=== PATIENT | female | born 1940 | race Caucasian/White ===

== ENCOUNTER 2017-11-27 11:23 | Inpatient (IN) ==
[2017-11-27] MEDS ORDERED: Naloxone 0.4 MG/ML INJ IVP PRN (14:44)
[2017-11-27] MEDS ORDERED: Acetaminophen 325 MG TABLET PO PRN (14:44)
[2017-11-27] MEDS ORDERED: Ampicillin/Sulbactam 3,000 MG in 0.9 % Sodium Chloride Mini Bag 100 ML IVPB SCH (14:49)
--- NOTE | 2017-11-27 15:50 | Internal Med History&Physical ---
Date of Encounter: 11/27/17 Time of Encounter: 15:30 Internal Medicine - H&P: HPI Chief complaint: Chills, bacteremia Admitted From: Emergency Dept Plans for Post Hospital Care: Transfer [facility] History of present illness: Ms. Taylor is a 77 year old female patient with history of diabetes, hypertension, hyperlipidemia who was hospitalized at [facility] for altered mental status and fever. Her blood cultures were positive for gram-positive cocci and so she was sent over. Patient describes chills and fever. Denies any chest pain or palpitations. Feels much better today. She has a long-standing skin wound in her upper back with no pain or discharge. Other than that she does not have any other ulcers. She denies any dysuria or hematuria. No chest pain or palpitations. She does have a bioprosthetic aortic valve. She is not on anticoagulation. She feels much better today compared to yesterday. She did receive vancomycin and Rocephin at the hospital. Past Med Surg Social Fam HX - Past Medical History Attestation: Yes The following information was validated with the patient. Source: patient Medical history: arthritis, cancer, cirrhosis, CHF, diabetes, hyperlipidemia, hypertension, liver disease Additional medical history: valvular heart disease Psychiatric history: no psych history - Past Surgical History Surgical History: appendectomy, cataract, heart valve replacement, hysterectomy , [place]/BS[place] Additional surgical history: HAMMER TOES. ACHILLES HEEL REPAIR. LEFT TKR. BLADDER REPAIR. AVR 08/2014. A&P. BREAST BIOPSY - Social History Smoking Status: Former smoker Smokeless Tobacco Status: No Alcohol use: none Drug use: none - Family History Mother Living Status: Age at : 65 Cause of : CVA Hx Family Cardiac Disorders: No Hx Family Respiratory Disorders: No Hx Family Endocrine Disorder: Yes Hx Family Neurologic Disorders: Yes Hx Family Medical Disorders: Yes Internal Medicine - H&P: Meds Albuterol Sulfate [Proair Respiclick] 180 mcg IH Q4H PRN 05/11/15 [History] Aspirin [Adult Low Dose Aspirin EC] 81 mg PO DAILY 05/11/15 [History] Ferrous Sulfate 325 mg PO DAILY 05/11/15 [History] Furosemide [Lasix] 40 mg PO BID 05/11/15 [History] Insulin Glargine [Lantus] 40 unit SQ BID 05/11/15 [History] Metoprolol [Lopressor] 25 mg PO DAILY 05/11/15 [History] Allopurinol [Zyloprim 100 MG] 100 mg PO DAILY 04/07/17 [History] Calcitriol [Rocaltrol] 0.25 mg PO DAILY 04/07/17 [History] Cholecalciferol (D-3) [Vitamin D] 5,000 unit PO DAILY 04/07/17 [History] Multivit-Min/FA/Lycopen/Lutein [Centrum Silver Tablet] 1 tab PO DAILY 04/07/17 [ History] Vitamin E Acetate [Vitamin E] 400 unit PO DAILY 04/07/17 [History] Oxycodone HCl [Oxaydo] 5 mg PO Q4H PRN 06/15/17 [History] Lactobacillus [Culturelle] 1 each PO BID #10 cap.sprink 11/10/17 [Rx] 3 Allergy/AdvReac Type Severity Reaction Status Date / Time Gyhtdly-Sdn-Sui Reductase AdvReac Muscle Pain Verified 11/07/17 13:56 Inhibitor [Statins] All Systems PM: A 10-system review of systems was performed and is negative for pertinent findings except as documented above in the HPI. - Constitutional Constitutional: chills, fever(s), no night sweats - EENT Eyes: no change in vision, no discharge, no pain, no photophobia Ears: no ear discharge, no ear pain, no tinnitus Nose, mouth and throat: no dysphagia, no nasal discharge, no neck pain, no sore throat - Cardiovascular Cardiovascular ROS IM: no chest pain, no diaphoresis, no dyspnea, no lightheadedness, no palpitations, no syncope - Respiratory Respiratory: no cough, no dyspnea, no wheezing, no excessive phlegm production - Gastrointestinal Gastrointestinal: no abdominal pain, no diarrhea, no hematemesis, no hematochezia, no melena, no nausea, no vomiting - Genitourinary Genitourinary: no change in urinary stream, no dysuria, no flank pain, no hematuria - Musculoskeletal Musculoskeletal ROS IM: no numbness, no tingling - Integumentary Integumentary IM: no rash, no unusual bruising - Neurological Neurological ROS: no confusion, no convulsions, no focal weakness, no numbness, no tingling, no tremor(s) - Hematologic/Lymphatic Hematologic/Lymphatic: no easy bruising - Constitutional Vitals: Pulse Resp BP Pulse Ox 69 18 167/67 94 11/27/17 14:08 11/27/17 14:08 11/27/17 14:08 11/27/17 14:08 General appearance: Present: cooperative, A&O X 3, pleasant, answers questions appropriately - Eye Eye exam: Present: EOMI, PERRL, conjuntiva pink, sclera anicteric - Neck Neck exam general surgery: Present: supple, trachea midline. Absent: lymphadenopathy - Respiratory Respiratory exam: Present: CTAB. Absent: accessory muscle use, rales, rhonchi, wheezes - Cardiovascular Cardiovascular exam: Present: RRR, +S1, +S2. Absent: diastolic murmur, gallop, rubs, systolic murmur - GI/Abdominal GI/Abdominal exam: Present: normal bowel sounds, soft, no peritoneal signs. Absent: distended, tenderness - Extremities Exam Extremities exam: Present: warm, radial pulses palpable and symmetrical. Absent : calf tenderness, cyanotic, pedal edema - Neurological Exam Neurological exam: Present: CN II-XII intact, oriented X3, no focal deficits. Absent: facial droop, speech deficit - Skin Skin exam: Present: dry, intact Internal Med - H&P Results - Labs Labs: WBC 3.5, hemoglobin 9.4, platelets 63, BUN 24, creatinine 1.45 - Impressions Chest x-ray shows no acute infiltrate - Assessment and plan (1) Staphylococcus aureus bacteremia Current Visit: Yes Status: Acute Assessment and plan: Patient with recurrent staph aureus bacteremia. We will place her on Unasyn. Consult infectious disease. No clear source. We will get 2-D echocardiogram. If patient continues to have fevers and positive blood culture she will need a ELVER even if the transthoracic echocardiogram is negative. High risk for complications. (2) Anemia Current Visit: Yes Status: Acute Assessment and plan: Patient with chronic anemia. Hemoglobin 9.4. We will monitor blood counts. Qualifiers: Anemia type: due to chronic kidney disease Chronic kidney disease stage: stage 3 (moderate) Qualified Code(s): N18.3 - Chronic kidney disease, stage 3 (moderate); D63.1 - Anemia in chronic kidney disease (3) CKD (chronic kidney disease), stage III Current Visit: Yes Status: Chronic Assessment and plan: Renal function appears to be stable. Will follow renal function as patient receives IV antibiotics. (4) DM type 2 (diabetes mellitus, type 2) Current Visit: Yes Status: Chronic Assessment and plan: Sliding scale insulin. Diabetic diet. Monitor blood sugars closely. Qualifiers: Diabetes mellitus halfway insulin use: with halfway use Diabetes mellitus complication status: with kidney complications Diabetes mellitus complication detail: with chronic kidney disease Chronic kidney disease stage : stage 3 (moderate) Qualified Code(s): E11.22 - Type 2 diabetes mellitus with diabetic chronic kidney disease; N18.3 - Chronic kidney disease, stage 3 ( moderate); Z79.4 - oysterman (current) use of insulin (5) Hypertension Current Visit: Yes Status: Chronic Assessment and plan: Uncontrolled. Resume home medications. Monitor blood pressure. If persistently elevated, will increase Lopressor dosage. Qualifiers: Hypertension type: essential hypertension Qualified Code(s): I10 - Essential (primary) hypertension (6) Thrombocytopenia Current Visit: Yes Status: Chronic Assessment and plan: Due to cirrhosis. Will monitor platelet counts. Avoid medical anticoagulation for now - Time Spent With Patient Total time spent is greater than 50% in coordination of care (as documented) at patient's floor/unit and/or counseling patient:
[2017-11-27] MEDS ORDERED: *HR* Dextrose 50 % in Water (Syg) 50 ML SYRINGE IVP PRN (15:56)
[2017-11-27] MEDS ORDERED: Dextrose Gel 15 GM/37.5 ML TUBE PO PRN ×2 (15:56)
[2017-11-27] MEDS ORDERED: D5% in Water 1,000 ML IVC PRN (15:56)
[2017-11-27] MEDS: Ampicillin/Sulbactam 3,000 MG in 0.9 % Sodium Chloride Mini Bag 100 ML IVPB SCH ×2 (16:04→22:46)
[2017-11-27] MEDS: Insulin LISPRO 300 UNITS/3 ML VIAL SQ SCH ×2 (16:10→22:45)
[2017-11-27] MEDS ORDERED: *HR* Heparin 5,000 UNIT/ML VIAL SQ SCH (18:00)
[2017-11-28] MEDS: Ampicillin/Sulbactam 3,000 MG in 0.9 % Sodium Chloride Mini Bag 100 ML IVPB SCH ×2 (04:03→09:39)
[2017-11-28 04:16] LABS: Basophils % 0.2 %; Eosinophils # 0.2 K/mcL (0.0-0.6); Hematocrit 30.3 % (35.3-44.9); Immature Granulocytes % 0.6 % (0-4); Immature Platelets 3.8 % (1.1-6.1); Lymphocytes # 1.3 K/mcL (0.6-4.6); Mean Corpuscular Hemoglobin 29.4 pg (28.0-33.3); Mean Corpuscular Volume 89.1 fL (83.0-100.0); Mean Platelet Volume 10.8 fL (9.4-12.4); Monocytes # 0.9 K/mcL (0.0-1.3); Monocytes % 18.1 %; Neutrophils # 2.6 K/mcL (1.6-8.9); Red Cell Distribution Width 15.7 % (11.5-14.5); Segmented Neutrophils % 52.1 %
[2017-11-28 04:24] LABS: Platelet Count 67 K/mcL (140-400)
[2017-11-28 04:34] LABS: Calcium 8.7 mg/dL (8.6-10.3); Potassium 3.9 mEq/L (3.5-5.1)
[2017-11-28 05:07] LABS: Platelet Estimate Decreased (Normal)
[2017-11-28] MEDS: Insulin LISPRO 300 UNITS/3 ML VIAL SQ SCH ×4 (09:42→21:05)
--- NOTE | 2017-11-28 10:51 | Infectious Disease Consult ---
Date of Encounter: 11/28/17 Time of Encounter: 10:45 Assessment and Plan (1) Sepsis Status: Acute Assessment and plan: Patient did have 2/4 SIRS criteria with fever and leukopenia Suspected source is persistent MSSA bacteremia 2/2 blood cultures positive for GPC collected at [place] Qualifiers: Sepsis type: methicillin susceptible Staphylococcus aureus Qualified Code(s ): A41.01 - Sepsis due to Methicillin susceptible Staphylococcus aureus (2) Bacteremia due to methicillin susceptible Staphylococcus aureus (MSSA) Status: Acute Assessment and plan: Complicated MSSA bacteremia due to setting of hardware s/p TKR and bioprosthetic valve Patient was admitted at [facility] earlier this month and only received 3 days IV Ancef and 5 days oral Doxycycline 2/2 blood cultures at [facility] initially growing GPC Repeat blood cultures x 3 Will discontinue Unasyn Start Nafcillin 2 gram q4h TTE did not show any vegatations ELVER pending; if positive recommend adding Gentamicin According to Modified Hayden's, she has 1 major (MSSA bacteremia) and 2 minor ( heart disease, fever) criteria Duration depends on clinical picture but in setting of complicated bacteremia, may need 4-6 weeks IV from negative culture Creatinine clearance 37 (3) Productive cough Status: Acute Assessment and plan: Initial CXR did reveal pulmonary vascular congestion In setting of bacteremia, will rule out pneumonia/septic emboli with non contrast chest CT (4) History of aortic valve replacement with bioprosthetic valve Status: Acute Assessment and plan: 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 Taylor is a 77 year old female who was admitted from [facility] on November 27 for gram positive cocci bacteremia. We are being consulted today for recurrent MSSA bacteremia. Patient has a medical history of diabetes, hypertension, bioprosthetic aortic valve, left total knee replacement who initially presented to [facility] on November 26 for confusion that started abruptly at 4 AM. Initial vital signs were temperature of 98.1 with second reading 5 hours later of 102.8, heart rate of 89 , respiratory rate of 18, blood pressure 140/67. Her white count was 5.7 and lactic acid was 2.3. Chest x-ray showed pulmonary vascular congestion and head CT was negative but had motion artifact. She was started on Vancomycin and Rocephin and once blood cultures came back 2 out of 2 for gram-positive cocci, patient was transferred to [place] to help identify source of infection. Once she was transferred here, patient was started on Unasyn and echocardiogram was obtained. Due to the fact that she has MSSA that is recurrent in setting of by prosthetic aortic valve, she is planned to get a transesophageal echo cardiogram today. During today's examination, she has been afebrile and non-tachycardic since admission, and white count is stable at 4.9. Patient states she is feeling well and has no complaints of chest pain pain. She has no shortness of breath but states she has cough with sputum production. She denies any fevers, chills, nausea, vomiting, or diarrhea. She states she has mild back pain is located in the upper back states this is due to basal cell carcinoma. 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 She denies any sick contacts, recent travel, hiking, or camping. She lives with her at home. Of note, patient was also admitted at [facility] from November 07 to November 10 for similar issues with delirium and fever of 101.2. At that time, patient also had MSSA bacteremia to have 2 cultures positive. She was given Ancef while inpatient and discharged with 5 days of doxycycline, which patient states she finished. CC: Raffi Sexton MD Past Med Surg Social Fam HX - Past Medical History Medical history: arthritis, cancer, cirrhosis, CHF, diabetes, hyperlipidemia, hypertension, liver disease Additional medical history: valvular heart disease Psychiatric history: no psych history - Past Surgical History Surgical History: appendectomy, cataract, heart valve replacement, hysterectomy , [place]/BS[place] Additional surgical history: HAMMER TOES. ACHILLES HEEL REPAIR. LEFT TKR. BLADDER REPAIR. AVR 08/2014. A&P. BREAST BIOPSY - Social History Smoking Status: Former smoker Smokeless Tobacco Status: No Alcohol use: none Drug use: none - Family History Mother Living Status: Age at : 65 Cause of : CVA Hx Family Cardiac Disorders: No Hx Family Respiratory Disorders: No Hx Family Endocrine Disorder: Yes Hx Family Neurologic Disorders: Yes Hx Family Medical Disorders: Yes Infectious Disease-CN:Meds Albuterol Sulfate [Proair Respiclick] 180 mcg IH Q4H PRN 05/11/15 [History] Allopurinol [Zyloprim 100 MG] 100 mg PO DAILY 04/07/17 [History] Calcitriol [Rocaltrol] 0.25 mg PO DAILY 04/07/17 [History] Cholecalciferol (D-3) [Vitamin D] 5,000 unit PO DAILY 04/07/17 [History] Multivit-Min/FA/Lycopen/Lutein [Centrum Silver Tablet] 1 tab PO DAILY 04/07/17 [ History] Vitamin E Acetate [Vitamin E] 400 unit PO DAILY 04/07/17 [History] Acetaminophen [Non-Aspirin] 325 mg PO DAILY PRN 11/28/17 [History] Ferrous Sulfate [Iron] 325 mg PO DAILY 11/28/17 [History] Furosemide [Lasix] 40 mg PO BID 11/28/17 [History] Insulin Glargine,Hum.rec.anlog [Lantus Solostar] 40 units SQ BID 11/28/17 [ History] Insulin LISPRO [Humalog] 0 unit SQ TIDWM 11/28/17 [History] Metoprolol [Lopressor] 25 mg PO DAILY 11/28/17 [History] Terbinafine HCl [Terbinafine HCl] 250 mg PO DAILY 11/28/17 [History] 3 Allergy/AdvReac Type Severity Reaction Status Date / Time Xsffgyd-Qrt-Vks Reductase AdvReac Muscle Pain Verified 11/28/17 10:02 Inhibitor [Statins] Review of systems: 10 point review of systems done, negative other for what is mentioned in history of present illness - Constitutional Constitutional: Present: chills, headache(s). Absent: fever(s), night sweats - Cardiovascular Cardiovascular: Present: edema, pedal edema. Absent: chest pain, chest pain at rest, dyspnea, irregular heart rhythm, leg edema, leg ulcers, lightheadedness, syncope - Respiratory Respiratory: Present: cough, chest congestion, excessive phlegm production. Absent: dyspnea, hemoptysis, dyspnea on exertion, wheezing, pain with cough - Gastrointestinal Gastrointestinal: Absent: abdominal pain, diarrhea, melena, nausea, vomiting - Genitourinary Genitourinary: Absent: difficulty urinating, urinary frequency, urinary incontinence - Musculoskeletal Musculoskeletal: Absent: muscle weakness, myalgias, numbness, tingling - Integumentary Integumentary: Present: non-healing lesions (in back). Absent: change in nails , new lesions Exam - Constitutional Vitals: Temp Pulse Resp BP Pulse Ox 98.3 F 62 16 142/62 99 11/28/17 07:42 11/28/17 07:42 11/28/17 07:42 11/28/17 07:42 11/28/17 07:42 General appearance: cooperative, no acute distress, obese, no febrile - Head Head exam: Present: atraumatic, normocephalic - Eye Eye exam: Present: EOMI, PERRL, sclera anicteric. Absent: conjunctival injection - ENT ENT exam: Present: mucous membranes moist Additional comments: No oral lesions noted - Neck Neck exam: Present: full ROM. Absent: meningismus - Respiratory Respiratory exam: Present: CTAB. Absent: accessory muscle use, chest wall tenderness, decreased breath sounds, respiratory distress, wheezes - Cardiovascular Cardiovascular exam: Present: RRR, systolic murmur. Absent: bradycardia, irregular rhythm, tachycardia - GI/Abdominal GI/Abdominal exam: Present: normal bowel sounds, soft. Absent: tenderness - Extremities Exam Extremities exam: Present: pedal edema (trace). Absent: tenderness - Back Exam Back exam: Present: rash noted (small scabbed over rash in upper right back, patient states from basal cell). Absent: vertebral tenderness - Neurological Exam Neurological exam: Present: alert, oriented X3. Absent: motor sensory deficit, facial droop, speech deficit - Psychiatric Psychiatric exam: Present: normal affect, normal mood - Skin Skin exam: Present: normal color. Absent: rash (No endocarditis stigmata) Infectious Disease CN: Results - Labs CBC & Chem 7: 12/01/17 08:28 12/01/17 08:28 - VTE Documentation of Mechanical Device: Intermittent pneumatic compression device Consult Discharge Plan - Plan Referrals: Latoya Harkins, [employer] [Primary Care Provider] - - Attending Attestation I examined this patient and my medical decision-making was reviewed with the Resident Physician. I agree with the documented findings, disposition and treatment plan as described except to the extent set forth below. This is an addendum to original report dictated by resident physician. Please refer to residents note for full detail. Patient is a 77-year-old woman with past medical history mentioned below including history of left total knee arthroplasty and bioprosthetic aortic valve replacement a few years back was admitted to [facility] recently for MSSA bacteremia. At that time patient was treated with 3 days of IV antibiotics and discharged home on 5 more days of doxycycline. Patient started feeling weak confused with altered mental status at home and was brought into the emergency department for evaluation. Patient was started on broad-spectrum antibiotics including vancomycin and Rocephin and cultures were obtained and 2 out of 2 sets grew gram-positive cocci likely MSSA. We were asked to evaluate the patient and make further recommendations. Currently patient appears comfortable nontoxic. Physical exam does not reveal conjunctival hemorrhage. I did not appreciate any new murmur. Patient does not have any vertebral tenderness. Patient skin with no rash or signs of endocarditis stigmata. Assessment and plan: MSSA bacteremia that is complicated. Patient had by prostatic valve and total knee arthroplasty on the left. ELVER was done and came back negative for endocarditis. No obvious source for the endocarditis. Patient does not have any central lines. Patient does not have any skin wounds. At this point patient will need at least 4 weeks worth of IV antibiotics. We will start the patient on nafcillin. Dose adjust based on creatinine clearance. MARÍA Monroy. Monitor labs and for drug toxicity Repeat blood cultures 3 now Once bacteremia has resolved for at least 48 hours we will put her PICC line
--- NOTE | 2017-11-28 10:53 | Internal Med Progress Note ---
<Sandra Farrar - Last Filed: 11/28/17 10:59> Date of Encounter: 11/28/17 Time of Encounter: 10:51 - Assessment and plan (1) Staphylococcus aureus bacteremia Current Visit: Yes Status: Acute Assessment and plan: Patient with recurrent staph aureus bacteremia. Patient currently on unasyn. ID consulted. No obvious source at this time. Patient does have bioprosthetic aortic valve TTE completed but leaflets not well visualized therefore ELVER ordered and pending (2) Anemia Current Visit: Yes Status: Acute Assessment and plan: Patient with chronic anemia. Hemoglobin 10.0. We will monitor blood counts. Qualifiers: Anemia type: due to chronic kidney disease Chronic kidney disease stage: stage 3 (moderate) Qualified Code(s): N18.3 - Chronic kidney disease, stage 3 (moderate); D63.1 - Anemia in chronic kidney disease (3) CKD (chronic kidney disease), stage III Current Visit: Yes Status: Chronic Assessment and plan: renal function appears to be stable. Will follow renal function as patient receives IV antibiotics. (4) DM type 2 (diabetes mellitus, type 2) Current Visit: Yes Status: Chronic Assessment and plan: Sliding scale insulin. Monitor blood sugars closely. Patient NPO for possible ELVER Qualifiers: Diabetes mellitus half-way insulin use: with half-way use Diabetes mellitus complication status: with kidney complications Diabetes mellitus complication detail: with chronic kidney disease Chronic kidney disease stage : stage 3 (moderate) Qualified Code(s): E11.22 - Type 2 diabetes mellitus with diabetic chronic kidney disease; N18.3 - Chronic kidney disease, stage 3 ( moderate); Z79.4 - FPC (current) use of insulin (5) Hypertension Current Visit: Yes Status: Chronic Assessment and plan: Resume home medications. Monitor blood pressure. Qualifiers: Hypertension type: essential hypertension Qualified Code(s): I10 - Essential (primary) hypertension (6) Thrombocytopenia Current Visit: Yes Status: Chronic Assessment and plan: Due to cirrhosis. Will monitor platelet counts. Avoid medical anticoagulation for now - Time Spent With Patient Total time spent is greater than 50% in coordination of care (as documented) at patient's floor/unit and/or counseling patient: - Subjective Interval history: Patient states she is feeling well today. Denies any chest pain, shortness of breath or dizziness. Denies any urinary symptoms. Does state she has had 2-3 episodes of loose bowels this morning but denies any blood or melena. - Constitutional Vitals: Temp Pulse Resp BP Pulse Ox 98.3 F 62 16 142/62 99 11/28/17 07:42 11/28/17 07:42 11/28/17 07:42 11/28/17 07:42 11/28/17 07:42 General appearance: Present: cooperative, A&O X 3, pleasant, answers questions appropriately - Head Head exam: Present: atraumatic, normocephalic - Neck Neck exam general surgery: Present: supple, trachea midline. Absent: lymphadenopathy - Cardiovascular Cardiovascular exam: Present: RRR, +S1, +S2. Absent: diastolic murmur, gallop, rubs, systolic murmur - GI/Abdominal GI/Abdominal exam: Present: normal bowel sounds, soft, no peritoneal signs. Absent: distended, tenderness - Neurological Exam Neurological exam: Present: alert, oriented X3, no focal deficits Internal Medicine: Result - Labs CBC & Chem 7: 11/28/17 04:01 11/28/17 04:01 Labs: Short CBC 11/28/17 Range/Units 04:01 WBC 4.9 (4.3-11.1) K/mcL Hgb 10.0 L (11.5-15.4) g/dL Hct 30.3 L (35.3-44.9) % Plt Count 67 L (140-400) K/mcL Neutrophils # 2.6 (1.6-8.9) K/mcL BMP 11/28/17 04:01 Sodium 136 Potassium 3.9 Chloride 105 Carbon Dioxide 23 BUN 26 H Creatinine 1.38 H Glucose 75 Calcium 8.7 - Impressions Impressions Echocardiogram 11/27/17 14:46 Impressions: LVEF 60-65%. Normal LV chamber size and function. Mild concentric left ventricular hypertrophy. Atypical septal motion consistent with post-operative status. Moderate left ventricular diastolic dysfunction. Normal right ventricular structure and function. Bioprosthetic aortic valve appears well seated in the LVOT. Leaflets were not well visualized. Significant prosthetic aortic stenosis suggested by Doppler. Mean gradient 41 mmHg. Peak velocity 4.44 m/s. These values are similar to the prior report from 08/2016. No aortic regurgitation. Mild tricuspid regurgitation. Moderate pulmonary hypertension. Estimated RVSP is 53 mmHg. No vegetations visualized. Consider repeat study or ELVER as clinically indicated. Left Ventricular Wall Motion: Rest Echo Findings All wall segments showed normal motion. Findings: Study Quality * Technically adequate exam. ECG Findings * Normal sinus rhythm. Left Ventricle * LVEF 60-65%. * Normal LV chamber size and function. * Mild concentric left ventricular hypertrophy. * Atypical septal motion consistent with post-operative status. * Moderate left ventricular diastolic dysfunction. Right Ventricle * Normal right ventricular structure and function. Left Atrium * Moderately dilated left atrium. Right Atrium * Mildly dilated right atrium. Aortic Valve * Bioprosthetic aortic valve appears well seated in the LVOT. Leaflets were not well visualized. * Significant prosthetic aortic stenosis suggested by Doppler. Mean gradient 41 mmHg. Peak velocty 4.44 m/s. These values are similar to the prior report from 08/2016. * No aortic regurgitation. Mitral Valve * Mild mitral annular calcification * Trace mitral regurgitation. * No mitral stenosis. Tricuspid Valve * Normal tricuspid valve structure. * Mild tricuspid regurgitation. * Moderate pulmonary hypertension. * Estimated RVSP is 53 mmHg. * Estimated RA pressure is presumed to be at least 5 mmHg mmHg. Pulmonic Valve * Normal pulmonic valve structure and function. * No pulmonic regurgitation. Aorta * Normally sized aortic root. Pericardium * The pericardium appears normal. IVC * The IVC is not well evaluated. Pulmonary Artery * Normal visualized portions of the main pulmonary artery. - VTE Documentation of Mechanical Device: Intermittent pneumatic compression device Consult Discharge Plan - Plan Referrals: Latoya Harkins FLEET TECHNICIAN [Primary Care Provider] - <Андрей Tirado - Last Filed: 11/28/17 13:16> Date of Encounter: 11/28/17 - Assessment and plan (1) Thrombocytopenia Current Visit: Yes Status: Chronic (2) CKD (chronic kidney disease), stage III Current Visit: Yes Status: Chronic (3) Staphylococcus aureus bacteremia Current Visit: Yes Status: Acute (4) DM type 2 (diabetes mellitus, type 2) Current Visit: Yes Status: Chronic Qualifiers: Diabetes mellitus intermediate manager insulin use: with intermediate manager use Diabetes mellitus complication status: with kidney complications Diabetes mellitus complication detail: with chronic kidney disease Chronic kidney disease stage : stage 3 (moderate) Qualified Code(s): E11.22 - Type 2 diabetes mellitus with diabetic chronic kidney disease; N18.3 - Chronic kidney disease, stage 3 ( moderate); Z79.4 - intermediate manager (current) use of insulin (5) Hypertension Current Visit: Yes Status: Chronic Qualifiers: Hypertension type: essential hypertension Qualified Code(s): I10 - Essential (primary) hypertension (6) Anemia Current Visit: Yes Status: Acute Qualifiers: Anemia type: due to chronic kidney disease Chronic kidney disease stage: stage 3 (moderate) Qualified Code(s): N18.3 - Chronic kidney disease, stage 3 (moderate); D63.1 - Anemia in chronic kidney disease - Time Spent With Patient Total time spent is greater than 50% in coordination of care (as documented) at patient's floor/unit and/or counseling patient: - Constitutional Vitals: Temp Pulse Resp BP Pulse Ox 97.9 F 67 16 160/86 96 11/28/17 11:52 11/28/17 11:52 11/28/17 11:52 11/28/17 11:52 11/28/17 11:52 Internal Medicine: Result - Labs CBC & Chem 7: 11/28/17 04:01 11/28/17 04:01 Labs: Short CBC 11/28/17 Range/Units 04:01 WBC 4.9 (4.3-11.1) K/mcL Hgb 10.0 L (11.5-15.4) g/dL Hct 30.3 L (35.3-44.9) % Plt Count 67 L (140-400) K/mcL Neutrophils # 2.6 (1.6-8.9) K/mcL BMP 11/28/17 04:01 Sodium 136 Potassium 3.9 Chloride 105 Carbon Dioxide 23 BUN 26 H Creatinine 1.38 H Glucose 75 Calcium 8.7 - Impressions Impressions Echocardiogram 11/27/17 14:46 Impressions: LVEF 60-65%. Normal LV chamber size and function. Mild concentric left ventricular hypertrophy. Atypical septal motion consistent with post-operative status. Moderate left ventricular diastolic dysfunction. Normal right ventricular structure and function. Bioprosthetic aortic valve appears well seated in the LVOT. Leaflets were not well visualized. Significant prosthetic aortic stenosis suggested by Doppler. Mean gradient 41 mmHg. Peak velocity 4.44 m/s. These values are similar to the prior report from 08/2016. No aortic regurgitation. Mild tricuspid regurgitation. Moderate pulmonary hypertension. Estimated RVSP is 53 mmHg. No vegetations visualized. Consider repeat study or ELVER as clinically indicated. Left Ventricular Wall Motion: Rest Echo Findings All wall segments showed normal motion. Findings: Study Quality * Technically adequate exam. ECG Findings * Normal sinus rhythm. Left Ventricle * LVEF 60-65%. * Normal LV chamber size and function. * Mild concentric left ventricular hypertrophy. * Atypical septal motion consistent with post-operative status. * Moderate left ventricular diastolic dysfunction. Right Ventricle * Normal right ventricular structure and function. Left Atrium * Moderately dilated left atrium. Right Atrium * Mildly dilated right atrium. Aortic Valve * Bioprosthetic aortic valve appears well seated in the LVOT. Leaflets were not well visualized. * Significant prosthetic aortic stenosis suggested by Doppler. Mean gradient 41 mmHg. Peak velocty 4.44 m/s. These values are similar to the prior report from 08/2016. * No aortic regurgitation. Mitral Valve * Mild mitral annular calcification * Trace mitral regurgitation. * No mitral stenosis. Tricuspid Valve * Normal tricuspid valve structure. * Mild tricuspid regurgitation. * Moderate pulmonary hypertension. * Estimated RVSP is 53 mmHg. * Estimated RA pressure is presumed to be at least 5 mmHg mmHg. Pulmonic Valve * Normal pulmonic valve structure and function. * No pulmonic regurgitation. Aorta * Normally sized aortic root. Pericardium * The pericardium appears normal. IVC * The IVC is not well evaluated. Pulmonary Artery * Normal visualized portions of the main pulmonary artery. - Attending Attestation I performed an independent interview and examine of this patient. I agree with the findings, assessment, and plan of Dr. Farrar, internal medicine resident. I also discussed the case with infectious diseases. They will adjust her antibiotics accordingly. I did order a transesophageal echocardiogram to better visualize felt leaflets. She does have a history of bioprosthetic aortic valve. The etiology of her bacteremia is of yet unknown. She does remain hemodynamically stable. Ultimately will need a PICC line for prolonged antibiotics once repeat blood cultures are negative. All else as outlined above.
[2017-11-28] MEDS ORDERED: Lidocaine Viscous Oral Soln 15 ML SOLUTION MM PRN (13:14)
[2017-11-28] MEDS ORDERED: *HR* FentaNYL (PF) 100 MCG/2 ML VIAL IVP PRN (13:14)
[2017-11-28] MEDS ORDERED: Tetracaine/Benzocaine/Butamben 200MG/SPRAY (100SPY/BOT) MM ONE (13:15)
[2017-11-28] MEDS ORDERED: 0.9 % Sodium Chloride 500 ML IVC ONE (13:15)
[2017-11-28] MEDS ORDERED: *HR* Midazolam HCl 5 MG/5 ML VIAL IVP PRN (13:15)
[2017-11-28] MEDS ORDERED: Nafcillin 2,000 MG in D5% in Water 100 ML IVPB SCH (16:00)
[2017-11-28] MEDS: Furosemide 40 MG TABLET PO SCH (17:07)
[2017-11-28] MEDS: Nafcillin 2,000 MG in D5% in Water 100 ML IVPB SCH (21:57)
[2017-11-29] MEDS: Nafcillin 2,000 MG in D5% in Water 100 ML IVPB SCH ×6 (00:33→22:20)
[2017-11-29 06:27] LABS: Hemoglobin 9.3 g/dL (11.5-15.4); Mean Corpuscular Volume 90.8 fL (83.0-100.0)
[2017-11-29 06:29] LABS: Basophils % 0.4 %; Eosinophils # 0.1 K/mcL (0.0-0.6); Eosinophils % 2.5 %; Hematocrit 28.6 % (35.3-44.9); Immature Granulocytes % 0.4 % (0-4); Immature Platelets 4.1 % (1.1-6.1); Lymphocytes # 0.7 K/mcL (0.6-4.6); Lymphocytes % 26.2 %; Mean Corpuscular HGB Conc 32.5 g/dL (31.6-35.5); Mean Corpuscular Hemoglobin 29.5 pg (28.0-33.3); Mean Platelet Volume 10.7 fL (9.4-12.4); Monocytes # 0.4 K/mcL (0.0-1.3); Monocytes % 15.6 %; Red Blood Count 3.15 M/mcL (3.82-4.97); Red Cell Distribution Width 15.8 % (11.5-14.5); Segmented Neutrophils % 54.9 %
[2017-11-29 06:31] LABS: Neutrophils # 1.5 K/mcL (1.6-8.9); Platelet Count 63 K/mcL (140-400)
[2017-11-29 06:47] LABS: Calcium 8.4 mg/dL (8.6-10.3); Potassium 4.2 mEq/L (3.5-5.1)
[2017-11-29] MEDS: (Terbinafine Hcl [Terbinafine Hcl] 250 MG) PO SCH (09:59)
[2017-11-29] MEDS: Furosemide 40 MG TABLET PO SCH ×2 (09:59→16:21)
[2017-11-29] MEDS: Cholecalciferol (D-3) 1,000 UNIT TABLET PO SCH (09:59)
[2017-11-29] MEDS: Multivit/Ca/Min/Fe/FA 1 TAB TABLET PO SCH (09:59)
[2017-11-29] MEDS: Insulin LISPRO 300 UNITS/3 ML VIAL SQ SCH ×4 (10:03→22:21)
--- NOTE | 2017-11-29 11:17 | Infectious Disease Progress No ---
Date of Encounter: 11/29/17 Time of Encounter: 11:14 - Assessment and Plan (1) Sepsis Current Visit: Yes Status: Acute The patient had two SIRS criteria with AMS on admission. Likely secondary to bacteremia. Improved. The patient has been afebrile. Leukopenia appears chronic. Blood cultures drawn 11/26/17 were positive 2/2 for MSSA. Repeat blood cultures drawn 11/28/17 are pending x 2 sets. Qualifiers: Sepsis type: methicillin susceptible Staphylococcus aureus Qualified Code(s ): A41.01 - Sepsis due to Methicillin susceptible Staphylococcus aureus (2) Bacteremia due to methicillin susceptible Staphylococcus aureus (MSSA) Current Visit: Yes Status: Acute Causative organism: MSSA. Source unclear. The patient does have a scabbed lesion to the middle of her upper back for several months, but it clinically does not appear infected. Complicated due to bioprosthetic valve and left knee prosthetic joint. Blood cultures drawn 11/26/17 were positive 2/2 for MSSA. Repeat blood cultures drawn 11/28/17 are pending x 2 sets. The patient has one major and two minor Modified Hayden's Criteria. No endocarditis stigmata noted on exam. TTE and ELVER negative for valvular vegetations. Continue nafcillin 2 grams IV Q4H. Duration of treatment depends on the clinical picture, but likely a total of 4 weeks from the first set of negative blood cultures. Avoid insertion of central venous access until repeat blood cultures are negative x 2 sets for 48 hours. Monitor renal function and dose-adjust antibiotics. director emergency services to assist with discharge planning. Further recommendations for labs, antibiotics, and ID followup pending additional workup. (3) Productive cough Current Visit: Yes Status: Acute CXR negative for acute infection. CT chest showed RUL nodules, infectious vs. inflammatory. Consider pulmonology to evaluate. (4) Cirrhosis Current Visit: No Status: Chronic Etiology unclear. Qualifiers: Hepatic cirrhosis type: unspecified hepatic cirrhosis Ascites presence: without ascites Qualified Code(s): K74.60 - Unspecified cirrhosis of liver (5) Pancytopenia Current Visit: No Status: Chronic Likely secondary to cirrhosis. Continue to trend. (6) History of aortic valve replacement with bioprosthetic valve Current Visit: Yes Status: Acute TTE did show prosthetic valve stenosis. Patient did mention she is in process of getting valve replaced via TAVR. (7) Diabetes mellitus Current Visit: Yes Status: Acute Qualifiers: Qualified Code(s): E11.9 - Type 2 diabetes mellitus without complications - Subjective Interval history: Patient seen and examined. No acute events noted overnight. Patient sitting up in the bedside chair, states overall she feels well. Denies fevers, chills, or rigors. Denies chest pain, shortness of breath, or cough. Denies nausea, vomiting, or diarrhea. States her stools are soft due to stool softeners. Denies abdominal pain, urinary complaints, or appetite changes. Denies oral thrush or skin lesions. Infect Dis PN-Objective Data - Labs CBC & Chem 7: 11/29/17 05:35 11/29/17 05:35 Labs: Laboratory Results - last 24 hr 11/28/17 11/28/17 11/28/17 07:40 11:51 12:31 WBC RBC Hgb Hct MCV MCH MCHC RDW Plt Count MPV Immature Gran % Seg Neutrophils % Lymphocytes % Monocytes % Eosinophils % Basophils % Neutrophils # Lymphocytes # Monocytes # Eosinophils # Basophils # Immature Plt Fraction Sodium Potassium Chloride Carbon Dioxide BUN Creatinine Est GFR ( Amer) Est GFR (Non-Af Amer) BUN/Creatinine Ratio Glucose POC Glucose 76 72 100 H Calculated Osmolality Calcium 11/28/17 11/29/17 11/29/17 16:58 05:35 05:35 WBC 2.8 L RBC 3.15 L Hgb 9.3 L Hct 28.6 L MCV 90.8 MCH 29.5 MCHC 32.5 RDW 15.8 H Plt Count 63 L MPV 10.7 Immature Gran % 0.4 Seg Neutrophils % 54.9 Lymphocytes % 26.2 Monocytes % 15.6 Eosinophils % 2.5 Basophils % 0.4 Neutrophils # 1.5 L Lymphocytes # 0.7 Monocytes # 0.4 Eosinophils # 0.1 Basophils # 0.0 Immature Plt Fraction 4.1 Sodium 134 L Potassium 4.2 Chloride 102 Carbon Dioxide 23 BUN 28 H Creatinine 1.34 H Est GFR ( Amer) 46 L Est GFR (Non-Af Amer) 38 L BUN/Creatinine Ratio 21 Glucose 306 H POC Glucose 71 Calculated Osmolality 295 Calcium 8.4 L Cultures: Cultures 11/28/17 16:46 Blood Culture - Preliminary Peripheral Venipuncture Culture is incubating and being continuously monitored for growth. Final report to follow. 11/28/17 16:47 Blood Culture - Preliminary Peripheral Venipuncture Culture is incubating and being continuously monitored for growth. Final report to follow. - Impressions Impressions Chest CT 11/28/17 14:08 IMPRESSION: 1. Suggestion of minimal interstitial edema potentially congestive heart failure given mild cardiomegaly and trace bilateral pleural effusions. 2. Minimal bronchial wall thickening potentially due to bronchitis, reactive airways disease, or pulmonary vascular congestion. 3. A few new solid nodules in the right upper lobe measure up to 0.3 cm, and a new 0.7 cm x 0.5 cm groundglass nodule is also seen in the right upper lobe. Benign sequelae of an infectious or inflammatory process are considered most likely. Recommend follow-up chest CT in 6-12 months as below. 4. Cirrhotic liver. There is a least mild splenomegaly, potentially due to associated portal hypertension. RECOMMENDATIONS: Fleischner Society guidelines for follow-up and management of incidentally detected pulmonary nodules: Multiple Solid Nodules: Nodule size less than 6 mm In a high-risk patient, optional CT at 12 months. Radiology 2017 http://pubs.[facility]na.org/doi/full/10.1148/radiol.[email or web address] Fleischner Society guidelines for follow-up and management of incidentally detected subsolid pulmonary nodules: Solitary ground glass nodule > than or equal to 6 mm - CT at 6-12 months to confirm persistence, then CT every 2 years until 5 years. Radiology 2017 http://pubs.[facility]na.org/doi/full/10.1148/[email or web address] D/ / Davion Ku MD / Davion Ku MD Interpreting Provider: Davion Ku MD Exam - Constitutional Vitals: Temp Pulse Resp BP Pulse Ox 97.4 F L 87 17 136/79 98 11/29/17 07:02 11/29/17 07:02 11/29/17 07:02 11/29/17 07:02 11/29/17 07:02 General appearance: average body habitus, cooperative, no acute distress - Head Head exam: Present: atraumatic, normal inspection, normocephalic - Eye Eye exam: Present: EOMI, normal appearance, PERRL Pupils: Present: normal accommodation Additional comments: No subconjunctival hemorrhage noted. - ENT ENT exam: Present: mucous membranes moist - Neck Neck exam: Present: normal inspection - Respiratory Respiratory exam: Present: CTAB. Absent: rales, respiratory distress, rhonchi, wheezes - Cardiovascular Cardiovascular exam: Present: RRR, +S1, +S2 - GI/Abdominal GI/Abdominal exam: Present: normal bowel sounds, soft. Absent: distended, tenderness - Extremities Exam Extremities exam: Present: normal inspection. Absent: joint swelling, pedal edema, tenderness - Back Exam Back exam: Absent: vertebral tenderness Additional comments: Scabbed lesion noted to the upper back without redness, warmth, or erythema. - Neurological Exam Neurological exam: Present: alert, oriented X3, no focal deficits - Psychiatric Psychiatric exam: Present: normal affect, normal mood - Skin Skin exam: Present: dry, intact, normal color, warm Additional comments: No endocarditis stigmata noted. - VTE Documentation of Mechanical Device: Intermittent pneumatic compression device Consult Discharge Plan - Plan Referrals: Latoya Harkins, MEAT PUMPER [Primary Care Provider] -
--- NOTE | 2017-11-29 14:39 | Internal Med Progress Note ---
Date of Encounter: 11/29/17 Time of Encounter: 11:00 - Assessment and plan (1) Staphylococcus aureus bacteremia Current Visit: Yes Status: Acute Assessment and plan: Patient with recurrent staph aureus bacteremia. We will place her on Unasyn. Consult infectious disease. No clear source. We will get 2-D echocardiogram. If patient continues to have fevers and positive blood culture she will need a ELVER even if the transthoracic echocardiogram is negative. High risk for complications. 11/29: MSSA bacteremia. Patient does have a history of a bioprosthetic aortic valve, as well as a left prosthetic knee joint. Initial blood cultures on November 26 were positive for MSSA, 2 out of 2. Repeat blood cultures performed on November 28 have no growth to date. ELVER is negative for endocarditis findings. Patient is day #2 IV nafcillin as directed by infectious disease. I currently will need at least 4 weeks of therapy from first set of negative blood cultures. Future PICC line once blood cultres remained negative for 48 hours. Are being made for possibly home infusion of antibiotics. Thus far no obvious source for her bacteremia. (2) Thrombocytopenia Current Visit: Yes Status: Chronic Assessment and plan: Due to cirrhosis. Will monitor platelet counts. Avoid medical anticoagulation for now (3) CKD (chronic kidney disease), stage III Current Visit: Yes Status: Chronic Assessment and plan: Renal function appears to be stable. Will follow renal function as patient receives IV antibiotics. (4) DM type 2 (diabetes mellitus, type 2) Current Visit: Yes Status: Chronic Assessment and plan: Sliding scale insulin. Diabetic diet. Monitor blood sugars closely. Qualifiers: Diabetes mellitus shelter insulin use: with shelter use Diabetes mellitus complication status: with kidney complications Diabetes mellitus complication detail: with chronic kidney disease Chronic kidney disease stage : stage 3 (moderate) Qualified Code(s): E11.22 - Type 2 diabetes mellitus with diabetic chronic kidney disease; N18.3 - Chronic kidney disease, stage 3 ( moderate); Z79.4 - group home (current) use of insulin (5) Hypertension Current Visit: Yes Status: Chronic Qualifiers: Hypertension type: essential hypertension Qualified Code(s): I10 - Essential (primary) hypertension (6) Anemia Current Visit: Yes Status: Acute Qualifiers: Anemia type: due to chronic kidney disease Chronic kidney disease stage: stage 3 (moderate) Qualified Code(s): N18.3 - Chronic kidney disease, stage 3 (moderate); D63.1 - Anemia in chronic kidney disease - Time Spent With Patient Total time spent is greater than 50% in coordination of care (as documented) at patient's floor/unit and/or counseling patient: - Subjective Interval history: Ms. Taylor is a 77 year old female who was admitted from [place] on November 27 for gram positive cocci bacteremia. We are being consulted today for recurrent MSSA bacteremia. Patient has a medical history of diabetes, hypertension, bioprosthetic aortic valve, left total knee replacement who initially presented to [place] on November 26 for confusion that started abruptly at 4 AM. Initial vital signs were temperature of 98.1 with second reading 5 hours later of 102.8, heart rate of 89 , respiratory rate of 18, blood pressure 140/67. Her white count was 5.7 and lactic acid was 2.3. Chest x-ray showed pulmonary vascular congestion and head CT was negative but had motion artifact. She was started on Vancomycin and Rocephin and once blood cultures came back 2 out of 2 for gram-positive cocci, patient was transferred to [place] to help identify source of infection. Once she was transferred here, patient was started on Unasyn and echocardiogram was obtained. Due to the fact that she has MSSA that is recurrent in setting of by prosthetic aortic valve, she is planned to get a transesophageal echo cardiogram today. During today's examination, she has been afebrile and non-tachycardic since admission, and white count is stable at 4.9. Patient states she is feeling well and has no complaints of chest pain pain. She has no shortness of breath but states she has cough with sputum production. She denies any fevers, chills, nausea, vomiting, or diarrhea. She states she has mild back pain is located in the upper back states this is due to basal cell carcinoma. 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 She denies any sick contacts, recent travel, hiking, or camping. She lives with her at home. Of note, patient was also admitted at [facility] from November 07 to November 10 for similar issues with delirium and fever of 101.2. At that time, patient also had MSSA bacteremia to have 2 cultures positive. She was given Ancef while inpatient and discharged with 5 days of doxycycline, which patient states she finished. 11/29: Patient states she feels well. No complaints. No chest pain or shortness of breath. No fevers or chills. No nausea, vomiting, diarrhea. No pain. - Constitutional Vitals: Temp Pulse Resp BP Pulse Ox 97.9 F 65 18 137/63 99 11/29/17 11:17 11/29/17 11:17 11/29/17 11:17 11/29/17 11:17 11/29/17 11:17 General appearance: Present: cooperative, A&O X 3, pleasant, answers questions appropriately - Head Head exam: Present: atraumatic, normocephalic - Eye Eye exam: Present: PERRL, conjuntiva pink, sclera anicteric Pupils: Present: PERRL - Neck Neck exam general surgery: Present: supple, trachea midline. Absent: lymphadenopathy - Respiratory Respiratory exam: Present: CTAB. Absent: accessory muscle use, rales, rhonchi, wheezes - Cardiovascular Cardiovascular exam: Present: RRR, +S1, +S2. Absent: diastolic murmur, gallop, rubs, systolic murmur - GI/Abdominal GI/Abdominal exam: Present: normal bowel sounds, soft, no peritoneal signs. Absent: distended, tenderness - Extremities Exam Extremities exam: Present: warm, radial pulses palpable and symmetrical. Absent : calf tenderness, cyanotic, pedal edema - Neurological Exam Neurological exam: Present: CN II-XII intact, oriented X3, no focal deficits. Absent: pronater drift, facial droop, speech deficit - Skin Skin exam: Present: dry, intact Additional comments: 1/2 inch irregular margin lesion on her back with brownish discoloration. No obvious infection. Internal Medicine: Result - Labs CBC & Chem 7: 11/29/17 05:35 11/29/17 05:35 Labs: Short CBC 11/29/17 Range/Units 05:35 WBC 2.8 L (4.3-11.1) K/mcL Hgb 9.3 L (11.5-15.4) g/dL Hct 28.6 L (35.3-44.9) % Plt Count 63 L (140-400) K/mcL Neutrophils # 1.5 L (1.6-8.9) K/mcL BMP 11/29/17 05:35 Sodium 134 L Potassium 4.2 Chloride 102 Carbon Dioxide 23 BUN 28 H Creatinine 1.34 H Glucose 306 H Calcium 8.4 L - Impressions Impressions Chest CT 11/28/17 14:08 IMPRESSION: 1. Suggestion of minimal interstitial edema potentially congestive heart failure given mild cardiomegaly and trace bilateral pleural effusions. 2. Minimal bronchial wall thickening potentially due to bronchitis, reactive airways disease, or pulmonary vascular congestion. 3. A few new solid nodules in the right upper lobe measure up to 0.3 cm, and a new 0.7 cm x 0.5 cm groundglass nodule is also seen in the right upper lobe. Benign sequelae of an infectious or inflammatory process are considered most likely. Recommend follow-up chest CT in 6-12 months as below. 4. Cirrhotic liver. There is a least mild splenomegaly, potentially due to associated portal hypertension. RECOMMENDATIONS: Fleischner Society guidelines for follow-up and management of incidentally detected pulmonary nodules: Multiple Solid Nodules: Nodule size less than 6 mm In a high-risk patient, optional CT at 12 months. Radiology 2017 http://pubs.rsna.org/doi/full/10.1148/radiol.[email or web address] Fleischner Society guidelines for follow-up and management of incidentally detected subsolid pulmonary nodules: Solitary ground glass nodule > than or equal to 6 mm - CT at 6-12 months to confirm persistence, then CT every 2 years until 5 years. Radiology 2017 http://pubs.rsna.org/doi/full/[email or web address] D/ / Davion Ku MD / Davion Ku MD Interpreting Provider: Davion Ku MD - VTE Documentation of Mechanical Device: Intermittent pneumatic compression device Consult Discharge Plan - Plan Referrals: Latoya Harkins CNP [Primary Care Provider] -
[2017-11-30] MEDS: Nafcillin 2,000 MG in D5% in Water 100 ML IVPB SCH ×6 (00:48→21:48)
[2017-11-30] MEDS: Cholecalciferol (D-3) 1,000 UNIT TABLET PO SCH (10:00)
[2017-11-30] MEDS: Furosemide 40 MG TABLET PO SCH ×2 (10:00→17:35)
[2017-11-30] MEDS: Multivit/Ca/Min/Fe/FA 1 TAB TABLET PO SCH (10:00)
[2017-11-30] MEDS: Insulin LISPRO 300 UNITS/3 ML VIAL SQ SCH ×4 (10:04→21:47)
[2017-11-30] MEDS: (Terbinafine Hcl [Terbinafine Hcl] 250 MG) PO SCH (10:05)
--- NOTE | 2017-11-30 14:17 | Internal Med Progress Note ---
Date of Encounter: 11/30/17 Time of Encounter: 11:00 - Assessment and plan (1) Staphylococcus aureus bacteremia Current Visit: Yes Status: Acute Assessment and plan: Patient with recurrent staph aureus bacteremia. We will place her on Unasyn. Consult infectious disease. No clear source. We will get 2-D echocardiogram. If patient continues to have fevers and positive blood culture she will need a ELVER even if the transthoracic echocardiogram is negative. High risk for complications. 11/29: MSSA bacteremia. Patient does have a history of a bioprosthetic aortic valve, as well as a left prosthetic knee joint. Initial blood cultures on November 26 were positive for MSSA, 2 out of 2. Repeat blood cultures performed on November 28 have no growth to date. ELVER is negative for endocarditis findings. Patient is day #2 IV nafcillin as directed by infectious disease. I currently will need at least 4 weeks of therapy from first set of negative blood cultures. Future PICC line once blood cultures remained negative for 48 hours. Are being made for possibly home infusion of antibiotics. Thus far no obvious source for her bacteremia. 11/30: Day #3 IV Nafcillin Plan PICC line tomorrow and arrange for discharge with prolonged antibiotics as outlined above (2) Thrombocytopenia Current Visit: Yes Status: Chronic Assessment and plan: Due to cirrhosis. Will monitor platelet counts. Avoid medical anticoagulation for now (3) CKD (chronic kidney disease), stage III Current Visit: Yes Status: Chronic Assessment and plan: Renal function appears to be stable. Will follow renal function as patient receives IV antibiotics. (4) DM type 2 (diabetes mellitus, type 2) Current Visit: Yes Status: Chronic Assessment and plan: Sliding scale insulin. Diabetic diet. Monitor blood sugars closely. 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 Resume home medications. Monitor blood pressure. If persistently elevated, will increase Lopressor dosage. Qualifiers: Hypertension type: essential hypertension Qualified Code(s): I10 - Essential (primary) hypertension (6) Anemia Current Visit: Yes Status: Acute Qualifiers: Anemia type: due to chronic kidney disease Chronic kidney disease stage: stage 3 (moderate) Qualified Code(s): N18.3 - Chronic kidney disease, stage 3 (moderate); D63.1 - Anemia in chronic kidney disease (7) Pancytopenia Current Visit: Yes Status: Acute Assessment and plan: Chronic issue - Time Spent With Patient Total time spent is greater than 50% in coordination of care (as documented) at patient's floor/unit and/or counseling patient: 25 - 35 minutes - Subjective Interval history: Ms. Taylor is a 77 year old female who was admitted from [place] on November 27 for gram positive cocci bacteremia. We are being consulted today for recurrent MSSA bacteremia. Patient has a medical history of diabetes, hypertension, bioprosthetic aortic valve, left total knee replacement who initially presented to [place] on November 26 for confusion that started abruptly at 4 AM. Initial vital signs were temperature of 98.1 with second reading 5 hours later of 102.8, heart rate of 89 , respiratory rate of 18, blood pressure 140/67. Her white count was 5.7 and lactic acid was 2.3. Chest x-ray showed pulmonary vascular congestion and head CT was negative but had motion artifact. She was started on Vancomycin and Rocephin and once blood cultures came back 2 out of 2 for gram-positive cocci, patient was transferred to [place] to help identify source of infection. Once she was transferred here, patient was started on Unasyn and echocardiogram was obtained. Due to the fact that she has MSSA that is recurrent in setting of by prosthetic aortic valve, she is planned to get a transesophageal echo cardiogram today. During today's examination, she has been afebrile and non-tachycardic since admission, and white count is stable at 4.9. Patient states she is feeling well and has no complaints of chest pain pain. She has no shortness of breath but states she has cough with sputum production. She denies any fevers, chills, nausea, vomiting, or diarrhea. She states she has mild back pain is located in the upper back states this is due to basal cell carcinoma. 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 She denies any sick contacts, recent travel, hiking, or camping. She lives with her at home. Of note, patient was also admitted at [place] from November 07 to November 10 for similar issues with delirium and fever of 101.2. At that time, patient also had MSSA bacteremia to have 2 cultures positive. She was given Ancef while inpatient and discharged with 5 days of doxycycline, which patient states she finished. 11/30: Patient states she feels well. No complaints at all. No chest pain or shortness of breath. No fevers or chills. No nausea, vomiting, diarrhea. No pain. - Constitutional Vitals: Temp Pulse Resp BP Pulse Ox 98.1 F 54 16 127/60 99 11/30/17 11:19 11/30/17 11:19 11/30/17 11:19 11/30/17 11:19 11/30/17 11:19 General appearance: Present: cooperative, A&O X 3, pleasant, answers questions appropriately - Head Head exam: Present: atraumatic, normocephalic - Eye Eye exam: Present: PERRL, conjuntiva pink, sclera anicteric Pupils: Present: PERRL - Neck Neck exam general surgery: Present: supple, trachea midline. Absent: lymphadenopathy - Respiratory Respiratory exam: Present: CTAB. Absent: accessory muscle use, rales, rhonchi, wheezes - Cardiovascular Cardiovascular exam: Present: RRR, +S1, +S2. Absent: diastolic murmur, gallop, rubs, systolic murmur - GI/Abdominal GI/Abdominal exam: Present: normal bowel sounds, soft, no peritoneal signs. Absent: distended, tenderness - Extremities Exam Extremities exam: Present: warm, radial pulses palpable and symmetrical. Absent : calf tenderness, cyanotic, pedal edema - Neurological Exam Neurological exam: Present: CN II-XII intact, oriented X3, no focal deficits. Absent: pronater drift, facial droop, speech deficit - Skin Skin exam: Present: dry, intact Internal Medicine: Result - Labs CBC & Chem 7: 11/29/17 05:35 11/29/17 05:35 - VTE Documentation of Mechanical Device: Intermittent pneumatic compression device Consult Discharge Plan - Plan Referrals: Latoya Harkins, [employer] [Primary Care Provider] -
[2017-12-01] MEDS: Nafcillin 2,000 MG in D5% in Water 100 ML IVPB SCH ×4 (00:58→12:46)
[2017-12-01] MEDS: Furosemide 40 MG TABLET PO SCH (08:11)
[2017-12-01] MEDS: Multivit/Ca/Min/Fe/FA 1 TAB TABLET PO SCH (08:11)
[2017-12-01] MEDS: Cholecalciferol (D-3) 1,000 UNIT TABLET PO SCH (08:11)
[2017-12-01] MEDS: Insulin LISPRO 300 UNITS/3 ML VIAL SQ SCH ×4 (08:12→21:43)
[2017-12-01] MEDS: (Terbinafine Hcl [Terbinafine Hcl] 250 MG) PO SCH (08:12)
--- NOTE | 2017-12-01 08:15 | Internal Med Progress Note ---
Date of Encounter: 12/01/17 - Assessment and plan (1) Staphylococcus aureus bacteremia Current Visit: Yes Status: Acute Assessment and plan: Patient with recurrent staph aureus bacteremia. We will place her on Unasyn. Consult infectious disease. No clear source. We will get 2-D echocardiogram. If patient continues to have fevers and positive blood culture she will need a ELVER even if the transthoracic echocardiogram is negative. High risk for complications. 11/29: MSSA bacteremia. Patient does have a history of a bioprosthetic aortic valve, as well as a left prosthetic knee joint. Initial blood cultures on November 26 were positive for MSSA, 2 out of 2. Repeat blood cultures performed on November 28 have no growth to date. ELVER is negative for endocarditis findings. Patient is day #2 IV nafcillin as directed by infectious disease. I currently will need at least 4 weeks of therapy from first set of negative blood cultures. Future PICC line once blood cultures remained negative for 48 hours. Are being made for possibly home infusion of antibiotics. Thus far no obvious source for her bacteremia. 11/30: Day #3 IV Nafcillin Plan PICC line tomorrow and arrange for discharge with prolonged antibiotics as outlined above 12/01 Day #4 Nafcillin, PICC today and possible DC tomorrow (2) Thrombocytopenia Current Visit: Yes Status: Chronic Assessment and plan: Due to cirrhosis. Will monitor platelet counts. Avoid medical anticoagulation for now (3) CKD (chronic kidney disease), stage III Current Visit: Yes Status: Chronic Assessment and plan: Renal function appears to be stable. Will follow renal function as patient receives IV antibiotics. (4) DM type 2 (diabetes mellitus, type 2) Current Visit: Yes Status: Chronic Assessment and plan: Sliding scale insulin. Diabetic diet. Monitor blood sugars closely. 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 Resume home medications. Monitor blood pressure. Remains elevated, HR cannot tolerate increase of lopressor. Add amlodipine 5mg Qualifiers: Hypertension type: essential hypertension Qualified Code(s): I10 - Essential (primary) hypertension (6) Anemia Current Visit: Yes Status: Acute Assessment and plan: Patient with chronic anemia. Hemoglobin 9.4. We will monitor blood counts. Qualifiers: Anemia type: due to chronic kidney disease Chronic kidney disease stage: stage 3 (moderate) Qualified Code(s): N18.3 - Chronic kidney disease, stage 3 (moderate); D63.1 - Anemia in chronic kidney disease (7) Pancytopenia Current Visit: Yes Status: Acute Assessment and plan: Chronic issue - Time Spent With Patient Total time spent is greater than 50% in coordination of care (as documented) at patient's floor/unit and/or counseling patient: - Constitutional Vitals: Temp Pulse Resp BP Pulse Ox 97.7 F 62 16 143/60 95 12/01/17 07:47 12/01/17 07:47 12/01/17 07:47 12/01/17 07:47 12/01/17 07:47 General appearance: Present: cooperative, A&O X 3, pleasant, answers questions appropriately Internal Medicine: Result - Labs CBC & Chem 7: 11/29/17 05:35 11/29/17 05:35 - VTE Documentation of Mechanical Device: Intermittent pneumatic compression device Consult Discharge Plan - Plan Referrals: Latoya Harkins CNP [Primary Care Provider] -
[2017-12-01 08:43] LABS: Basophils % 0.6 %; Immature Granulocytes % 0.6 % (0-4); Mean Platelet Volume 9.8 fL (9.4-12.4)
[2017-12-01 08:44] LABS: Eosinophils # 0.1 K/mcL (0.0-0.6); Eosinophils % 2.5 %; Hematocrit 30.3 % (35.3-44.9); Hemoglobin 9.9 g/dL (11.5-15.4); Immature Platelets 2.8 % (1.1-6.1); Lymphocytes % 26.9 %; Mean Corpuscular HGB Conc 32.7 g/dL (31.6-35.5); Mean Corpuscular Hemoglobin 29.2 pg (28.0-33.3); Mean Corpuscular Volume 89.4 fL (83.0-100.0); Monocytes # 0.4 K/mcL (0.0-1.3); Monocytes % 10.8 %; Neutrophils # 2.1 K/mcL (1.6-8.9); Red Blood Count 3.39 M/mcL (3.82-4.97); Red Cell Distribution Width 15.5 % (11.5-14.5); Segmented Neutrophils % 58.6 %
[2017-12-01 08:49] LABS: Platelet Count 86 K/mcL (140-400)
[2017-12-01 09:02] LABS: Calcium 8.7 mg/dL (8.6-10.3); Potassium 3.8 mEq/L (3.5-5.1)
--- NOTE | 2017-12-01 11:33 | Discharge Summary ---
<Davion Starkey - Last Filed: 12/01/17 12:44> - NOTES TO OUTPATIENT PROVIDER Notes to Outpatient Provider: Patient was admitted with altered mental status and fever, was found to have MSSA bacteremia. She will require a total of 28 days of nafcillin, and she is being discharged to a [facility] facility for continued IV antibiotics. Additionally, she did have some hypertension with borderline bradycardia, added amlodipine 5 mg. Finally, she had incidental lung nodules found on chest CT which will require outpatient follow- up. Orders not resulted at time of discharge: Pending orders 11/28/17 16:46 Culture,Blood [BC] Routine Date of Encounter: 12/01/17 Time of Encounter: 09:40 - Discharge Diagnosis (1) Staphylococcus aureus bacteremia Priority: Primary Status: Acute Assessment and Plan: Patient with recurrent staph aureus bacteremia. We will place her on Unasyn. Consult infectious disease. No clear source. We will get 2-D echocardiogram. If patient continues to have fevers and positive blood culture she will need a ELVER even if the transthoracic echocardiogram is negative. High risk for complications. 11/29: MSSA bacteremia. Patient does have a history of a bioprosthetic aortic valve, as well as a left prosthetic knee joint. Initial blood cultures on November 26 were positive for MSSA, 2 out of 2. Repeat blood cultures performed on November 28 have no growth to date. ELVER is negative for endocarditis findings. Patient is day #2 IV nafcillin as directed by infectious disease. I currently will need at least 4 weeks of therapy from first set of negative blood cultures. Future PICC line once blood cultures remained negative for 48 hours. Are being made for possibly home infusion of antibiotics. Thus far no obvious source for her bacteremia. 11/30: Day #3 IV Nafcillin Plan PICC line tomorrow and arrange for discharge with prolonged antibiotics as outlined above 7 Day #4 Nafcillin, Midline/EPIV today. DC to SNF today pending placement (2) Thrombocytopenia Priority: Secondary Status: Chronic Assessment and Plan: Due to cirrhosis. Will monitor platelet counts. Avoid medical anticoagulation for now (3) CKD (chronic kidney disease), stage III Priority: Secondary Status: Chronic Assessment and Plan: Renal function appears to be stable. Will follow renal function as patient receives IV antibiotics. (4) DM type 2 (diabetes mellitus, type 2) Priority: Secondary Status: Chronic Assessment and Plan: Sliding scale insulin. Diabetic diet. Monitor blood sugars closely. Qualifiers: Diabetes mellitus detention insulin use: with long term care social worker use Diabetes mellitus complication status: with kidney complications Diabetes mellitus complication detail: with chronic kidney disease Chronic kidney disease stage : stage 3 (moderate) Qualified Code(s): E11.22 - Type 2 diabetes mellitus with diabetic chronic kidney disease; N18.3 - Chronic kidney disease, stage 3 ( moderate); Z79.4 - long term care social worker (current) use of insulin (5) Hypertension Priority: Secondary Status: Chronic Assessment and Plan: Uncontrolled. Resume home medications. Monitor blood pressure. Remains elevated, HR cannot tolerate increase of lopressor. Add amlodipine 5mg Qualifiers: Hypertension type: essential hypertension Qualified Code(s): I10 - Essential (primary) hypertension (6) Anemia Priority: Secondary Status: Acute Assessment and Plan: Patient with chronic anemia. Hemoglobin 9.4. We will monitor blood counts. Qualifiers: Anemia type: due to chronic kidney disease Chronic kidney disease stage: stage 3 (moderate) Qualified Code(s): N18.3 - Chronic kidney disease, stage 3 (moderate); D63.1 - Anemia in chronic kidney disease (7) Pancytopenia Priority: Secondary Status: Acute Assessment and Plan: Chronic issue Hospital course: Ms. Taylor is a 77 year old female with history of diabetes, hypertension, hyperlipidemia who was hospitalized for altered mental status and fever. She was found to have gram-positive cocci on blood culture which did grow MSSA. She underwent full cardiovascular workup for possible infective endocarditis which was negative. Patient will require 28 days total nafcillin, is in agreement to transfer to SNF for continued treatment. For more detailed hospital course information please see individual assessments and plans. Discharge discussed with: patient, nurse, case management, building performance consultant - Time Spent with Patient Total time spent providing and/or coordinating discharge services: Greater than 30 minutes - Discharge Medications Prescriptions: amLODIPine [Norvasc] 5 mg PO DAILY #30 tablet ceFAZolin [Ancef] 1,000 gm IVP Q12H 23 Days vial Home Medications: Albuterol Sulfate [Proair Respiclick] 180 mcg IH Q4H PRN 05/11/15 [History] Allopurinol [Zyloprim 100 MG] 100 mg PO DAILY 04/07/17 [History] Calcitriol [Rocaltrol] 0.25 mg PO DAILY 04/07/17 [History] Cholecalciferol (D-3) [Vitamin D] 5,000 unit PO DAILY 04/07/17 [History] Multivit-Min/FA/Lycopen/Lutein [Centrum Silver Tablet] 1 tab PO DAILY 04/07/17 [ History] Vitamin E Acetate [Vitamin E] 400 unit PO DAILY 04/07/17 [History] Acetaminophen [Non-Aspirin] 325 mg PO DAILY PRN 11/28/17 [History] Ferrous Sulfate [Iron] 325 mg PO DAILY 11/28/17 [History] Furosemide [Lasix] 40 mg PO BID 11/28/17 [History] Insulin Glargine,Hum.rec.anlog [Lantus Solostar] 40 units SQ BID 11/28/17 [ History] Insulin LISPRO [Humalog] 0 unit SQ TIDWM 11/28/17 [History] Metoprolol [Lopressor] 25 mg PO DAILY 11/28/17 [History] Terbinafine HCl 250 mg PO DAILY 11/28/17 [History] amLODIPine [Norvasc] 5 mg PO DAILY #30 tablet 12/01/17 [Rx] ceFAZolin [Ancef] 1,000 gm IVP Q12H 23 Days vial 12/01/17 [Rx] Allergies/Adverse Reactions: 3 Allergy/AdvReac Type Severity Reaction Status Date / Time Erdmwfa-Nrs-Nfd Reductase AdvReac Muscle Pain Verified 11/28/17 10:02 Inhibitor [Statins] Date of admission: 11/27/17 14:44 Primary care physician: Latoya Harkins CNP Consults: 11/27/17 14:20 Consult to Child Development Teacher [CONS] Routine Reason for SW Consult: D/C PLANNING 11/27/17 14:49 Consult to Infectious Diseases [CONS] Routine Consulting Provider: Infectious Disease Kenvir Reason for Consult: Recurrent MSSA bacteremia Time Notified: 14:49 Call Completed: Yes 12/01/17 08:10 Consult to PICC team [Consult to Invasive Line Access Team] [CONS] Routine Reason for Consult: PICC Placement for [facility] ABX Line Type: PICC 12/01/17 08:54 Consult to Invasive Line Access Team [CONS] Routine Reason for Consult: detention IV ATB Line Type: Midline Discharging clinician: Davion Starkey Anticipated date of discharge: 12/02/17 - Constitutional Vitals: Temp Pulse Resp BP Pulse Ox 97.7 F 62 16 143/60 95 12/01/17 07:47 12/01/17 07:47 12/01/17 07:47 12/01/17 07:47 12/01/17 07:47 General appearance: Present: cooperative, A&O X 3, pleasant, answers questions appropriately Exam: Gen: Vitals noted. No acute distress. HEENT: Normocephalic, atraumatic Neck: Supple. No adenopathy. Cardiac: RRR, Aortic stenosis murmur, +S1/S2 Pulmonary: CTA bilaterally, no wheezes, rales or rhonchi, equal chest expansion Abdomen: soft, nontender, no guarding Extremities: no BLE edema, nontender calf, no cyanosis or clubbing Neuro: moves all extremities, no focal deficits. A&Ox3 Psych: Appropriate mood and behavior - Patient Status Disposition: Transfer SNF Condition: Fair Functional capacity at discharge: uses cane/walker Overall status at discharge: patient is progressing back to baseline - Discharge Instructions Follow Up With: Latoya Harkins DRAWER MAKER [Primary Care Provider] - Additional Instructions: Continue IV antibiotics Continue Amlodipine 5mg - Diet and Activity Activity: increase activity as tolerated, wear oxygen at night Diet: advance to your usual diet - VTE Documentation of Mechanical Device: Intermittent pneumatic compression device <Андрей Tirado - Last Filed: 12/01/17 14:57> Orders not resulted at time of discharge: Pending orders 11/28/17 16:46 Culture,Blood [] Routine Date of Encounter: 12/01/17 - Discharge Diagnosis (1) Thrombocytopenia Status: Chronic (2) CKD (chronic kidney disease), stage III Status: Chronic (3) Staphylococcus aureus bacteremia Status: Acute (4) DM type 2 (diabetes mellitus, type 2) Status: Chronic Qualifiers: Diabetes mellitus detention insulin use: with long term care social worker use Diabetes mellitus complication status: with kidney complications Diabetes mellitus complication detail: with chronic kidney disease Chronic kidney disease stage : stage 3 (moderate) Qualified Code(s): E11.22 - Type 2 diabetes mellitus with diabetic chronic kidney disease; N18.3 - Chronic kidney disease, stage 3 ( moderate); Z79.4 - group home (current) use of insulin (5) Hypertension Status: Chronic Qualifiers: Hypertension type: essential hypertension Qualified Code(s): I10 - Essential (primary) hypertension (6) Anemia Status: Acute Qualifiers: Anemia type: due to chronic kidney disease Chronic kidney disease stage: stage 3 (moderate) Qualified Code(s): N18.3 - Chronic kidney disease, stage 3 (moderate); D63.1 - Anemia in chronic kidney disease (7) Pancytopenia Status: Acute Hospital course: Ms. Taylor is a 77 year old female - Time Spent with Patient Total time spent providing and/or coordinating discharge services: Date of admission: 11/27/17 14:44 Primary care physician: Latoya Harkins CNP Consults: 11/27/17 14:20 Consult to Child Development Teacher [CONS] Routine Reason for SW Consult: D/C PLANNING 11/27/17 14:49 Consult to Infectious Diseases [CONS] Routine Consulting Provider: Infectious Disease Kenvir Reason for Consult: Recurrent MSSA bacteremia Time Notified: 14:49 Call Completed: Yes 12/01/17 08:10 Consult to PICC team [Consult to Invasive Line Access Team] [CONS] Routine Reason for Consult: PICC Placement for [facility] ABX Line Type: PICC 12/01/17 08:54 Consult to Invasive Line Access Team [CONS] Routine Reason for Consult: long term care social worker IV ATB Line Type: Midline - Constitutional Vitals: Temp Pulse Resp BP Pulse Ox 97.9 F 54 16 155/67 98 12/01/17 11:42 12/01/17 11:42 12/01/17 11:42 12/01/17 11:42 12/01/17 11:42 - Attending Attestation I performed an independent interview and examine this patient. I agree with the findings, assessment, and plan of Dr. Piemntel, internal medicine resident. Patient is doing well. Unfortunately she did have an increased creatinine which may be due to nafcillin. Discussed with pharmacy and we did change the nafcillin to Ancef. She was also discussed with infectious diseases. She will receive IV fluids overnight and repeat creatinine in the morning. otherwise is doing well and deemed stable for discharge pending tomorrow's creatinine. 37 minutes spent on discharge and coordination of care. No definitive source for her bacteremia identified. Gen: NAD, aa0x3 Skin warm and dry Lung ctab ht rrr abd soft +bs, nt Ext no edema Addendum entered and electronically signed by Davion Starkey DO 12/01/17 13: 59: Per ID recommendation, we will give cefazolin rather than nafcillin due to DIDIER.
--- NOTE | 2017-12-01 11:41 | Physician Discharge Referral ---
ExtendedCare Referral Info Transfer To: SNF Provider in Charge: Celestino Provider in Charge after Transfer: PCP Institutional Level of Care: Skilled - Diagnosis (1) Staphylococcus aureus bacteremia Priority: Primary Status: Acute (2) Thrombocytopenia Priority: Secondary Status: Chronic (3) CKD (chronic kidney disease), stage III Priority: Secondary Status: Chronic (4) DM type 2 (diabetes mellitus, type 2) Priority: Secondary Status: Chronic (5) Hypertension Priority: Secondary Status: Chronic (6) Anemia Priority: Secondary Status: Acute (7) Pancytopenia Priority: Secondary Status: Acute Expected Duration of Placement: 24 days Prognosis: Good Aware of Diagnosis: Patient, Family Aware of Prognosis: Patient, Family - Transfer Medications Prescriptions: amLODIPine [Norvasc] 5 mg PO DAILY #30 tablet Nafcillin 2,000 mg IVPB Q4H 24 Days vial Home Medications: Albuterol Sulfate [Proair Respiclick] 180 mcg IH Q4H PRN 05/11/15 [History] Allopurinol [Zyloprim 100 MG] 100 mg PO DAILY 04/07/17 [History] Calcitriol [Rocaltrol] 0.25 mg PO DAILY 04/07/17 [History] Cholecalciferol (D-3) [Vitamin D] 5,000 unit PO DAILY 04/07/17 [History] Multivit-Min/FA/Lycopen/Lutein [Centrum Silver Tablet] 1 tab PO DAILY 04/07/17 [ History] Vitamin E Acetate [Vitamin E] 400 unit PO DAILY 04/07/17 [History] Acetaminophen [Non-Aspirin] 325 mg PO DAILY PRN 11/28/17 [History] Ferrous Sulfate [Iron] 325 mg PO DAILY 11/28/17 [History] Furosemide [Lasix] 40 mg PO BID 11/28/17 [History] Insulin Glargine,Hum.rec.anlog [Lantus Solostar] 40 units SQ BID 11/28/17 [ History] Insulin LISPRO [Humalog] 0 unit SQ TIDWM 11/28/17 [History] Metoprolol [Lopressor] 25 mg PO DAILY 11/28/17 [History] Terbinafine HCl 250 mg PO DAILY 11/28/17 [History] Nafcillin 2,000 mg IVPB Q4H 24 Days vial 12/01/17 [Rx] amLODIPine [Norvasc] 5 mg PO DAILY #30 tablet 12/01/17 [Rx] Allergies/Adverse Reactions: 3 Allergy/AdvReac Type Severity Reaction Status Date / Time Tpsoiyb-Kim-Lon Reductase AdvReac Muscle Pain Verified 11/28/17 10:02 Inhibitor [Statins] - Respiratory Orders Other (Titrate as needed to SPO2 > 88%) Smoking Cessation: Smoking cessation has been advised. For more information, call the [employer] Tobacco Quit Line at 1-989-GBRN-NOW. - Lab Orders Lab Orders: CBC - Ancillary Orders May use pressure relief devices daily prn - Advance Directives Living Will: Yes Power of Manager Strategic Development: Yes Code Status: Full Code - Mobility Orders Chair, Ambulate (with assistance as needed) - Rehabiliation Orders Rehab Potential: Good Rehab Orders: ROM Exercises, Evaluation for Physical Therapy - Diet Orders Regular CERTIFICATION: I certify that the transfer of the above named patient to an Extended Care Facility is necessary for the continuing treatment of the diagnosis listed. The above information is true and accurate reflection of patient's current condition. Confidential - Redisclosure prohibited without a patient's written consent.
--- NOTE | 2017-12-01 12:15 | Infectious Disease Progress No ---
Date of Encounter: 12/01/17 Time of Encounter: 11:04 - Assessment and Plan (1) Sepsis Current Visit: Yes Status: Acute The patient had 2 SIRS criteria w/ AMS on admission - Likely secondary to bacteremia - Improved. The patient has been afebrile - Blood CX drawn 11/26/17 were positive 2/2 for MSSA - Repeat blood CX drawn 11/28/17 are pending x 2 sets - White count of 3.6 this morning; leukopenia appears chronic Qualifiers: Sepsis type: methicillin susceptible Staphylococcus aureus Qualified Code(s ): A41.01 - Sepsis due to Methicillin susceptible Staphylococcus aureus (2) Bacteremia due to methicillin susceptible Staphylococcus aureus (MSSA) Current Visit: Yes Status: Acute Causative organism: MSSA. - Source unclear - Complicated due to bioprosthetic valve and L knee prosthetic joint. - Blood CX 11/26/17: + MSSA, 2/2 - Blood CX 11/28/17: pending x 2 sets - TTE and ELVER negative for valvular vegetations. - Has been treated with nafcillin 2 grams IV Q4H (day 4) - Midline/EPIV today - Will require a total of 28 days of abx; Due to patient's DIDIER, we recommend switching patient from nafcillin to cefazolin renally adjusted to Q12 (3) Productive cough Current Visit: Yes Status: Acute - CXR negative for acute infection - CT chest showed RUL nodules, infectious vs. 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 States that she is feeling well today. Reports having some loose stools, but that this is normal for her. Denies nausea, vomiting, fevers, chills, abdominal pain, urinary complaints. Reports that she was able to eat well this morning without difficulty. Infect Dis PN-Objective Data - Labs CBC & Chem 7: 12/01/17 08:28 12/01/17 08:28 Labs: Laboratory Results - last 24 hr 11/29/17 11/29/17 11/29/17 07:05 11:18 16:22 WBC RBC Hgb Hct MCV MCH MCHC RDW Plt Count MPV Immature Gran % Seg Neutrophils % Lymphocytes % Monocytes % Eosinophils % Basophils % Neutrophils # Lymphocytes # Monocytes # Eosinophils # Basophils # Immature Plt Fraction Sodium Potassium Chloride Carbon Dioxide BUN Creatinine Est GFR ( Amer) Est GFR (Non-Af Amer) BUN/Creatinine Ratio Glucose POC Glucose 283 H 287 H 167 H Calculated Osmolality Calcium 11/29/17 11/30/17 11/30/17 20:09 07:18 11:21 WBC RBC Hgb Hct MCV MCH MCHC RDW Plt Count MPV Immature Gran % Seg Neutrophils % Lymphocytes % Monocytes % Eosinophils % Basophils % Neutrophils # Lymphocytes # Monocytes # Eosinophils # Basophils # Immature Plt Fraction Sodium Potassium Chloride Carbon Dioxide BUN Creatinine Est GFR ( Amer) Est GFR (Non-Af Amer) BUN/Creatinine Ratio Glucose POC Glucose 185 H 201 H 340 H Calculated Osmolality Calcium 11/30/17 11/30/17 12/01/17 16:21 20:02 07:57 WBC RBC Hgb Hct MCV MCH MCHC RDW Plt Count MPV Immature Gran % Seg Neutrophils % Lymphocytes % Monocytes % Eosinophils % Basophils % Neutrophils # Lymphocytes # Monocytes # Eosinophils # Basophils # Immature Plt Fraction Sodium Potassium Chloride Carbon Dioxide BUN Creatinine Est GFR ( Amer) Est GFR (Non-Af Amer) BUN/Creatinine Ratio Glucose POC Glucose 300 H 225 H 199 H Calculated Osmolality Calcium 12/01/17 12/01/17 08:28 08:28 WBC 3.6 L RBC 3.39 L Hgb 9.9 L Hct 30.3 L MCV 89.4 MCH 29.2 MCHC 32.7 RDW 15.5 H Plt Count 86 L MPV 9.8 Immature Gran % 0.6 Seg Neutrophils % 58.6 Lymphocytes % 26.9 Monocytes % 10.8 Eosinophils % 2.5 Basophils % 0.6 Neutrophils # 2.1 Lymphocytes # 1.0 Monocytes # 0.4 Eosinophils # 0.1 Basophils # 0.0 Immature Plt Fraction 2.8 Sodium 135 L Potassium 3.8 Chloride 98 Carbon Dioxide 29 BUN 43 H Creatinine 2.17 H Est GFR ( Amer) 27 L Est GFR (Non-Af Amer) 22 L BUN/Creatinine Ratio 20 Glucose 202 H POC Glucose Calculated Osmolality 297 Calcium 8.7 Cultures: Cultures 11/28/17 16:46 Blood Culture - Preliminary Peripheral Venipuncture Culture is incubating and being continuously monitored for growth. Final report to follow. 11/28/17 16:47 Blood Culture - Preliminary Peripheral Venipuncture Culture is incubating and being continuously monitored for growth. Final report to follow. Exam - Constitutional Vitals: Temp Pulse Resp BP Pulse Ox 97.9 F 54 16 155/67 98 12/01/17 11:42 12/01/17 11:42 12/01/17 11:42 12/01/17 11:42 12/01/17 11:42 General appearance: cooperative, no acute distress, obese - Head Head exam: Present: atraumatic, normal inspection, normocephalic - Respiratory Respiratory exam: Present: CTAB. Absent: accessory muscle use, chest wall tenderness, prolonged expiratory phase, respiratory distress, rhonchi, wheezes, tachypnea - Cardiovascular Cardiovascular exam: Present: RRR, +S1, +S2. Absent: bradycardia, systolic murmur - Skin Skin exam: Present: dry, intact - VTE Documentation of Mechanical Device: Intermittent pneumatic compression device Consult Discharge Plan - Plan Additional Instructions: Continue IV antibiotics Continue Amlodipine 5mg Referrals: Latoya Harkins CNP [Primary Care Provider] - Prescriptions: amLODIPine [Norvasc] 5 mg PO DAILY #30 tablet ceFAZolin [Ancef] 1,000 gm IVP Q12H 23 Days vial - Attending Attestation I examined this patient and my medical decision-making was reviewed with the Resident Physician. I agree with the documented findings, disposition and treatment plan as described except to the extent set forth below.
[2017-12-01] MEDS: amLODIPine 5 MG TABLET PO SCH (12:46)
[2017-12-01] MEDS: 0.9 % Sodium Chloride 1,000 ML IVC SCH (16:25)
[2017-12-01] MEDS: ceFAZolin 1,000 MG in Water for inj. (sterile) 20 ML 10 ML IVP SCH (16:25)
[2017-12-01] MEDS: Insulin DETEMIR 100 UNIT/ML X5UNITS SQ SCH (21:40)
[2017-12-02] MEDS: ceFAZolin 1,000 MG in Water for inj. (sterile) 20 ML 10 ML IVP SCH ×2 (03:24→17:27)
[2017-12-02 05:23] LABS: Hemoglobin 9.2 g/dL (11.5-15.4)
[2017-12-02 05:25] LABS: Basophils % 0.5 %; Eosinophils # 0.1 K/mcL (0.0-0.6); Eosinophils % 2.5 %; Hematocrit 27.8 % (35.3-44.9); Immature Granulocytes % 0.8 % (0-4); Immature Platelets 2.5 % (1.1-6.1); Lymphocytes % 25.3 %; Mean Corpuscular HGB Conc 33.1 g/dL (31.6-35.5); Mean Corpuscular Hemoglobin 29.5 pg (28.0-33.3); Mean Corpuscular Volume 89.1 fL (83.0-100.0); Mean Platelet Volume 10.2 fL (9.4-12.4); Monocytes # 0.5 K/mcL (0.0-1.3); Monocytes % 12.9 %; Neutrophils # 2.3 K/mcL (1.6-8.9); Red Blood Count 3.12 M/mcL (3.82-4.97); Red Cell Distribution Width 15.6 % (11.5-14.5)
[2017-12-02 05:32] LABS: Platelet Count 92 K/mcL (140-400)
[2017-12-02 05:41] LABS: Calcium 8.5 mg/dL (8.6-10.3); Potassium 3.5 mEq/L (3.5-5.1)
[2017-12-02] MEDS: 0.9 % Sodium Chloride 1,000 ML IVC SCH (06:44)
--- NOTE | 2017-12-02 08:14 | Internal Med Progress Note ---
Date of Encounter: 12/02/17 Time of Encounter: 13:54 - Assessment and plan (1) Staphylococcus aureus bacteremia Current Visit: Yes Status: Acute Assessment and plan: Continue Ancef renal dose q12h. Currently on day 10/27 of abx therapy. (2) Acute kidney injury superimposed on CKD Current Visit: Yes Status: Acute Assessment and plan: Patient's creatinine bumped to 2.17 on 12/01. Was bolused IV fluids, and switched from nafcillin to Ancef. Following kidney functions. Received a bolus of 500 mL's NS on 12/02. Waiting for BMP results to show continued improvement of DIDIER prior to discharge. (3) DM type 2 (diabetes mellitus, type 2) Current Visit: Yes Status: Chronic Assessment and plan: Sliding scale insulin. 20 Levemir twice a day. Diabetic diet. Monitor blood sugars closely. Qualifiers: Diabetes mellitus penitentiary insulin use: with penitentiary use Diabetes mellitus complication status: with kidney complications Diabetes mellitus complication detail: with chronic kidney disease Chronic kidney disease stage : stage 3 (moderate) Qualified Code(s): E11.22 - Type 2 diabetes mellitus with diabetic chronic kidney disease; N18.3 - Chronic kidney disease, stage 3 ( moderate); Z79.4 - spin tank tender (current) use of insulin (4) CKD (chronic kidney disease), stage III Current Visit: Yes Status: Chronic Assessment and plan: Continue to follow renal functions patient receives IV antibiotics. (5) Hypertension Current Visit: Yes Status: Chronic Assessment and plan: BP has decreased to 120-110 systolic with addition of 5 mg amlodipine. Continue amlodipine along with home medications. Qualifiers: Hypertension type: essential hypertension Qualified Code(s): I10 - Essential (primary) hypertension (6) Anemia Current Visit: Yes Status: Acute Assessment and plan: Chronic anemia due to chronic kidney disease. We will continue to monitor blood counts. Qualifiers: Anemia type: due to chronic kidney disease Chronic kidney disease stage: stage 3 (moderate) Qualified Code(s): N18.3 - Chronic kidney disease, stage 3 (moderate); D63.1 - Anemia in chronic kidney disease (7) Pancytopenia Current Visit: Yes Status: Acute Assessment and plan: Likely secondary to chronic kidney disease. (8) Thrombocytopenia Current Visit: Yes Status: Chronic Assessment and plan: Secondary to chronic kidney disease. - Time Spent With Patient Total time spent is greater than 50% in coordination of care (as documented) at patient's floor/unit and/or counseling patient: - Subjective Interval history: Ms. Taylor is a 77-year-old female who is admitted from [facility] on November 27 for recurrent gram-positive cocci bacteremia. She was found to have MSSA bacteremia , initially treated with nafcillin. Yesterday labs revealed an elevated BUN and creatinine suggestive of DIDIER. 12/02: Patient seen and examined at bedside. She was alert and oriented 3, afebrile, with no acute complaints. Denies any chest pain or shortness of breath. Denies any difficulty or pain upon urination. Admits to "good" bowel movements, denies any blood or melena. - Constitutional Vitals: Temp Pulse Resp BP Pulse Ox 97.5 F L 56 16 109/45 98 12/02/17 07:17 12/02/17 07:17 12/02/17 07:17 12/02/17 07:17 12/02/17 07:17 General appearance: Present: cooperative, A&O X 3, pleasant, answers questions appropriately Exam: Head: Normocephalic, atraumatic. No lesions or contusions. Eyes: PERRL, EOMI. No scleral icterus. Respiratory: CTA bilaterally, diminished breath sounds overall. Heart: RRR. No murmurs, clicks, or rubs. Abdomen: soft, nontender, normoactive bowel sounds Extremities: warm, full ROM x4, pulses palpable and symmetrical Neurological: alert and oriented x3. No focal deficits. No slurred speech. Skin: warm, dry, and intact. Internal Medicine: Result - Labs CBC & Chem 7: 12/02/17 04:54 12/02/17 04:54 Labs: Short CBC 12/01/17 12/02/17 Range/Units 08:28 04:54 WBC 3.6 L 4.0 L (4.3-11.1) K/mcL Hgb 9.9 L 9.2 L (11.5-15.4) g/dL Hct 30.3 L 27.8 L (35.3-44.9) % Plt Count 86 L 92 L (140-400) K/mcL Neutrophils # 2.1 2.3 (1.6-8.9) K/mcL BMP 12/01/17 12/02/17 08:28 04:54 Sodium 135 L 138 Potassium 3.8 3.5 Chloride 98 103 Carbon Dioxide 29 27 BUN 43 H 45 H Creatinine 2.17 H 1.84 H Glucose 202 H 96 Calcium 8.7 8.5 L - VTE Documentation of Mechanical Device: Intermittent pneumatic compression device Consult Discharge Plan - Plan Instructions: Amlodipine (By mouth), Cefazolin (Injection), Heart Failure (DC) , Methicillin Resistant Staphylococcus Aureus (DC), Diabetes Mellitus Type 2 in Adults (DC), Sepsis (DC), Sepsis (GEN), Chronic Hypertension (DC), Anemia (GEN) Additional Instructions: Continue IV antibiotics Continue Amlodipine 5mg Referrals: Latoya Harkins CNP [Primary Care Provider] - Prescriptions: amLODIPine [Norvasc] 5 mg PO DAILY #30 tablet ceFAZolin [Ancef] 1,000 gm IVP Q12H 23 Days vial
[2017-12-02] MEDS: Cholecalciferol (D-3) 1,000 UNIT TABLET PO SCH (08:27)
[2017-12-02] MEDS: Multivit/Ca/Min/Fe/FA 1 TAB TABLET PO SCH (08:27)
[2017-12-02] MEDS: amLODIPine 5 MG TABLET PO SCH (08:27)
[2017-12-02] MEDS: Insulin DETEMIR 100 UNIT/ML X5UNITS SQ SCH (08:28)
[2017-12-02] MEDS: Insulin LISPRO 300 UNITS/3 ML VIAL SQ SCH ×3 (08:28→17:28)
--- NOTE | 2017-12-02 10:43 | Infectious Disease Progress No ---
Date of Encounter: 12/02/17 Time of Encounter: 10:41 - Assessment and Plan (1) Sepsis Current Visit: Yes Status: Acute The patient had 2 SIRS criteria w/ AMS on admission - Likely secondary to bacteremia - Improved. The patient has been afebrile - Blood CX drawn 11/26/17 were positive 2/2 for MSSA - Repeat blood CX drawn 11/28/17 are pending x 2 sets - White count of 4.0 this morning; up from 3.6. leukopenia appears chronic Qualifiers: Sepsis type: methicillin susceptible Staphylococcus aureus Qualified Code(s ): A41.01 - Sepsis due to Methicillin susceptible Staphylococcus aureus (2) Bacteremia due to methicillin susceptible Staphylococcus aureus (MSSA) Current Visit: Yes Status: Acute Causative organism: MSSA. - Source unclear - Complicated due to bioprosthetic valve and L knee prosthetic joint. - Blood CX 11/26/17: + MSSA, 2/2 - Blood CX 11/28/17: pending x 2 sets - TTE and ELVER negative for valvular vegetations. - Nafcillin was discontinued yesterday; cefazolin and has been started. Patient will require 28 days total of antibiotics. Patient's kidney function is improving; i spoke to pharmacy about patient's improving kidney function and the dosing of Cefazolin. Per pharmacy, patient's current creatinine clearance is 19.5; will need to improve to 35 before dose of cefazolin is switched from Q12 to Q8. (3) Productive cough Current Visit: Yes Status: Acute - CXR negative for acute infection - CT chest showed RUL nodules, infectious vs. 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 She reports that she feels well today; no changed from yesterday. She has been eating without difficulty. Denies having any fevers,' s chills, nausea, vomiting, urinary complaints, or abdominal pain. Plan is to discharge patient as soon as placement is approved. She has no complaints at this time. Infect Dis PN-Objective Data - Labs CBC & Chem 7: 12/02/17 04:54 12/02/17 04:54 Labs: Laboratory Results - last 24 hr 12/01/17 12/01/17 12/01/17 11:36 16:14 20:42 WBC RBC Hgb Hct MCV MCH MCHC RDW Plt Count MPV Immature Gran % Seg Neutrophils % Lymphocytes % Monocytes % Eosinophils % Basophils % Neutrophils # Lymphocytes # Monocytes # Eosinophils # Basophils # Immature Plt Fraction Sodium Potassium Chloride Carbon Dioxide BUN Creatinine Est GFR ( Amer) Est GFR (Non-Af Amer) BUN/Creatinine Ratio Glucose POC Glucose 311 H 309 H 297 H Calculated Osmolality Calcium 12/02/17 12/02/17 12/02/17 04:54 04:54 07:23 WBC 4.0 L RBC 3.12 L Hgb 9.2 L Hct 27.8 L MCV 89.1 MCH 29.5 MCHC 33.1 RDW 15.6 H Plt Count 92 L MPV 10.2 Immature Gran % 0.8 Seg Neutrophils % 58.0 Lymphocytes % 25.3 Monocytes % 12.9 Eosinophils % 2.5 Basophils % 0.5 Neutrophils # 2.3 Lymphocytes # 1.0 Monocytes # 0.5 Eosinophils # 0.1 Basophils # 0.0 Immature Plt Fraction 2.5 Sodium 138 Potassium 3.5 Chloride 103 Carbon Dioxide 27 BUN 45 H Creatinine 1.84 H Est GFR ( Amer) 32 L Est GFR (Non-Af Amer) 27 L BUN/Creatinine Ratio 24 Glucose 96 POC Glucose 76 Calculated Osmolality 297 Calcium 8.5 L Cultures: Cultures 11/28/17 16:46 Blood Culture - Preliminary Peripheral Venipuncture Culture is incubating and being continuously monitored for growth. Final report to follow. 11/28/17 16:47 Blood Culture - Preliminary Peripheral Venipuncture Culture is incubating and being continuously monitored for growth. Final report to follow. Exam - Constitutional Vitals: Temp Pulse Resp BP Pulse Ox 97.5 F L 56 16 109/45 98 12/02/17 07:17 12/02/17 07:17 12/02/17 07:17 12/02/17 07:17 12/02/17 07:17 General appearance: no acute distress - Head Head exam: Present: atraumatic, normal inspection, normocephalic - Respiratory Respiratory exam: Present: CTAB. Absent: decreased breath sounds, prolonged expiratory phase, rales, rhonchi, wheezes, tachypnea - Cardiovascular Cardiovascular exam: Present: RRR, +S1, +S2. Absent: bradycardia, irregular rhythm, systolic murmur, tachycardia - GI/Abdominal GI/Abdominal exam: Present: soft. Absent: tenderness - Psychiatric Psychiatric exam: Present: normal affect, normal mood. Absent: agitated, anxious - Skin Skin exam: Present: dry, intact - VTE Documentation of Mechanical Device: Intermittent pneumatic compression device Consult Discharge Plan - Plan Instructions: Amlodipine (By mouth), Cefazolin (Injection), Heart Failure (DC) , Methicillin Resistant Staphylococcus Aureus (DC), Diabetes Mellitus Type 2 in Adults (DC), Sepsis (DC), Sepsis (GEN), Chronic Hypertension (DC), Anemia (GEN) Additional Instructions: Continue IV antibiotics Continue Amlodipine 5mg Referrals: Latoya Harkins CNP [Primary Care Provider] - Prescriptions: amLODIPine [Norvasc] 5 mg PO DAILY #30 tablet ceFAZolin [Ancef] 1,000 gm IVP Q12H 23 Days vial - Attending Attestation I examined this patient and my medical decision-making was reviewed with the Resident Physician. I agree with the documented findings, disposition and treatment plan as described except to the extent set forth below.
[2017-12-02] MEDS ORDERED: 0.9 % Sodium Chloride 500 ML IVC ONE (11:15)
[2017-12-02 15:47] VITALS: BP 121/63
[2017-12-02 17:59] LABS: Calcium 8.7 mg/dL (8.6-10.3); Potassium 3.8 mEq/L (3.5-5.1)
--- NOTE | 2017-12-02 18:08 | Discharge Summary ---
<Brian Hurley - Last Filed: 12/02/17 18:05> - NOTES TO OUTPATIENT PROVIDER Notes to Outpatient Provider: Here for MSSA bacteremia. On 28 day course of Ancef started on 11/28. Orders not resulted at time of discharge: Pending orders 11/28/17 16:46 Culture,Blood [BC] Routine Date of Encounter: 12/02/17 Time of Encounter: 13:54 - Discharge Diagnosis (1) Staphylococcus aureus bacteremia Priority: Primary Status: Acute (2) DM type 2 (diabetes mellitus, type 2) Priority: Secondary Status: Chronic Qualifiers: Diabetes mellitus mcfp insulin use: with intermediate accountant use Diabetes mellitus complication status: with kidney complications Diabetes mellitus complication detail: with chronic kidney disease Chronic kidney disease stage : stage 3 (moderate) Qualified Code(s): E11.22 - Type 2 diabetes mellitus with diabetic chronic kidney disease; N18.3 - Chronic kidney disease, stage 3 ( moderate); Z79.4 - intermediate accountant (current) use of insulin (3) CKD (chronic kidney disease), stage III Priority: Secondary Status: Chronic (4) Hypertension Priority: Secondary Status: Chronic Qualifiers: Hypertension type: essential hypertension Qualified Code(s): I10 - Essential (primary) hypertension (5) Anemia Priority: Secondary Status: Acute Qualifiers: Anemia type: due to chronic kidney disease Chronic kidney disease stage: stage 3 (moderate) Qualified Code(s): N18.3 - Chronic kidney disease, stage 3 (moderate); D63.1 - Anemia in chronic kidney disease (6) Pancytopenia Priority: Secondary Status: Acute (7) Thrombocytopenia Priority: Secondary Status: Chronic (8) Acute kidney injury superimposed on CKD Priority: Primary Status: Acute Hospital course: Ms. Taylor is a 77 year old female who presented with MSSA bacteremia. Started on Nafcillin on 11/28, planned for 28 day course per ID. DIDIER noted on 12/01, switched to Ancef renal dosing, bolused NS. Renal functions improved overnight. Bolused 500ml NS on 12/02, noted continued improvement in Creatinine following bolus. - Time Spent with Patient Total time spent providing and/or coordinating discharge services: - Discharge Medications Prescriptions: amLODIPine [Norvasc] 5 mg PO DAILY #30 tablet ceFAZolin [Ancef] 1,000 gm IVP Q12H 23 Days vial Home Medications: Albuterol Sulfate [Proair Respiclick] 180 mcg IH Q4H PRN 05/11/15 [History] Allopurinol [Zyloprim 100 MG] 100 mg PO DAILY 04/07/17 [History] Calcitriol [Rocaltrol] 0.25 mg PO DAILY 04/07/17 [History] Cholecalciferol (D-3) [Vitamin D] 5,000 unit PO DAILY 04/07/17 [History] Multivit-Min/FA/Lycopen/Lutein [Centrum Silver Tablet] 1 tab PO DAILY 04/07/17 [ History] Vitamin E Acetate [Vitamin E] 400 unit PO DAILY 04/07/17 [History] Acetaminophen [Non-Aspirin] 325 mg PO DAILY PRN 11/28/17 [History] Ferrous Sulfate [Iron] 325 mg PO DAILY 11/28/17 [History] Furosemide [Lasix] 40 mg PO BID 11/28/17 [History] Insulin Glargine,Hum.rec.anlog [Lantus Solostar] 40 units SQ BID 11/28/17 [ History] Insulin LISPRO [Humalog] 0 unit SQ TIDWM 11/28/17 [History] Metoprolol [Lopressor] 25 mg PO DAILY 11/28/17 [History] Terbinafine HCl 250 mg PO DAILY 11/28/17 [History] amLODIPine [Norvasc] 5 mg PO DAILY #30 tablet 12/01/17 [Rx] ceFAZolin [Ancef] 1,000 gm IVP Q12H 23 Days vial 12/01/17 [Rx] Allergies/Adverse Reactions: 3 Allergy/AdvReac Type Severity Reaction Status Date / Time [id number] Reductase AdvReac Muscle Pain Verified 11/28/17 10:02 Inhibitor [Statins] Date of admission: 11/27/17 14:44 Primary care physician: Latoya Harkins CNP Consults: 11/27/17 14:20 Consult to Light Adjuster [CONS] Routine Reason for SW Consult: D/C PLANNING 11/27/17 14:49 Consult to Infectious Diseases [CONS] Routine Consulting Provider: [facility] [place] Reason for Consult: Recurrent MSSA bacteremia Time Notified: 14:49 Call Completed: Yes 12/01/17 08:10 Consult to PICC team [Consult to Invasive Line Access Team] [CONS] Routine Reason for Consult: PICC Placement for detention ABX Line Type: PICC 12/01/17 08:54 Consult to Invasive Line Access Team [CONS] Routine Reason for Consult: mcfp IV ATB Line Type: Midline Discharging clinician: Brian Hurley - Constitutional Vitals: Temp Pulse Resp BP Pulse Ox 98.1 F 56 16 121/63 98 12/02/17 15:44 12/02/17 15:44 12/02/17 15:44 12/02/17 15:44 12/02/17 15:44 General appearance: Present: cooperative, A&O X 3, pleasant, answers questions appropriately Exam: Head: Normocephalic, atraumatic. No lesions or contusions. Eyes: PERRL, EOMI. No scleral icterus. Respiratory: CTA bilaterally, diminished breath sounds overall. Heart: RRR. No murmurs, clicks, or rubs. Abdomen: soft, nontender, normoactive bowel sounds Extremities: warm, full ROM x4, pulses palpable and symmetrical Neurological: alert and oriented x3. No focal deficits. Skin: warm, dry, and intact. - Patient Status Disposition: Transfer SNF Condition: Fair Overall status at discharge: patient is back to baseline - Discharge Instructions Instructions: Amlodipine (By mouth), Cefazolin (Injection), Heart Failure (DC) , Methicillin Resistant Staphylococcus Aureus (DC), Diabetes Mellitus Type 2 in Adults (DC), Sepsis (DC), Sepsis (GEN), Chronic Hypertension (DC), Anemia (GEN) Follow Up With: Latoya Harkins FITTING ROOM INSPECTOR [Primary Care Provider] - Additional Instructions: Continue IV antibiotics Continue Amlodipine 5mg - Diet and Activity Activity: as per physical therapy, increase activity as tolerated Diet: diabetic diet - VTE Documentation of Mechanical Device: Intermittent pneumatic compression device <Avi Almodovar - Last Filed: 12/02/17 18:28> Orders not resulted at time of discharge: Pending orders 11/28/17 16:46 Culture,Blood [BC] Routine Date of Encounter: 12/02/17 - Discharge Diagnosis (1) MSSA (methicillin susceptible Staphylococcus aureus) Priority: Primary Status: Acute (2) Thrombocytopenia Status: Chronic (3) CKD (chronic kidney disease), stage III Status: Chronic (4) Staphylococcus aureus bacteremia Status: Acute (5) DM type 2 (diabetes mellitus, type 2) Status: Chronic Qualifiers: Diabetes mellitus mcfp insulin use: with intermediate accountant use Diabetes mellitus complication status: with kidney complications Diabetes mellitus complication detail: with chronic kidney disease Chronic kidney disease stage : stage 3 (moderate) Qualified Code(s): E11.22 - Type 2 diabetes mellitus with diabetic chronic kidney disease; N18.3 - Chronic kidney disease, stage 3 ( moderate); Z79.4 - correction (current) use of insulin (6) Hypertension Status: Chronic Qualifiers: Hypertension type: essential hypertension Qualified Code(s): I10 - Essential (primary) hypertension (7) Anemia Status: Chronic Qualifiers: Anemia type: due to chronic kidney disease Chronic kidney disease stage: stage 3 (moderate) Qualified Code(s): N18.3 - Chronic kidney disease, stage 3 (moderate); D63.1 - Anemia in chronic kidney disease (8) Pancytopenia Status: Acute (9) Acute kidney injury superimposed on CKD Status: Acute (10) Chronic diastolic heart failure Priority: Secondary Status: Chronic (11) Aortic stenosis Priority: Secondary Status: Chronic Qualifiers: Cardiac valve disease etiology: nonrheumatic Qualified Code(s): I35.0 - Nonrheumatic aortic (valve) stenosis (12) History of aortic valve replacement with bioprosthetic valve Priority: Secondary Status: Chronic Hospital course: Ms. Taylor is a 77 year old female - Time Spent with Patient Total time spent providing and/or coordinating discharge services: 37min Date of admission: 11/27/17 14:44 Primary care physician: Latoya Harkins CNP Consults: 11/27/17 14:20 Consult to Light Adjuster [CONS] Routine Reason for SW Consult: D/C PLANNING 11/27/17 14:49 Consult to Infectious Diseases [CONS] Routine Consulting Provider: [facility] [place] Reason for Consult: Recurrent MSSA bacteremia Time Notified: 14:49 Call Completed: Yes 12/01/17 08:10 Consult to PICC team [Consult to Invasive Line Access Team] [CONS] Routine Reason for Consult: PICC Placement for detention ABX Line Type: PICC 12/01/17 08:54 Consult to Invasive Line Access Team [CONS] Routine Reason for Consult: intermediate accountant IV ATB Line Type: Midline - Constitutional Vitals: Temp Pulse Resp BP Pulse Ox 98.1 F 56 16 121/63 98 12/02/17 15:44 12/02/17 15:44 12/02/17 15:44 12/02/17 15:44 12/02/17 15:44 - Attending Attestation I examined this patient and my medical decision-making was reviewed with the Resident Physician on 12/02/17. I agree with the documented findings, disposition and treatment plan as described except to the extent set forth below. Ms Taylor has been admitted for MSSA bacteremia. She has been on IV abx. She had an increase in her creatinine and meds changed. Today she feels OK. Creatinine is improving. She is ready for discharge to SNF. Exam alert Comfortable Mucus membranes dry Heart reg No wheeze Plan D/C to SNF today.
[2017-12-02] MEDS ORDERED: Insulin DETEMIR 100 UNIT/ML X5UNITS SQ SCH (21:00)
== END 2017-12-02 19:35 | DRG 872 ==
LOC: 2NENU → SUATTDRO 14:44
PROVIDERS: ADMIT Internal Medicine; ATTEND Internal Medicine

== ENCOUNTER 2018-02-28 08:49 | Inpatient (IN) ==
--- NOTE | 2018-02-28 18:01 | Internal Med History&Physical ---
<Emmanuel Baptiste - Last Filed: 02/28/18 18:45> Date of Encounter: 02/28/18 Time of Encounter: 18:00 Internal Medicine - H&P: HPI Chief complaint: acute renal failure History of present illness: Ms. Taylor is a 78-year-old female with a PMH of arthritis, cancer, cirrhosis, CHF, diabetes, hyperlipidemia, hypertension, liver disease, and renal disease who presented to as a transfer from [place] to [facility] [place] on 02/28/18 for acute renal failure. Information obtain per review of medical records from [facility]. Patient had initially presented with generalized weakness. She was found to have MSSA bacteremia, was transferred to [place] on 02/13 for further care. Her hospital course was complicated by CHF requiring Bumex drip, anemia requiring EGD and transfusions, and AK I requiring an HD catheter placement and initiation of dialysis. [place] requested that the patient be transferred here. Patients range feeder is Dr. Rosales. She was seen and examined at bedside; patient denies feeling any nausea, vomiting, fever, chills, swelling, erythema, or chest pain. She reports that this is the third time that she has been bacteremic. She notes that they have not been able to find the underlying cause, but has speculated that it is secondary to a right-sided knee replacement that she had placed approximately 15 years ago. She states that he has never been infected. She admits that over the last 3 days, her urine output has significantly decreased. We will obtain labs and consult nephrology. We will start the patient on gentle IV fluid hydration. Past Med Surg Social Fam HX - Past Medical History Medical history: arthritis, cancer, cirrhosis, CHF, diabetes, hyperlipidemia, hypertension, liver disease, renal disease Additional medical history: valvular heart disease Psychiatric history: no psych history - Past Surgical History Surgical History: appendectomy, cataract, heart valve replacement, hysterectomy , [place]/BS[place] Additional surgical history: HAMMER TOES. ACHILLES HEEL REPAIR. LEFT TKR. BLADDER REPAIR. AVR 08/2014. A&P. BREAST BIOPSY - Social History Smoking Status: Former smoker Smokeless Tobacco Status: No Alcohol use: none Drug use: none - Family History Mother Living Status: Hx Family Cardiac Disorders: No Hx Family Respiratory Disorders: No Hx Family Endocrine Disorder: Yes Hx Family Neurologic Disorders: Yes Internal Medicine - H&P: Meds Cholecalciferol (D-3) [Vitamin D] 5,000 unit PO DAILY 04/07/17 [History] Multivit-Min/FA/Lycopen/Lutein [Centrum Silver Tablet] 1 tab PO DAILY 04/07/17 [ History] Vitamin E Acetate [Vitamin E] 400 unit PO DAILY 04/07/17 [History] Ferrous Sulfate [Iron] 325 mg PO DAILY 11/28/17 [History] Insulin Glargine,Hum.rec.anlog [Lantus Solostar] 40 units SQ BID 11/28/17 [ History] Insulin LISPRO [Humalog] 0 unit SQ TIDWM 11/28/17 [History] Metoprolol [Lopressor] 25 mg PO DAILY 11/28/17 [History] Terbinafine HCl 250 mg PO DAILY 11/28/17 [History] Bumetanide [Bumex] 1 mg PO DAILY #30 tablet 12/26/17 [Rx] Isosorbide MONOnitrate (24 HR) [Imdur] 30 mg PO DAILY #30 tab.er.24h 12/26/17 [ Rx] cloNIDine HCl [CloNIDine HCl] 0.1 mg PO BID 02/11/18 [History] 3 Allergy/AdvReac Type Severity Reaction Status Date / Time [id number] Reductase AdvReac Muscle Pain Verified 11/28/17 10:02 Inhibitor [Statins] All Systems PM: A 10-system review of systems was performed and is negative for pertinent findings except as documented above in the HPI. - Constitutional Constitutional: as per HPI, no anorexia, no chills, no fatigue, no lethargy, no malaise, no weakness - EENT Eyes: as per HPI, no blurry vision, no decreased night vision Ears: as per HPI Nose, mouth and throat: as per HPI - Breasts Breasts: as per HPI - Cardiovascular Cardiovascular ROS IM: as per HPI, no chest pain, no claudication, no diaphoresis, no dyspnea, no edema - Respiratory Respiratory: as per HPI, no cough, no dyspnea - Gastrointestinal Gastrointestinal: as per HPI, no abdominal pain - Genitourinary Genitourinary: as per HPI, no dysuria - Musculoskeletal Musculoskeletal ROS IM: as per HPI, no arthralgias - Integumentary Integumentary IM: as per HPI, no erythema, no rash - Neurological Neurological ROS: as per HPI, no dizziness - Constitutional Exam: unremarkable - Head Head exam: Present: atraumatic, normocephalic - Eye Eye exam: Present: PERRL, conjuntiva pink, sclera anicteric Pupils: Present: PERRL - Respiratory Respiratory exam: Present: CTAB. Absent: accessory muscle use, rales, rhonchi, wheezes - Cardiovascular Cardiovascular exam: Present: RRR, +S1, +S2, systolic murmur. Absent: diastolic murmur, gallop, rubs Additional comments: Holosystolic murmur - GI/Abdominal GI/Abdominal exam: Present: normal bowel sounds, soft, no peritoneal signs. Absent: distended, tenderness - Extremities Exam Extremities exam: Present: warm, radial pulses palpable and symmetrical. Absent : calf tenderness, cyanotic, pedal edema - Assessment and plan (1) Acute renal failure Current Visit: Yes Status: Acute Assessment and plan: Information obtained from medical records from [facility] - Baseline creatinine is 2.1; creatinine has been progressively increasing; 4.2 - Patient sees Dr. Rosales - We will repeat labs and gentle IV fluid hydration Qualifiers: Qualified Code(s): N17.9 - Acute kidney failure, unspecified (2) MSSA bacteremia Current Visit: Yes Status: Acute Assessment and plan: - Information obtained per medical records from [place] - As demonstrated on blood culture on 02/11/18 - Patient was treated with 4 weeks of IV antibiotics; 6 week total course prior to admission - Repeat blood culture on 02/13 was negative - PICC line was placed on 02/23/18 - Infectious disease recommended 6 weeks total of IV Ancef (last dose on ) followed by indefinite doxycycline (3) Acute on chronic diastolic heart failure Current Visit: Yes Status: Acute Assessment and plan: Information obtained from medical records from [facility] - TTE on 02/12/18 demonstrated ejection fraction of 60% - Patient was being diuresed with Bumex; was discontinued due to declining renal function (4) Hyperkalemia Current Visit: Yes Status: Acute Assessment and plan: Repeat labs (5) Diabetes mellitus Current Visit: Yes Status: Acute Assessment and plan: Sliding scale insulin, Accu-Cheks Qualifiers: Qualified Code(s): E11.9 - Type 2 diabetes mellitus without complications - Time Spent With Patient Total time spent is greater than 50% in coordination of care (as documented) at patient's floor/unit and/or counseling patient: <Андрей Tirado - Last Filed: 02/28/18 18:53> Date of Encounter: 02/28/18 Internal Medicine - H&P: HPI History of present illness: Ms. Taylor is a 78 year old female All Systems PM: A 10-system review of systems was performed and is negative for pertinent findings except as documented above in the HPI. - Time Spent With Patient Total time spent is greater than 50% in coordination of care (as documented) at patient's floor/unit and/or counseling patient: - Attending Attestation I performed an independent interview and exam of this patient. I agree with the findings, assessment, and plan of Dr. Baptiste, internal medicine resident. Please this is a 78-year-old female history of chronic kidney disease who is also currently being treated for MSSA bacteremia via a PICC line with IV Ancef with a planned six-week course. Patient was transferred here for worsening renal failure and need for hemodialysis. She did have a Vas-Cath placed already and had her first run of hemodialysis today. She states symptomatically feeling better. She is followed by nephrology and requested to be transferred to our facility to be under the care of her own range feeder. Exam: Gen.: No acute distress, pleasant awake alert and oriented 3, obese Skin warm and dry Lungs show crackles at the bases bilaterally Heart regular rate and rhythm with a holosystolic murmur best heard at the left second intercostal space Abdomen is soft nontender nondistended with normal active bowel sounds Ext 1+ edema bilaterally Neurological nonfocal Patient has a right chest wall Vas-Cath in place She also has a PICC line in her right upper extremity. We will consult nephrology. Will continue with her IV antibiotics as directed unless nephrology wishes to change to a less potentially nephrotoxic antibiotic. We may need discuss this with infectious diseases as well.
[2018-02-28] MEDS ORDERED: Naloxone 0.4 MG/ML INJ IVP PRN (18:46)
[2018-02-28] MEDS: 0.9 % Sodium Chloride 1,000 ML IVC SCH (20:39)
[2018-03-01 04:56] LABS: Basophils % 0.6 %; Red Cell Distribution Width 15.9 % (11.5-14.5)
[2018-03-01 04:58] LABS: Eosinophils # 0.1 K/mcL (0.0-0.6); Eosinophils % 1.7 %; Hematocrit 22.9 % (35.3-44.9); Hemoglobin 7.3 g/dL (11.5-15.4); Immature Granulocytes % 0.4 % (0-4); Immature Platelets 2.9 % (1.1-6.1); Lymphocytes # 0.5 K/mcL (0.6-4.6); Lymphocytes % 10.4 %; Mean Corpuscular HGB Conc 31.9 g/dL (31.6-35.5); Mean Corpuscular Hemoglobin 28.4 pg (28.0-33.3); Mean Corpuscular Volume 89.1 fL (83.0-100.0); Mean Platelet Volume 10.4 fL (9.4-12.4); Monocytes # 0.9 K/mcL (0.0-1.3); Monocytes % 16.5 %; Neutrophils # 3.7 K/mcL (1.6-8.9); Red Blood Count 2.57 M/mcL (3.82-4.97); Segmented Neutrophils % 70.4 %
[2018-03-01 05:02] LABS: INR 1.3; Platelet Count 74 K/mcL (140-400); Prothrombin Time 14.4 Seconds (9.4-12.1)
[2018-03-01 05:16] LABS: Calcium 8.4 mg/dL (8.6-10.3); Phosphorous 5.8 mg/dL (2.7-4.5); Potassium 4.8 mEq/L (3.5-5.1)
--- NOTE | 2018-03-01 07:50 | Internal Med Progress Note ---
<Emile,Emmanuel - Last Filed: 03/01/18 12:00> Hospitalist Progress Note - Encounter Date of Encounter: 03/01/18 Time of Encounter: 08:23 - Subjective Interval History: Patient was seen and examined at bedside; she states that she is feeling well today. She denies fever, chills, N/V/D, shortness of breath, or swelling. She has no complaints at this time. - Exam Vitals: Temp Pulse Resp BP Pulse Ox 97.6 F 58 19 132/71 95 03/01/18 07:17 03/01/18 07:17 03/01/18 07:17 03/01/18 07:17 03/01/18 07:17 Exam: Head: atraumatic, normocephalic HEENT: PERRL, conjuntiva pink, sclera anicteric Respiratory: CTAB. Absent: accessory muscle use, rales, rhonchi, wheezes Cardiovascular: RRR, +S1, +S2, systolic murmur GI/Abdominal: Present: normal bowel sounds, soft, no peritoneal signs Extremities: Present: warm, radial pulses palpable and symmetrical - Assessment and Plan (1) Acute renal failure Current Visit: Yes Status: Acute Assessment and Plan: Baseline creatinine is 2.1; creatinine has been progressively increasing; today it is 5.19 - Patient sees Dr. Rosales - We will repeat labs and gentle IV fluid hydration (2) MSSA bacteremia Current Visit: Yes Status: Acute Assessment and Plan: - Information obtained per medical records from [place] - As demonstrated on blood culture on 02/11/18 - Patient was treated with 4 weeks of IV antibiotics; 6 week total course prior to admission - Repeat blood CX on 02/13 was negative - PICC line was placed on 02/23/18 - Infectious disease recommended 6 weeks total of IV Ancef (last dose on ) followed by indefinite doxycycline - Patient has been afebrile in the last 24 hours - No leukocytosis Plan: - Corrected CrCl is 10; administer Ancef 500 mg IV q 24 hr - Repeat blood CX x2 pending (3) Acute on chronic diastolic heart failure Current Visit: Yes Status: Acute Assessment and Plan: Information obtained from medical records from [facility] - TTE on 02/12/18 demonstrated ejection fraction of 60% - Patient was being diuresed with Bumex; was discontinued due to declining renal function - BNP: 1474 (4) Hyperkalemia Current Visit: Yes Status: Acute Assessment and Plan: Resolved; potassium today is 4.8 (5) Diabetes mellitus Current Visit: Yes Status: Acute Assessment and Plan: Sliding scale insulin, Accu-Cheks - Time Spent with Patient Total time spent is greater than 50% in coordination of care (as documented) at patient's floor/unit and/or counseling patient: less than 15 minutes Internal Medicine: Result - Labs CBC & Chem 7: 03/01/18 04:40 03/01/18 04:40 Labs: Short CBC 03/01/18 Range/Units 04:40 WBC 5.2 (4.3-11.1) K/mcL Hgb 7.3 L (11.5-15.4) g/dL Hct 22.9 L (35.3-44.9) % Plt Count 74 L (140-400) K/mcL Neutrophils # 3.7 (1.6-8.9) K/mcL BMP 03/01/18 04:40 Sodium 130 L Potassium 4.8 Chloride 92 L Carbon Dioxide 29 BUN 78 H Creatinine 5.19 H Glucose 116 H Calcium 8.4 L - ABG Interpretation ABG results: PT/INR, D-dimer PT 14.4 Seconds (9.4-12.1) H 03/01/18 04:40 Consult Discharge Plan - Plan Referrals: Latoya Harkins, [facility]NER [Primary Care Provider] - <Андрей Tirado - Last Filed: 03/01/18 13:35> Hospitalist Progress Note - Encounter Date of Encounter: 03/01/18 - Exam Vitals: Temp Pulse Resp BP Pulse Ox 97.6 F 68 18 128/74 99 03/01/18 13:13 03/01/18 13:13 03/01/18 13:13 03/01/18 13:13 03/01/18 13:13 - Time Spent with Patient Total time spent is greater than 50% in coordination of care (as documented) at patient's floor/unit and/or counseling patient: Internal Medicine: Result - Labs CBC & Chem 7: 03/01/18 04:40 03/01/18 04:40 Labs: Short CBC 03/01/18 Range/Units 04:40 WBC 5.2 (4.3-11.1) K/mcL Hgb 7.3 L (11.5-15.4) g/dL Hct 22.9 L (35.3-44.9) % Plt Count 74 L (140-400) K/mcL Neutrophils # 3.7 (1.6-8.9) K/mcL BMP 03/01/18 04:40 Sodium 130 L Potassium 4.8 Chloride 92 L Carbon Dioxide 29 BUN 78 H Creatinine 5.19 H Glucose 116 H Calcium 8.4 L - ABG Interpretation ABG results: PT/INR, D-dimer PT 14.4 Seconds (9.4-12.1) H 03/01/18 04:40 - Attending Attestation I performed an independent interview and exam of this patient. I agree with the findings, assessment, and plan of Dr. Baptiste, internal medicine resident. Please this is a 78-year-old female history of chronic kidney disease who is also currently being treated for MSSA bacteremia via a PICC line with IV Ancef with a planned six-week course. Patient was transferred here for worsening renal failure and need for hemodialysis. She did have a Vas-Cath placed already and had her first run of hemodialysis today. She states symptomatically feeling better. She is followed by nephrology and requested to be transferred to our facility to be under the care of her own sales solutions associate. Pt states her breathing is unchanged, mild dypsnea. Exam: Gen.: No acute distress, pleasant awake alert and oriented 3, obese Skin warm and dry Lungs show crackles at the bases bilaterally Heart regular rate and rhythm with a holosystolic murmur best heard at the left second intercostal space Abdomen is soft nontender nondistended with normal active bowel sounds Ext 1+ edema bilaterally Neurological nonfocal Patient has a right chest wall Vas-Cath in place She also has a PICC line in her right upper extremity. Nephrology consulted, may need HD in am.
[2018-03-01] MEDS ORDERED: D5% in Water 1,000 ML IVC PRN (08:23)
[2018-03-01] MEDS ORDERED: Dextrose Gel 15 GM/37.5 ML TUBE PO PRN ×2 (08:23)
[2018-03-01] MEDS ORDERED: *HR* Dextrose 50 % in Water (Syg) 50 ML SYRINGE IVP PRN (08:23)
[2018-03-01] MEDS: Insulin LISPRO 300 UNITS/3 ML VIAL SQ SCH ×3 (09:19→16:58)
[2018-03-01] MEDS ORDERED: ceFAZolin 500 MG in Water for inj. (sterile) 20 ML 10 ML IVPB SCH (10:00)
[2018-03-01] MEDS: ceFAZolin 500 MG in Water for inj. (sterile) 20 ML 10 ML IVPB SCH (10:55)
[2018-03-01] MEDS: 0.9 % Sodium Chloride 1,000 ML IVC SCH (12:57)
--- NOTE | 2018-03-01 15:56 | Nephrology Consult Note ---
Date of Encounter: 03/01/18 Time of Encounter: 12:00 Assessment and Plan (1) Acute kidney injury superimposed on CKD Current Visit: No Status: Acute Scr noted at 5.19 post HD session yesterday, will hold off today for any further HD and reassess need int he am Given CHF and DIDIER, would sop IVF for now and just encourage po fluids only Continue to avoid nephrotxins if possible (2) Acute on chronic diastolic heart failure Current Visit: Yes Status: Acute Stop IVF Strict I/Os (3) Hyperkalemia Current Visit: Yes Status: Acute Resolved at 4.8, agree with renal diet (4) MSSA bacteremia Current Visit: Yes Status: Acute Abx per primary team (5) CKD (chronic kidney disease), stage III Current Visit: No Status: Chronic Baseline GFR in the 30s st least this year History of Present Illness - Reason for Consult Consult date: 03/01/18 Acute Kidney Injury, Chronic Kidney Disease Requesting physician: Emmanuel Baptiste - History of Present Illness 78 y o female with PMH of DM, HTN, liver cirrhosis and CKD stage 3follows with Dr Rosales who presents as a transfer from [place] where she was treated for a myriad of conditions initially with MSSA bacteramia complicated by CHF exacerbation requiring bumex gtt, anemia requiring GI workup with EGD and transfusion and finally developing DIDIER with SCr at above 5 on friday. Pt received a permcath with first HD session done yesterday. Pt seen and examined feeling very "worn out" but happy to be [place] ([place]). Past Med Surg Social Fam HX - Past Medical History Medical history: arthritis, cancer, cirrhosis, CHF, diabetes, hyperlipidemia, hypertension, liver disease, renal disease Additional medical history: valvular heart disease Psychiatric history: no psych history - Past Surgical History Surgical History: appendectomy, cataract, heart valve replacement, hysterectomy, [place]/BS[place] Additional surgical history: HAMMER TOES. ACHILLES HEEL REPAIR. LEFT TKR. BLADDER REPAIR. AVR 08/2014. A&P. BREAST BIOPSY - Social History Smoking Status: Former smoker Smokeless Tobacco Status: No Alcohol use: none Drug use: none - Family History Mother History Unknown: Yes Living Status: Hx Family Cardiac Disorders: No Hx Family Respiratory Disorders: No Hx Family Endocrine Disorder: Yes Hx Family Neurologic Disorders: Yes Medications and Allergies Cholecalciferol (D-3) [Vitamin D] 1,000 unit PO DAILY 04/07/17 [History] Multivit-Min/FA/Lycopen/Lutein [Centrum Silver Tablet] 1 tab PO DAILY 04/07/17 [History] Vitamin E Acetate [Vitamin E] 400 unit PO DAILY 04/07/17 [History] Ferrous Sulfate [Iron] 325 mg PO DAILY 11/28/17 [History] Insulin Glargine,Hum.rec.anlog [Lantus Solostar] 30 units SQ HS 11/28/17 [History] Insulin LISPRO [Humalog] 0 unit SQ TIDWM 11/28/17 [History] Metoprolol [Lopressor] 25 mg PO DAILY 11/28/17 [History] Isosorbide MONOnitrate (24 HR) [Imdur] 30 mg PO DAILY #30 tab.er.24h 12/26/17 [Rx] cloNIDine HCl [CloNIDine HCl] 0.1 mg PO BID 02/11/18 [History] ceFAZolin [Ancef] 1,000 gm IV DAILY 02/28/18 [History] Bumetanide [Bumex] 1 - 2 mg PO DAILY 03/01/18 [History] Allergy/AdvReac Type Severity Reaction Status Date / Time Xafuyzy-Fud-Riu Reductase AdvReac Muscle Pain Verified 11/28/17 10:02 Inhibitor [Statins] Review of Systems All Systems: reviewed and no additional remarkable complaints except as stated All Systems review (narrative): The other systems (10) were negative Constitutional: anorexia, fatigue Exam - Vital Signs Vital signs: Initial Vital Signs Temp Pulse Resp BP Pulse Ox 98.0 F 56 16 123/73 95 02/28/18 19:03 02/28/18 19:03 02/28/18 19:03 02/28/18 19:03 02/28/18 19:03 Vital Signs - Last 8 Hours Temp Pulse Resp BP Pulse Ox 03/01/18 13:13 97.6 F 68 18 128/74 99 Intake and Output 02/28/18 03/01/18 03/01/18 23:59 07:59 15:59 Intake Total 1370 / 1370 Balance 1370 / 1370 Intake: IV Fluids 1000 / 1000 0.9 % Sodium Chloride 1,000 ML 1000 / 1000 @ 75 mls/hr IVC .[id number] [facility] Rx #:[id number] Oral 370 / 370 Other: Meal Lunch Percent of Meal Consumed 25% Stool Size Moderate Stool Consistency soft Stool Color Brown # Urine Diapers 1 # Bowel Movements 1 Weight 106.3 kg Blood Glucose* 130 136 176 - General Appearance General appearance: chronically ill, fatigue EENT: ATNC, mucous membranes dry Neck: no JVD, supple Respiratory: clear (ant bilat) Cardiology: no edema, normal S1, normal S2 - Dialysis Access Dialysis Vascular Access: Venous Catheter (permcath) Gastrointestinal: no tenderness Integumentary: warm and dry Neurologic: no focal deficit Musculoskeletal: no deformities Psychiatric: mood/affect appropriate, cooperative Results - Lab Results 03/01/18 04:40 03/01/18 04:40 Most recent lab results Calcium 8.4 mg/dL (8.6-10.3) L 03/01/18 04:40 Phosphorus 5.8 mg/dL (2.7-4.5) H 03/01/18 04:40 Magnesium 2.0 mg/dL (1.6-2.6) 03/01/18 04:40 Consult Discharge Plan - Plan Referrals: Latoya Harkins, [employer] [Primary Care Provider] -
--- NOTE | 2018-03-02 08:32 | Internal Med Progress Note ---
<TiradoАндрей - Last Filed: 03/02/18 12:38> Hospitalist Progress Note - Encounter Date of Encounter: 03/02/18 - Exam Vitals: Temp Pulse Resp BP Pulse Ox 98.1 F 69 16 156/80 99 03/02/18 11:28 03/02/18 11:28 03/02/18 11:28 03/02/18 11:28 03/02/18 11:28 - Time Spent with Patient Total time spent is greater than 50% in coordination of care (as documented) at patient's floor/unit and/or counseling patient: Internal Medicine: Result - Labs CBC & Chem 7: 03/02/18 09:32 03/02/18 09:32 Labs: Short CBC 03/02/18 Range/Units 09:32 WBC 5.8 (4.3-11.1) K/mcL Hgb 7.6 L (11.5-15.4) g/dL Hct 23.9 L (35.3-44.9) % Plt Count 71 L (140-400) K/mcL Neutrophils # 4.0 (1.6-8.9) K/mcL BMP 03/02/18 09:32 Sodium 130 L Potassium 4.8 Chloride 92 L Carbon Dioxide 28 BUN 86 H Creatinine 6.12 H Glucose 218 H Calcium 8.2 L - ABG Interpretation ABG results: PT/INR, D-dimer PT 14.4 Seconds (9.4-12.1) H 03/01/18 04:40 - Impressions Impressions Retroperitoneum Ultrasound 03/02/18 09:30 IMPRESSION: No hydronephrosis. D/ / Scooby Bond MD / Scooby Bond MD Interpreting Provider: Scooby Bond MD Consult Discharge Plan - Plan Referrals: Latoya Harkins, VAT PACKER [Primary Care Provider] - - Attending Attestation I performed an independent interview and exam of this patient. I agree with findings, assessment, and plan of Dr. Hurley, internal medicine international organizer. There is a 78-year-old female with acute on chronic renal failure who is now requiring dialysis. She was transferred here for nephrology care. She also has MSSA bacteremia for which she is receiving antibiotics via a PICC line. Patient is currently on Ancef renally dosed. Nephrology has evaluated this patient and she will continue with hemodialysis. She appears mildly hypervolemic on exam but is otherwise comfortable. Continues with her IV Ancef as directed by ID, followed by doxycycline suppression therapy. She as of yet has unknown source for her MSSA bacteremia. Gen: obese, mild dyspnea neck supple lung crackles bilat ht rrr Abd soft +BS, NT Ext 1+ edema PICC left UE (came out and is currently being replaced) Right ant chest wall dialysis catheter It is hoped that she will come off dialysis but as of yet is unknown. <Brian Hurley - Last Filed: 03/03/18 07:39> Hospitalist Progress Note - Encounter Date of Encounter: 03/03/18 Time of Encounter: 17:22 - Subjective Interval History: Ms. Taylor is a 78F with PMH of arthritis, cancer, cirrhosis, CHF, diabetes, hyperlipidemia, hypertension, liver disease, and renal disease who presented to as a transfer from [place] to [facility] on 02/28/18 for acute renal failure. Information obtained per review of medical records from [facility]. Patient had initially presented with generalized weakness. She was found to have MSSA bacteremia, was transferred to [place] on 02/13 for further care. Her hospital course was complicated by CHF requiring Bumex drip, anemia requiring EGD and transfusions, and AK I requiring an HD catheter placement and initiation of dialysis. [place] requested that the patient be transferred here. Patients library media assistant is Dr. Rosales. Pt seen and examined at bedside. Pt resting comfortably in bed. She had just got back from dialysis and states she is very tired. No new or acute complaints. Denies any fever, chills, chest pain, nausea, vomiting, diarrhea, numbness, or tingling. Of note the area around her dialysis catheter is very erythematous. The nurse and I marked the margins of the lesion. Nurse states pt bruises very easily. - Exam Vitals: Temp Pulse Resp BP Pulse Ox 98.0 F 64 16 126/59 100 03/02/18 07:30 03/02/18 07:30 03/02/18 07:30 03/02/18 07:30 03/02/18 07:30 Exam: Head: atraumatic, normocephalic Eyes: PERRL, EOMI, no scleral icterus Neck: supples, trachea midline, no lymphadenopathy Lungs: CTA bilaterally. Non-labored breathing. No rales, rhonchi, or wheezes. Heart: RRR, +S1, +S2, +2 blowing systolic murmur GI: abdomen soft, non-tender, non-distended. normoactive bowel sounds Extremities: warm, radial pulses palpable and symmetrical Neuro: A&Ox3. no speech difficulty or abnormality. no focal deficits. Skin: warm, dry, intact. Area of erythema surrounding HD cath, no warmth to touch, no pain on palpation. - Assessment and Plan (1) Acute renal failure Current Visit: Yes Status: Acute Assessment and Plan: Baseline creatinine is 2.1 progressively increasing, today at 6.[address] Bobby Mei for dialysis earlier today Appreciate nephro consult and recs Hold IVF at this time (2) MSSA bacteremia Current Visit: Yes Status: Acute Assessment and Plan: Per medical records from [place] - Demonstrated on blood culture from 02/11/18 - Patient was treated with 4 weeks of IV antibiotics; 6 week total course prior to admission - Repeat blood CX on 02/13 was negative - PICC line was placed on 02/23/18 - Infectious disease recommended 6 weeks total of IV Ancef (last dose on ) followed by indefinite doxycycline - Patient has been afebrile in the last 24 hours - No leukocytosis - Repeat blood CX x2 pending Continue Ancef 500 mg IV q 24 hr (3) Acute on chronic diastolic heart failure Current Visit: Yes Status: Acute Assessment and Plan: Information obtained from medical records from [facility] - TTE on 02/12/18 demonstrated ejection fraction of 60% - Patient was being diuresed with Bumex; was discontinued due to declining renal function - BNP: 1474 (4) Diabetes mellitus Current Visit: Yes Status: Acute Assessment and Plan: Low dose SSI - Time Spent with Patient Total time spent is greater than 50% in coordination of care (as documented) at patient's floor/unit and/or counseling patient: Internal Medicine: Result - Labs CBC & Chem 7: 03/03/18 06:44 03/02/18 09:32 - ABG Interpretation ABG results: PT/INR, D-dimer PT 14.4 Seconds (9.4-12.1) H 03/01/18 04:40
[2018-03-02] MEDS: Insulin LISPRO 300 UNITS/3 ML VIAL SQ SCH ×4 (09:04→21:51)
[2018-03-02 09:47] LABS: Immature Granulocytes % 0.2 % (0-4)
[2018-03-02 09:49] LABS: Basophils % 0.5 %; Eosinophils # 0.1 K/mcL (0.0-0.6); Eosinophils % 1.4 %; Hematocrit 23.9 % (35.3-44.9); Hemoglobin 7.6 g/dL (11.5-15.4); Immature Platelets 2.5 % (1.1-6.1); Lymphocytes # 0.7 K/mcL (0.6-4.6); Lymphocytes % 11.7 %; Mean Corpuscular HGB Conc 31.8 g/dL (31.6-35.5); Mean Corpuscular Hemoglobin 28.9 pg (28.0-33.3); Mean Corpuscular Volume 90.9 fL (83.0-100.0); Mean Platelet Volume 10.8 fL (9.4-12.4); Monocytes % 16.9 %; Red Blood Count 2.63 M/mcL (3.82-4.97); Red Cell Distribution Width 15.6 % (11.5-14.5); Segmented Neutrophils % 69.3 %
[2018-03-02 09:51] LABS: Platelet Count 71 K/mcL (140-400)
[2018-03-02] MEDS ORDERED: Lidocaine -MPF 1% 5 ML AMPUL INFILT ONE (10:04)
[2018-03-02 10:07] LABS: Calcium 8.2 mg/dL (8.6-10.3); Potassium 4.8 mEq/L (3.5-5.1)
[2018-03-02] MEDS ORDERED: *HR* Heparin 10,000 UNIT/10 ML VIAL IV PRN (10:32)
[2018-03-02] MEDS ORDERED: 0.9 % Sodium Chloride 250 ML IVC PRN (10:32)
[2018-03-02 10:41] LABS: Hepatitis B Surface Antigen Nonreactive (Nonreactive)
[2018-03-02] MEDS ORDERED: 0.9 % Sodium Chloride 1,000 ML PRIME SCH (10:45)
--- NOTE | 2018-03-02 11:03 | Nephrology Progress Note ---
Date of Encounter: 03/02/18 Time of Encounter: 11:01 - Assessment and Plan (1) CKD (chronic kidney disease), stage III Current Visit: No Status: Chronic Baseline GFR in the 30s at least this year. (2) Acute kidney injury superimposed on CKD Current Visit: No Status: Acute HD planned for today. Hold IVF. Continue to avoid nephrotoxins and renal dose if able. (3) MSSA bacteremia Current Visit: Yes Status: Acute Abx per primary team (4) Acute on chronic diastolic heart failure Current Visit: Yes Status: Acute Stop IVF Strict I/Os (5) Hyperkalemia Current Visit: Yes Status: Acute Resolved K is 4.8 again today. Renal diet if able to eat. Subjective Principal diagnosis: worsening renal function Interval history: Pt seen and examined, doing well. Denies CP/SOB. Denies N/V/D. Objective - Vital Signs Vital signs: Vital Signs Temp Pulse Resp BP Pulse Ox 03/02/18 09:44 100 03/02/18 07:30 98.0 F 64 16 126/59 100 03/02/18 04:35 98.6 F 65 18 123/72 98 03/02/18 00:02 97.8 F 64 18 117/62 100 03/01/18 19:31 97.9 F 66 20 163/87 91 03/01/18 17:08 98.6 F 63 19 104/49 100 03/01/18 13:13 97.6 F 68 18 128/74 99 Intake and Output 03/01/18 03/02/18 03/02/18 23:59 07:59 15:59 Intake Total 0 / 0 0 / 0 Output Total 0 / 0 Balance 0 / 0 0 / 0 Intake: Oral 0 / 0 0 / 0 Output: Urine 0 / 0 Other: Stool Size Moderate Small Large Stool Consistency soft soft loose formed Stool Characteristics Normal for Patient Normal for Patient Stool Color Brown Brown Brown # Bowel Movements 1 1 # Bowel Movement Diapers 1 Weight 106.594 kg Blood Glucose* 254 140 Patient Weight 03/02/18 23:59 Weight 106.594 kg - General Appearance General appearance: Present: well-developed, well-nourished, appears started age EENT: Present: ATNC, hearing intact, vision intact Neck: Present: supple Respiratory: Present: clear Cardiology: Present: edema (+1 pitting edema noted to bilat lower extremities, wrapped in Loy Bandages x 2.), normal S1, normal S2 Dialysis Vascular Access: Venous Catheter (DRSG C/D/I.) Gastrointestinal: Present: normoactive bowel sounds, no tenderness, no guarding Integumentary: Present: no rash, warm and dry Neurologic: Present: alert and oriented x3 Psychiatric: Present: mood/affect appropriate, cooperative - Lab 03/02/18 09:32 03/02/18 09:32 Most recent lab results Calcium 8.2 mg/dL (8.6-10.3) L 03/02/18 09:32 Phosphorus 5.8 mg/dL (2.7-4.5) H 03/01/18 04:40 Magnesium 2.0 mg/dL (1.6-2.6) 03/01/18 04:40 Consult Discharge Plan - Plan Referrals: Latoya Harkins CNP [Primary Care Provider] -
[2018-03-02] MEDS ORDERED: 0.9 % Sodium Chloride 1,000 ML ONE (11:55)
[2018-03-02] MEDS ORDERED: ceFAZolin 500 MG in Water for inj. (sterile) 20 ML 10 ML IVPB ONE ×2 (12:10→18:00)
[2018-03-02] MEDS: ceFAZolin 500 MG in Water for inj. (sterile) 20 ML 10 ML IVPB SCH (12:51)
[2018-03-03 06:58] LABS: Hematocrit 26.6 % (35.3-44.9); Hemoglobin 8.2 g/dL (11.5-15.4); Immature Platelets 2.1 % (1.1-6.1); Mean Corpuscular HGB Conc 30.8 g/dL (31.6-35.5); Mean Corpuscular Hemoglobin 28.3 pg (28.0-33.3); Mean Corpuscular Volume 91.7 fL (83.0-100.0); Mean Platelet Volume 9.6 fL (9.4-12.4); Red Blood Count 2.9 M/mcL (3.82-4.97); Red Cell Distribution Width 15.8 % (11.5-14.5)
[2018-03-03 07:17] LABS: Calcium 8.5 mg/dL (8.6-10.3); Potassium 4.5 mEq/L (3.5-5.1)
--- NOTE | 2018-03-03 07:41 | Internal Med Progress Note ---
<Brian Hurley - Last Filed: 03/03/18 13:29> Hospitalist Progress Note - Encounter Date of Encounter: 03/03/18 Time of Encounter: 09:12 - Subjective Interval History: Ms. Taylor is a 78F with PMH of arthritis, cancer, cirrhosis, CHF, diabetes, hyperlipidemia, hypertension, liver disease, and renal disease who presented to as a transfer from [place] to [facility] on 02/28/18 for acute renal failure. Information obtained per review of medical records from [facility]. Patient had initially presented with generalized weakness. She was found to have MSSA bacteremia, was transferred to [place] on 02/13 for further care. Her hospital course was complicated by CHF requiring Bumex drip, anemia requiring EGD and transfusions, and AK I requiring an HD catheter placement and initiation of dialysis. [place] requested that the patient be transferred here. Patients pumpman is Dr. Rosales. Pt seen and examined at bedside. Pt resting comfortably in bed, about to go to dialysis. No new or acute complaints. States she feels significantly better today. Denies any fever, chills, chest pain, nausea, vomiting, diarrhea, numbness, or tingling. The area around her dialysis catheter was found to be very erythematous yesterday. The nurse and I marked the margins of the lesion at that time. Nurse states pt bruises very easily. Today the area appears more purple/blue in color than yesterday. No warmth or tenderness to region. - Exam Vitals: Temp Pulse Resp BP Pulse Ox 98.6 F 70 16 123/83 98 03/03/18 04:08 03/03/18 04:08 03/03/18 04:08 03/03/18 04:08 03/03/18 04:08 Exam: Head: atraumatic, normocephalic Eyes: PERRL, EOMI, no scleral icterus Neck: supples, trachea midline, no lymphadenopathy Lungs: CTA bilaterally. Non-labored breathing. No rales, rhonchi, or wheezes. Heart: RRR, +S1, +S2, +2 blowing systolic murmur GI: abdomen soft, non-tender, slightly distended. normoactive bowel sounds Extremities: warm, radial pulses palpable and symmetrical Neuro: A&Ox3. no speech difficulty or abnormality. no focal deficits. Skin: warm, dry, intact. Area of erythema surrounding HD cath, more purple/blue in hue today, no warmth or pain on palpation. - Assessment and Plan (1) Acute renal failure Current Visit: Yes Status: Acute Assessment and Plan: Baseline creatinine is 2.1 Continues to be elevated, improved today which is to be expected s/p dialysis, 4.[address] Rosales Renal ultz was unremarkable. No cyts. Normal cortical echogenicity. Went for dialysis yesterday and had 4.3L removed Going for dialysis today as well Cause of ARF may be related to Bumex use at [place], but unclear at this time Appreciate nephro consult and recs Hold IVF at this time (2) MSSA bacteremia Current Visit: Yes Status: Acute Assessment and Plan: Per medical records from [place] - Demonstrated on blood culture from 02/11/18 - Patient was treated with 4 weeks of IV antibiotics; 6 week total course prior to admission - Repeat blood CX on 02/13 was negative - PICC line was placed on 02/23/18 - Infectious disease recommended 6 weeks total of IV Ancef (last dose on ) followed by indefinite doxycycline - Patient has been afebrile in the last 24 hours - No leukocytosis - 5.2 today - Repeat blood CX x2 pending, preliminary results have Staph aureus in 1 culture Continue Ancef 500 mg IV q 24 hr Consult ID for recurrent bacteremia with no identifiable source (3) Acute on chronic diastolic heart failure Current Visit: Yes Status: Acute Assessment and Plan: Information obtained from medical records from [facility] - TTE on 02/12/18 demonstrated ejection fraction of 60% - Patient was being diuresed with Bumex; was discontinued due to declining renal function - BNP on 03/01: 1474 Fluid being removed via HD Continue to hold diuretics at this time with poor kidney function (4) Diabetes mellitus Current Visit: Yes Status: Acute Assessment and Plan: Low dose SSI Blood glucose at 144 today DVT Prophylaxis: EPCDs - Time Spent with Patient Total time spent is greater than 50% in coordination of care (as documented) at patient's floor/unit and/or counseling patient: Internal Medicine: Result - Labs CBC & Chem 7: 03/03/18 06:44 03/03/18 06:44 Labs: Short CBC 03/02/18 03/03/18 Range/Units 09:32 06:44 WBC 5.8 5.2 (4.3-11.1) K/mcL Hgb 7.6 L 8.2 L (11.5-15.4) g/dL Hct 23.9 L 26.6 L (35.3-44.9) % Plt Count 71 L 75 L (140-400) K/mcL Neutrophils # 4.0 (1.6-8.9) K/mcL BMP 03/02/18 03/03/18 09:32 06:44 Sodium 130 L 133 L Potassium 4.8 4.5 Chloride 92 L 95 L Carbon Dioxide 28 28 BUN 86 H 52 H Creatinine 6.12 H 4.79 H Glucose 218 H 144 H Calcium 8.2 L 8.5 L - ABG Interpretation ABG results: PT/INR, D-dimer PT 14.4 Seconds (9.4-12.1) H 03/01/18 04:40 - Impressions Impressions Retroperitoneum Ultrasound 03/02/18 09:30 IMPRESSION: No hydronephrosis. D/ / Scooby Bond MD / Scooby Bond MD Interpreting Provider: Scooby Bond MD Consult Discharge Plan - Plan Referrals: Latoya Harkins, LOW VISION THERAPIST [Primary Care Provider] - <Payam Jett - Last Filed: 03/03/18 16:40> Hospitalist Progress Note - Encounter Date of Encounter: 03/03/18 - Exam Vitals: Temp Pulse Resp BP Pulse Ox 98.2 F 76 18 138/69 98 03/03/18 15:10 03/03/18 15:10 03/03/18 15:10 03/03/18 15:10 03/03/18 15:10 - Assessment and Plan (1) Acute renal failure Current Visit: Yes Status: Acute (2) MSSA bacteremia Current Visit: Yes Status: Acute (3) Acute on chronic diastolic heart failure Current Visit: Yes Status: Acute (4) Diabetes mellitus Current Visit: Yes Status: Acute - Time Spent with Patient Total time spent is greater than 50% in coordination of care (as documented) at patient's floor/unit and/or counseling patient: Internal Medicine: Result - Labs CBC & Chem 7: 03/03/18 06:44 03/03/18 06:44 Labs: Short CBC 03/03/18 Range/Units 06:44 WBC 5.2 (4.3-11.1) K/mcL Hgb 8.2 L (11.5-15.4) g/dL Hct 26.6 L (35.3-44.9) % Plt Count 75 L (140-400) K/mcL BMP 03/03/18 06:44 Sodium 133 L Potassium 4.5 Chloride 95 L Carbon Dioxide 28 BUN 52 H Creatinine 4.79 H Glucose 144 H Calcium 8.5 L - ABG Interpretation ABG results: PT/INR, D-dimer PT 14.4 Seconds (9.4-12.1) H 03/01/18 04:40 - Attending Attestation I examined this patient and my medical decision-making was reviewed with the Resident Physician Dr. Hurley. I agree with the documented findings, disposition and treatment plan as described except to the extent set forth below. Ms. Taylor is a 78 y/o F with known PMH of DM2, HTN, prosthetic AV, Left TKR, CKD-4, h/o recurrent MSSA bacteremia, who was transferred to our hospital from [place] for HD due to worsening DIDIER with CKD-4. Pt is alert, awake and O x 3. Her blood cx 1/2 positive for Staph cocci again. At [place], she had all the work up done regarding her MSSA bactermia. Gen: A, A, O x 3 Chest: Diminished BS b/l Heaart: S1S2+ RRR a/p 1. Recurrent bacteremia no clear source of inf so far all the work up negative for any IE, prosthetic left Knee joint inf ID consulted cont Ancef for now 2. DIDIER with CKD-4 Continue temporary HD as per Nephro recommendation
[2018-03-03] MEDS ORDERED: *HR* Heparin 10,000 UNIT/10 ML VIAL IV PRN (08:10)
[2018-03-03] MEDS ORDERED: 0.9 % Sodium Chloride 250 ML IVC PRN (08:10)
[2018-03-03] MEDS ORDERED: 0.9 % Sodium Chloride 1,000 ML PRIME SCH (08:15)
[2018-03-03] MEDS: Insulin LISPRO 300 UNITS/3 ML VIAL SQ SCH ×4 (08:32→22:09)
[2018-03-03 08:59] LABS: Acinetobacter baumannii by PCR Not Detected (Not Detect); Candida albicans by PCR Not Detected (Not Detect); Candida glabrata by PCR Not Detected (Not Detect); Candida krusei by PCR Not Detected (Not Detect); Candida parapsilosis by PCR Not Detected (Not Detect); Candida tropicalis by PCR Not Detected (Not Detect); Enterobacter cloacae Cmplx PCR Not Detected (Not Detect); Enterobacteriaceae by PCR Not Detected (Not Detect); Enterococcus by PCR Not Detected (Not Detect); Escherichia coli by PCR Not Detected (Not Detect); Klebsiella oxytoca by PCR Not Detected (Not Detect); Klebsiella pneumoniae by PCR Not Detected (Not Detect); Proteus by PCR Not Detected (Not Detect); Pseudomonas aeruginosa by PCR Not Detected (Not Detect); Serratia marcescens by PCR Not Detected (Not Detect); Staphylococcus aureus by PCR DETECTED (Not Detect); Staphylococcus by PCR DETECTED (Not Detect); Streptococcus agalactiae(B)PCR Not Detected (Not Detect); Streptococcus by PCR Not Detected (Not Detect); Streptococcus pneumoniae PCR Not Detected (Not Detect); Streptococcus pyogenes (A) PCR Not Detected (Not Detect); mecA Methicillin-Resist Gene Not Detected (Not Detect)
--- NOTE | 2018-03-03 10:50 | Nephrology Progress Note ---
Date of Encounter: 03/03/18 Time of Encounter: 10:49 - Assessment and Plan (1) CKD (chronic kidney disease), stage III Current Visit: No Status: Chronic Baseline GFR in the 30s at least this year. (2) Acute kidney injury superimposed on CKD Current Visit: No Status: Acute HD in progress for today. Hold IVF. Continue to avoid nephrotoxins and renal dose if able. (3) MSSA bacteremia Current Visit: Yes Status: Acute Abx per primary team (4) Acute on chronic diastolic heart failure Current Visit: Yes Status: Acute Stop IVF Strict I/Os (5) Hyperkalemia Current Visit: Yes Status: Acute Resolved K is 4.5 today. Renal diet if able to eat. Subjective Principal diagnosis: worsening renal function Interval history: Pt seen and examined during HD, doing well. Denies CP/SOB. Denies N/V/D. Objective - Vital Signs Vital signs: Vital Signs Temp Pulse Resp BP Pulse Ox 03/03/18 10:30 115/42 03/03/18 10:15 127/58 03/03/18 10:00 136/60 03/03/18 09:45 126/54 03/03/18 09:30 118/52 03/03/18 09:15 97.6 F 16 122/56 03/03/18 07:34 97.7 F 67 16 122/71 100 03/03/18 04:08 98.6 F 70 16 123/83 98 03/02/18 23:53 98.8 F 72 16 161/72 97 03/02/18 19:48 98.2 F 66 16 122/53 98 03/02/18 16:35 97.7 F 60 16 152/82 100 03/02/18 16:00 97.2 F L 19 159/66 03/02/18 15:45 155/70 03/02/18 15:30 159/67 03/02/18 15:15 153/60 03/02/18 15:00 152/60 03/02/18 14:50 97.2 F L 59 21 158/64 99 03/02/18 14:45 152/69 03/02/18 14:30 151/70 03/02/18 14:20 97.3 F L 60 222 154/62 03/02/18 14:15 144/66 03/02/18 14:05 97.0 F L 60 23 142/59 03/02/18 14:00 152/63 03/02/18 13:45 146/66 03/02/18 13:30 151/66 03/02/18 13:15 161/66 03/02/18 13:00 161/78 03/02/18 12:45 97.5 F L 21 175/74 03/02/18 11:28 98.1 F 69 16 156/80 99 Intake and Output 03/02/18 03/03/18 03/03/18 23:59 07:59 15:59 Intake Total 350 / 350 150 / 150 630 / 630 Output Total 2950 / 2950 0 / 0 Balance -2600 / -2600 150 / 150 630 / 630 Intake: IV Fluids 30 / 30 Oral 150 / 150 Blood Product 350 / 350 Rbcs Leuko Poor As-1 Unit 350 / 350 [id number] Intake, Rinseback and Flushes 600 / 600 Output: Urine 0 / 0 0 / 0 Total Dialysis (HD) Output 2950 / 2950 Other: Stool Size Small Stool Characteristics Normal for Patient # Bowel Movements 1 Weight 105.7 kg Blood Glucose* 131 149 Hemodialysis Net Fluid Removed 1999 1290 (mL) - General Appearance General appearance: Present: well-developed, well-nourished EENT: Present: ATNC, hearing intact, vision intact Neck: Present: supple Respiratory: Present: clear Cardiology: Present: edema (Trace bilat lower extremity edema, wrapped in diane wrap. ), normal S1, normal S2 Dialysis Vascular Access: Venous Catheter Gastrointestinal: Present: normoactive bowel sounds, no tenderness, no guarding Integumentary: Present: no rash, warm and dry Neurologic: Present: alert and oriented x3 Psychiatric: Present: mood/affect appropriate, cooperative - Lab 03/03/18 06:44 03/03/18 06:44 Most recent lab results Calcium 8.5 mg/dL (8.6-10.3) L 03/03/18 06:44 Phosphorus 5.8 mg/dL (2.7-4.5) H 03/01/18 04:40 Magnesium 2.0 mg/dL (1.6-2.6) 03/01/18 04:40 Consult Discharge Plan - Plan Referrals: Latoya Harkins, KENROY [Primary Care Provider] -
--- NOTE | 2018-03-03 15:03 | Infectious Disease Consult ---
Date of Encounter: 03/03/18 Time of Encounter: 14:43 Assessment and Plan (1) Recurrent bacteremia Status: Acute Assessment and plan: Complicated MSSA bacteremia due to setting of hardware s/p TKR and bioprosthetic valve 11/07/2017: 2 out of 2 sets positive for MSSA discharge on oral doxycycline for 7 days 11/26/2017: 2 out of 2 sets positive for MSSA; repeat cultures on November 28 no growth. Treated with 4 weeks of IV cefazolin for complicated MSSA bacteremia. At that time ELVER and TTE were negative 02/11/2018 2 out of 2 sets positive for MSSA bacteremia. Patient was transferred to [place]. Exact treatment at that time unclear but we will get records 03/31/2018 1 out of 2 sets positive for MSSA bacteremia based on PCR. Recommend CT head and neck, CT chest and CT abdomen and pelvis. Also recommend CT knees bilaterally. I did call nuclear medicine and spoke with Dr. Major and discussed options. He recommended an indium tagged WBC scan. We discussed if we should just go with the screening CT first and if that does not reveal anything maybe we can go with a WBC tagged scan and he was okay with that. I will check inflammatory markers and rheumatoid factor Agree with cefazolin; dose adjust based on the creatinine clearance. Pharmacy to help with that Patient will need a repeat ELVER Monitor labs and for drug toxicity (2) Acute on chronic kidney failure Status: Acute Qualifiers: Acute renal failure type: unspecified Chronic kidney disease stage: unspecified stage Qualified Code(s): N17.9 - Acute kidney failure, unspecified ; N18.9 - Chronic kidney disease, unspecified (3) Diabetes mellitus type 2 in obese Status: Acute (4) Staphylococcus aureus bacteremia Status: Acute (5) History of aortic valve replacement with bioprosthetic valve Status: Chronic (6) MGUS (monoclonal gammopathy of unknown significance) Status: Acute Assessment and plan: Not sure if that is a contributing factor to recurrent MSSA bacteremia Might benefit from immunology consultation (7) Cirrhosis Status: Chronic Assessment and plan: Etiology not clear. Patient's meld score on admission is 27 assuming a bilirubin of 1 Please check LFTs and PT/INR to check meld score again for prognostic factor Qualifiers: Hepatic cirrhosis type: unspecified hepatic cirrhosis Ascites presence: without ascites Qualified Code(s): K74.60 - Unspecified cirrhosis of liver Infectious Disease HPI - Data of Consult Patient: new to practice Consult date: 03/03/18 Requesting Physician: Payam Jett MD Primary Care Provider: Latoya Harkins CNP - Consult Narrative Reason for consult: Recurrent bacteremia History of present illness: Ms. Taylor is a 78 year old female Patient is a 78-year-old woman who presented to [facility] on 02/28/2018 with acute renal failure, we are consulted on 03/03/2018 with recurrent bacteremia. Patient is a 78-year-old woman who is known to our service, was last seen by us on the 11/27/2017 admission. Patient with past medical history significant for diabetes mellitus type 2, hypertension, by prostatic aortic valve, left total knee replacement, presented to [facility] recently in October 2017 MSSA bacteremia 2 out of 2 sets positive on 11/26/2017. Repeat cultures on 11/28/2017 were negative. Patient had a TTE and ELVER both which were negative for endocarditis. Patient initially was given nafcillin and then switched to cefazolin and the plan was to treat for 28 days through 12/26/2017. On 02/11/2018 patient presented to [facility] with dyspnea. Cultures were obtained on that time and 2 out of 2 sets were positive for Staphylococcus aureus At that time patient was transferred to [facility] am not sure what happened after that over there. Since admission, patient has been afebrile no tachycardia and hemodynamically stable. Labs revealed normal WBC with normal differential. Patient was noted to be in acute kidney injury with a BUN of 78 creatinine of 5.19. Blood cultures were obtained on 03/01/2018 and 1 out of 2 sets were positive for gram- positive cocci and PCR picked up staph aureus with no Mec A gene. Patient will was started on cefazolin 1 g every 24 hours and we were asked to evaluate the patient and make further recommendations. CC: Payam Jett MD Past Med Surg Social Fam HX - Past Medical History Medical history: arthritis, cancer, cirrhosis, CHF, diabetes, hyperlipidemia, hypertension, liver disease, renal disease Additional medical history: valvular heart disease Psychiatric history: no psych history - Past Surgical History Surgical History: appendectomy, cataract, heart valve replacement, hysterectomy , [place]/BSO Additional surgical history: HAMMER TOES. ACHILLES HEEL REPAIR. LEFT TKR. BLADDER REPAIR. AVR 08/2014. A&P. BREAST BIOPSY - Social History Smoking Status: Former smoker Smokeless Tobacco Status: No Alcohol use: none Drug use: none - Family History Mother History Unknown: Yes Living Status: Hx Family Cardiac Disorders: No Hx Family Respiratory Disorders: No Hx Family Endocrine Disorder: Yes Hx Family Neurologic Disorders: Yes Infectious Disease-CN:Meds Cholecalciferol (D-3) [Vitamin D] 1,000 unit PO DAILY 04/07/17 [History] Multivit-Min/FA/Lycopen/Lutein [Centrum Silver Tablet] 1 tab PO DAILY 04/07/17 [ History] Vitamin E Acetate [Vitamin E] 400 unit PO DAILY 04/07/17 [History] Ferrous Sulfate [Iron] 325 mg PO DAILY 11/28/17 [History] Insulin Glargine,Hum.rec.anlog [Lantus Solostar] 30 units SQ HS 11/28/17 [ History] Insulin LISPRO [Humalog] 0 unit SQ TIDWM 11/28/17 [History] Metoprolol [Lopressor] 12.5 mg PO BID 11/28/17 [History] Isosorbide MONOnitrate (24 HR) [Imdur] 30 mg PO DAILY #30 tab.er.24h 12/26/17 [ Rx] cloNIDine HCl [CloNIDine HCl] 0.1 mg PO BID 02/11/18 [History] ceFAZolin [Ancef] 1,000 gm IV DAILY 02/28/18 [History] Bumetanide [Bumex] 1 - 2 mg PO DAILY 03/01/18 [History] 3 Allergy/AdvReac Type Severity Reaction Status Date / Time Wwbfxbg-Ubk-Aau Reductase AdvReac Muscle Pain Verified 11/28/17 10:02 Inhibitor [Statins] Exam - Constitutional Vitals: Temp Pulse Resp BP Pulse Ox 97.3 F L 67 16 111/53 100 03/03/18 13:05 03/03/18 07:34 03/03/18 13:05 03/03/18 13:05 03/03/18 07:34 Infectious Disease CN: Results - Labs CBC & Chem 7: 03/03/18 06:44 03/03/18 06:44 Cultures: Cultures 03/01/18 04:40 Blood Culture - Preliminary Peripheral Venipuncture Gram Positive Cocci 03/01/18 04:41 Blood Culture - Preliminary Peripheral Venipuncture Culture is incubating and being continuously monitored for growth. Final report to follow. Serology: Serology 03/02/18 03/01/18 Range/Units 09:32 04:40 A. baumannii (PCR) Not Detected (Not Detect) Negin albicans (PCR) Not Detected (Not Detect) C. glabrata (PCR) Not Detected (Not Detect) C. krusei (PCR) Not Detected (Not Detect) C. parapsilosis (PCR) Not Detected (Not Detect) C. tropicalis (PCR) Not Detected (Not Detect) Enterobacteriac sp PCR Not Detected (Not Detect) E. cloacae complex PCR Not Detected (Not Detect) Enterococcus sp PCR Not Detected (Not Detect) E. coli (PCR) Not Detected (Not Detect) H. influenzae (PCR) Not Detected (Not Detect) Hep Bs Antigen Nonreactive (Nonreactive) Hep Bs Antibody 0.00 mIU/mL Klebsiella oxytoca PCR Not Detected (Not Detect) Klebsiella pneumoniae Not Detected (Not Detect) List. monocytogenes PCR Not Detected (Not Detect) N. meningitidis (PCR) Not Detected (Not Detect) Proteus species (PCR) Not Detected (Not Detect) Serratia marcescens PCR Not Detected (Not Detect) Staphylococcus sp PCR DETECTED A (Not Detect) Staph aureus (PCR) DETECTED A (Not Detect) mecA-Methicil Res Gene Not Detected (Not Detect) Streptococcus sp PCR Not Detected (Not Detect) Group A Strep DNA Not Detected (Not Detect) Group B Strep (PCR) Not Detected (Not Detect) Strep pneumoniae (PCR) Not Detected (Not Detect) P. aeruginosa (PCR) Not Detected (Not Detect) Jake/B-Vanco Res Genes N/A (Not Detect) KPC (blaKPC) Detect PCR N/A (Not Detect) Consult Discharge Plan - Plan Referrals: Latoya Harkins, WEAVER AXMINSTER [Primary Care Provider] -
[2018-03-03] MEDS: ceFAZolin 1,000 MG in Water for inj. (sterile) 20 ML 10 ML IVP SCH (17:14)
[2018-03-04] MEDS ORDERED: Acetaminophen 325 MG TABLET PO PRN (03:11)
[2018-03-04 07:10] LABS: Hematocrit 25.3 % (35.3-44.9); Hemoglobin 7.8 g/dL (11.5-15.4); Immature Platelets 2.5 % (1.1-6.1); Mean Corpuscular HGB Conc 30.8 g/dL (31.6-35.5); Mean Corpuscular Hemoglobin 28.6 pg (28.0-33.3); Mean Corpuscular Volume 92.7 fL (83.0-100.0); Red Blood Count 2.73 M/mcL (3.82-4.97); Red Cell Distribution Width 16.1 % (11.5-14.5)
[2018-03-04 07:14] LABS: Basophils % 0.4 %; Eosinophils # 0.2 K/mcL (0.0-0.6); Eosinophils % 3.1 %; Hematocrit 26.1 % (35.3-44.9); Immature Granulocytes % 0.4 % (0-4); Immature Platelets 2.1 % (1.1-6.1); Lymphocytes # 0.7 K/mcL (0.6-4.6); Lymphocytes % 15.1 %; Mean Corpuscular HGB Conc 30.7 g/dL (31.6-35.5); Mean Corpuscular Hemoglobin 28.5 pg (28.0-33.3); Mean Corpuscular Volume 92.9 fL (83.0-100.0); Mean Platelet Volume 9.9 fL (9.4-12.4); Monocytes # 0.9 K/mcL (0.0-1.3); Monocytes % 18.3 %; Neutrophils # 3.1 K/mcL (1.6-8.9); Red Blood Count 2.81 M/mcL (3.82-4.97); Red Cell Distribution Width 16.1 % (11.5-14.5); Segmented Neutrophils % 62.7 %
[2018-03-04 07:19] LABS: Platelet Count 76 K/mcL (140-400)
[2018-03-04 07:30] LABS: BUN/Creatinine Ratio 9 (6-26); Blood Urea Nitrogen 34 mg/dL (8-23); Calcium 8.6 mg/dL (8.6-10.3); Carbon Dioxide 31 mEq/L (23-29); Chloride 94 mEq/L (98-107); Glucose 162 mg/dL (70-105); Osmolality,Calculated 287 (280-300); Potassium 4.1 mEq/L (3.5-5.1); Sodium 133 mEq/L (136-145); eGFR For Non-African Americans 12 (> 60)
[2018-03-04 08:16] LABS: Platelet Estimate Decreased (Normal)
--- NOTE | 2018-03-04 08:54 | Internal Med Progress Note ---
<Brian Hurley - Last Filed: 03/04/18 13:07> Hospitalist Progress Note - Encounter Date of Encounter: 03/04/18 Time of Encounter: 10:00 - Subjective Interval History: Ms. Taylor is a 78F with PMH of arthritis, cancer, cirrhosis, CHF, diabetes, hyperlipidemia, hypertension, liver disease, and renal disease who presented to as a transfer from [place] to [facility] on 02/28/18 for acute renal failure. Information obtained per review of medical records from [facility]. Patient had initially presented with generalized weakness. She was found to have MSSA bacteremia, was transferred to [place] on 02/13 for further care. Her hospital course was complicated by CHF requiring Bumex drip, anemia requiring EGD and transfusions, and DIDIER requiring an HD catheter placement and initiation of dialysis. [place] requested that the patient be transferred here. 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 Rosales. She has received HD the past 3 days , with a break today. Pt seen and examined at bedside. Pt resting comfortably in bed. No new or acute complaints. States she feels about the same today, but is a little fatigued. Denies any fever, chills, chest pain, nausea, vomiting, diarrhea, numbness, or tingling. The area around her dialysis catheter is bruised. Nurse states pt bruises very easily. No warmth or tenderness to region. - Exam Vitals: Temp Pulse Resp BP Pulse Ox 97.6 F 64 16 133/56 100 03/04/18 07:02 03/04/18 07:02 03/04/18 07:02 03/04/18 07:02 03/04/18 07:02 Exam: Head: atraumatic, normocephalic Eyes: PERRL, EOMI, no scleral icterus Neck: supples, trachea midline, no lymphadenopathy Lungs: CTA bilaterally. Non-labored breathing. No rales, rhonchi, or wheezes. Heart: RRR, +S1, +S2, +2 blowing systolic murmur GI: abdomen soft, non-tender, slightly distended. normoactive bowel sounds Extremities: warm, radial pulses palpable and symmetrical. +2 pitting edema in bilateral LEs Neuro: A&Ox3. no speech difficulty or abnormality. no focal deficits. Skin: warm, dry, intact. Area of contusion HD cath, more purple in hue today, no warmth or pain on palpation. - Assessment and Plan (1) Acute renal failure Current Visit: Yes Status: Acute Assessment and Plan: Baseline creatinine is 2.1 Continues to be elevated, improved today which is to be expected s/p dialysis, 3.[address] Rosales Renal ultz was unremarkable. No cyts. Normal cortical echogenicity. Went for dialysis yesterday and had 3.6L removed Break from dialysis today Cause of ARF may be related to Bumex use at [place], but unclear at this time Appreciate nephro consult and recs Hold IVF at this time (2) MSSA bacteremia Current Visit: Yes Status: Acute Assessment and Plan: Per medical records from [place] - Demonstrated on blood culture from 02/11/18 - Patient was treated with 4 weeks of IV antibiotics; 6 week total course prior to admission - Repeat blood CX on 02/13 was negative - PICC line was placed on 02/23/18 - Infectious disease recommended 6 weeks total of IV Ancef (last dose on ) followed by indefinite doxycycline - Patient has been afebrile in the last 24 hours - No leukocytosis - 5.2 today - Repeat blood CX x2 pending, preliminary results have Staph aureus in 1 culture ID on board and appreciate recs Continue Ancef 500 mg IV q 24 hr (3) Acute on chronic diastolic heart failure Current Visit: Yes Status: Acute Assessment and Plan: Information obtained from medical records from [facility] - TTE on 02/12/18 demonstrated ejection fraction of 60% - Patient was being diuresed with Bumex; was discontinued due to declining renal function - BNP on 03/01: 1474 Fluid being removed via HD Continue to hold diuretics at this time with poor kidney function (4) Diabetes mellitus Current Visit: Yes Status: Acute Assessment and Plan: Low dose SSI Blood glucose at 162 today DVT Prophylaxis: EPCDs - Time Spent with Patient Total time spent is greater than 50% in coordination of care (as documented) at patient's floor/unit and/or counseling patient: Internal Medicine: Result - Labs CBC & Chem 7: 03/04/18 06:07 03/04/18 06:07 Labs: Short CBC 03/04/18 03/04/18 Range/Units 06:07 06:07 WBC 5.0 4.9 (4.3-11.1) K/mcL Hgb 7.8 L 8.0 L (11.5-15.4) g/dL Hct 25.3 L 26.1 L (35.3-44.9) % Plt Count 76 L 76 L (140-400) K/mcL Neutrophils # 3.1 (1.6-8.9) K/mcL BMP 03/04/18 06:07 Sodium 133 L Potassium 4.1 Chloride 94 L Carbon Dioxide 31 H BUN 34 H Creatinine 3.72 H Glucose 162 H Calcium 8.6 - ABG Interpretation ABG results: PT/INR, D-dimer PT 14.4 Seconds (9.4-12.1) H 03/01/18 04:40 Consult Discharge Plan - Plan Referrals: Latoya Harkins CNP [Primary Care Provider] - <Payam Jett - Last Filed: 03/04/18 16:24> Hospitalist Progress Note - Encounter Date of Encounter: 03/04/18 - Exam Vitals: Temp Pulse Resp BP Pulse Ox 97.8 F 67 16 120/61 100 03/04/18 16:04 03/04/18 16:04 03/04/18 16:04 03/04/18 16:04 03/04/18 16:04 - Assessment and Plan (1) Acute renal failure Current Visit: Yes Status: Acute (2) MSSA bacteremia Current Visit: Yes Status: Acute (3) Acute on chronic diastolic heart failure Current Visit: Yes Status: Acute (4) Diabetes mellitus Current Visit: Yes Status: Acute - Time Spent with Patient Total time spent is greater than 50% in coordination of care (as documented) at patient's floor/unit and/or counseling patient: Internal Medicine: Result - Labs CBC & Chem 7: 03/04/18 06:07 03/04/18 06:07 Labs: Short CBC 03/04/18 03/04/18 Range/Units 06:07 06:07 WBC 5.0 4.9 (4.3-11.1) K/mcL Hgb 7.8 L 8.0 L (11.5-15.4) g/dL Hct 25.3 L 26.1 L (35.3-44.9) % Plt Count 76 L 76 L (140-400) K/mcL Neutrophils # 3.1 (1.6-8.9) K/mcL BMP 03/04/18 06:07 Sodium 133 L Potassium 4.1 Chloride 94 L Carbon Dioxide 31 H BUN 34 H Creatinine 3.72 H Glucose 162 H Calcium 8.6 Liver Function 03/04/18 Range/Units 06:07 Total Bilirubin 0.9 (0.3-1.0) mg/dL Direct Bilirubin 0.3 H (0.0-0.2) mg/dL AST 33 (13-39) Units/L ALT < 3 L (7-52) Units/L Alkaline Phosphatase 142 H (34-104) Units/L Albumin 3.0 L (3.5-5.7) g/dL - ABG Interpretation ABG results: PT/INR, D-dimer PT 14.4 Seconds (9.4-12.1) H 03/01/18 04:40 - Impressions Impressions Abdomen/Pelvis CT 03/04/18 12:30 IMPRESSION: 1. Worsening bilateral pleural effusion and small volume ascites. 2. Motion artifact limits evaluation of the lung parenchyma. Bibasilar compressive atelectasis is again noted and patchy ground-glass attenuation of the rest of the lungs does not appear significantly changed from prior. This may be due to pulmonary edema and/or pneumonitis. 3. Stable cirrhotic liver and splenomegaly. D/ / Anirudh Kaufman MD / Anirudh Kaufman MD Interpreting Provider: Anirudh Kaufman MD Chest CT 03/04/18 12:30 IMPRESSION: 1. Worsening bilateral pleural effusion and small volume ascites. 2. Motion artifact limits evaluation of the lung parenchyma. Bibasilar compressive atelectasis is again noted and patchy ground-glass attenuation of the rest of the lungs does not appear significantly changed from prior. This may be due to pulmonary edema and/or pneumonitis. 3. Stable cirrhotic liver and splenomegaly. D/ / Anirudh Kaufman MD / Anirudh Kaufman MD Interpreting Provider: Anirudh Kaufman MD Head CT 03/04/18 12:30 IMPRESSION: No acute intracranial abnormality. Diffuse atrophic changes with findings suggesting chronic microvascular ischemia D/ / Davion Bae MD / Davion Bae MD Interpreting Provider: Davion Bae MD Knee CT 03/04/18 12:30 IMPRESSION: 1. No acute osseous abnormality of the right or left knee identified. No CT evidence for osteomyelitis. 2. Symmetric diffuse subcutaneous edema and mild skin thickening of the imaged soft tissues of the right and left knee. Correlate clinically for superimposed cellulitis. No organized subcutaneous drainable fluid collection identified to suggest abscess. 3. Coarse dystrophic calcifications within the bilateral soft tissues which may reflect changes of longstanding venous stasis. 4. Status post left total knee arthroplasty with no evidence for hardware failure or loosening. 5. Severe osteoarthritis of the medial compartment of the right knee and mild osteoarthritis of the patellofemoral and lateral compartments. 6. Small bilateral knee effusions. 7. Severe atherosclerotic disease. D/ / Tawanda Velazquez MD / Tawanda Velazquez MD Interpreting Provider: Tawanda Velazquez MD Knee CT 03/04/18 12:30 IMPRESSION: 1. No acute osseous abnormality of the right or left knee identified. No CT evidence for osteomyelitis. 2. Symmetric diffuse subcutaneous edema and mild skin thickening of the imaged soft tissues of the right and left knee. Correlate clinically for superimposed cellulitis. No organized subcutaneous drainable fluid collection identified to suggest abscess. 3. Coarse dystrophic calcifications within the bilateral soft tissues which may reflect changes of longstanding venous stasis. 4. Status post left total knee arthroplasty with no evidence for hardware failure or loosening. 5. Severe osteoarthritis of the medial compartment of the right knee and mild osteoarthritis of the patellofemoral and lateral compartments. 6. Small bilateral knee effusions. 7. Severe atherosclerotic disease. D/ / Tawanda Velazquez MD / Tawanda Velazquez MD Interpreting Provider: Tawanda Velazquez MD Soft Tissue Neck CT 03/04/18 12:30 IMPRESSION: 1. No evidence of neck soft tissue mass or lymphadenopathy. 2. View of upper lung field show findings related to interstitial pulmonary edema with large bilateral pleural effusions. D/ / Gilberto Blount / Gilberto Blount Interpreting Provider: Gilberto Blount - Attending Attestation I examined this patient and my medical decision-making was reviewed with the Resident Physician Dr. Hurley. I agree with the documented findings, disposition and treatment plan as described except to the extent set forth below. Ms. Taylor is a 78 y/o F with known PMH of DM2, HTN, prosthetic AV, Left TKR, CKD-4, h/o recurrent MSSA bacteremia, who was transferred to our hospital from [place] for HD due to worsening DIDIER with CKD-4. Pt is alert, awake and O x 3. Her blood cx 1/2 positive for Staph cocci again. At [place], she had all the work up done regarding her MSSA bactermia. Gen: A, A, O x 3 Chest: Diminished BS b/l Heaart: S1S2+ RRR a/p 1. Recurrent bacteremia no clear source of inf so far all the work up negative for any IE, prosthetic left Knee joint inf ID consulted [facility] CT ordered - which did not reveal any source of Inf possible WBC tag scan in AM cont Ancef for now 2. DIDIER with CKD-4 Continue temporary HD as per Nephro recommendation
[2018-03-04] MEDS: Insulin LISPRO 300 UNITS/3 ML VIAL SQ SCH ×3 (09:02→16:32)
--- NOTE | 2018-03-04 10:30 | Nephrology Progress Note ---
Date of Encounter: 03/04/18 Time of Encounter: 10:28 - Assessment and Plan (1) Acute kidney injury superimposed on CKD Current Visit: No Status: Acute HD completed yesterday. Continue to avoid nephrotoxins and renal dose if able. Patient has been set up for [facility], awaiting chair time. Has been referred to ECF in [place]. (2) CKD (chronic kidney disease), stage III Current Visit: No Status: Chronic Baseline GFR in the 30s at least this year. (3) MSSA bacteremia Current Visit: Yes Status: Acute Abx per primary team (4) Acute on chronic diastolic heart failure Current Visit: Yes Status: Acute Stop IVF Strict I/Os (5) Hyperkalemia Current Visit: Yes Status: Acute Resolved K is 4.1 today. Renal diet if able to eat. Subjective Principal diagnosis: worsening renal function Interval history: Pt seen and examined doing well. Denies CP or SOB. Denies nausea/vomiting/ diarrhea. Objective - Vital Signs Vital signs: Vital Signs Temp Pulse Resp BP Pulse Ox 03/04/18 07:02 97.6 F 64 16 133/56 100 03/04/18 03:00 98.2 F 69 16 138/71 97 03/03/18 23:40 98.2 F 74 16 100/54 98 03/03/18 20:32 98.3 F 71 16 114/64 98 03/03/18 15:10 98.2 F 76 18 138/69 98 03/03/18 13:05 97.3 F L 16 111/53 03/03/18 12:45 107/49 03/03/18 12:30 107/50 03/03/18 12:15 113/54 03/03/18 12:00 115/51 03/03/18 11:45 118/59 03/03/18 11:30 125/55 03/03/18 11:15 119/56 03/03/18 11:00 119/53 03/03/18 10:45 121/55 03/03/18 10:30 115/42 Intake and Output 03/03/18 03/04/18 03/04/18 23:59 07:59 15:59 Intake Total Balance Intake: IV Fluids Ancef 1,000 MG In Water for inj . (sterile) 10 ML @ 200 mls/hr IVP Q24H [facility] Rx#:[id number] Other: Meal Dinner Percent of Meal Consumed 5% Weight 106 kg Blood Glucose* 190 157 - General Appearance General appearance: Present: well-developed, well-nourished EENT: Present: ATNC, hearing intact, vision intact Neck: Present: supple Respiratory: Present: clear Cardiology: Present: edema (Trace Bilat lower extremitiy edema.), normal S1, normal S2 Dialysis Vascular Access: Venous Catheter (Tunneled Line, DRSG C/D/I) Gastrointestinal: Present: normoactive bowel sounds, no tenderness, no guarding Integumentary: Present: no rash, warm and dry Neurologic: Present: alert and oriented x3 Psychiatric: Present: mood/affect appropriate, cooperative - Lab 03/04/18 06:07 03/04/18 06:07 Most recent lab results Calcium 8.6 mg/dL (8.6-10.3) 03/04/18 06:07 Phosphorus 5.8 mg/dL (2.7-4.5) H 03/01/18 04:40 Magnesium 2.0 mg/dL (1.6-2.6) 03/01/18 04:40 Consult Discharge Plan - Plan Referrals: Latoya Harkins CNP [Primary Care Provider] -
--- NOTE | 2018-03-04 10:47 | Infectious Disease Progress No ---
Date of Encounter: 03/04/18 Time of Encounter: 10:44 - Assessment and Plan (1) Recurrent bacteremia Current Visit: Yes Status: Acute Causative organism: MSSA. Source: Unclear. Complicated due to bilateral knee hardware and bioprosthetic aortic heart valve. 11/07/2017: 2 out of 2 sets positive for MSSA discharge on oral doxycycline for 7 days. 11/26/2017: 2 out of 2 sets positive for MSSA; repeat cultures on November 28 no growth. Treated with 4 weeks of IV cefazolin for complicated MSSA bacteremia. At that time ELVER and TTE were negative. 02/11/2018 2 out of 2 sets positive for MSSA bacteremia. Patient was transferred to [place]. Exact treatment at that time unclear but we will get records 03/31/2018 1 out of 2 sets positive for MSSA bacteremia based on PCR. ESR elevated at 89. CRP was not checked. Check rheumatoid factor. Recommend CT of the head and neck, CT chest, CT abdomen and pelvis, and bilateral knees. Consider nuclear med WBC tag scan if CTs are nonrevealing. Repeat blood cultures 2 sets now. Continue Ancef 1 g IV every 24 hours, dose adjusted for the patient's hemodialysis status. Recommended ELVER prior to discharge. Duration of treatment depends on the clinical picture. Monitor labs and dose adjust antibiotics. (2) Acute on chronic kidney failure Current Visit: Yes Status: Acute Likely secondary to Bumex drip. HD initiated at OSH. Nephrology consulted to assist with HD management. Continue to trend serum creatinine. Dose-adjust medications and avoid nephrotoxins as able. Qualifiers: Acute renal failure type: unspecified Chronic kidney disease stage: unspecified stage Qualified Code(s): N17.9 - Acute kidney failure, unspecified ; N18.9 - Chronic kidney disease, unspecified (3) History of aortic valve replacement with bioprosthetic valve Current Visit: No Status: Chronic (4) Diabetes mellitus type 2 in obese Current Visit: Yes Status: Acute (5) Thrombocytopenia Current Visit: No Status: Chronic Likely secondary to cirrhosis and worsened by infectious process. No acute bleeding noted on exam. Continue to trend. Transfusion parameters per the primary team. (6) MGUS (monoclonal gammopathy of unknown significance) Current Visit: No Status: Acute Not sure if that is a contributing factor to recurrent MSSA bacteremia. Might benefit from immunology consultation. (7) Cirrhosis Current Visit: No Status: Chronic Etiology not clear. Patient's meld score on admission is 27 assuming a bilirubin of 1. Please check LFTs and PT/INR to check meld score again for prognostic factor. Qualifiers: Hepatic cirrhosis type: unspecified hepatic cirrhosis Ascites presence: without ascites Qualified Code(s): K74.60 - Unspecified cirrhosis of liver (8) CAD (coronary artery disease) Current Visit: No Status: Acute Qualifiers: Coronary Disease-Associated Artery/Lesion type: unspecified vessel or lesion type [place] vs. transplanted heart: [place] heart Associated angina: with unspecified angina Qualified Code(s): I25.119 - Atherosclerotic heart disease of [place] coronary artery with unspecified angina pectoris - Subjective Interval history: Patient seen and examined. No acute events noted overnight. Patient drowsy this morning, but arousable and able to answer questions and follow commands. Denies fevers, chills, or rigors. Denies chest pain, shortness of breath, or cough. Denies nausea, vomiting, or diarrhea. Denies abdominal pain, urinary complaints , or appetite changes. Denies oral thrush or new skin lesions. Denies joint or back pain. Infect Dis PN-Objective Data - Labs CBC & Chem 7: 03/05/18 03:09 03/05/18 03:09 Labs: Laboratory Results - last 24 hr 03/03/18 03/03/18 03/03/18 07:42 11:30 16:29 WBC RBC Hgb Hct MCV MCH MCHC RDW Plt Count MPV Immature Gran % Seg Neutrophils % Lymphocytes % Monocytes % Eosinophils % Basophils % Neutrophils # Lymphocytes # Monocytes # Eosinophils # Basophils # Platelet Estimate Immature Plt Fraction ESR Sodium Potassium Chloride Carbon Dioxide BUN Creatinine Est GFR ( Amer) Est GFR (Non-Af Amer) BUN/Creatinine Ratio Glucose POC Glucose 149 H 150 H 210 H Calculated Osmolality Calcium B-Natriuretic Peptide 03/03/18 03/04/18 03/04/18 20:35 06:07 06:07 WBC 5.0 RBC 2.73 L Hgb 7.8 L Hct 25.3 L MCV 92.7 MCH 28.6 MCHC 30.8 L RDW 16.1 H Plt Count 76 L MPV 10.0 Immature Gran % Seg Neutrophils % Lymphocytes % Monocytes % Eosinophils % Basophils % Neutrophils # Lymphocytes # Monocytes # Eosinophils # Basophils # Platelet Estimate Immature Plt Fraction 2.5 ESR Sodium 133 L Potassium 4.1 Chloride 94 L Carbon Dioxide 31 H BUN 34 H Creatinine 3.72 H Est GFR ( Amer) 14 L Est GFR (Non-Af Amer) 12 L BUN/Creatinine Ratio 9 Glucose 162 H POC Glucose 190 H Calculated Osmolality 287 Calcium 8.6 B-Natriuretic Peptide 03/04/18 03/04/18 03/04/18 06:07 06:07 06:07 WBC 4.9 RBC 2.81 L Hgb 8.0 L Hct 26.1 L MCV 92.9 MCH 28.5 MCHC 30.7 L RDW 16.1 H Plt Count 76 L MPV 9.9 Immature Gran % 0.4 Seg Neutrophils % 62.7 Lymphocytes % 15.1 Monocytes % 18.3 Eosinophils % 3.1 Basophils % 0.4 Neutrophils # 3.1 Lymphocytes # 0.7 Monocytes # 0.9 Eosinophils # 0.2 Basophils # 0.0 Platelet Estimate Decreased L Immature Plt Fraction 2.1 ESR 89 H Sodium Potassium Chloride Carbon Dioxide BUN Creatinine Est GFR ( Amer) Est GFR (Non-Af Amer) BUN/Creatinine Ratio Glucose POC Glucose Calculated Osmolality Calcium B-Natriuretic Peptide 1350 H 03/04/18 08:31 WBC RBC Hgb Hct MCV MCH MCHC RDW Plt Count MPV Immature Gran % Seg Neutrophils % Lymphocytes % Monocytes % Eosinophils % Basophils % Neutrophils # Lymphocytes # Monocytes # Eosinophils # Basophils # Platelet Estimate Immature Plt Fraction ESR Sodium Potassium Chloride Carbon Dioxide BUN Creatinine Est GFR ( Amer) Est GFR (Non-Af Amer) BUN/Creatinine Ratio Glucose POC Glucose 157 H Calculated Osmolality Calcium B-Natriuretic Peptide Cultures: Cultures 03/01/18 04:40 Blood Culture - Preliminary Peripheral Venipuncture Gram Positive Cocci 03/01/18 04:41 Blood Culture - Preliminary Peripheral Venipuncture Culture is incubating and being continuously monitored for growth. Final report to follow. Serology 03/02/18 03/01/18 Range/Units 09:32 04:40 A. baumannii (PCR) Not Detected (Not Detect) Negin albicans (PCR) Not Detected (Not Detect) C. glabrata (PCR) Not Detected (Not Detect) C. krusei (PCR) Not Detected (Not Detect) C. parapsilosis (PCR) Not Detected (Not Detect) C. tropicalis (PCR) Not Detected (Not Detect) Enterobacteriac sp PCR Not Detected (Not Detect) E. cloacae complex PCR Not Detected (Not Detect) Enterococcus sp PCR Not Detected (Not Detect) E. coli (PCR) Not Detected (Not Detect) H. influenzae (PCR) Not Detected (Not Detect) Hep Bs Antigen Nonreactive (Nonreactive) Hep Bs Antibody 0.00 mIU/mL Klebsiella oxytoca PCR Not Detected (Not Detect) Klebsiella pneumoniae Not Detected (Not Detect) List. monocytogenes PCR Not Detected (Not Detect) N. meningitidis (PCR) Not Detected (Not Detect) Proteus species (PCR) Not Detected (Not Detect) Serratia marcescens PCR Not Detected (Not Detect) Staphylococcus sp PCR DETECTED A (Not Detect) Staph aureus (PCR) DETECTED A (Not Detect) mecA-Methicil Res Gene Not Detected (Not Detect) Streptococcus sp PCR Not Detected (Not Detect) Group A Strep DNA Not Detected (Not Detect) Group B Strep (PCR) Not Detected (Not Detect) Strep pneumoniae (PCR) Not Detected (Not Detect) P. aeruginosa (PCR) Not Detected (Not Detect) Jake/B-Vanco Res Genes N/A (Not Detect) KPC (blaKPC) Detect PCR N/A (Not Detect) Exam - Constitutional Vitals: Temp Pulse Resp BP Pulse Ox 97.6 F 64 16 133/56 100 03/04/18 07:02 03/04/18 07:02 03/04/18 07:02 03/04/18 07:02 03/04/18 07:02 General appearance: cooperative, no acute distress, obese - Head Head exam: Present: atraumatic, normal inspection, normocephalic - Eye Eye exam: Present: EOMI, normal appearance, PERRL Pupils: Present: normal accommodation Additional comments: No subconjunctival hemorrhage noted. - ENT ENT exam: Present: mucous membranes moist - Neck Neck exam: Present: normal inspection - Respiratory Respiratory exam: Present: CTAB. Absent: rales, respiratory distress, rhonchi, wheezes - Cardiovascular Cardiovascular exam: Present: RRR, +S1, +S2 - GI/Abdominal GI/Abdominal exam: Present: normal bowel sounds, soft. Absent: distended, tenderness - Extremities Exam Extremities exam: Present: pedal edema (1+ BLE). Absent: joint swelling, tenderness - Back Exam Back exam: Present: normal inspection. Absent: paraspinal tenderness, vertebral tenderness - Neurological Exam Neurological exam: Present: alert, oriented X3, no focal deficits - Psychiatric Psychiatric exam: Present: normal affect, normal mood - Skin Skin exam: Present: dry, intact, normal color, warm Additional comments: No endocarditis stigmata noted. - Additional findings Additional findings: Permacath noted to the right upper chest with transparent dressing clean, dry, and intact. Erythema/ecchymosis noted to the area surrounding the insertion site. Consult Discharge Plan - Plan Referrals: Latoya Harkins RUG CLIPPER [Primary Care Provider] - - Attending Attestation I examined this patient and my medical decision-making was reviewed with the Resident Physician. I agree with the documented findings, disposition and treatment plan as described except to the extent set forth below. I had a chance to speak with the infectious disease doctor at [facility] to the care of my patient. Physician told me that she already had a WBC tagged scan and it did not light up anywhere except for her left hip a little bit but the patient was asymptomatic so the left alone. Hardware is the body were all negative. Patient also had multiple CTs and she had a ELVER as well which came back negative. After I have already made my recommendations and spoken with nuclear medicine I did call Dr. Peng and advised him not to order anything because everything has been ordered and done and I have the results.
[2018-03-04 10:49] LABS: C-Reactive Protein 58 mg/L (Less than 10)
[2018-03-04 11:20] LABS: Alanine Aminotransferase < 3 Units/L (7-52); Albumin/Globulin Ratio 0.7 (1.1-2.2); Alkaline Phosphatase 142 Units/L (34-104); Aspartate Amino Transferase 33 Units/L (13-39); Bilirubin,Direct 0.3 mg/dL (0.0-0.2); Bilirubin,Indirect 0.6 mg/dL (0.0-1.2); Bilirubin,Total 0.9 mg/dL (0.3-1.0); Globulin 4.1 g/dL (2.4-3.5); Total Protein 7.1 g/dL (6.4-8.9)
[2018-03-04] MEDS: ceFAZolin 1,000 MG in Water for inj. (sterile) 20 ML 10 ML IVP SCH (17:49)
[2018-03-04] MEDS: *HR* OxyCODONE Immed Rel 5 MG TABLET PO PRN ×2 (21:04→21:05)
[2018-03-05] MEDS: Insulin LISPRO 300 UNITS/3 ML VIAL SQ SCH ×5 (00:21→22:15)
[2018-03-05 03:58] LABS: Hematocrit 25.1 % (35.3-44.9); Hemoglobin 7.7 g/dL (11.5-15.4); Immature Platelets 1.7 % (1.1-6.1); Mean Corpuscular HGB Conc 30.7 g/dL (31.6-35.5); Mean Corpuscular Hemoglobin 28.6 pg (28.0-33.3); Mean Corpuscular Volume 93.3 fL (83.0-100.0); Mean Platelet Volume 9.8 fL (9.4-12.4); Red Blood Count 2.69 M/mcL (3.82-4.97); Red Cell Distribution Width 16.2 % (11.5-14.5)
[2018-03-05 04:13] LABS: Calcium 8.6 mg/dL (8.6-10.3); Potassium 4.5 mEq/L (3.5-5.1)
[2018-03-05] MEDS ORDERED: 0.9 % Sodium Chloride 250 ML IVC PRN (07:47)
[2018-03-05] MEDS ORDERED: *HR* Heparin 10,000 UNIT/10 ML VIAL IV PRN (07:47)
[2018-03-05] MEDS ORDERED: 0.9 % Sodium Chloride 1,000 ML PRIME SCH (08:00)
--- NOTE | 2018-03-05 08:06 | Internal Med Progress Note ---
<Brian Hurley - Last Filed: 03/05/18 14:56> Hospitalist Progress Note - Encounter Date of Encounter: 03/05/18 Time of Encounter: 09:27 - Subjective Interval History: Ms. Taylor is a 78F with PMH of arthritis, cancer, cirrhosis, CHF, diabetes, hyperlipidemia, hypertension, liver disease, and renal disease who presented to as a transfer from [place] to [facility] on 02/28/18 for acute renal failure. Information obtained per review of medical records from [facility]. Patient had initially presented with generalized weakness. She was found to have MSSA bacteremia, was transferred to [place] on 02/13 for further care. Her hospital course was complicated by CHF requiring Bumex drip, anemia requiring EGD and transfusions, and DIDIER requiring an HD catheter placement and initiation of dialysis. [place] requested that the patient be transferred here. Patients double head machine operator is Dr. Rosales. She has received HD for 2 days and had a break yesterday. Pt to probably go to HD again today. Pt seen and examined at bedside. Pt resting comfortably in bed. No new or acute complaints. States she is beginning to feel better. States her legs are much less swollen and that they are "almost skinny again". Denies any fever, chills, chest pain, nausea, vomiting, diarrhea, numbness, or tingling. - Exam Vitals: Temp Pulse Resp BP Pulse Ox 97.6 F 68 17 124/70 99 03/05/18 07:24 03/05/18 07:24 03/05/18 07:24 03/05/18 07:24 03/05/18 07:24 Exam: Head: atraumatic, normocephalic Eyes: PERRL, EOMI, no scleral icterus Neck: supples, trachea midline, no lymphadenopathy Lungs: CTA bilaterally. Non-labored breathing. No rales, rhonchi, or wheezes. Heart: RRR, +S1, +S2, +2 blowing systolic murmur GI: abdomen soft, non-tender, slightly distended. normoactive bowel sounds Extremities: warm, radial pulses palpable and symmetrical. +2 pitting edema in bilateral LEs Neuro: A&Ox3. no speech difficulty or abnormality. no focal deficits. Skin: warm, dry, intact. Area of contusion HD cath improving, no warmth or pain on palpation. - Assessment and Plan (1) Acute renal failure Current Visit: Yes Status: Acute Assessment and Plan: Baseline creatinine is 2.1 Continues to be elevated at 4.[address] Rosales outpatient Renal ultz was unremarkable. No cyts. Normal cortical echogenicity. Went for dialysis on 03/02 and 03/03 Break from dialysis yesterday Cause of ARF may be related to Bumex use at [place], but unclear at this time Appreciate nephro consult and recs, possibly to go for HD again today Hold IVF at this time (2) MSSA bacteremia Current Visit: Yes Status: Acute Assessment and Plan: Per medical records from [place] - Demonstrated on blood culture from 02/11/18 - Patient was treated with 4 weeks of IV antibiotics; 6 week total course prior to admission - Repeat blood CX on 02/13 was negative - PICC line was placed on 02/23/18 - Infectious disease recommended 6 weeks total of IV Ancef (last dose on ) followed by indefinite doxycycline - Patient has been afebrile in the last 24 hours - No leukocytosis - 4.4 today - Repeat blood CX x2 have MSSA Staph aureus in 1 culture - Repeat blood CX and central line CX pending ID on board and appreciate recs, barnes CT negative, possible tagged WBC scan Continue Ancef 500 mg IV q 24 hr (3) Acute on chronic diastolic heart failure Current Visit: Yes Status: Acute Assessment and Plan: Information obtained from medical records from [facility] - TTE on 02/12/18 demonstrated ejection fraction of 60% - Patient was being diuresed with Bumex; was discontinued due to declining renal function - BNP on 03/01: 1474 Fluid being removed via HD Continue to hold diuretics at this time with poor kidney function (4) Diabetes mellitus Current Visit: Yes Status: Acute Assessment and Plan: Low dose SSI Blood glucose at 164 today DVT Prophylaxis: EPCDs - Time Spent with Patient Total time spent is greater than 50% in coordination of care (as documented) at patient's floor/unit and/or counseling patient: Internal Medicine: Result - Labs CBC & Chem 7: 03/05/18 03:09 03/05/18 03:09 Labs: Short CBC 03/04/18 03/05/18 Range/Units 06:07 03:09 WBC 4.4 (4.3-11.1) K/mcL Hgb 7.7 L (11.5-15.4) g/dL Hct 25.1 L (35.3-44.9) % Plt Count 74 L (140-400) K/mcL Neutrophils # 3.1 (1.6-8.9) K/mcL BMP 03/04/18 03/05/18 06:07 03:09 Sodium 133 L 131 L Potassium 4.1 4.5 Chloride 94 L 94 L Carbon Dioxide 31 H 26 BUN 34 H 43 H Creatinine 3.72 H 4.47 H Glucose 162 H 164 H Calcium 8.6 8.6 Liver Function 03/04/18 Range/Units 06:07 Total Bilirubin 0.9 (0.3-1.0) mg/dL Direct Bilirubin 0.3 H (0.0-0.2) mg/dL AST 33 (13-39) Units/L ALT < 3 L (7-52) Units/L Alkaline Phosphatase 142 H (34-104) Units/L Albumin 3.0 L (3.5-5.7) g/dL - ABG Interpretation ABG results: PT/INR, D-dimer PT 14.4 Seconds (9.4-12.1) H 03/01/18 04:40 - Impressions Impressions Abdomen/Pelvis CT 03/04/18 12:30 IMPRESSION: 1. Worsening bilateral pleural effusion and small volume ascites. 2. Motion artifact limits evaluation of the lung parenchyma. Bibasilar compressive atelectasis is again noted and patchy ground-glass attenuation of the rest of the lungs does not appear significantly changed from prior. This may be due to pulmonary edema and/or pneumonitis. 3. Stable cirrhotic liver and splenomegaly. D/ / Anirudh Kaufman MD / Anirudh Kaufman MD Interpreting Provider: Anirudh Kaufman MD Chest CT 03/04/18 12:30 IMPRESSION: 1. Worsening bilateral pleural effusion and small volume ascites. 2. Motion artifact limits evaluation of the lung parenchyma. Bibasilar compressive atelectasis is again noted and patchy ground-glass attenuation of the rest of the lungs does not appear significantly changed from prior. This may be due to pulmonary edema and/or pneumonitis. 3. Stable cirrhotic liver and splenomegaly. D/ / Anirudh Kaufman MD / Anirudh Kaufman MD Interpreting Provider: Anirudh Kaufman MD Head CT 03/04/18 12:30 IMPRESSION: No acute intracranial abnormality. Diffuse atrophic changes with findings suggesting chronic microvascular ischemia D/ / Davion Bae MD / Davion Bae MD Interpreting Provider: Davion Bae MD Knee CT 03/04/18 12:30 IMPRESSION: 1. No acute osseous abnormality of the right or left knee identified. No CT evidence for osteomyelitis. 2. Symmetric diffuse subcutaneous edema and mild skin thickening of the imaged soft tissues of the right and left knee. Correlate clinically for superimposed cellulitis. No organized subcutaneous drainable fluid collection identified to suggest abscess. 3. Coarse dystrophic calcifications within the bilateral soft tissues which may reflect changes of longstanding venous stasis. 4. Status post left total knee arthroplasty with no evidence for hardware failure or loosening. 5. Severe osteoarthritis of the medial compartment of the right knee and mild osteoarthritis of the patellofemoral and lateral compartments. 6. Small bilateral knee effusions. 7. Severe atherosclerotic disease. D/ / Tawanda Velazquez MD / Tawanda Velazquez MD Interpreting Provider: Tawanda Velazquez MD Knee CT 03/04/18 12:30 IMPRESSION: 1. No acute osseous abnormality of the right or left knee identified. No CT evidence for osteomyelitis. 2. Symmetric diffuse subcutaneous edema and mild skin thickening of the imaged soft tissues of the right and left knee. Correlate clinically for superimposed cellulitis. No organized subcutaneous drainable fluid collection identified to suggest abscess. 3. Coarse dystrophic calcifications within the bilateral soft tissues which may reflect changes of longstanding venous stasis. 4. Status post left total knee arthroplasty with no evidence for hardware failure or loosening. 5. Severe osteoarthritis of the medial compartment of the right knee and mild osteoarthritis of the patellofemoral and lateral compartments. 6. Small bilateral knee effusions. 7. Severe atherosclerotic disease. D/ / Tawanda Velazquez MD / Tawanda Velazquez MD Interpreting Provider: Tawanda Velazquez MD Soft Tissue Neck CT 03/04/18 12:30 IMPRESSION: 1. No evidence of neck soft tissue mass or lymphadenopathy. 2. View of upper lung field show findings related to interstitial pulmonary edema with large bilateral pleural effusions. D/ / Gilberto Blount / Gilberto Blount Interpreting Provider: Gilberto Blount - Diagnostic Studies CT scan - abdomen Status: image reviewed by me CT scan - chest Status: image reviewed by me CT scan - pelvis Status: image reviewed by me CT scan - head Status: image reviewed by me Consult Discharge Plan - Plan Referrals: Latoya Harkins, ENGINE DYNAMOMETER TESTER [Primary Care Provider] - <Payam Jett - Last Filed: 03/05/18 16:31> Hospitalist Progress Note - Encounter Date of Encounter: 03/05/18 - Exam Vitals: Temp Pulse Resp BP Pulse Ox 98.5 F 83 20 166/72 93 03/05/18 16:24 03/05/18 16:24 03/05/18 16:24 03/05/18 16:24 03/05/18 16:24 - Assessment and Plan (1) Acute renal failure Current Visit: Yes Status: Acute (2) MSSA bacteremia Current Visit: Yes Status: Acute (3) Acute on chronic diastolic heart failure Current Visit: Yes Status: Acute (4) Diabetes mellitus Current Visit: Yes Status: Acute - Time Spent with Patient Total time spent is greater than 50% in coordination of care (as documented) at patient's floor/unit and/or counseling patient: Internal Medicine: Result - Labs CBC & Chem 7: 03/05/18 03:09 03/05/18 03:09 Labs: Short CBC 03/05/18 Range/Units 03:09 WBC 4.4 (4.3-11.1) K/mcL Hgb 7.7 L (11.5-15.4) g/dL Hct 25.1 L (35.3-44.9) % Plt Count 74 L (140-400) K/mcL BMP 03/05/18 03:09 Sodium 131 L Potassium 4.5 Chloride 94 L Carbon Dioxide 26 BUN 43 H Creatinine 4.47 H Glucose 164 H Calcium 8.6 - ABG Interpretation ABG results: PT/INR, D-dimer PT 14.4 Seconds (9.4-12.1) H 03/01/18 04:40 - Attending Attestation I examined this patient and my medical decision-making was reviewed with the Resident Physician Dr. Hurley. I agree with the documented findings, disposition and treatment plan as described except to the extent set forth below. Ms. Taylor is a 78 y/o F with known PMH of DM2, HTN, prosthetic AV, Left TKR, CKD-4, h/o recurrent MSSA bacteremia, who was transferred to our hospital from [place] for HD due to worsening DIDIER with CKD-4. Pt is alert, awake and O x 3. Her blood cx 1/2 positive for Staph cocci again. At [place], she had all the work up done regarding her MSSA bacteremia. Gen: A, A, O x 3 Chest: Diminished BS b/l [place]: S1S2+ RRR a/p 1. Recurrent bacteremia no clear source of inf so far all the work up negative for any IE, prosthetic left Knee joint inf ID consulted [facility] CT ordered - which did not reveal any source of Inf possible WBC tag scan today..will check with ID cont Ancef for now 2. DIDIER with CKD-4 Continue temporary HD as per Nephro recommendation
[2018-03-05] MEDS ORDERED: *HR* Heparin 5,000 UNIT/ML VIAL ONE (08:14)
[2018-03-05] MEDS ORDERED: 0.9 % Sodium Chloride 2,000 ML ONE (08:14)
--- NOTE | 2018-03-05 10:57 | Infectious Disease Progress No ---
Date of Encounter: 03/05/18 Time of Encounter: 10:57 - Assessment and Plan (1) Recurrent bacteremia Current Visit: Yes Status: Acute Causative organism: MSSA. Source: Unclear. Complicated due to bilateral knee hardware and bioprosthetic aortic heart valve. 11/07/2017: 2 out of 2 sets positive for MSSA discharge on oral doxycycline for 7 days. 11/26/2017: 2 out of 2 sets positive for MSSA; repeat cultures on November 28 no growth. Treated with 4 weeks of IV cefazolin for complicated MSSA bacteremia. At that time ELVER and TTE were negative. 02/11/2018 2 out of 2 sets positive for MSSA bacteremia. Patient was transferred to [place]. Exact treatment at that time unclear but we will get records 03/31/2018 1 out of 2 sets positive for MSSA bacteremia based on PCR. ESR elevated at 89. CRP was not checked. Check rheumatoid factor. Recommend CT of the head and neck, CT chest, CT abdomen and pelvis, and bilateral knees. Consider nuclear med WBC tag scan if CTs are nonrevealing. Repeat blood cultures 2 sets now. Continue Ancef 1 g IV every 24 hours, dose adjusted for the patient's hemodialysis status. Recommended ELVER prior to discharge. Duration of treatment depends on the clinical picture. Monitor labs and dose adjust antibiotics. (2) Acute on chronic kidney failure Current Visit: Yes Status: Acute Likely secondary to Bumex drip. HD initiated at OSH. Nephrology consulted to assist with HD management. Continue to trend serum creatinine. Dose-adjust medications and avoid nephrotoxins as able. Qualifiers: Acute renal failure type: unspecified Chronic kidney disease stage: unspecified stage Qualified Code(s): N17.9 - Acute kidney failure, unspecified ; N18.9 - Chronic kidney disease, unspecified (3) Diabetes mellitus type 2 in obese Current Visit: Yes Status: Acute (4) Staphylococcus aureus bacteremia Current Visit: No Status: Acute (5) History of aortic valve replacement with bioprosthetic valve Current Visit: No Status: Chronic (6) MGUS (monoclonal gammopathy of unknown significance) Current Visit: No Status: Acute Not sure if that is a contributing factor to recurrent MSSA bacteremia. Might benefit from immunology consultation. (7) Cirrhosis Current Visit: No Status: Chronic Etiology not clear. Patient's meld score on admission is 27 assuming a bilirubin of 1. Please check LFTs and PT/INR to check meld score again for prognostic factor. Qualifiers: Hepatic cirrhosis type: unspecified hepatic cirrhosis Ascites presence: without ascites Qualified Code(s): K74.60 - Unspecified cirrhosis of liver - Subjective Interval history: In the last 24 hours: Patient has been afebrile, hemodynamically stable and not tachycardiac. WBC stable at 4.4 Creatinine continues to be elevated at 4.47 Repeat cultures from yesterday no growth to date CT knees 1. No acute osseous abnormality of the right or left knee identified. No CT evidence for osteomyelitis. 2. Symmetric diffuse subcutaneous edema and mild skin thickening of the imaged soft tissues of the right and left knee. Correlate clinically for superimposed cellulitis. No organized subcutaneous drainable fluid collection identified to suggest abscess. 3. Coarse dystrophic calcifications within the bilateral soft tissues which may reflect changes of longstanding venous stasis. 4. Status post left total knee arthroplasty with no evidence for hardware failure or loosening. 5. Severe osteoarthritis of the medial compartment of the right knee and mild osteoarthritis of the patellofemoral and lateral compartments. 6. Small bilateral knee effusions. 7. Severe atherosclerotic disease. CT chest 1. Worsening bilateral pleural effusion and small volume ascites. 2. Motion artifact limits evaluation of the lung parenchyma. Bibasilar compressive atelectasis is again noted and patchy ground-glass attenuation of the rest of the lungs does not appear significantly changed from prior. This may be due to pulmonary edema and/or pneumonitis. 3. Stable cirrhotic liver and splenomegaly. Infect Dis PN-Objective Data - Labs CBC & Chem 7: 03/05/18 03:09 03/05/18 03:09 Labs: Laboratory Results - last 24 hr 03/02/18 03/04/18 03/04/18 11:58 06:07 11:13 WBC RBC Hgb Hct MCV MCH MCHC RDW Plt Count MPV Immature Plt Fraction Sodium 133 L Potassium 4.1 Chloride 94 L Carbon Dioxide 31 H BUN 34 H Creatinine 3.72 H Est GFR ( Amer) 14 L Est GFR (Non-Af Amer) 12 L BUN/Creatinine Ratio 9 Glucose 162 H POC Glucose Calculated Osmolality 287 Calcium 8.6 Total Bilirubin 0.9 Direct Bilirubin 0.3 H Indirect Bilirubin 0.6 AST 33 ALT < 3 L Alkaline Phosphatase 142 H C-Reactive Protein 58 H Serum Total Protein 7.1 Albumin 3.0 L Globulin 4.1 H Albumin/Globulin Ratio 0.7 L Rheumatoid Factor 10 Blood Type A NEGATIVE Antibody Screen NEGATIVE Crossmatch See Detail 03/04/18 03/05/18 03/05/18 11:36 03:09 03:09 WBC 4.4 RBC 2.69 L Hgb 7.7 L Hct 25.1 L MCV 93.3 MCH 28.6 MCHC 30.7 L RDW 16.2 H Plt Count 74 L MPV 9.8 Immature Plt Fraction 1.7 Sodium 131 L Potassium 4.5 Chloride 94 L Carbon Dioxide 26 BUN 43 H Creatinine 4.47 H Est GFR ( Amer) 12 L Est GFR (Non-Af Amer) 9 L BUN/Creatinine Ratio 10 Glucose 164 H POC Glucose 249 H Calculated Osmolality 286 Calcium 8.6 Total Bilirubin Direct Bilirubin Indirect Bilirubin AST ALT Alkaline Phosphatase C-Reactive Protein Serum Total Protein Albumin Globulin Albumin/Globulin Ratio Rheumatoid Factor Blood Type Antibody Screen Crossmatch Cultures: Cultures 03/01/18 04:40 Blood Culture - Final Peripheral Venipuncture Staphylococcus aureus 03/04/18 14:30 Blood Culture - Preliminary Central Venous Catheter Culture is incubating and being continuously monitored for growth. Final report to follow. 03/04/18 10:23 Blood Culture - Preliminary Peripheral Venipuncture Culture is incubating and being continuously monitored for growth. Final report to follow. 03/01/18 04:41 Blood Culture - Preliminary Peripheral Venipuncture Culture is incubating and being continuously monitored for growth. Final report to follow. Serology 03/02/18 03/01/18 Range/Units 09:32 04:40 A. baumannii (PCR) Not Detected (Not Detect) Negin albicans (PCR) Not Detected (Not Detect) C. glabrata (PCR) Not Detected (Not Detect) C. krusei (PCR) Not Detected (Not Detect) C. parapsilosis (PCR) Not Detected (Not Detect) C. tropicalis (PCR) Not Detected (Not Detect) Enterobacteriac sp PCR Not Detected (Not Detect) E. cloacae complex PCR Not Detected (Not Detect) Enterococcus sp PCR Not Detected (Not Detect) E. coli (PCR) Not Detected (Not Detect) H. influenzae (PCR) Not Detected (Not Detect) Hep Bs Antigen Nonreactive (Nonreactive) Hep Bs Antibody 0.00 mIU/mL Klebsiella oxytoca PCR Not Detected (Not Detect) Klebsiella pneumoniae Not Detected (Not Detect) List. monocytogenes PCR Not Detected (Not Detect) N. meningitidis (PCR) Not Detected (Not Detect) Proteus species (PCR) Not Detected (Not Detect) Serratia marcescens PCR Not Detected (Not Detect) Staphylococcus sp PCR DETECTED A (Not Detect) Staph aureus (PCR) DETECTED A (Not Detect) mecA-Methicil Res Gene Not Detected (Not Detect) Streptococcus sp PCR Not Detected (Not Detect) Group A Strep DNA Not Detected (Not Detect) Group B Strep (PCR) Not Detected (Not Detect) Strep pneumoniae (PCR) Not Detected (Not Detect) P. aeruginosa (PCR) Not Detected (Not Detect) Jake/B-Vanco Res Genes N/A (Not Detect) KPC (blaKPC) Detect PCR N/A (Not Detect) - Impressions Impressions Abdomen/Pelvis CT 03/04/18 12:30 IMPRESSION: 1. Worsening bilateral pleural effusion and small volume ascites. 2. Motion artifact limits evaluation of the lung parenchyma. Bibasilar compressive atelectasis is again noted and patchy ground-glass attenuation of the rest of the lungs does not appear significantly changed from prior. This may be due to pulmonary edema and/or pneumonitis. 3. Stable cirrhotic liver and splenomegaly. D/ / Anirudh Kaufman MD / Anirudh Kaufman MD Interpreting Provider: Anirudh Kaufman MD Chest CT 03/04/18 12:30 IMPRESSION: 1. Worsening bilateral pleural effusion and small volume ascites. 2. Motion artifact limits evaluation of the lung parenchyma. Bibasilar compressive atelectasis is again noted and patchy ground-glass attenuation of the rest of the lungs does not appear significantly changed from prior. This may be due to pulmonary edema and/or pneumonitis. 3. Stable cirrhotic liver and splenomegaly. D/ / Anirudh Kaufman MD / Anirudh Kaufman MD Interpreting Provider: Anirudh Kaufman MD Head CT 03/04/18 12:30 IMPRESSION: No acute intracranial abnormality. Diffuse atrophic changes with findings suggesting chronic microvascular ischemia D/ / Davion Bae MD / Davion Bae MD Interpreting Provider: Davion Bae MD Knee CT 03/04/18 12:30 IMPRESSION: 1. No acute osseous abnormality of the right or left knee identified. No CT evidence for osteomyelitis. 2. Symmetric diffuse subcutaneous edema and mild skin thickening of the imaged soft tissues of the right and left knee. Correlate clinically for superimposed cellulitis. No organized subcutaneous drainable fluid collection identified to suggest abscess. 3. Coarse dystrophic calcifications within the bilateral soft tissues which may reflect changes of longstanding venous stasis. 4. Status post left total knee arthroplasty with no evidence for hardware failure or loosening. 5. Severe osteoarthritis of the medial compartment of the right knee and mild osteoarthritis of the patellofemoral and lateral compartments. 6. Small bilateral knee effusions. 7. Severe atherosclerotic disease. D/ / Tawanda Velazquez MD / Tawanda Velazquez MD Interpreting Provider: Tawanda Velazquez MD Knee CT 03/04/18 12:30 IMPRESSION: 1. No acute osseous abnormality of the right or left knee identified. No CT evidence for osteomyelitis. 2. Symmetric diffuse subcutaneous edema and mild skin thickening of the imaged soft tissues of the right and left knee. Correlate clinically for superimposed cellulitis. No organized subcutaneous drainable fluid collection identified to suggest abscess. 3. Coarse dystrophic calcifications within the bilateral soft tissues which may reflect changes of longstanding venous stasis. 4. Status post left total knee arthroplasty with no evidence for hardware failure or loosening. 5. Severe osteoarthritis of the medial compartment of the right knee and mild osteoarthritis of the patellofemoral and lateral compartments. 6. Small bilateral knee effusions. 7. Severe atherosclerotic disease. D/ / Tawanda Velazquez MD / Tawanda Velazquez MD Interpreting Provider: Tawanda Velazquez MD Soft Tissue Neck CT 03/04/18 12:30 IMPRESSION: 1. No evidence of neck soft tissue mass or lymphadenopathy. 2. View of upper lung field show findings related to interstitial pulmonary edema with large bilateral pleural effusions. D/ / Gilberto Blount / Gilberto Blount Interpreting Provider: Gilberto Blount Exam - Constitutional Vitals: Temp Pulse Resp BP Pulse Ox 97.2 F L 74 16 149/57 99 03/05/18 10:38 03/05/18 10:38 03/05/18 10:38 03/05/18 10:38 03/05/18 07:24 Consult Discharge Plan - Plan Referrals: Latoya Harkins, [employer]S SALES ASSOCIATE [Primary Care Provider] -
--- NOTE | 2018-03-05 11:33 | Nephrology Progress Note ---
Date of Encounter: 03/05/18 Time of Encounter: 11:31 - Assessment and Plan (1) Acute kidney injury superimposed on CKD Current Visit: No Status: Acute HD completed yesterday. Continue to avoid nephrotoxins and renal dose if able. Pt would like to be in ECF closer to [place] criminal justice social worker trying to work on that. (2) CKD (chronic kidney disease), stage III Current Visit: No Status: Chronic Baseline GFR in the 30s at least this year. (3) MSSA bacteremia Current Visit: Yes Status: Acute Abx per primary team (4) Acute on chronic diastolic heart failure Current Visit: Yes Status: Acute Stop IVF Strict I/Os (5) Hyperkalemia Current Visit: Yes Status: Acute Resolved K is 4.5 today. Renal diet if able to eat. Subjective Principal diagnosis: worsening renal function Interval history: Pt seen and examined during HD, tolerating well. Denies CP or SOB. Denies nausea /vomiting/diarrhea. Objective - Vital Signs Vital signs: Vital Signs Temp Pulse Resp BP Pulse Ox 03/05/18 11:29 97.6 F 70 18 142/62 03/05/18 11:25 151/71 03/05/18 11:10 149/63 03/05/18 10:55 159/74 03/05/18 10:53 97.9 F 70 18 147/71 03/05/18 10:40 161/67 03/05/18 10:38 97.2 F L 74 16 149/57 03/05/18 10:25 153/67 03/05/18 10:10 165/68 03/05/18 09:55 161/68 03/05/18 09:40 160/72 03/05/18 09:25 97.7 F 18 160/54 03/05/18 07:24 97.6 F 68 17 124/70 99 03/05/18 04:54 97.7 F 67 16 128/64 98 03/05/18 02:18 97.8 F 66 15 101/67 100 03/04/18 21:00 97.8 F 64 16 136/51 97 03/04/18 16:04 97.8 F 67 16 120/61 100 03/04/18 11:34 97.4 F L 59 16 144/79 100 Intake and Output 03/04/18 03/05/18 03/05/18 23:59 07:59 15:59 Intake Total 1190 / 1190 Balance 1190 / 1190 Intake: IV Fluids Ancef 1,000 MG In Water for inj . (sterile) 10 ML @ 200 mls/hr IVP Q24H ROMARIO Rx#:[id number] Oral 240 / 240 Blood Product 350 / 350 Rbcs Leuko Poor As-1 Unit 350 / 350 [id number] Intake, Rinseback and Flushes 600 / 600 Other: Meal Breakfast Percent of Meal Consumed 100% # Urine Diapers 1 Weight 104.2 kg Blood Glucose* 278 177 Hemodialysis Net Fluid Removed 2156 (mL) Patient Weight 03/05/18 23:59 Weight 104.2 kg - General Appearance General appearance: Present: well-developed, well-nourished EENT: Present: ATNC, hearing intact, vision intact Neck: Present: supple Respiratory: Present: clear Cardiology: Present: no edema, normal S1, normal S2 Dialysis Vascular Access: Venous Catheter ([place], DRSG c/D/I) Gastrointestinal: Present: normoactive bowel sounds, no tenderness, no guarding Integumentary: Present: no rash, warm and dry Neurologic: Present: alert and oriented x3 Psychiatric: Present: mood/affect appropriate, cooperative - Lab 03/05/18 03:09 03/05/18 03:09 Most recent lab results Calcium 8.6 mg/dL (8.6-10.3) 03/05/18 03:09 Phosphorus 5.8 mg/dL (2.7-4.5) H 03/01/18 04:40 Magnesium 2.0 mg/dL (1.6-2.6) 03/01/18 04:40 Consult Discharge Plan - Plan Referrals: Latoya Harkins, DATA SECURITY CONSULTANT [Primary Care Provider] -
[2018-03-05] MEDS: ceFAZolin 1,000 MG in Water for inj. (sterile) 20 ML 10 ML IVP SCH (18:33)
[2018-03-05] MEDS: *HR* OxyCODONE Immed Rel 5 MG TABLET PO PRN (22:15)
[2018-03-06 07:04] LABS: Mean Corpuscular HGB Conc 30.9 g/dL (31.6-35.5)
[2018-03-06 07:05] LABS: Hematocrit 27.5 % (35.3-44.9); Hemoglobin 8.5 g/dL (11.5-15.4); Immature Platelets 2.1 % (1.1-6.1); Mean Corpuscular Hemoglobin 28.8 pg (28.0-33.3); Mean Corpuscular Volume 93.2 fL (83.0-100.0); Mean Platelet Volume 9.7 fL (9.4-12.4); Red Blood Count 2.95 M/mcL (3.82-4.97)
[2018-03-06 07:13] LABS: Calcium 8.7 mg/dL (8.6-10.3); Potassium 3.8 mEq/L (3.5-5.1)
--- NOTE | 2018-03-06 09:01 | Discharge Summary ---
<Brian Hurley Job - Last Filed: 03/06/18 14:44> - NOTES TO OUTPATIENT PROVIDER Notes to Outpatient Provider: Ms. Taylor who presented to as a transfer from [place] to [facility] on 02/28/18 for acute renal failure. Per review of medical records from [facility], she had initially presented to [facility] with generalized weakness. She was found to have MSSA bacteremia, was transferred to [place] on 02/13 for further care. Her hospital course was complicated by CHF requiring Bumex drip, anemia requiring EGD and transfusions, and DIDIER requiring an HD catheter placement and initiation of dialysis. [place] requested that the patient be transferred here since pts jewel bearing broacher is Dr. Rosales. HD was intiated on 03/02. She also went for dialysis on 03/03 and 03/05. Tolerating HD well at time of discharge. Repeat blood cultures revealed 1 positive culture of MSSA. Total body CT was negative for source of infection. Tagged WBC scan was performed at [place], and was inconclusive. Per infectious disease, pt is to recieve IV Ancef until 03/27 for a total of 6 weeks of therapy. Orders not resulted at time of discharge: Pending orders 03/01/18 04:00 Urinalysis reflex Microscopic [URIN] AM 0400 03/04/18 10:23 Culture,Blood [BC] Stat 03/04/18 14:30 Culture,Blood [BC] Stat 03/06/18 08:34 EV ELVER transesophageal echo Routine 03/07/18 04:00 Basic Metabolic Panel AM 0400 CBC no Diff [Complete Blood Count w/o Diff] [HEME] AM 0400 03/08/18 04:00 Basic Metabolic Panel AM 0400 CBC no Diff [Complete Blood Count w/o Diff] [HEME] AM 0400 Date of Encounter: 03/06/18 Time of Encounter: 09:01 - Discharge Diagnosis (1) Acute renal failure Priority: Primary Status: Acute Assessment and Plan: Baseline creatinine is 2.1 Continues to be elevated at 3.[address] Rosales outpatient Renal ultz was unremarkable. No cyts. Normal cortical echogenicity. Went for dialysis on 03/02, 03/03 and 03/05 Cause of ARF may be related to Bumex use at [place], but unclear at this time Appreciate nephro consult and recs, will follow for recommended HD schedule Qualifiers: Acute renal failure type: unspecified Qualified Code(s): N17.9 - Acute kidney failure, unspecified (2) MSSA bacteremia Priority: Primary Status: Acute Assessment and Plan: Per medical records from [place] - Demonstrated on blood culture from 02/11/18 - Patient was treated with 4 weeks of IV antibiotics; 6 week total course prior to admission - Repeat blood CX on 02/13 was negative - PICC line was placed on 02/23/18 - Infectious disease recommended 6 weeks total of IV Ancef (last dose on ) followed by indefinite doxycycline - Patient has been afebrile - No leukocytosis - 5.1 today - Repeat blood CX x2 have MSSA Staph aureus in 1 culture - Repeat blood CX and central line from 03/04 CX pending - barnes CT negative for source - tagged WBC scan at [place] was negative ID on board and appreciate recs, ELVER prior to discharge Continue Ancef 500 mg IV q 24 hr (3) Acute on chronic diastolic heart failure Priority: Secondary Status: Acute Assessment and Plan: Information obtained from medical records from [facility] - TTE on 02/12/18 demonstrated ejection fraction of 60% - Patient was being diuresed with Bumex; was discontinued due to declining renal function - BNP on 03/01: 1474 Fluid being removed via HD Continue to hold diuretics at this time with poor kidney function (4) Diabetes mellitus Priority: Secondary Status: Acute Assessment and Plan: Low dose SSI Blood glucose at 171 today Resume home regimen of Humalog and Lantus Qualifiers: Diabetes mellitus type: type 2 Diabetes mellitus retirement insulin use: with retirement use Diabetes mellitus complication status: with unspecified complications Qualified Code(s): E11.8 - Type 2 diabetes mellitus with unspecified complications; Z79.4 - FDC (current) use of insulin Hospital course: Ms. Taylor is a 78 year old female Discharge discussed with: patient, nurse, case management, remediation consultant - Time Spent with Patient Total time spent providing and/or coordinating discharge services: - Discharge Medications Home Medications: Cholecalciferol (D-3) [Vitamin D] 1,000 unit PO DAILY 04/07/17 [History] Multivit-Min/FA/Lycopen/Lutein [Centrum Silver Tablet] 1 tab PO DAILY 04/07/17 [ History] Vitamin E Acetate [Vitamin E] 400 unit PO DAILY 04/07/17 [History] Ferrous Sulfate [Iron] 325 mg PO DAILY 11/28/17 [History] Insulin Glargine,Hum.rec.anlog [Lantus Solostar] 30 units SQ HS 11/28/17 [ History] Insulin LISPRO [Humalog] 0 unit SQ TIDWM 11/28/17 [History] Metoprolol [Lopressor] 12.5 mg PO BID 11/28/17 [History] Isosorbide MONOnitrate (24 HR) [Imdur] 30 mg PO DAILY #30 tab.er.24h 12/26/17 [ Rx] cloNIDine HCl [CloNIDine HCl] 0.1 mg PO BID 02/11/18 [History] ceFAZolin [Ancef] 1,000 gm IV DAILY 02/28/18 [History] Allergies/Adverse Reactions: 3 Allergy/AdvReac Type Severity Reaction Status Date / Time Uidmxmo-Rlk-Kmt Reductase AdvReac Muscle Pain Verified 11/28/17 10:02 Inhibitor [Statins] Date of admission: 02/28/18 17:25 Primary care physician: Latoya Harkins CNP Consults: 02/28/18 18:51 Consult to Nephrology [CONS] Routine Consulting Provider: Kidney Chica/ALCIDES/AFIA/NATHAN Reason for Consult: acute on chronic renal failure; patient of Dr. Rosales Call Completed: No 03/02/18 10:04 Consult to Invasive Line Access Team [CONS] Routine Reason for Consult: Picc Line Insertion Line Type: PICC 03/02/18 10:32 Consult to Dialysis [CONS] Stat 03/03/18 07:34 Consult to Airframe And Powerplant Technician [CONS] Routine Reason for SW Consult: ecf, poss chair for hd 03/03/18 08:15 Consult to Dialysis [CONS] ONCE 03/03/18 08:48 Consult to Occupational Therapy [CONS] Routine Comment: Evaluate, develop and implement POC Reason for Consult: weakness Does patient have active BEDREST order?: No Is patient medically & hemodynamically stable?: Yes Consult to Physical Therapy [CONS] Routine Comment: Evaluate, develop and implement POC Reason for Consult: weakness Does patient have active BEDREST order?: No Is patient medically & hemodynamically stable?: Yes 03/03/18 13:06 Consult to Infectious Diseases [CONS] Routine Consulting Provider: Infectious Disease Alma Reason for Consult: recurrent bacteremia Time Notified: 13:05 Call Completed: Yes Discharging clinician: Brian Hurley - Constitutional Vitals: Temp Pulse Resp BP Pulse Ox 97.4 F L 73 18 153/58 99 03/06/18 07:11 03/06/18 07:11 03/06/18 07:11 03/06/18 07:11 03/06/18 07:11 Exam: Head: atraumatic, normocephalic Eyes: PERRL, EOMI, no scleral icterus Neck: supples, trachea midline, no lymphadenopathy Lungs: CTA bilaterally. Non-labored breathing. No rales, rhonchi, or wheezes. Heart: RRR, +S1, +S2, +2 blowing systolic murmur GI: abdomen soft, non-tender, slightly distended. normoactive bowel sounds Extremities: warm, radial pulses palpable and symmetrical. +2 pitting edema in bilateral LEs Neuro: A&Ox3. no speech difficulty or abnormality. no focal deficits. Skin: warm, dry, intact. Area of contusion HD cath improving, no warmth or pain on palpation. - Patient Status Disposition: Transfer SNF Condition: Fair Functional capacity at discharge: uses cane/walker Overall status at discharge: patient is progressing back to baseline - Discharge Instructions Instructions: Acute Kidney Injury (DC) Follow Up With: Latoya Harkins TUNNEL MAN [Primary Care Provider] - - Diet and Activity Activity: ambulate only with your walker, as per physical therapy, increase activity as tolerated, resume usual activities as tolerated Diet: low salt diet <Johnie,Rambabu - Last Filed: 03/06/18 15:30> Orders not resulted at time of discharge: Pending orders 03/01/18 04:00 Urinalysis reflex Microscopic [URIN] AM 0400 03/04/18 10:23 Culture,Blood [BC] Stat 03/04/18 14:30 Culture,Blood [BC] Stat Date of Encounter: 03/06/18 - Discharge Diagnosis (1) Acute renal failure Status: Acute Qualifiers: Acute renal failure type: unspecified Qualified Code(s): N17.9 - Acute kidney failure, unspecified (2) MSSA bacteremia Status: Acute (3) Acute on chronic diastolic heart failure Status: Acute (4) Diabetes mellitus Status: Acute Qualifiers: Diabetes mellitus type: type 2 Diabetes mellitus revenue agent insulin use: with revenue agent use Diabetes mellitus complication status: with unspecified complications Qualified Code(s): E11.8 - Type 2 diabetes mellitus with unspecified complications; Z79.4 - FDC (current) use of insulin Hospital course: Ms. Taylor is a 78 year old female - Time Spent with Patient Total time spent providing and/or coordinating discharge services: Date of admission: 02/28/18 17:25 Primary care physician: Latoya Harkins CNP Consults: 02/28/18 18:51 Consult to Nephrology [CONS] Routine Consulting Provider: Kidney Chica/ALCIDES/AFIA/NATHAN Reason for Consult: acute on chronic renal failure; patient of Dr. Rosales Call Completed: No 03/02/18 10:04 Consult to Invasive Line Access Team [CONS] Routine Reason for Consult: Picc Line Insertion Line Type: PICC 03/02/18 10:32 Consult to Dialysis [CONS] Stat 03/03/18 07:34 Consult to Airframe And Powerplant Technician [CONS] Routine Reason for SW Consult: ecf, poss chair for hd 03/03/18 08:15 Consult to Dialysis [CONS] ONCE 03/03/18 08:48 Consult to Occupational Therapy [CONS] Routine Comment: Evaluate, develop and implement POC Reason for Consult: weakness Does patient have active BEDREST order?: No Is patient medically & hemodynamically stable?: Yes Consult to Physical Therapy [CONS] Routine Comment: Evaluate, develop and implement POC Reason for Consult: weakness Does patient have active BEDREST order?: No Is patient medically & hemodynamically stable?: Yes 03/03/18 13:06 Consult to Infectious Diseases [CONS] Routine Consulting Provider: Infectious Disease Chica Reason for Consult: recurrent bacteremia Time Notified: 13:05 Call Completed: Yes 03/06/18 12:52 Consult to Invasive Line Access Team [CONS] Routine Reason for Consult: limited vascular acces with need for revenue agent outpt. antibiotics Line Type: EPIV - Constitutional Vitals: Temp Pulse Resp BP Pulse Ox 98.6 F 99 18 162/74 99 03/06/18 11:01 03/06/18 11:01 03/06/18 11:01 03/06/18 11:01 03/06/18 11:01 - Attending Attestation I examined this patient and my medical decision-making was reviewed with the Resident Physician Dr. Hurley. I agree with the documented findings, disposition and treatment plan as described except to the extent set forth below. Ms. Taylor is a 78 y/o F with known PMH of DM2, HTN, prosthetic AV, Left TKR, CKD-4, h/o recurrent MSSA bacteremia, who was transferred to our hospital from [place] for HD due to worsening DIDIER with CKD-4. Pt is alert, awake and O x 3. Her blood cx 1/2 positive for Staph cocci again. At [place], she had all the work up done regarding her MSSA bacteremia. Gen: A, A, O x 3 Chest: Diminished BS b/l [place]: S1S2+ RRR a/p 1. Recurrent bacteremia no clear source of inf so far all the work up negative for any IE, prosthetic left Knee joint inf ID consulted [facility] CT ordered - which did not reveal any source of Inf Talked to ID who states she had negative WBC tag scan done at [place], so no need to repeat again recommend to d/c her with IV abx Ancef an cont Ancef for now 2. DIDIER with CKD-4 Seems to be she developed ESRD need HD Cont HD as per Nephro recommendations stable to d/c ECF today
[2018-03-06] MEDS: Insulin LISPRO 300 UNITS/3 ML VIAL SQ SCH ×2 (09:09→11:59)
[2018-03-06 11:02] VITALS: BP 162/74
--- NOTE | 2018-03-06 11:03 | Infectious Disease Progress No ---
Date of Encounter: 03/06/18 Time of Encounter: 10:00 - Assessment and Plan (1) Recurrent bacteremia Status: Acute Causative organism: MSSA. Source: Unclear. Complicated due to bilateral knee hardware and bioprosthetic aortic heart valve. 11/07/2017: 2 out of 2 sets positive for MSSA discharge on oral doxycycline for 7 days. 11/26/2017: 2 out of 2 sets positive for MSSA; repeat cultures on November 28 no growth. Treated with 4 weeks of IV cefazolin for complicated MSSA bacteremia. At that time ELVER and TTE were negative. 02/11/2018 2 out of 2 sets positive for MSSA bacteremia. Patient was transferred to [place]. Exact treatment at that time unclear but we will get records 03/31/2018 1 out of 2 sets positive for MSSA bacteremia. ESR elevated at 89. CRP was not checked. Check rheumatoid factor.--> normal. Recommend CT of the head and neck, CT chest, CT abdomen and pelvis, and bilateral knees. --> non-revealing for source/seeding of bacteremia. WBC scan at [place] was negative. Repeat blood cultures 2 sets drawn 03/04/18 is NGTD. Continue Ancef 1 g IV every 24 hours, dose adjusted for the patient's hemodialysis status. Recommended ELVER prior to discharge.--> patient refused. Duration of treatment depends on the clinical picture, but likely a total of 6- 8 weeks. Monitor labs and dose adjust antibiotics. Consult VAT for Powerglide placement. Will need weekly CBC, BUN/Cr for the duration of treatment. Will need weekly IV care per protocol. Follow up with ID 03/19/18 at 1350. (2) Acute on chronic kidney failure Status: Acute Likely secondary to Bumex drip. HD initiated at OSH. Nephrology consulted to assist with HD management. Continue to trend serum creatinine. Dose-adjust medications and avoid nephrotoxins as able. Qualifiers: Acute renal failure type: unspecified Chronic kidney disease stage: unspecified stage Qualified Code(s): N17.9 - Acute kidney failure, unspecified ; N18.9 - Chronic kidney disease, unspecified (3) History of aortic valve replacement with bioprosthetic valve Status: Chronic (4) Diabetes mellitus type 2 in obese Status: Acute (5) Thrombocytopenia Status: Chronic Likely secondary to cirrhosis and worsened by infectious process. No acute bleeding noted on exam. Continue to trend. Transfusion parameters per the primary team. (6) MGUS (monoclonal gammopathy of unknown significance) Status: Acute Not sure if that is a contributing factor to recurrent MSSA bacteremia. Might benefit from immunology consultation. (7) Cirrhosis Status: Chronic Etiology not clear. Patient's meld score on admission is 25.. Qualifiers: Hepatic cirrhosis type: unspecified hepatic cirrhosis Ascites presence: without ascites Qualified Code(s): K74.60 - Unspecified cirrhosis of liver (8) CAD (coronary artery disease) Status: Acute Qualifiers: Coronary Disease-Associated Artery/Lesion type: unspecified vessel or lesion type [place] vs. transplanted heart: [place] heart Associated angina: with unspecified angina Qualified Code(s): I25.119 - Atherosclerotic heart disease of [place] coronary artery with unspecified angina pectoris - Subjective Interval history: Patient seen and examined. No acute events noted overnight. Patient drowsy this morning, but arousable and able to answer questions and follow commands. Denies fevers, chills, or rigors. Denies chest pain, shortness of breath, or cough. Denies nausea, vomiting, or diarrhea. Denies abdominal pain, urinary complaints , or appetite changes. Denies oral thrush or new skin lesions. Denies joint or back pain. Per the primary team, the patient is refusing ELVER. Infect Dis PN-Objective Data - Labs CBC & Chem 7: 03/06/18 05:27 03/06/18 05:27 Labs: Laboratory Results - last 24 hr 03/02/18 03/04/18 03/04/18 11:58 16:03 20:58 WBC RBC Hgb Hct MCV MCH MCHC RDW Plt Count MPV Immature Plt Fraction Sodium Potassium Chloride Carbon Dioxide BUN Creatinine Est GFR ( Amer) Est GFR (Non-Af Amer) BUN/Creatinine Ratio Glucose POC Glucose 262 H 278 H Calculated Osmolality Calcium Crossmatch See Detail 03/05/18 03/05/18 03/05/18 07:19 11:26 16:20 WBC RBC Hgb Hct MCV MCH MCHC RDW Plt Count MPV Immature Plt Fraction Sodium Potassium Chloride Carbon Dioxide BUN Creatinine Est GFR ( Amer) Est GFR (Non-Af Amer) BUN/Creatinine Ratio Glucose POC Glucose 177 H 192 H 226 H Calculated Osmolality Calcium Crossmatch 03/06/18 03/06/18 03/06/18 05:27 05:27 07:10 WBC 5.1 RBC 2.95 L Hgb 8.5 L Hct 27.5 L MCV 93.2 MCH 28.8 MCHC 30.9 L RDW 16.0 H Plt Count 75 L MPV 9.7 Immature Plt Fraction 2.1 Sodium 133 L Potassium 3.8 Chloride 96 L Carbon Dioxide 27 BUN 29 H Creatinine 3.79 H Est GFR ( Amer) 14 L Est GFR (Non-Af Amer) 11 L BUN/Creatinine Ratio 8 Glucose 171 H POC Glucose 174 H Calculated Osmolality 286 Calcium 8.7 Crossmatch Cultures: Cultures 03/01/18 04:41 Blood Culture - Final Peripheral Venipuncture No growth. Final report. 03/01/18 04:40 Blood Culture - Final Peripheral Venipuncture Staphylococcus aureus 03/04/18 14:30 Blood Culture - Preliminary Central Venous Catheter Culture is incubating and being continuously monitored for growth. Final report to follow. 03/04/18 10:23 Blood Culture - Preliminary Peripheral Venipuncture Culture is incubating and being continuously monitored for growth. Final report to follow. Serology 03/02/18 03/01/18 Range/Units 09:32 04:40 A. baumannii (PCR) Not Detected (Not Detect) Negin albicans (PCR) Not Detected (Not Detect) C. glabrata (PCR) Not Detected (Not Detect) C. krusei (PCR) Not Detected (Not Detect) C. parapsilosis (PCR) Not Detected (Not Detect) C. tropicalis (PCR) Not Detected (Not Detect) Enterobacteriac sp PCR Not Detected (Not Detect) E. cloacae complex PCR Not Detected (Not Detect) Enterococcus sp PCR Not Detected (Not Detect) E. coli (PCR) Not Detected (Not Detect) H. influenzae (PCR) Not Detected (Not Detect) Hep Bs Antigen Nonreactive (Nonreactive) Hep Bs Antibody 0.00 mIU/mL Klebsiella oxytoca PCR Not Detected (Not Detect) Klebsiella pneumoniae Not Detected (Not Detect) List. monocytogenes PCR Not Detected (Not Detect) N. meningitidis (PCR) Not Detected (Not Detect) Proteus species (PCR) Not Detected (Not Detect) Serratia marcescens PCR Not Detected (Not Detect) Staphylococcus sp PCR DETECTED A (Not Detect) Staph aureus (PCR) DETECTED A (Not Detect) mecA-Methicil Res Gene Not Detected (Not Detect) Streptococcus sp PCR Not Detected (Not Detect) Group A Strep DNA Not Detected (Not Detect) Group B Strep (PCR) Not Detected (Not Detect) Strep pneumoniae (PCR) Not Detected (Not Detect) P. aeruginosa (PCR) Not Detected (Not Detect) Jake/B-Vanco Res Genes N/A (Not Detect) KPC (blaKPC) Detect PCR N/A (Not Detect) Exam - Constitutional Vitals: Temp Pulse Resp BP Pulse Ox 97.4 F L 73 18 153/58 99 03/06/18 07:11 03/06/18 07:11 03/06/18 07:11 03/06/18 07:11 03/06/18 08:54 General appearance: cooperative, no acute distress, obese - Head Head exam: Present: atraumatic, normal inspection, normocephalic - Eye Eye exam: Present: EOMI, normal appearance, PERRL Pupils: Present: normal accommodation Additional comments: No subconjunctival hemorrhage noted. - ENT ENT exam: Present: mucous membranes moist - Neck Neck exam: Present: normal inspection - Respiratory Respiratory exam: Present: CTAB. Absent: rales, respiratory distress, rhonchi, wheezes - Cardiovascular Cardiovascular exam: Present: clicks, RRR, +S1, +S2 - GI/Abdominal GI/Abdominal exam: Present: distended (obese), normal bowel sounds, soft. Absent: tenderness - Extremities Exam Extremities exam: Present: normal inspection, pedal edema (1+ BLE). Absent: joint swelling, tenderness - Back Exam Back exam: Present: normal inspection. Absent: paraspinal tenderness, vertebral tenderness - Neurological Exam Neurological exam: Present: alert, oriented X3, no focal deficits - Psychiatric Psychiatric exam: Present: normal affect, normal mood - Skin Skin exam: Present: dry, intact, normal color, warm Additional comments: No endocarditis stigmata noted. - Additional findings Additional findings: Perma-cath noted to the right upper chest with dressing C/D/I with mild ecchymosis noted around the insertion site. Consult Discharge Plan - Plan Instructions: Acute Kidney Injury (DC) Referrals: Latoya Harkins, TRANSPORTATION ENGINEERING TECHNICIAN [Primary Care Provider] -
--- NOTE | 2018-03-06 11:40 | Physician Discharge Referral ---
ExtendedCare Referral Info Transfer To: ECF Provider in Charge after Transfer: PCP Institutional Level of Care: Skilled - Diagnosis (1) Acute renal failure Status: Acute (2) MSSA bacteremia Status: Acute (3) Acute on chronic diastolic heart failure Status: Acute (4) Diabetes mellitus Status: Acute - Transfer Medications Home Medications: Cholecalciferol (D-3) [Vitamin D] 1,000 unit PO DAILY 04/07/17 [History] Multivit-Min/FA/Lycopen/Lutein [Centrum Silver Tablet] 1 tab PO DAILY 04/07/17 [ History] Vitamin E Acetate [Vitamin E] 400 unit PO DAILY 04/07/17 [History] Ferrous Sulfate [Iron] 325 mg PO DAILY 11/28/17 [History] Insulin Glargine,Hum.rec.anlog [Lantus Solostar] 30 units SQ HS 11/28/17 [ History] Insulin LISPRO [Humalog] 0 unit SQ TIDWM 11/28/17 [History] Metoprolol [Lopressor] 12.5 mg PO BID 11/28/17 [History] Isosorbide MONOnitrate (24 HR) [Imdur] 30 mg PO DAILY #30 tab.er.24h 12/26/17 [ Rx] cloNIDine HCl [CloNIDine HCl] 0.1 mg PO BID 02/11/18 [History] ceFAZolin [Ancef] 1,000 gm IV DAILY 02/28/18 [History] Allergies/Adverse Reactions: 3 Allergy/AdvReac Type Severity Reaction Status Date / Time Fwewryt-Cut-Kql Reductase AdvReac Muscle Pain Verified 11/28/17 10:02 Inhibitor [Statins] - Respiratory Orders Smoking Cessation: Smoking cessation has been advised. For more information, call the [place] Tobacco Quit Line at 0-075-HOWZ-NOW. CERTIFICATION: I certify that the transfer of the above named patient to an Extended Care Facility is necessary for the continuing treatment of the diagnosis listed. The above information is true and accurate reflection of patient's current condition. Confidential - Redisclosure prohibited without a patient's written consent.
== END 2018-03-06 13:16 | DRG 682 ==
LOC: SUATTDRO 17:25 → 2ANU 17:25
PROVIDERS: ADMIT Internal Medicine; ATTEND Family Medicine

== ENCOUNTER 2018-04-09 15:20 | Inpatient (IN) ==
--- NOTE | 2018-04-09 15:25 | Emergency Department Note ---
Disposition Clinical Impression: Symptomatic anemia, ESRF (end stage renal failure), Elevated troponin Disposition: Admitted As Inpatient Condition: Fair Referrals: NONE,PCP [Primary Care Provider] - Forms: ED Satisfaction Letter Time of Disposition: 18:00 General Adult HPI - General Chief complaint: ED Recheck/Abnormal Lab/Rx Stated complaint: Abnormal Labs low hemoglobin Time Seen by Provider: 04/09/18 15:24 Source: patient, EMS Mode of arrival: EMS Limitations: no limitations Nursing Notes Reviewed: Yes Vital Signs Reviewed: Yes - History of Present Illness HPI Narrative: Patient is a 78-year-old female with past medical history of dialysis, chronic anemia that has required multiple transfusions in the past, hypertension, liver disease, hyperlipidemia, COPD. She presents today due to concern for a hemoglobin level and dyspnea. Patient states that over the past few days, she has become increasingly short of breath above her baseline with COPD. She has also noticed that her face has become more pale. She states that she believes her hemoglobin is low. She had dialysis today for 4 hours at [facility] and states that her hemoglobin was 7 today. She was referred here for transfusion, is also concerned that patient may become fluid overloaded as she does not void any urine, she was sent here with recommendation of transfusion and admitting for possible dialysis after transfusion. She denies any other fevers, nausea, vomiting, diarrhea, abdominal pain, chest pain, lower extremity pain. - Related Data Home Medications Medication Instructions Recorded Confirmed Cholecalciferol (D-3) [Vitamin D] 1,000 unit PO DAILY 04/07/17 03/01/18 Multivit-Min/FA/Lycopen/Lutein 1 tab PO DAILY 04/07/17 03/01/18 [Centrum Silver Tablet] Vitamin E Acetate [Vitamin E] 400 unit PO DAILY 04/07/17 03/01/18 Ferrous Sulfate [Iron] 325 mg PO DAILY 11/28/17 03/01/18 Insulin Glargine,Hum.rec.anlog 30 units SQ HS 11/28/17 03/01/18 [Lantus Solostar] Insulin LISPRO [Humalog] 0 unit SQ TIDWM 11/28/17 03/01/18 Metoprolol [Lopressor] 12.5 mg PO BID 11/28/17 03/03/18 cloNIDine HCl [CloNIDine HCl] 0.1 mg PO BID 02/11/18 03/01/18 ceFAZolin [Ancef] 1,000 gm IV DAILY 02/28/18 02/28/18 Previous Rx's Medication Instructions Recorded Isosorbide MONOnitrate (24 HR) 30 mg PO DAILY #30 tab.er.24h 12/26/17 [Imdur] Allergies Allergy/AdvReac Type Severity Reaction Status Date / Time Fsrjxpr-Gak-Btl Reductase AdvReac Muscle Pain Verified 11/28/17 10:02 Inhibitor [Statins] All systems ED: reviewed and negative except as stated. Constitutional: Denies: fever Cardiovascular: Denies: chest pain Respiratory: Reports: dyspnea. Denies: cough, wheezes Gastrointestinal: Denies: abdominal pain, nausea, vomiting, diarrhea Integumentary: Reports: other (Pallor). Denies: rash Neurological: Denies: headache, weakness, numbness, paresthesias Past Medical History - Past Medical History Attestation: Yes The following information was validated with the patient. Source: patient Medical history: Reports: arthritis, cancer, cirrhosis, CHF, diabetes, hyperlipidemia, hypertension, liver disease, renal disease Surgical history: Reports: appendectomy, cataract, heart valve replacement, hysterectomy, [place] Psychiatric history: Reports: no psych history - Social History Smoking Status: Former smoker Smokeless Tobacco Status: No Alcohol use: Reports: none Drug use: Reports: none Physical Exam - General Limitations: no limitations General appearance: alert, in no apparent distress - Head Head exam: atraumatic, normocephalic, normal inspection - Eye Eye exam: Present: PERRL, EOMI, other (Conjunctival pallor) - ENT ENT exam: normal exam, normal oropharynx, mucous membranes moist - Neck Neck exam: Present: normal inspection, full ROM, trachea midline - Chest Chest inspection: Present: normal inspection, symmetric chest wall rise - Respiratory Respiratory exam: Present: normal lung sounds bilaterally. Absent: respiratory distress, wheezes, stridor, accessory muscle use - Cardiovascular Cardiovascular exam: Present: regular rate, normal rhythm, normal heart sounds - Abdominal Exam Abdominal exam: Present: soft, Non-Tender. Absent: tenderness, distention, guarding, rebound, rigidity - Extremities Exam Extremities exam: Present: normal inspection, full ROM. Absent: tenderness, pedal edema - Neurological Exam Neurological exam: Present: alert, oriented X3 - Psychiatric Psychiatric exam: Present: normal affect, normal mood - Skin Skin exam: Present: warm, dry, intact, other (Pallor) Course Course Narrative: Vitals currently stable. Patient is pale, reportedly has a hemoglobin of 7. She does report that she has a history of multiple transfusions in the past. We will repeat basic blood work including a CBC, also obtain chest x-ray to complain of shortness of breath. Patient did receive dialysis today. We will plan on transfusing and then admit for possible dialysis after transfusions. 17:58 hemoglobin 6.7. Other labs are near baseline for the patient. Chronically elevated troponin level. Chest x-ray shows pulmonary edema. Nephrology has been consult. They are agreeable with transfusing the patient 1 unit giving IV Lasix and then reassessing. Patient will be admitted to the hospitalist for further care and management. Chest X-Ray 04/09/18 15:33 IMPRESSION: Findings most compatible with pulmonary edema. Correlate with clinical evidence of superimposed pneumonia. D/ / Jaun Yan MD / Jaun Yan MD Interpreting Provider: Jaun Yan MD Vital Signs Temperature 98.3 F 04/09/18 15:30 Pulse Rate 63 04/09/18 15:30 Respiratory Rate 16 04/09/18 15:30 Blood Pressure 120/50 04/09/18 15:30 O2 Sat by Pulse Oximetry 100 04/09/18 15:30 Temperature 98.3 F 04/09/18 15:30 Pulse Rate 63 04/09/18 15:30 Respiratory Rate 16 04/09/18 15:30 Blood Pressure 120/50 04/09/18 15:30 O2 Sat by Pulse Oximetry 95 04/09/18 15:41 Oxygen Delivery Oxygen Delivery Nasal Cannula Medical Decision Making - [facility] Narrative Medical decision making narrative: Vitals currently stable. Patient is pale, reportedly has a hemoglobin of 7. She does report that she has a history of multiple transfusions in the past. We will repeat basic blood work including a CBC, also obtain chest x-ray to complain of shortness of breath. Patient did receive dialysis today. We will plan on transfusing and then admit for possible dialysis after transfusions. 17:58 hemoglobin 6.7. Other labs are near baseline for the patient. Chron ically elevated troponin level. Chest x-ray shows pulmonary edema. Nephrology has been consult. They are agreeable with transfusing the patient 1 unit giving IV Lasix and then reassessing. Patient will be admitted to the hospitalist for further care and management. - Medical Records Medical records reviewed: Yes I reviewed the patient's medical records. - Lab Data Lab results reviewed: Yes I reviewed the patient's lab results. Result diagrams: 04/09/18 16:01 04/09/18 16:01 Lab Results 04/09/18 04/09/18 04/09/18 Range/Units 16:01 16:01 16:01 WBC 5.7 (4.3-11.1) K/mcL RBC 2.28 L (3.82-4.97) M/mcL Hgb 6.7 L (11.5-15.4) g/dL Hct 22.1 L (35.3-44.9) % MCV 96.9 (83.0-100.0) fL MCH 29.4 (28.0-33.3) pg MCHC 30.3 L (31.6-35.5) g/dL RDW 19.8 H (11.5-14.5) % Plt Count 75 L (140-400) K/mcL MPV 9.2 L (9.4-12.4) fL Immature Gran % 0.7 (0-4) % Seg Neutrophils % 71.2 % Lymphocytes % 11.8 % Monocytes % 14.7 % Eosinophils % 1.2 % Basophils % 0.4 % Neutrophils # 4.1 (1.6-8.9) K/mcL Lymphocytes # 0.7 (0.6-4.6) K/mcL Monocytes # 0.8 (0.0-1.3) K/mcL Eosinophils # 0.1 (0.0-0.6) K/mcL Basophils # 0.0 (0.0-0.2) K/mcL Nucleated RBCs/100 WBC 0.4 H (0) /100 WBC Immature Plt Fraction 1.9 (1.1-6.1) % Sodium 135 L (136-145) mEq/L Potassium 3.1 L (3.5-5.1) mEq/L Chloride 94 L (98-107) mEq/L Carbon Dioxide 32 H (23-29) mEq/L BUN 24 H (8-23) mg/dL Creatinine 3.41 H (0.60-1.20) mg/dL Est GFR ( Amer) 16 L (> 60) Est GFR (Non-Af Amer) 13 L (> 60) BUN/Creatinine Ratio 7 (6-26) Glucose 243 H (70-105) mg/dL Calculated Osmolality 292 (280-300) Calcium 8.2 L (8.6-10.3) mg/dL Troponin I 0.04 H* (< 0.04) ng/mL B-Natriuretic Peptide 1936 H (Less than 100) pg/mL Blood Type Antibody Screen 04/09/18 Range/Units 16:01 WBC (4.3-11.1) K/mcL RBC (3.82-4.97) M/mcL Hgb (11.5-15.4) g/dL Hct (35.3-44.9) % MCV (83.0-100.0) fL MCH (28.0-33.3) pg MCHC (31.6-35.5) g/dL RDW (11.5-14.5) % Plt Count (140-400) K/mcL MPV (9.4-12.4) fL Immature Gran % (0-4) % Seg Neutrophils % % Lymphocytes % % Monocytes % % Eosinophils % % Basophils % % Neutrophils # (1.6-8.9) K/mcL Lymphocytes # (0.6-4.6) K/mcL Monocytes # (0.0-1.3) K/mcL Eosinophils # (0.0-0.6) K/mcL Basophils # (0.0-0.2) K/mcL Nucleated RBCs/100 WBC (0) /100 WBC Immature Plt Fraction (1.1-6.1) % Sodium (136-145) mEq/L Potassium (3.5-5.1) mEq/L Chloride (98-107) mEq/L Carbon Dioxide (23-29) mEq/L BUN (8-23) mg/dL Creatinine (0.60-1.20) mg/dL Est GFR ( Amer) (> 60) Est GFR (Non-Af Amer) (> 60) BUN/Creatinine Ratio (6-26) Glucose (70-105) mg/dL Calculated Osmolality (280-300) Calcium (8.6-10.3) mg/dL Troponin I (< 0.04) ng/mL B-Natriuretic Peptide (Less than 100) pg/mL Blood Type A NEGATIVE Antibody Screen NEGATIVE - Radiology Data Radiology results reviewed: Yes I reviewed the patient's radiology results. Chest X-Ray 04/09/18 15:33 IMPRESSION: Findings most compatible with pulmonary edema. Correlate with clinical evidence of superimposed pneumonia. D/ / Jaun Yan MD / Jaun Yan MD Interpreting Provider: Jaun Yan MD - EKG Data EKG #1 EKG attestation: Yes I reviewed and interpreted this EKG. EKG results narrative: 04/09/2018 at 15:42. Sinus rhythm. Rate 64. IA 129. QRS 103. QTC [address] acute [address] elevation or depression. No acute changes from old EKG on 03/01/2018. Critical Care Time Critical Care Time: Yes Total Critical Care Time: 35 Attestation: The high probability of a clinically significant, sudden or life threatening deterioration of the [pulm/CV/renal] system(s) required my full and direct attention, intervention and personal management. The aggregate critical care time was [35] minutes. This time is in addition to time spent performing reported procedures but includes the following: [x] Data Review and interpretation [x] Patient assessment and monitoring of vital signs [x] Documentation [x] Medication orders and management S.B.A.R. - S.B.A.R. Situation: Demographics, MOA Background: Presenting Complaint, Relevant PMH, Meds, & Allergies Assessment: Vital Signs, Course and respsone to treatment, Exam Concerns, Patient/Family Expectation, Pertinant Lab Results Recommendation: Barrier(s) to disposition, Recommendation based on pending studies, treatments, or consults S.B.A.R. Report Given to: Dr. Ana Jimenez Repor Time: 18:00 Attestation Statement - Attestation Attestation: I examined this patient and my medical decision-making was reviewed with the Resident Physician, Dr. Vinson. I agree with the documented findings, dispo sition and treatment plan as described except to the extent set forth below. Patient is a 78-year-old white female end-stage renal disease on hemodialysis who just completed a course of dialysis today and was sent here from dialysis for a low hemoglobin equal to 7. Patient has a history of multiple transfusions due to iron deficiency anemia stating that she has had recurrent colonoscopies with no abnormal findings. No history of GI bleeding. Patient has been feeling tired and feel her color seems pale similar symptoms to when she is needed a transfusion in the past. Patient is also short of breath and states she is experienced this in the past as well as her anemia. Patient denies any chest pain pressure or heaviness, no cough fever or chills, no back discomfort, no abdominal pain no posttussive emesis no other associated symptoms she does have some bilateral lower extremity edema as well. I agree with patient's physical exam findings as documented. Patient is in no acute distress. EKG was without ischemia or dysrhythmia. Patient's lab evaluation shows a hemoglobin of 6.7. Patient with chronic renal failure and hypokalemia. Patient with an elevated troponin which is chronically elevated. White count is normal. Chest x-ray shows pulmonary edema consistent with her clinical exam. Patient will be given 1 unit packed red blood cells followed by a dose of IV Lasix. We did discuss this and consult nephrology from the emergency department and they agreed with this plan and stated they can get dialyzed the patient in the morning if necessary they will reevaluate following completion of her transfusion. Case was also discussed with hospitalist to accept patient for admission.
[2018-04-09 16:13] LABS: Hemoglobin 6.7 g/dL (11.5-15.4); Mean Corpuscular Volume 96.9 fL (83.0-100.0)
[2018-04-09 16:15] LABS: Basophils % 0.4 %; Eosinophils # 0.1 K/mcL (0.0-0.6); Eosinophils % 1.2 %; Hematocrit 22.1 % (35.3-44.9); Immature Granulocytes % 0.7 % (0-4); Immature Platelets 1.9 % (1.1-6.1); Lymphocytes # 0.7 K/mcL (0.6-4.6); Lymphocytes % 11.8 %; Mean Corpuscular HGB Conc 30.3 g/dL (31.6-35.5); Mean Corpuscular Hemoglobin 29.4 pg (28.0-33.3); Mean Platelet Volume 9.2 fL (9.4-12.4); Monocytes # 0.8 K/mcL (0.0-1.3); Monocytes % 14.7 %; Neutrophils # 4.1 K/mcL (1.6-8.9); Nucleated Red Blood Cells 0.4 /100 WBC (0); Red Blood Count 2.28 M/mcL (3.82-4.97); Red Cell Distribution Width 19.8 % (11.5-14.5); Segmented Neutrophils % 71.2 %
[2018-04-09 16:16] LABS: Platelet Count 75 K/mcL (140-400)
[2018-04-09 16:34] LABS: Calcium 8.2 mg/dL (8.6-10.3); Potassium 3.1 mEq/L (3.5-5.1)
[2018-04-09] MEDS ORDERED: Furosemide 40 MG/4 ML VIAL IVP ONE ×2 (16:37→19:05)
[2018-04-09 16:39] LABS: Troponin I 0.04 ng/mL (< 0.04)
[2018-04-09] MEDS ORDERED: Naloxone 0.4 MG/ML INJ IVP PRN (18:22)
--- NOTE | 2018-04-09 18:40 | Internal Med History&Physical ---
Date of Encounter: 04/09/18 Time of Encounter: 18:25 Internal Medicine - H&P: HPI Chief complaint: Low hemoglobin Admitted From: Emergency Dept Plans for Post Hospital Care: Home History of present illness: Ms. Taylor is a 78 year old female with hx of chronic anemia (multiple transfusions), HTN, COPD presented for dyspnea. She was concerned that her hemoglobin was low. She did have dialysis today. She has noticed increased dyspnea over the last few days. Her hemoglobin was reportedly 7 today. Recheck in ED was 6.7. At this time she feels dyspneic. She denies pain. She still makes urine she says. Denies diarrhea. Nephrology was called in ED and she has received Lasix and blood transfusion has been ordered. Past Med Surg Social Fam HX - Past Medical History Source: patient, old records reviewed Medical history: arthritis, cancer, cirrhosis, CHF, diabetes, hyperlipidemia, hypertension, liver disease, renal disease Additional medical history: valvular heart disease Psychiatric history: no psych history - Past Surgical History Surgical History: appendectomy, cataract, heart valve replacement, hysterectomy, [place] Additional surgical history: HAMMER TOES. ACHILLES HEEL REPAIR. LEFT TKR. BLADDER REPAIR. AVR 08/2014. A&P. BREAST BIOPSY - Social History Smoking Status: Former smoker Smokeless Tobacco Status: No Alcohol use: none Drug use: none - Family History Mother Living Status: Hx Family Cardiac Disorders: No Hx Family Respiratory Disorders: No Hx Family Endocrine Disorder: Yes Hx Family Neurologic Disorders: Yes Internal Medicine - H&P: Meds Cholecalciferol (D-3) [Vitamin D] 1,000 unit PO DAILY 04/07/17 [History] Multivit-Min/FA/Lycopen/Lutein [Centrum Silver Tablet] 1 tab PO DAILY 04/07/17 [History] Vitamin E Acetate [Vitamin E] 400 unit PO DAILY 04/07/17 [History] Ferrous Sulfate [Iron] 325 mg PO DAILY 11/28/17 [History] Insulin Glargine,Hum.rec.anlog [Lantus Solostar] 30 units SQ HS 11/28/17 [History] Insulin LISPRO [Humalog] 0 unit SQ TIDWM 11/28/17 [History] Metoprolol [Lopressor] 12.5 mg PO BID 11/28/17 [History] Isosorbide MONOnitrate (24 HR) [Imdur] 30 mg PO DAILY #30 tab.er.24h 12/26/17 [Rx] cloNIDine HCl [CloNIDine HCl] 0.1 mg PO BID 02/11/18 [History] ceFAZolin [Ancef] 1,000 gm IV DAILY 02/28/18 [History] Allergy/AdvReac Type Severity Reaction Status Date / Time Bijtzcj-Shk-Bcq Reductase AdvReac Muscle Pain Verified 11/28/17 10:02 Inhibitor [Statins] All Systems PM: A 10-system review of systems was performed and is negative for pertinent findings except as documented above in the HPI. - Constitutional Constitutional: fatigue, lethargy - EENT Eyes: no diplopia, no pain Ears: no decreased hearing Nose, mouth and throat: no dry mouth, no sinus pressure - Cardiovascular Cardiovascular ROS IM: dyspnea, dyspnea on exertion, edema, orthopnea, paroxysmal nocturnal dyspnea, no chest pain, no palpitations - Respiratory Respiratory: dyspnea on exertion, no cough, no pain with cough - Gastrointestinal Gastrointestinal: no abdominal pain, no diarrhea, no nausea - Genitourinary Genitourinary: no dysuria, no nocturia - Musculoskeletal Musculoskeletal ROS IM: no arthralgias, no numbness, no tingling - Integumentary Integumentary IM: no erythema, no rash - Neurological Neurological ROS: no headache(s), no numbness, no paresthesias - Endocrine Endocrine IM: no excessive sweating - Hematologic/Lymphatic Hematologic/Lymphatic: no easy bleeding - Allergic/Immunologic Allergic/Immunologic: no tongue swelling - Constitutional Vitals: Temp Pulse Resp BP Pulse Ox 98.3 F 68 20 120/58 100 04/09/18 15:30 04/09/18 18:24 04/09/18 18:24 04/09/18 18:24 04/09/18 18:24 General appearance: Present: A&O X 3. Absent: answers questions appropriately (Dyspneic at rest. Tachypneic. Arouses to name.) Exam: See below - Head Head exam: Present: normocephalic - Eye Eye exam: Present: EOMI, conjuntiva pink - ENT ENT exam: Present: mucous membranes moist - Neck Neck exam general surgery: Absent: normal inspection, thyromegaly - Respiratory Respiratory exam: Present: decreased breath sounds, prolonged expiratory phase. Absent: wheezes - Cardiovascular Cardiovascular exam: Present: RRR, systolic murmur - GI/Abdominal GI/Abdominal exam: Present: normal bowel sounds, soft. Absent: tenderness - Extremities Exam Extremities exam: Present: warm Additional comments: Edema and venous stasis noted. - Neurological Exam Neurological exam: Present: alert, oriented X3 - Skin Skin exam: Present: dry, warm Internal Med - H&P Results - Labs CBC & Chem 7: 04/09/18 16:01 04/09/18 16:01 Labs: Short CBC 04/09/18 Range/Units 16:01 WBC 5.7 (4.3-11.1) K/mcL Hgb 6.7 L (11.5-15.4) g/dL Hct 22.1 L (35.3-44.9) % Plt Count 75 L (140-400) K/mcL Neutrophils # 4.1 (1.6-8.9) K/mcL BMP 04/09/18 16:01 Sodium 135 L Potassium 3.1 L Chloride 94 L Carbon Dioxide 32 H BUN 24 H Creatinine 3.41 H Glucose 243 H Calcium 8.2 L Cardiac Enzymes 04/09/18 Range/Units 16:01 Troponin I 0.04 H* (< 0.04) ng/mL - Impressions ITS Impressions Chest X-Ray 04/09/18 15:33 IMPRESSION: Findings most compatible with pulmonary edema. Correlate with clinical evidence of superimposed pneumonia. D/ / Jaun Yan MD / Jaun Yan MD Interpreting Provider: Jaun Yan MD - Assessment and plan (1) Acute on chronic diastolic heart failure Current Visit: No Status: Acute Assessment and plan: Pt dyspneic on exam. Last echo in 02/17 showed EF of 60%. CXR consistent with pulmonary edema. Has received a dose of Lasix in ED. Will repeat after transfusion tonight. (2) Anemia Current Visit: No Status: Chronic Assessment and plan: Pt presented to ED with dyspnea and fatigue and found to have hemoglobin of 6.7 Place in observation. Transfuse one unit PRBCs. Recheck H/H. Pt says she has had work up of this in the past. Qualifiers: Anemia type: due to chronic kidney disease Chronic kidney disease stage: on chronic dialysis Qualified Code(s): N18.6 - End stage renal disease; D63.1 - Anemia in chronic kidney disease; Z99.2 - Dependence on renal dialysis (3) ESRF (end stage renal failure) Current Visit: Yes Status: Chronic Assessment and plan: Nephrology consulted. Received dialysis today. (4) CAD (coronary artery disease) Current Visit: No Status: Chronic Assessment and plan: Continue routine medications. No symptoms at this time. Troponin chronically elevated. Qualifiers: Coronary Disease-Associated Artery/Lesion type: [place] artery [place] vs. transplanted heart: [place] heart Associated angina: without angina Qualified Code(s): I25.10 - Atherosclerotic heart disease of [place] coronary artery without angina pectoris (5) Diabetes mellitus Current Visit: No Status: Chronic Assessment and plan: Accuchecks and coverage ordered. Continue home meds. 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 Will give small amount of potassium tonight. (7) Cirrhosis Current Visit: No Status: Chronic Assessment and plan: Monitor at this time. Qualifiers: Hepatic cirrhosis type: unspecified hepatic cirrhosis Ascites presence: without ascites Qualified Code(s): K74.60 - Unspecified cirrhosis of liver (8) History of aortic valve replacement with bioprosthetic valve Current Visit: No Status: Chronic Assessment and plan: Chronic issue (9) Hypertension Current Visit: No Status: Chronic Assessment and plan: Controlled at this time. Qualifiers: Hypertension type: essential hypertension Qualified Code(s): I10 - Essential (primary) hypertension - Time Spent With Patient Total time spent is greater than 50% in coordination of care (as documented) at patient's floor/unit and/or counseling patient:
[2018-04-09] MEDS ORDERED: D5% in Water 1,000 ML IVC PRN (19:02)
[2018-04-09] MEDS ORDERED: Dextrose Gel 15 GM/37.5 ML TUBE PO PRN ×2 (19:02)
[2018-04-09] MEDS ORDERED: *HR* Dextrose 50 % in Water (Syg) 50 ML SYRINGE IVP PRN (19:02)
[2018-04-09] MEDS ORDERED: *HR* LORazepam 2 MG/ML VIAL IVP ONE (19:41)
[2018-04-09 21:36] LABS: ABG Base Excess 9 mEq/L (-2 to 3); ABG HCO3 34 mEq/L (21-27); ABG Oxygen Saturation 97 % (95-98); ABG PCO2 49 mmHg (35-45); ABG PH 7.45 pH Units (7.32-7.45); ABG PO2 90 mmHg (85-104); ABG TCO2 35 mEq/L (20-26); Blood Gas PEEP 8 cm H2O; Blood Gas Respiration Rate 16; Blood Gas VT 400 cc
[2018-04-09] MEDS: Insulin DETEMIR 100 UNIT/ML X5UNITS SQ SCH (22:29)
[2018-04-10] MEDS: Insulin LISPRO 300 UNITS/3 ML VIAL SQ SCH ×6 (00:42→19:57)
[2018-04-10] MEDS: cloNIDine HCl 0.1 MG TABLET PO SCH ×3 (00:42→19:59)
[2018-04-10] MEDS ORDERED: 0.9 % Sodium Chloride 250 ML ONE (00:56)
[2018-04-10] MEDS ORDERED: *HR* Alteplase (Cathflo) 2 MG VIAL IVP ONE (02:40)
[2018-04-10] MEDS ORDERED: Furosemide 40 MG/4 ML VIAL ONE (04:55)
[2018-04-10 06:46] LABS: Hematocrit 25.8 % (35.3-44.9); Hemoglobin 8.1 g/dL (11.5-15.4); Immature Platelets 1.6 % (1.1-6.1); Mean Corpuscular HGB Conc 31.4 g/dL (31.6-35.5); Mean Corpuscular Hemoglobin 29.8 pg (28.0-33.3); Mean Corpuscular Volume 94.9 fL (83.0-100.0); Mean Platelet Volume 9.7 fL (9.4-12.4); Red Blood Count 2.72 M/mcL (3.82-4.97); Red Cell Distribution Width 20.2 % (11.5-14.5)
[2018-04-10 07:02] LABS: Calcium 8.6 mg/dL (8.6-10.3); Magnesium 1.9 mg/dL (1.6-2.6); Potassium 3.2 mEq/L (3.5-5.1)
--- NOTE | 2018-04-10 08:27 | Internal Med Progress Note ---
<Nilesh Arias - Last Filed: 04/10/18 17:59> Hospitalist Progress Note - Encounter Date of Encounter: 04/10/18 Time of Encounter: 08:30 - Subjective Interval History: Ms. Taylor is a pleasant 78-year-old female with a past medical history of ESRD, diastolic dysfunction bracket open EF (60%), CAD who presented to the hospital because of dyspnea and also concerns for drop in her hemoglobin. Patient was found to have a hemoglobin of 0.7. She status post one unit of packed red blood cells. Currently hemoglobin is 8.8. Was seen this morning at the bedside she was somnolent with use of accessoy muscles. Repeat ABG did not show any worsening hypercarbia. She was on 3 L of oxygen thos AM. Has oliguric DIDIER secondary to her ESRD therefore held her diuretics this morning. - Exam Vitals: Temp Pulse Resp BP Pulse Ox 97.3 F L 69 17 140/69 98 04/10/18 07:31 04/10/18 07:31 04/10/18 07:31 04/10/18 07:31 04/10/18 07:31 Exam: Gen: Somnolent , no acute distress Chest: Diminished breath sounds B/L, mild rales, wheezing, use of accessory muscles Heart: S1S2+ RRR No murmurs Abd: Soft, NT, BS +, No organomegaly Ext: +1 edema, pulses are palpable, No calf tenderness Neuro : Benign findings Skin: No rash. - Assessment and Plan (1) Acute on chronic diastolic heart failure Current Visit: No Status: Acute Assessment and Plan: -Patient with a history of diastolic dysfunction her last echocardiogram was in 02/17 demonstrating an EF of 60%. - Chest x-ray was positive for hydrostatic pulmonary edema. -Was on 40 mg of Lasix yesterday but owing to oliguria she was not given today. She was dialyzed yesterday. - On physical exam I did not appreciate any rales but she was mildly dyspneic. +1 Edema in her extremities. (2) Hypokalemia Current Visit: Yes Status: Acute Assessment and Plan: -likely Due to her use of diuretics. Continue holding off on diuretics because of oliguria. -Event of 40 mEq of potassium chloride today in total. repeat labs pending. (3) Anemia Current Visit: No Status: Chronic Assessment and Plan: - She has a history of anemia of chronic disease likely due to her end-stage renal disease. -She presented to the ED with shortness of breath and fatigue and was found to have a hemoglobin of 6.7. s/p transfusion of one packed red blood cells. - H&H stable at the moment. Continue to monitor (4) CAD (coronary artery disease) Current Visit: No Status: Chronic Assessment and Plan: -Patient has a history of CAD. -Continue home medications. . (5) Cirrhosis Current Visit: No Status: Chronic Assessment and Plan: - Patient has a history of cirrhosis. -No acute symptoms at the moment like ascites. Holding on the diuretics because of oliguria today. (6) Hypertension Current Visit: No Status: Chronic Assessment and Plan: She has a history of hypertension. Currently she is normotensive. -On the home medicine clonidine, metoprolol. (7) History of aortic valve replacement with bioprosthetic valve Current Visit: No Status: Chronic Assessment and Plan: Patient has a history of for aortic valve replacement with bioprosthetic valve - Target INR 2-3. With this history patient is preload dependent hence not getting too much fluid out of her system would be ideal or else she might get hypotensive (8) Diabetes mellitus Current Visit: No Status: Chronic Assessment and Plan: - Has a history of diabetes. Currently she is on sliding scale insulin -Accuchecks ,target glucose goal is between 130- 180. (9) ESRF (end stage renal failure) Current Visit: Yes Status: Chronic Assessment and Plan: - Has a history of ESRD with GFR of 14. She receives dialysis 3 times a week -Nephrology consulted. Received dialysis yesterday (10) Acute respiratory distress Current Visit: Yes Status: Acute Assessment and Plan: -Likely due to her history of diastolic dysfunction anemia of chronic disease. Patient had evidence of hydrostatic pulmonary edema on chest x-ray. She came to the ED with hemoglobin of 6.2 and is status post a 1 unit of packed red blood cells, repeat hemoglobin 8.1. -Physical exam she had some decreased breath sounds bilaterally with rails. Repeat ABG did not show any evidence of worsening hypercarbia. - She is on 3 L of oxygen morning, continued use BiPAP as needed. - Time Spent with Patient Total time spent is greater than 50% in coordination of care (as documented) at patient's floor/unit and/or counseling patient: Internal Medicine: Result - Labs CBC & Chem 7: 04/10/18 06:31 04/10/18 06:31 Labs: Short CBC 04/09/18 04/10/18 Range/Units 16:01 06:31 WBC 5.7 6.1 (4.3-11.1) K/mcL Hgb 6.7 L 8.1 L (11.5-15.4) g/dL Hct 22.1 L 25.8 L (35.3-44.9) % Plt Count 75 L 68 L (140-400) K/mcL Neutrophils # 4.1 (1.6-8.9) K/mcL BMP 04/09/18 04/10/18 16:01 06:31 Sodium 135 L 134 L Potassium 3.1 L 3.2 L Chloride 94 L 94 L Carbon Dioxide 32 H 31 H BUN 24 H 25 H Creatinine 3.41 H 3.79 H Glucose 243 H 152 H Calcium 8.2 L 8.6 Cardiac Enzymes 04/09/18 Range/Units 16:01 Troponin I 0.04 H* (< 0.04) ng/mL - ABG Interpretation ABG results: ABG ABG pH 7.45 pH Units (7.32-7.45) 04/09/18 21:31 ABG pCO2 49 mmHg (35-45) H 04/09/18 21:31 ABG pO2 90 mmHg (85-104) 04/09/18 21:31 ABG O2 Saturation 97 % (95-98) 04/09/18 21:31 - Impressions Impressions Chest X-Ray 04/09/18 15:33 IMPRESSION: Findings most compatible with pulmonary edema. Correlate with clinical evidence of superimposed pneumonia. D/ / Jaun Yan MD / Jaun Yan MD Interpreting Provider: Jaun Yan MD Consult Discharge Plan - Plan Referrals: NONE,PCP [Primary Care Provider] - <Avi Almodovar - Last Filed: 04/10/18 19:24> Hospitalist Progress Note - Encounter Date of Encounter: 11/09/18 - Exam Vitals: Temp Pulse Resp BP Pulse Ox 97.0 F L 69 18 114/52 100 04/10/18 18:19 04/10/18 07:31 04/10/18 18:56 04/10/18 18:56 04/10/18 18:56 - Assessment and Plan (1) CAD (coronary artery disease) Current Visit: No Status: Chronic (2) Cirrhosis Current Visit: No Status: Chronic (3) Hypertension Current Visit: No Status: Chronic (4) Anemia Current Visit: No Status: Chronic (5) History of aortic valve replacement with bioprosthetic valve Current Visit: No Status: Chronic (6) Acute on chronic diastolic heart failure Current Visit: No Status: Acute (7) Diabetes mellitus Current Visit: No Status: Chronic (8) ESRF (end stage renal failure) Current Visit: Yes Status: Chronic (9) Hypokalemia Current Visit: Yes Status: Resolved (10) Acute respiratory distress Current Visit: Yes Status: Acute (11) Pulmonary edema Current Visit: Yes Status: Acute - Time Spent with Patient Total time spent is greater than 50% in coordination of care (as documented) at patient's floor/unit and/or counseling patient: Internal Medicine: Result - Labs CBC & Chem 7: 04/10/18 06:31 04/10/18 06:31 Labs: Short CBC 04/10/18 Range/Units 06:31 WBC 6.1 (4.3-11.1) K/mcL Hgb 8.1 L (11.5-15.4) g/dL Hct 25.8 L (35.3-44.9) % Plt Count 68 L (140-400) K/mcL BMP 04/10/18 06:31 Sodium 134 L Potassium 3.2 L Chloride 94 L Carbon Dioxide 31 H BUN 25 H Creatinine 3.79 H Glucose 152 H Calcium 8.6 - ABG Interpretation ABG results: ABG ABG pH 7.45 pH Units (7.32-7.45) 04/10/18 11:38 ABG pCO2 48 mmHg (35-45) H 04/10/18 11:38 ABG pO2 91 mmHg (85-104) 04/10/18 11:38 ABG O2 Saturation 97 % (95-98) 04/10/18 11:38 - Impressions Impressions Chest X-Ray 04/10/18 09:28 IMPRESSION: Pulmonary edema with moderate left and small right pleural effusions, overall worse from the previous exam. Findings are likely secondary to CHF or fluid overload. D/ / Emmett Aguilar MD / Emmett Aguilar MD Interpreting Provider: Emmett Aguilar MD - Attending Attestation I examined this patient and my medical decision-making was reviewed with the Resident Physician on 04/10/18. I agree with the documented findings, disposition and treatment plan as described except to the extent set forth below. Ms Taylor is currently admitted for anemia and acute pulmonary edema and exac CHF. She remains moderate to high risk due to potential for worsening clinical status. Ms Taylor was having some increased dyspnea earlier. She has pleural effusion on CXR. She is to have dialysis today. No fever or chills. No CP. Exam alert Mod resp distress at rest - later was up in chair eating lunch Mucus membranes dry Heart distant Decreased breath sounds. Abd soft I/P 1. Acute pulmonary edema 2. CHF exac 3. Anemia Further diagnoses and plan as above. <Nilesh Arias - Last Filed: 04/10/18 17:59> (3) Anemia Qualifiers: Anemia type: due to chronic kidney disease Chronic kidney disease stage: on chronic dialysis Qualified Code(s): N18.6 - End stage renal disease; D63.1 - Anemia in chronic kidney disease; Z99.2 - Dependence on renal dialysis (4) CAD (coronary artery disease) Qualifiers: Coronary Disease-Associated Artery/Lesion type: [place] artery [place] vs. transplanted heart: [place] heart Associated angina: without angina Qualified Code(s): I25.10 - Atherosclerotic heart disease of [place] coronary artery without angina pectoris (5) Cirrhosis Qualifiers: Hepatic cirrhosis type: unspecified hepatic cirrhosis Ascites presence: wit hout ascites Qualified Code(s): K74.60 - Unspecified cirrhosis of liver (6) Hypertension Qualifiers: Hypertension type: essential hypertension Qualified Code(s): I10 - Essential (primary) hypertension (8) Diabetes mellitus Qualifiers: Diabetes mellitus type: type 2 Diabetes mellitus penitentiary insulin use: with penitentiary use Diabetes mellitus complication status: with hyperglycemia Qualified Code(s): E11.65 - Type 2 diabetes mellitus with hyperglycemia; 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 transplanted heart: [place] heart Associated angina: without angina Qualified Code(s): I25.10 - Atherosclerotic heart disease of [place] coronary artery without angina pectoris (2) Cirrhosis Qualifiers: Hepatic cirrhosis type: unspecified hepatic cirrhosis Ascites presence: without ascites Qualified Code(s): K74.60 - Unspecified cirrhosis of liver (3) Hypertension Qualifiers: Hypertension type: essential hypertension Qualified Code(s): I10 - Essential (primary) hypertension (4) Anemia Qualifiers: Anemia type: due to chronic kidney disease Chronic kidney disease stage: on chronic dialysis Qualified Code(s): N18.6 - End stage renal disease; D63.1 - Anemia in chronic kidney disease; Z99.2 - Dependence on renal dialysis (7) Diabetes mellitus Qualifiers: Diabetes mellitus type: type 2 Diabetes mellitus superintendent container terminal insulin use: with superintendent container terminal use Diabetes mellitus complication status: with hyperglycemia Qualified Code(s): E11.65 - Type 2 diabetes mellitus with hyperglycemia; Z79.4 - computer terminal operator (current) use of insulin (11) Pulmonary edema Qualifiers: Chronicity: acute Qualified Code(s): J81.0 - Acute pulmonary edema
[2018-04-10] MEDS: Cholecalciferol (D-3) 1,000 UNIT TABLET PO SCH (10:37)
[2018-04-10] MEDS: Isosorbide MONOnitrate (24 HR) 30 MG TAB.ER.24H PO SCH (10:39)
[2018-04-10] MEDS: Multivit/Ca/Min/Fe/FA 1 TAB TABLET PO SCH (10:39)
--- NOTE | 2018-04-10 10:58 | Nephrology Consult Note ---
Date of Encounter: 04/10/18 Time of Encounter: 10:56 Assessment and Plan (1) ESRD (end stage renal disease) on dialysis Current Visit: Yes Status: Acute Will plan for HD today Continue renal diet Strict I/Os-ordered Avoid nephrotoxins if possible (2) Anemia Current Visit: No Status: Chronic Hgb 8.1, s/p transfusion Hgb was 7.5 in dialysis unit and patient was on 5400 units of epo; I increased the epo on 04/06 to 7000 units with weekly hgb checks until above 9.0 Patient report "chronic anemia and multiple transfusions" Goal hgb is 10-11 Transfuse per parameters Qualifiers: Anemia type: due to chronic kidney disease Chronic kidney disease stage: on chronic dialysis Qualified Code(s): N18.6 - End stage renal disease; D63.1 - Anemia in chronic kidney disease; Z99.2 - Dependence on renal dialysis (3) Cellulitis Current Visit: No Status: Acute Patient states she is currently being treated for BLL cellulitis per primary team Qualifiers: Site of cellulitis: extremity Site of cellulitis of extremity: lower extremity Laterality: unspecified laterality Qualified Code(s): L03.119 - Cellulitis of unspecified part of limb History of Present Illness - Reason for Consult Consult date: 04/10/18 - Chief Complaint anemia, ESRD on dialysis - History of Present Illness Ms. Taylor is a 78 year old female well known to our practice with hx of chronic anemia (multiple transfusions), HTN, COPD who presented for dyspnea. She She has noticed increased dyspnea over the last few days and was concerned that her hemoglobin was low. Her hemoglobin was reportedly 7 with recheck in ED at 6.7. She is a MWF dialysis patient at [facility] and last received HD on Friday. Past Med Surg Social Fam HX - Past Medical History Medical history: arthritis, cancer, cirrhosis, CHF, diabetes, hyperlipidemia, hypertension, liver disease, renal disease Additional medical history: valvular heart disease Psychiatric history: no psych history - Past Surgical History Surgical History: appendectomy, cataract, heart valve replacement, hysterectomy, [place]/BSO Additional surgical history: HAMMER TOES. ACHILLES HEEL REPAIR. LEFT TKR. BLADDER REPAIR. AVR 08/2014. A&P. BREAST BIOPSY - Social History Smoking Status: Former smoker Smokeless Tobacco Status: No Alcohol use: none Drug use: none - Family History Mother Living Status: Hx Family Cardiac Disorders: No Hx Family Respiratory Disorders: No Hx Family Endocrine Disorder: Yes Hx Family Neurologic Disorders: Yes Medications and Allergies Cholecalciferol (D-3) [Vitamin D] 1,000 unit PO DAILY 04/07/17 [History] Multivit-Min/FA/Lycopen/Lutein [Centrum Silver Tablet] 1 tab PO DAILY 04/07/17 [History] Vitamin E Acetate [Vitamin E] 400 unit PO DAILY 04/07/17 [History] Ferrous Sulfate [Iron] 325 mg PO DAILY 11/28/17 [History] Insulin Glargine,Hum.rec.anlog [Lantus Solostar] 30 units SQ HS 11/28/17 [History] Insulin LISPRO [Humalog] 0 unit SQ TIDWM 11/28/17 [History] Metoprolol [Lopressor] 12.5 mg PO BID 11/28/17 [History] Isosorbide MONOnitrate (24 HR) [Imdur] 30 mg PO DAILY #30 tab.er.24h 12/26/17 [Rx] cloNIDine HCl [CloNIDine HCl] 0.1 mg PO BID 02/11/18 [History] ceFAZolin [Ancef] 1,000 gm IV 1900 02/28/18 [History] Bumetanide [Bumex] 1 mg PO DAILY 04/10/18 [History] Docusate [Colace] 100 mg PO BID PRN 04/10/18 [History] L. Acidophilus/Pectin, [place] [Acidophilus [place]] 1 tab PO BID 04/10/18 [History] 3 Allergy/AdvReac Type Severity Reaction Status Date / Time Cfmaysl-Ejk-Shk Reductase AdvReac Muscle Pain Verified 11/28/17 10:02 Inhibitor [Statins] Review of Systems All Systems: reviewed and no additional remarkable complaints except as stated Constitutional: no fatigue, no fever(s) Nose, mouth and throat: other (hard of hearing) Cardiovascular: leg edema, no chest pain Respiratory: dyspnea, dyspnea on exertion Gastrointestinal: no nausea, no vomiting Integumentary: erythema (being treated for BLL cellulitis), skin pain Neurological: no behavioral changes Exam - Vital Signs Vital signs: Initial Vital Signs Temp Pulse Resp BP Pulse Ox 98.3 F 63 16 120/50 100 04/09/18 15:30 04/09/18 15:30 04/09/18 15:30 04/09/18 15:30 04/09/18 15:30 Vital Signs - Last 8 Hours Temp Pulse Resp BP Pulse Ox 04/10/18 07:31 97.3 F L 69 17 140/69 98 04/10/18 04:48 97.5 F L 70 18 125/64 04/10/18 04:31 97.5 F L 67 20 125/64 100 Intake and Output 04/09/18 04/10/18 04/10/18 23:59 07:59 15:59 Intake Total 0 / 0 350 / 350 120 / 120 Balance 0 / 0 350 / 350 120 / 120 Intake: Oral 0 / 0 0 / 0 120 / 120 Blood Product 350 / 350 Rbcs Leuko Poor As-1 Unit 350 / 350 [id number] Other: Meal Breakfast Percent of Meal Consumed 100% # Voids 0 0 Weight 106.4 kg Blood Glucose* 228 131 - General Appearance General appearance: well-developed, well-nourished, obese EENT: ATNC, mucous membranes moist, hearing intact, vision intact Neck: supple Respiratory: clear Cardiology: edema, normal S1, normal S2 Gastrointestinal: no tenderness, no guarding, obese Integumentary: erythema (BLL - being treated for cellulitis) Neurologic: alert and oriented x3 Psychiatric: mood/affect appropriate, cooperative Results - Lab Results 04/10/18 06:31 04/10/18 06:31 Most recent lab results ABG pH 7.45 pH Units (7.32-7.45) 04/09/18 21:31 ABG pCO2 49 mmHg (35-45) H 04/09/18 21:31 ABG pO2 90 mmHg (85-104) 04/09/18 21:31 ABG HCO3 34 mEq/L (21-27) H 04/09/18 21:31 ABG O2 Saturation 97 % (95-98) 04/09/18 21:31 Calcium 8.6 mg/dL (8.6-10.3) 04/10/18 06:31 Magnesium 1.9 mg/dL (1.6-2.6) 04/10/18 06:31 Consult Discharge Plan - Plan Referrals: NONE,PCP [Primary Care Provider] -
[2018-04-10 11:43] LABS: ABG Base Excess 9 mEq/L (-2 to 3); ABG HCO3 34 mEq/L (21-27); ABG Oxygen Saturation 97 % (95-98); ABG PCO2 48 mmHg (35-45); ABG PH 7.45 pH Units (7.32-7.45); ABG PO2 91 mmHg (85-104); ABG TCO2 35 mEq/L (20-26); Blood Gas PEEP 8 cm H2O; Blood Gas Respiration Rate 16; Blood Gas VT 400 cc
[2018-04-10] MEDS ORDERED: 0.9 % Sodium Chloride 250 ML IVC PRN (13:35)
[2018-04-10] MEDS ORDERED: *HR* Heparin 10,000 UNIT/10 ML VIAL IV PRN (13:35)
[2018-04-10] MEDS ORDERED: 0.9 % Sodium Chloride 1,000 ML ONE (13:45)
[2018-04-10] MEDS ORDERED: 0.9 % Sodium Chloride 1,000 ML PRIME SCH (13:45)
--- NOTE | 2018-04-10 17:12 | Electrocardiograph Report ---
[place] [id number] Test Date: 2018-04-09 Pat Name: Alicia Taylor Department: [id number] Room: 2NE21 Gender: F [employer]: : 1940 Requested By: Jose De Jesus Vinson Order Number: [id number] Reading MD: Isak Rosas Measurements Intervals [place] Rate: 64 P: 140 [place]: 139 QRS: 112 QRSD: 103 T: 89 QT: 460 QTc: 475 Interpretive Statements Limb lead reversal Sinus or ectopic atrial rhythm Low voltage, precordial leads Recommend repeat ECG Electronically Signed On 04-10-2018 17:11:06 EST by Isak Rosas
[2018-04-10] MEDS: Acetaminophen 325 MG TABLET PO PRN (17:37)
[2018-04-10] MEDS: ceFAZolin 1,000 MG in Water for inj. (sterile) 20 ML 10 ML IVP SCH (18:47)
[2018-04-10] MEDS: Lactobacillus 1 EACH CAP.SPRINK PO SCH (19:57)
[2018-04-10] MEDS: Insulin DETEMIR 100 UNIT/ML X5UNITS SQ SCH (20:13)
[2018-04-10 21:58] LABS: Hepatitis B Surface Antigen Nonreactive (Nonreactive)
[2018-04-10 23:26] LABS: Hemoglobin 7.4 g/dL (11.5-15.4)
[2018-04-11] MEDS: Acetaminophen 325 MG TABLET PO PRN ×3 (01:07→21:04)
[2018-04-11] MEDS: Nystatin POWDER 30 GM BOTTLE TP SCH ×3 (03:25→14:45)
[2018-04-11 04:28] LABS: Basophils % 0.5 %; Immature Granulocytes % 0.3 % (0-4)
[2018-04-11 04:30] LABS: Eosinophils # 0.1 K/mcL (0.0-0.6); Eosinophils % 2.1 %; Hematocrit 24.5 % (35.3-44.9); Hemoglobin 7.5 g/dL (11.5-15.4); Immature Platelets 2.1 % (1.1-6.1); Lymphocytes # 0.7 K/mcL (0.6-4.6); Lymphocytes % 11.6 %; Mean Corpuscular HGB Conc 30.6 g/dL (31.6-35.5); Mean Corpuscular Hemoglobin 29.5 pg (28.0-33.3); Mean Corpuscular Volume 96.5 fL (83.0-100.0); Mean Platelet Volume 9.6 fL (9.4-12.4); Monocytes % 16.8 %; Red Blood Count 2.54 M/mcL (3.82-4.97); Red Cell Distribution Width 20.5 % (11.5-14.5); Segmented Neutrophils % 68.7 %
[2018-04-11 04:44] LABS: Platelet Count 69 K/mcL (140-400)
[2018-04-11 04:45] LABS: Calcium 8.3 mg/dL (8.6-10.3); Potassium 3.9 mEq/L (3.5-5.1)
[2018-04-11 05:42] LABS: Anisocytosis 1+ (Not Present); Platelet Estimate Marked Decrease (Normal)
--- NOTE | 2018-04-11 09:53 | Internal Med Progress Note ---
<Nilesh Arias - Last Filed: 04/11/18 15:18> Hospitalist Progress Note - Encounter Date of Encounter: 04/11/18 Time of Encounter: 08:00 - Subjective Interval History: 04/11 no acute events overnight. Patient looks more awake and oritented than yesterday. Her Hb has gone richar from 8.1 to 7.5 given 1 unit pRBC. Had small amoutn of blood in her stool yesterday. Closely monitorng patient and will speak to GI 04/10 Ms. Taylor is a pleasant 78-year-old female with a past medical history of ESRD, diastolic dysfunction bracket open EF (60%), CAD who presented to the hospital because of dyspnea and also concerns for drop in her hemoglobin. Patient was found to have a hemoglobin of 0.7. She status post one unit of packed red blood cells. Currently hemoglobin is 8.8. Was seen this morning at the bedside she was somnolent with use of accessoy muscles. Repeat ABG did not show any worsening hypercarbia. She was on 3 L of oxygen thos AM. Has oliguric DIDIER secondary to her ESRD therefore held her diuretics this morning. - Exam Vitals: Temp Pulse Resp BP Pulse Ox 98.2 F 64 18 126/55 95 04/11/18 07:35 04/11/18 07:35 04/11/18 03:51 04/11/18 07:35 04/11/18 07:35 Exam: Gen: Somnolent , no acute distress Chest: Diminished breath sounds B/L, mild rales, wheezing, use of accessory muscles Heart: S1S2+ RRR No murmurs Abd: Soft, NT, BS +, No organomegaly Ext: +1 edema, pulses are palpable, No calf tenderness Neuro : Benign findings Skin: No rash. - Assessment and Plan (1) Anemia Current Visit: No Status: Chronic Assessment and Plan: - She has a history of anemia of chronic disease likely due to her end-stage renal disease. -She presented to the ED with shortness of breath and fatigue and was found to have a hemoglobin of 6.7. s/p transfusion of one packed red blood cells. -patient's Hb was 7.5 this morning given 1 unit of packed RBC. Repeat H&H pending. - Continue to watch for volume overload secondary to transfusion , if so she might require more dialysis or diuresis if she is non-oliguric. (2) Acute on chronic diastolic heart failure Current Visit: No Status: Acute Assessment and Plan: -Patient with a history of diastolic dysfunction her last echocardiogram was in 02/17 demonstrating an EF of 60%. - Chest x-ray was positive for hydrostatic pulmonary edema. -Was on 40 mg of Lasix yesterday but owing to oliguria she was not given today. She was dialyzed yesterday. - On physical exam I did not appreciate any rales but she was mildly dyspneic. +1 Edema in her extremities. (3) Acute respiratory distress Current Visit: Yes Status: Acute Assessment and Plan: -Likely due to her history of diastolic dysfunction anemia of chronic disease. Patient had evidence of hydrostatic pulmonary edema on chest x-ray. She came to the ED with hemoglobin of 6.2 and is status post a 1 unit of packed red blood cells, repeat hemoglobin 8.1. -Physical exam she had some decreased breath sounds bilaterally with rails. Repeat ABG did not show any evidence of worsening hypercarbia. - She is on 2 L of oxygen morning, continued use BiPAP as needed. (4) CAD (coronary artery disease) Current Visit: No Status: Chronic Assessment and Plan: -Patient has a history of CAD. -Continue home medications. . (5) Cirrhosis Current Visit: No Status: Chronic Assessment and Plan: - Patient has a history of cirrhosis. -No acute symptoms at the moment like ascites. Holding on the diuretics because of oliguria today. (6) Hypertension Current Visit: No Status: Chronic Assessment and Plan: She has a history of hypertension. Currently she is normotensive. -On the home medicine clonidine, metoprolol. (7) History of aortic valve replacement with bioprosthetic valve Current Visit: No Status: Chronic Assessment and Plan: Patient has a history of for aortic valve replacement with bioprosthetic valve - Target INR 2-3. With this history patient is preload dependent hence not getting too much fluid out of her system would be ideal or else she might get hypotensive (8) Diabetes mellitus Current Visit: No Status: Chronic Assessment and Plan: - Has a history of diabetes. Currently she is on sliding scale insulin -Accuchecks ,target glucose goal is between 130- 180. (9) ESRF (end stage renal failure) Current Visit: Yes Status: Chronic Assessment and Plan: - Has a history of ESRD with GFR of 14. She receives dialysis 3 times a week -Nephrology consulted. Received dialysis yesterday (10) Hypokalemia Current Visit: Yes Status: Resolved Assessment and Plan: - Resolved. (11) Pulmonary edema Current Visit: Yes Status: Acute Assessment and Plan: -She has a history of diastolic dysfunction. -Most recent chest x-ray showed evidence of hydrostatic pulmonary edema with bilateral pleural effusions -Will give diuretics if patient is not oliguric, or else she might be dialyzed again. - Time Spent with Patient Total time spent is greater than 50% in coordination of care (as documented) at patient's floor/unit and/or counseling patient: Internal Medicine: Result - Labs CBC & Chem 7: 04/11/18 04:14 04/11/18 04:14 Labs: Short CBC 04/10/18 04/11/18 Range/Units 22:45 04:14 WBC 5.8 (4.3-11.1) K/mcL Hgb 7.4 L 7.5 L (11.5-15.4) g/dL Hct 24.0 L 24.5 L (35.3-44.9) % Plt Count 69 L (140-400) K/mcL Neutrophils # 4.0 (1.6-8.9) K/mcL BMP 04/11/18 04:14 Sodium 133 L Potassium 3.9 Chloride 96 L Carbon Dioxide 31 H BUN 17 Creatinine 3.00 H Glucose 119 H Calcium 8.3 L - ABG Interpretation ABG results: ABG ABG pH 7.45 pH Units (7.32-7.45) 04/10/18 11:38 ABG pCO2 48 mmHg (35-45) H 04/10/18 11:38 ABG pO2 91 mmHg (85-104) 04/10/18 11:38 ABG O2 Saturation 97 % (95-98) 04/10/18 11:38 - Impressions Impressions Chest X-Ray 04/10/18 09:28 IMPRESSION: Pulmonary edema with moderate left and small right pleural effusions, overall worse from the previous exam. Findings are likely secondary to CHF or fluid overload. D/ / Emmett Aguilar MD / Emmett Aguilar MD Interpreting Provider: Emmett Aguilar MD Consult Discharge Plan - Plan Referrals: NONE,PCP [Primary Care Provider] - <Avi Almodovar - Last Filed: 04/11/18 18:26> Hospitalist Progress Note - Encounter Date of Encounter: 04/11/18 - Exam Vitals: Temp Pulse Resp BP Pulse Ox 98.4 F 64 16 125/56 99 04/11/18 14:31 04/11/18 14:31 04/11/18 14:31 04/11/18 14:31 04/11/18 11:49 - Assessment and Plan (1) CAD (coronary artery disease) Current Visit: No Status: Chronic (2) Cirrhosis Current Visit: No Status: Chronic (3) Hypertension Current Visit: No Status: Chronic (4) Anemia Current Visit: No Status: Chronic (5) History of aortic valve replacement with bioprosthetic valve Current Visit: No Status: Chronic (6) Acute on chronic diastolic heart failure Current Visit: No Status: Acute (7) Diabetes mellitus Current Visit: No Status: Chronic (8) ESRF (end stage renal failure) Current Visit: Yes Status: Chronic (9) Hypokalemia Current Visit: Yes Status: Resolved (10) Acute respiratory distress Current Visit: Yes Status: Acute (11) Pulmonary edema Current Visit: Yes Status: Acute - Time Spent with Patient Total time spent is greater than 50% in coordination of care (as documented) at patient's floor/unit and/or counseling patient: Internal Medicine: Result - Labs CBC & Chem 7: 04/11/18 04:14 04/11/18 04:14 Labs: Short CBC 04/10/18 04/11/18 Range/Units 22:45 04:14 WBC 5.8 (4.3-11.1) K/mcL Hgb 7.4 L 7.5 L (11.5-15.4) g/dL Hct 24.0 L 24.5 L (35.3-44.9) % Plt Count 69 L (140-400) K/mcL Neutrophils # 4.0 (1.6-8.9) K/mcL BMP 04/11/18 04:14 Sodium 133 L Potassium 3.9 Chloride 96 L Carbon Dioxide 31 H BUN 17 Creatinine 3.00 H Glucose 119 H Calcium 8.3 L - ABG Interpretation ABG results: ABG ABG pH 7.45 pH Units (7.32-7.45) 04/10/18 11:38 ABG pCO2 48 mmHg (35-45) H 04/10/18 11:38 ABG pO2 91 mmHg (85-104) 04/10/18 11:38 ABG O2 Saturation 97 % (95-98) 04/10/18 11:38 - Attending Attestation I examined this patient and my medical decision-making was reviewed with the Resident Physician on 04/11/18. I agree with the documented findings, disp osition and treatment plan as described except to the extent set forth below. Ms Taylor is currently admitted for pulmonary edema and anemia. She remains moderate to high risk due to potential for worsening clinical status. Ms Taylor is more alert today. Her H/H has decreased again. No fever or chills. No CP. Less SOB. Exam alert Comfortable Pale Mucus membranes moist Heart not tachy No wheeze now Abd soft Edema present I/P 1. Anemia - recurrent. Transfuse again today 2. Pulmonary edema - seems to be somewhat better today Further diagnoses and plan as above. <Nilesh Arias - Last Filed: 04/11/18 15:18> (1) Anemia Qualifiers: Anemia type: due to chronic kidney disease Chronic kidney disease stage: on chronic dialysis Qualified Code(s): N18.6 - End stage renal disease; D63.1 - Anemia in chronic kidney disease; Z99.2 - Dependence on renal dialysis (4) CAD (coronary artery disease) Qualifiers: Coronary Disease-Associated Artery/Lesion type: [place] artery [place] vs. 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 transplanted heart: [place] heart Associated angina: without angina Qualified Code(s): I25.10 - Atherosclerotic heart disease of [place] coronary artery without angina pectoris (2) Cirrhosis Qualifiers: Hepatic cirrhosis type: unspecified hepatic cirrhosis Ascites presence: without ascites Qualified Code(s): K74.60 - Unspecified cirrhosis of liver (3) Hypertension Qualifiers: Hypertension type: essential hypertension Qualified Code(s): I10 - Essential (primary) hypertension (4) Anemia Qualifiers: Anemia type: due to chronic kidney disease Chronic kidney disease stage: on chronic dialysis Qualified Code(s): N18.6 - End stage renal disease; D63.1 - Anemia in chronic kidney disease; Z99.2 - Dependence on renal dialysis (7) Diabetes mellitus Qualifiers: Diabetes mellitus type: type 2 Diabetes mellitus prison insulin use: with prison use Diabetes mellitus complication status: with hyperglycemia Qualified Code(s): E11.65 - Type 2 diabetes mellitus with hyperglycemia; Z79.4 - ocean transportation intermediary (current) use of insulin (11) Pulmonary edema Qualifiers: Chronicity: acute Qualified Code(s): J81.0 - Acute pulmonary edema
[2018-04-11] MEDS: Insulin LISPRO 300 UNITS/3 ML VIAL SQ SCH ×4 (10:24→21:10)
[2018-04-11] MEDS: Cholecalciferol (D-3) 1,000 UNIT TABLET PO SCH (10:29)
[2018-04-11] MEDS: cloNIDine HCl 0.1 MG TABLET PO SCH ×2 (10:30→21:05)
[2018-04-11] MEDS: Multivit/Ca/Min/Fe/FA 1 TAB TABLET PO SCH (10:30)
[2018-04-11] MEDS: Lactobacillus 1 EACH CAP.SPRINK PO SCH ×2 (10:30→21:05)
[2018-04-11] MEDS: Isosorbide MONOnitrate (24 HR) 30 MG TAB.ER.24H PO SCH (10:31)
[2018-04-11] MEDS: Bumetanide 1 MG TABLET PO SCH (11:36)
--- NOTE | 2018-04-11 11:49 | Nephrology Progress Note ---
Date of Encounter: 04/11/18 Time of Encounter: 12:00 - Assessment and Plan (1) ESRD (end stage renal disease) on dialysis Current Visit: Yes Status: Acute s/p HD yesterday, next HD planned for friday Lytes stable Continue renal diet (2) Anemia Current Visit: No Status: Chronic Hgdb noted fairly stable at 7.5, will monitor Transfusion parameters per primary team Needs weekly aranesp while hospitalized Qualifiers: Anemia type: due to chronic kidney disease Chronic kidney disease stage: on chronic dialysis Qualified Code(s): N18.6 - End stage renal disease; D63.1 - Anemia in chronic kidney disease; Z99.2 - Dependence on renal dialysis (3) Cellulitis Current Visit: No Status: Acute Patient states she is currently being treated for BLL cellulitis per primary team Qualifiers: Site of cellulitis: extremity Site of cellulitis of extremity: lower extremity Laterality: unspecified laterality Qualified Code(s): L03.119 - Cellulitis of unspecified part of limb Subjective Interval history: Pt seen and examined s/p HD yesterday with and daughter at bedside. All questions answered. Objective - Vital Signs Vital signs: Vital Signs Temp Pulse Resp BP Pulse Ox 04/11/18 11:28 97.7 F 60 18 114/53 99 04/11/18 11:13 97.8 F 63 16 125/58 04/11/18 11:10 97.8 F 63 16 125/58 98 04/11/18 07:35 98.2 F 64 126/55 95 04/11/18 03:51 97.5 F L 58 18 108/50 100 04/10/18 23:58 97.4 F L 58 18 109/50 99 04/10/18 18:56 18 114/52 100 04/10/18 18:19 97.0 F L 20 119/64 04/10/18 18:10 110/57 04/10/18 17:55 109/54 04/10/18 17:40 120/55 04/10/18 17:25 109/57 04/10/18 17:10 111/55 04/10/18 16:55 108/55 04/10/18 16:40 109/54 04/10/18 16:25 117/55 04/10/18 16:10 116/60 04/10/18 15:55 107/54 04/10/18 15:40 111/53 04/10/18 15:25 113/54 04/10/18 15:10 97.0 F L 20 108/54 Intake and Output 04/10/18 04/11/18 04/11/18 23:59 07:59 15:59 Intake Total 0 / 0 60 / 60 240 / 240 Output Total 4600 / 4600 Balance -4600 / -4600 60 / 60 240 / 240 Intake: Oral 0 / 0 60 / 60 240 / 240 Blood Product 0 / 0 Rbcs Leuko Poor As-3 2nd Unit 0 / 0 [id number] Output: Urine 0 / 0 Total Dialysis (HD) Output 4600 / 4600 Other: Meal Breakfast Percent of Meal Consumed 100% Stool Size Small Stool Consistency soft formed Stool Color Brown # Voids 0 0 # Bowel Movements 1 Weight 105.1 kg Blood Glucose* 187 88 Hemodialysis Net Fluid Removed 4000 (mL) - General Appearance General appearance: Present: chronically ill, fatigue EENT: Present: ATNC, mucous membranes moist Neck: Present: no JVD, supple Additional Comments: good areation ant bilat Cardiology: Present: edema, normal S1, normal S2 Dialysis Vascular Access: Venous Catheter (permcath) Gastrointestinal: Present: no tenderness, no guarding, obese Integumentary: Present: warm and dry Neurologic: Present: no focal deficit Musculoskeletal: Present: no deformities Psychiatric: Present: mood/affect appropriate - Lab 04/12/18 05:00 04/12/18 05:00 Most recent lab results ABG pH 7.45 pH Units (7.32-7.45) 04/10/18 11:38 ABG pCO2 48 mmHg (35-45) H 04/10/18 11:38 ABG pO2 91 mmHg (85-104) 04/10/18 11:38 ABG HCO3 34 mEq/L (21-27) H 04/10/18 11:38 ABG O2 Saturation 97 % (95-98) 04/10/18 11:38 Calcium 8.3 mg/dL (8.6-10.3) L 04/11/18 04:14 Magnesium 1.9 mg/dL (1.6-2.6) 04/10/18 06:31 Consult Discharge Plan - Plan Referrals: NONE,PCP [Primary Care Provider] -
[2018-04-11] MEDS ORDERED: Darbepoetin 100 MCG/0.5 ML SYRINGE SQ SCH (12:00)
[2018-04-11] MEDS: ceFAZolin 1,000 MG in Water for inj. (sterile) 20 ML 10 ML IVP SCH (17:30)
[2018-04-11] MEDS: Insulin DETEMIR 100 UNIT/ML X5UNITS SQ SCH (21:05)
[2018-04-12 06:47] LABS: Basophils % 0.3 %; Eosinophils # 0.1 K/mcL (0.0-0.6); Hematocrit 26.7 % (35.3-44.9); Hemoglobin 8.4 g/dL (11.5-15.4); Immature Granulocytes % 0.5 % (0-4); Immature Platelets 2.2 % (1.1-6.1); Lymphocytes # 0.7 K/mcL (0.6-4.6); Lymphocytes % 10.8 %; Mean Corpuscular HGB Conc 31.5 g/dL (31.6-35.5); Mean Corpuscular Hemoglobin 30.1 pg (28.0-33.3); Mean Corpuscular Volume 95.7 fL (83.0-100.0); Mean Platelet Volume 9.6 fL (9.4-12.4); Monocytes # 1.2 K/mcL (0.0-1.3); Monocytes % 17.9 %; Red Blood Count 2.79 M/mcL (3.82-4.97); Red Cell Distribution Width 20.1 % (11.5-14.5); Segmented Neutrophils % 68.5 %
[2018-04-12 06:52] LABS: Neutrophils # 4.5 K/mcL (1.6-8.9); Platelet Count 63 K/mcL (140-400)
[2018-04-12 07:32] LABS: Calcium 8.4 mg/dL (8.6-10.3); Potassium 3.8 mEq/L (3.5-5.1)
[2018-04-12] MEDS: Nystatin POWDER 30 GM BOTTLE TP SCH ×3 (07:44→16:04)
[2018-04-12] MEDS: Insulin LISPRO 300 UNITS/3 ML VIAL SQ SCH ×4 (07:50→23:47)
--- NOTE | 2018-04-12 08:30 | Internal Med Progress Note ---
<Avi Almodovar - Last Filed: 04/12/18 16:47> Hospitalist Progress Note - Encounter Date of Encounter: 04/12/18 - Exam Vitals: Temp Pulse Resp BP Pulse Ox 97.5 F L 60 17 118/55 97 04/12/18 07:49 04/12/18 13:21 04/12/18 03:53 04/12/18 13:21 04/12/18 13:21 - Assessment and Plan (1) CAD (coronary artery disease) Current Visit: No Status: Chronic (2) Cirrhosis Current Visit: No Status: Chronic (3) Hypertension Current Visit: No Status: Chronic (4) Anemia Current Visit: No Status: Chronic (5) History of aortic valve replacement with bioprosthetic valve Current Visit: No Status: Chronic (6) Acute on chronic diastolic heart failure Current Visit: No Status: Acute (7) Diabetes mellitus Current Visit: No Status: Chronic (8) ESRF (end stage renal failure) Current Visit: Yes Status: Chronic (9) Hypokalemia Current Visit: Yes Status: Resolved (10) Acute respiratory distress Current Visit: Yes Status: Acute (11) Pulmonary edema Current Visit: Yes Status: Acute - Time Spent with Patient Total time spent is greater than 50% in coordination of care (as documented) at patient's floor/unit and/or counseling patient: Internal Medicine: Result - Labs CBC & Chem 7: 04/12/18 05:00 04/12/18 05:00 Labs: Short CBC 04/12/18 Range/Units 05:00 WBC 6.5 (4.3-11.1) K/mcL Hgb 8.4 L (11.5-15.4) g/dL Hct 26.7 L (35.3-44.9) % Plt Count 63 L (140-400) K/mcL Neutrophils # 4.5 (1.6-8.9) K/mcL BMP 04/12/18 05:00 Sodium 134 L Potassium 3.8 Chloride 96 L Carbon Dioxide 31 H BUN 28 H Creatinine 3.91 H Glucose 122 H Calcium 8.4 L - ABG Interpretation ABG results: ABG ABG pH 7.45 pH Units (7.32-7.45) 04/10/18 11:38 ABG pCO2 48 mmHg (35-45) H 11/09/18 11:38 ABG pO2 91 mmHg (85-104) 04/10/18 11:38 ABG O2 Saturation 97 % (95-98) 04/10/18 11:38 Consult Discharge Plan - Plan Referrals: NONE,PCP [Primary Care Provider] - - Attending Attestation I examined this patient and my medical decision-making was reviewed with the Resident Physician on 04/12/18. I agree with the documented findings, disposition and treatment plan as described except to the extent set forth below. Ms Taylor is currently admitted for anemia and volume overload. She remains moderate to high risk due to potential for worsening clinical status. Ms Taylor is resting. No fever or chills. No CP now. Less tired. H/H little better today. Exam alert Comfortable Mucus membranes dry Heart not tachy No wheeze at this time Abd soft Edema present I/P 1. Pulmonary edema 2. Anemia Further diagnoses and plan as above. <Nilesh Arias - Last Filed: 04/12/18 19:14> Hospitalist Progress Note - Encounter Date of Encounter: 04/12/18 Time of Encounter: 10:00 - Subjective Interval History: 04/12 Mrs. Taylor at the bedside. She endorses no acute distress but complains that her BiPAP bothers her arm out when she sleeps at night therefore she has not been using it. I told her nurse to request a respiratory therapist if they could reduce the rate of flow so patient can tolerate being on BiPAP. And has been oliguric the last 12 hours before obviously holding off on her on Lasix. On physical exam I did not appreciate much Rales in her lungs but she continues to be edematous in her extremities. She 'll get dialyzed tomorrow. She has not had a bowel movement yet I told the nurse to order of guaiac test to make sure she is not no evidence of blood in the stools. Patient's hemoglobin has gone up from 7.5-8.4 status post 1 unit of packed RBC. 04/11 no acute events overnight. Patient looks more awake and oritented than yesterday. Her Hb has gone richar from 8.1 to 7.5 given 1 unit pRBC. Had small amoutn of blood in her stool yesterday. Closely monitorng patient and will speak to GI 04/10 Ms. Taylor is a pleasant 78-year-old female with a past medical history of ESRD, diastolic dysfunction bracket open EF (60%), CAD who presented to the hospital because of dyspnea and also concerns for drop in her hemoglobin. Eliot corbin was found to have a hemoglobin of 0.7. She status post one unit of packed red blood cells. Currently hemoglobin is 8.8. Was seen this morning at the bedside she was somnolent with use of accessoy muscles. Repeat ABG did not show any worsening hypercarbia. She was on 3 L of oxygen thos AM. Has oliguric DIDIER secondary to her ESRD therefore held her diuretics this morning. - Exam Vitals: Temp Pulse Resp BP Pulse Ox 97.5 F L 58 17 119/55 100 04/12/18 07:49 04/12/18 07:49 04/12/18 03:53 04/12/18 07:49 04/12/18 07:49 Exam: Gen: Somnolent , no acute distress Chest: Diminished breath sounds B/L, mild rales, wheezing, use of accessory muscles Heart: S1S2+ RRR No murmurs Abd: Soft, NT, BS +, No organomegaly Ext: +1 edema, pulses are palpable, No calf tenderness Neuro : Benign findings Skin: No rash. - Assessment and Plan (1) Anemia Current Visit: No Status: Chronic Assessment and Plan: - She has a history of anemia of chronic disease likely due to her end-stage renal disease. -She presented to the ED with shortness of breath and fatigue and was found to have a hemoglobin of 6.7. s/p transfusion of one packed red blood cells. -patient's Hb was 8.4 this morning s/p 1 unit of packed RBC yesterday. (2) Acute on chronic diastolic heart failure Current Visit: No Status: Acute Assessment and Plan: -Patient with a history of diastolic dysfunction her last echocardiogram was in 02/17 demonstrating an EF of 60%. - Chest x-ray was positive for hydrostatic pulmonary edema. -Was on 40 mg of Lasix yesterday but owing to oliguria she was not given today. She was dialyzed yesterday. - On physical exam I did not appreciate any rales but she was mildly dyspneic. +1 Edema in her extremities. (3) Acute respiratory distress Current Visit: Yes Status: Acute Assessment and Plan: -Likely due to her history of diastolic dysfunction anemia of chronic disease. Patient had evidence of hydrostatic pulmonary edema on chest x-ray. She came to the ED with hemoglobin of 6.2 and is status post a 1 unit of packed red blood cells, repeat hemoglobin 8.1. -Physical exam she had some decreased breath sounds bilaterally with rails. Repeat ABG did not show any evidence of worsening hypercarbia. - She is on 2 L of oxygen morning, continued use BiPAP as needed. (4) CAD (coronary artery disease) Current Visit: No Status: Chronic Assessment and Plan: -Patient has a history of CAD. -Continue home medications. . (5) Cirrhosis Current Visit: No Status: Chronic Assessment and Plan: - Patient has a history of cirrhosis. -No acute symptoms at the moment like ascites. Holding on the diuretics because of oliguria today. (6) Hypertension Current Visit: No Status: Chronic Assessment and Plan: She has a history of hypertension. Currently she is normotensive. -On the home medicine clonidine, metoprolol. (7) History of aortic valve replacement with bioprosthetic valve Current Visit: No Status: Chronic Assessment and Plan: Patient has a history of for aortic valve replacement with bioprosthetic valve - Target INR 2-3. With this history patient is preload dependent hence not getting too much fluid out of her system would be ideal or else she might get hypotensive (8) Diabetes mellitus Current Visit: No Status: Chronic Assessment and Plan: - Has a history of diabetes. Currently she is on sliding scale insulin -Accuchecks ,target glucose goal is between 130- 180. (9) ESRF (end stage renal failure) Current Visit: Yes Status: Chronic Assessment and Plan: - Has a history of ESRD with GFR of 14. She receives dialysis 3 times a week -Nephrology consulted. Received dialysis yesterday (10) Hypokalemia Current Visit: Yes Status: Resolved Assessment and Plan: - Resolved. (11) Pulmonary edema Current Visit: Yes Status: Acute Assessment and Plan: -She has a history of diastolic dysfunction. -Most recent chest x-ray showed evidence of hydrostatic pulmonary edema with bilateral pleural effusions -Will give diuretics if patient is not oliguric, or else she might be dialyzed again. - Time Spent with Patient Total time spent is greater than 50% in coordination of care (as documented) at patient's floor/unit and/or counseling patient: Internal Medicine: Result - Labs CBC & Chem 7: 04/12/18 05:00 04/12/18 05:00 Labs: Short CBC 04/12/18 Range/Units 05:00 WBC 6.5 (4.3-11.1) K/mcL Hgb 8.4 L (11.5-15.4) g/dL Hct 26.7 L (35.3-44.9) % Plt Count 63 L (140-400) K/mcL Neutrophils # 4.5 (1.6-8.9) K/mcL BMP 04/12/18 05:00 Sodium 134 L Potassium 3.8 Chloride 96 L Carbon Dioxide 31 H BUN 28 H Creatinine 3.91 H Glucose 122 H Calcium 8.4 L - ABG Interpretation ABG results: ABG ABG pH 7.45 pH Units (7.32-7.45) 04/10/18 11:38 ABG pCO2 48 mmHg (35-45) H 04/10/18 11:38 ABG pO2 91 mmHg (85-104) 04/10/18 11:38 ABG O2 Saturation 97 % (95-98) 04/10/18 11:38 <Avi Almodovar - Last Filed: 04/12/18 16:47> (1) CAD (coronary artery disease) Qualifiers: Coronary Disease-Associated Artery/Lesion type: [place] artery [place] vs. transplanted heart: [place] heart Associated angina: without angina Qualified Code(s): I25.10 - Atherosclerotic heart disease of [place] coronary artery without angina pectoris (2) Cirrhosis Qualifiers: Hepatic cirrhosis type: unspecified hepatic cirrhosis Ascites presence: without ascites Qualified Code(s): K74.60 - Unspecified cirrhosis of liver (3) Hypertension Qualifiers: Hypertension type: essential hypertension Qualified Code(s): I10 - Essential (primary) hypertension (4) Anemia Qualifiers: Anemia type: due to chronic kidney disease Chronic kidney disease stage: on chronic dialysis Qualified Code(s): N18.6 - End stage renal disease; D63.1 - Anemia in chronic kidney disease; Z99.2 - Dependence on renal dialysis (7) Diabetes mellitus Qualifiers: Diabetes mellitus type: type 2 Diabetes mellitus chcf insulin use: with chcf use Diabetes mellitus complication status: with hyperglycemia Qualified Code(s): E11.65 - Type 2 diabetes mellitus with hyperglycemia; Z79.4 - cardiology associate (current) use of insulin (11) Pulmonary edema Qualifiers: Chronicity: acute Qualified Code(s): J81.0 - Acute pulmonary edema <Nilesh Arias - Last Filed: 04/12/18 19:14> (1) Anemia Qualifiers: Anemia type: due to chronic kidney disease Chronic kidney disease stage: on chronic dialysis Qualified Code(s): N18.6 - End stage renal disease; D63.1 - Anemia in chronic kidney disease; Z99.2 - Dependence on renal dialysis (4) CAD (coronary artery disease) Qualifiers: Coronary Disease-Associated Artery/Lesion type: [place] artery [place] vs. transplanted heart: [place] heart Associated angina: without angina Qualified Code(s): I25.10 - Atherosclerotic heart disease of [place] coronary artery without angina pectoris (5) Cirrhosis Qualifiers: Hepatic cirrhosis type: unspecified hepatic cirrhosis Ascites presence: without ascites Qualified Code(s): K74.60 - Unspecified cirrhosis of liver (6) Hypertension Qualifiers: Hypertension type: essential hypertension Qualified Code(s): I10 - Essential (primary) hypertension (8) Diabetes mellitus Qualifiers: Diabetes mellitus type: type 2 Diabetes mellitus chcf insulin use: with chcf use Diabetes mellitus complication status: with hyperglycemia Qualified Code(s): E11.65 - Type 2 diabetes mellitus with hyperglycemia; Z79.4 - jail (current) use of insulin (11) Pulmonary edema Qualifiers: Chronicity: acute Qualified Code(s): J81.0 - Acute pulmonary edema
[2018-04-12] MEDS: Bumetanide 1 MG TABLET PO SCH (11:27)
[2018-04-12] MEDS: Isosorbide MONOnitrate (24 HR) 30 MG TAB.ER.24H PO SCH (11:28)
[2018-04-12] MEDS: Multivit/Ca/Min/Fe/FA 1 TAB TABLET PO SCH (11:28)
[2018-04-12] MEDS: Cholecalciferol (D-3) 1,000 UNIT TABLET PO SCH (11:28)
[2018-04-12] MEDS: Lactobacillus 1 EACH CAP.SPRINK PO SCH ×2 (11:28→19:51)
[2018-04-12] MEDS: cloNIDine HCl 0.1 MG TABLET PO SCH ×2 (11:29→19:51)
[2018-04-12] MEDS: ceFAZolin 1,000 MG in Water for inj. (sterile) 20 ML 10 ML IVP SCH (18:05)
[2018-04-13] MEDS: Insulin DETEMIR 100 UNIT/ML X5UNITS SQ SCH ×2 (00:01→20:21)
[2018-04-13] MEDS: Nystatin POWDER 30 GM BOTTLE TP SCH ×4 (00:02→20:22)
[2018-04-13 05:07] LABS: Basophils % 0.3 %; Eosinophils # 0.1 K/mcL (0.0-0.6); Eosinophils % 1.4 %; Hematocrit 25.6 % (35.3-44.9); Hemoglobin 7.9 g/dL (11.5-15.4); Immature Granulocytes % 0.3 % (0-4); Immature Platelets 1.9 % (1.1-6.1); Lymphocytes # 0.7 K/mcL (0.6-4.6); Lymphocytes % 10.4 %; Mean Corpuscular HGB Conc 30.9 g/dL (31.6-35.5); Mean Corpuscular Hemoglobin 29.5 pg (28.0-33.3); Mean Corpuscular Volume 95.5 fL (83.0-100.0); Mean Platelet Volume 9.8 fL (9.4-12.4); Monocytes # 1.1 K/mcL (0.0-1.3); Monocytes % 15.6 %; Red Blood Count 2.68 M/mcL (3.82-4.97); Red Cell Distribution Width 19.9 % (11.5-14.5)
[2018-04-13 05:19] LABS: Platelet Count 64 K/mcL (140-400)
[2018-04-13 05:24] LABS: Calcium 8.3 mg/dL (8.6-10.3); Potassium 4.6 mEq/L (3.5-5.1)
[2018-04-13] MEDS: Bumetanide 1 MG TABLET PO SCH (08:00)
[2018-04-13] MEDS ORDERED: 0.9 % Sodium Chloride 250 ML IVC PRN (08:09)
[2018-04-13] MEDS ORDERED: *HR* Heparin 10,000 UNIT/10 ML VIAL IV PRN (08:09)
[2018-04-13] MEDS: Isosorbide MONOnitrate (24 HR) 30 MG TAB.ER.24H PO SCH (08:11)
[2018-04-13] MEDS ORDERED: 0.9 % Sodium Chloride 1,000 ML PRIME SCH (08:15)
[2018-04-13] MEDS: Insulin LISPRO 300 UNITS/3 ML VIAL SQ SCH ×4 (08:16→20:20)
[2018-04-13] MEDS: Multivit/Ca/Min/Fe/FA 1 TAB TABLET PO SCH (08:16)
[2018-04-13] MEDS: Cholecalciferol (D-3) 1,000 UNIT TABLET PO SCH (08:16)
[2018-04-13] MEDS: cloNIDine HCl 0.1 MG TABLET PO SCH ×2 (08:16→20:20)
[2018-04-13] MEDS: Lactobacillus 1 EACH CAP.SPRINK PO SCH ×2 (08:16→20:20)
--- NOTE | 2018-04-13 09:43 | Nephrology Progress Note ---
Addendum entered and electronically signed by Regulo Cochran DO 04/13/18 21:01: I have personally performed a face to face evaluation on this patient. I have reviewed and agree with the care plan. History and Exam by me shows: ESRD on HD MWF: HD today Cellulitis: Abx Anemia, multifactorial including +FOBT and at least some from CKD stage V: has already received an Aranesp weekly dose. Hyponatremia: suspect from her CKD and hypervolemic hyponatremia. Next HD would be planned for Friday. Thank you. Original Note: Date of Encounter: 04/13/18 Time of Encounter: 09:41 - Assessment and Plan (1) ESRD (end stage renal disease) on dialysis Current Visit: Yes Status: Acute Current regimen is MWF. HD planned for today. Avoid nephrotoxins and renal dose. Continue renal diet (2) Cellulitis Current Visit: No Status: Acute Patient states she is currently being treated for BLL cellulitis per primary team Qualifiers: Site of cellulitis: extremity Site of cellulitis of extremity: lower extremity Laterality: unspecified laterality Qualified Code(s): L03.119 - Cellulitis of unspecified part of limb (3) Anemia Current Visit: No Status: Chronic Hgb is 7.9 today. Stool is + for occult blood. Transfusion parameters per primary team Needs weekly aranesp while hospitalized, which is ordered. Qualifiers: Anemia type: due to chronic kidney disease Chronic kidney disease stage: on chronic dialysis Qualified Code(s): N18.6 - End stage renal disease; D63.1 - Anemia in chronic kidney disease; Z99.2 - Dependence on renal dialysis Subjective Principal diagnosis: low hgb Interval history: Pt seen and examined, doing well. Denies CP or shortness of breath. Still feels fatigued. Denies nausea/vomiting/diarrhea. Objective - Vital Signs Vital signs: Vital Signs Temp Pulse Resp BP Pulse Ox 04/13/18 06:00 97.8 F 61 16 115/55 04/12/18 22:26 97.7 F 65 17 134/57 97 04/12/18 21:19 98 04/12/18 17:12 63 18 130/64 97 04/12/18 13:21 60 118/55 97 Intake and Output 04/12/18 04/13/18 04/13/18 23:59 07:59 15:59 Intake Total 190 / 190 0 / 0 120 / 120 Output Total 0 / 0 Balance 190 / 190 0 / 0 120 / 120 Intake: IV Fluids Ancef 1,000 MG In Water for inj . (sterile) 10 ML @ 200 mls/hr IVP Q24H [facility] Rx#:[id number] Oral 180 / 180 0 / 0 120 / 120 Output: Urine 0 / 0 Other: Meal Dinner Breakfast Percent of Meal Consumed 100% 100% Stool Size Small Stool Consistency formed # Urine Diapers 1 # Bowel Movements 1 Blood Glucose* 186 132 - General Appearance General appearance: Present: well-developed, well-nourished EENT: Present: ATNC, hearing intact, vision intact Neck: Present: supple Respiratory: Present: clear Cardiology: Present: edema (+1 tense pitting edema noted to bilat lower extremities.), normal S1, normal S2 Dialysis Vascular Access: Venous Catheter (Tunneled Line, DRSG c/d/I) Gastrointestinal: Present: normoactive bowel sounds, no tenderness, no guarding Integumentary: Present: no rash, warm and dry Neurologic: Present: alert and oriented x3 Psychiatric: Present: mood/affect appropriate, cooperative - Lab 04/13/18 04:50 04/13/18 04:50 Most recent lab results ABG pH 7.45 pH Units (7.32-7.45) 04/10/18 11:38 ABG pCO2 48 mmHg (35-45) H 04/10/18 11:38 ABG pO2 91 mmHg (85-104) 04/10/18 11:38 ABG HCO3 34 mEq/L (21-27) H 04/10/18 11:38 ABG O2 Saturation 97 % (95-98) 04/10/18 11:38 Calcium 8.3 mg/dL (8.6-10.3) L 04/13/18 04:50 Magnesium 1.9 mg/dL (1.6-2.6) 04/10/18 06:31 Consult Discharge Plan - Plan Referrals: NONE,PCP [Primary Care Provider] -
--- NOTE | 2018-04-13 10:24 | Gastroenterology Consult Note ---
<Nilda Briggs - Last Filed: 04/13/18 10:22> Date of Encounter: 04/13/18 Time of Encounter: 10:05 - Assessment and plan (1) Anemia Current Visit: No Status: Chronic Assessment and plan: Pt has chronic anemia with an acute drop in Hgb from baseline. Stool was positive for occult blood. She has been transfused. Will plan for EGD/colonoscopy tomorrow to rule out esophagitis, gastritis, duodenitis, PUD, mw tear or avm. Monitor H/H. Qualifiers: Anemia type: due to chronic kidney disease Chronic kidney disease stage: on chronic dialysis Qualified Code(s): N18.6 - End stage renal disease (2) ESRF (end stage renal failure) Current Visit: Yes Status: Chronic Assessment and plan: Followed by nephrology, scheduled for HD today per pt. - Time Spent With Patient Total time spent is greater than 50% in coordination of care (as documented) at patient's floor/unit and/or counseling patient: GI History of Present Illness - Data of Consult Patient: known to practice within the last 3 years Consult date: 04/13/18 Requesting Physician: Avi Almodovar DO - Consult Narrative Reason for consult: anemia History of present illness: Ms. Taylor is a 78 year old female with hx of chronic anemia (multiple transfusions), HTN, COPD presented for dyspnea. She was concerned that her hemoglobin was low. She is scheduled to have dialysis today. She has noticed increased dyspnea over the last few days. At this time she feels dyspneic. She is scheduled to have dialysis todayShe still makes urine she says. She denies any melena hematochezia, nausea or vomiting or diarrhea. She denies any abdominal pain or GE reflux. Hemoglobin dropped to 6.7 on 04/09/18, she was transfused 2 units packed red blood cells and is now 7.9. Stool was positive for occult blood. Colon: ([place]) 08/16 nonbleeding, colonic angioectasia, diverticulosis Push enteroscopy: 04/18 ([place]) protal hypertensive gastropathy, with one area of oozing blood, treated with APC No NSAIDS or anticoagulants Past Med Surg Social Fam HX - Past Medical History Medical history: arthritis, cancer, cirrhosis, CHF, diabetes, hyperlipidemia, hypertension, liver disease, renal disease Additional medical history: valvular heart disease Psychiatric history: no psych history - Past Surgical History Surgical History: appendectomy, cataract, heart valve replacement, hysterectomy, [place]/BSO Additional surgical history: HAMMER TOES. ACHILLES HEEL REPAIR. LEFT TKR. BLADDER REPAIR. AVR 08/2014. A&P. BREAST BIOPSY - Social History Smoking Status: Former smoker Smokeless Tobacco Status: No Alcohol use: none Drug use: none - Family History Mother Living Status: Hx Family Cardiac Disorders: No Hx Family Respiratory Disorders: No Hx Family Endocrine Disorder: Yes Hx Family Neurologic Disorders: Yes Review of Systems: GI: as per [place] GENERAL: denies fever, has some chills EYES: denies yellow discoloration ENT: denies pain with swallowing or difficulty swallowing CARDIO: denies chest pain, palpitations RESP: see HPI : denies change in color of urine NEURO: increased weakness and drowsiness HEME: Denies any bruising MS: denies joint pain, joint swelling or back pain. DERM: denies rash or itching PSYCH: Denies history of anxiety or depression - Constitutional Vitals: Temp Pulse Resp BP Pulse Ox 97.8 F 61 16 115/55 97 04/13/18 06:00 04/13/18 06:00 04/13/18 06:00 04/13/18 06:00 04/12/18 22:26 Exam: CONSTITUTIONAL:drowsy but arousable, no acute di stress.HEAD:normocephalic.EYES:no jaundice.NECK:no obvious swelling.HEART:regular rate and rhythm, murmurs notedLUNGS:bilateral poor air entry.ABDOMEN:round slightly distended, tender, no masses palpable, no organomegaly.RECTAL EXAM:Deferred.EXTREMITIES:no clubbing, cyanosis, 2+ BLE edema.SKIN:no stigmata of chronic liver disease, pallor noted.NEUROLOGIC:no obvious focal defect. Results - Labs CBC & Chem 7: 04/13/18 04:50 04/13/18 04:50 Labs: Last Result Calcium 8.3 mg/dL (8.6-10.3) L 04/13/18 04:50 Troponin I 0.04 ng/mL (< 0.04) H* 04/09/18 16:01 Stool Occult Blood Positive (Negative) A 04/12/18 13:46 Entire Visit Hgb 7.9 g/dL (11.5-15.4) L 04/13/18 04:50 Hct 25.6 % (35.3-44.9) L 04/13/18 04:50 - ABG ABG results: ABG ABG pH 7.45 pH Units (7.32-7.45) 04/10/18 11:38 ABG pCO2 48 mmHg (35-45) H 04/10/18 11:38 ABG pO2 91 mmHg (85-104) 04/10/18 11:38 ABG O2 Saturation 97 % (95-98) 04/10/18 11:38 Consult Discharge Plan - Plan Referrals: NONE,PCP [Primary Care Provider] - <Antoni Potts - Last Filed: 04/13/18 21:27> Date of Encounter: 04/13/18 Time of Encounter: 18:00 - Time Spent With Patient Total time spent is greater than 50% in coordination of care (as documented) at patient's floor/unit and/or counseling patient: GI History of Present Illness - Data of Consult Requesting Physician: Avi Almodovar DO - Consult Narrative History of present illness: Ms. Taylor is a 78 year old female - Constitutional Vitals: Temp Pulse Resp BP Pulse Ox 98.5 F 64 15 114/54 99 04/13/18 19:45 04/13/18 19:45 04/13/18 19:45 04/13/18 19:45 04/13/18 19:45 Results - Labs CBC & Chem 7: 04/13/18 04:50 04/13/18 04:50 Labs: Last Result Calcium 8.3 mg/dL (8.6-10.3) L 04/13/18 04:50 Troponin I 0.04 ng/mL (< 0.04) H* 04/09/18 16:01 Stool Occult Blood Positive (Negative) A 04/12/18 13:46 Entire Visit Hgb 7.9 g/dL (11.5-15.4) L 04/13/18 04:50 Hct 25.6 % (35.3-44.9) L 04/13/18 04:50 - ABG ABG results: ABG ABG pH 7.45 pH Units (7.32-7.45) 04/10/18 11:38 ABG pCO2 48 mmHg (35-45) H 04/10/18 11:38 ABG pO2 91 mmHg (85-104) 04/10/18 11:38 ABG O2 Saturation 97 % (95-98) 04/10/18 11:38 - Attending Attestation I have personally performed a face to face evaluation on this patient. I have reviewed and agree with the care plan. History and Exam by me shows: Pt seen. Denies any blood in stool. O/E Abd soft. A: pt with ERRD and Hx of colon AVMs now with anemia. Rec: EGD/colon to make sure not bleeding from AVms etc
[2018-04-13] MEDS ORDERED: 0.9 % Sodium Chloride 1,000 ML ONE (11:44)
[2018-04-13] MEDS: Acetaminophen 325 MG TABLET PO PRN ×2 (12:19→18:31)
--- NOTE | 2018-04-13 14:41 | Internal Med Progress Note ---
<Avi Almodovar - Last Filed: 04/13/18 16:36> Hospitalist Progress Note - Encounter Date of Encounter: 04/13/18 - Exam Vitals: Temp Pulse Resp BP Pulse Ox 97.5 F L 62 15 114/58 100 04/13/18 15:56 04/13/18 15:56 04/13/18 15:56 04/13/18 15:56 04/13/18 15:56 - Assessment and Plan (1) CAD (coronary artery disease) Current Visit: No Status: Chronic (2) Cirrhosis Current Visit: No Status: Chronic (3) Hypertension Current Visit: No Status: Chronic (4) Anemia Current Visit: No Status: Suspected (5) History of aortic valve replacement with bioprosthetic valve Current Visit: No Status: Chronic (6) Acute on chronic diastolic heart failure Current Visit: No Status: Acute (7) Diabetes mellitus Current Visit: No Status: Chronic (8) ESRF (end stage renal failure) Current Visit: Yes Status: Chronic (9) Hypokalemia Current Visit: Yes Status: Resolved (10) Acute respiratory distress Current Visit: Yes Status: Acute (11) Pulmonary edema Current Visit: Yes Status: Acute - Time Spent with Patient Total time spent is greater than 50% in coordination of care (as documented) at patient's floor/unit and/or counseling patient: Internal Medicine: Result - Labs CBC & Chem 7: 04/13/18 04:50 04/13/18 04:50 Labs: Short CBC 04/13/18 Range/Units 04:50 WBC 6.9 (4.3-11.1) K/mcL Hgb 7.9 L (11.5-15.4) g/dL Hct 25.6 L (35.3-44.9) % Plt Count 64 L (140-400) K/mcL Neutrophils # 5.0 (1.6-8.9) K/mcL BMP 04/13/18 04:50 Sodium 131 L Potassium 4.6 Chloride 94 L Carbon Dioxide 29 BUN 34 H Creatinine 4.45 H Glucose 150 H Calcium 8.3 L - ABG Interpretation ABG results: ABG ABG pH 7.45 pH Units (7.32-7.45) 04/10/18 11:38 ABG pCO2 48 mmHg (35-45) H 04/10/18 11:38 ABG pO2 91 mmHg (85-104) 04/10/18 11:38 ABG O2 Saturation 97 % (95-98) 04/10/18 11:38 Consult Discharge Plan - Plan Referrals: NONE,PCP [Primary Care Provider] - - Attending Attestation I examined this patient and my medical decision-making was reviewed with the Resident Physician on 04/13/18. I agree with the documented findings, disposition and treatment plan as described except to the extent set forth below. Ms Taylor is currently admitted for anemia and pulmonary edema. She remains moderate to high risk due to potential for worsening clinical status. Her hemoglobin has decreased again and she is to get more blood today. Ms Taylor feels OK at this time. Stool is guiac positive. Hemoglobin down again and she is going to get more blood. She has had a prior history of GI bleed (portal gastropathy). No fever or chills. She is agreeable to endoscopy. Exam alert Comfortable up in chair. Mucus membranes dry Heart reg with systolic murmur. Few crackles in bases. Abd soft Edema present I/P 1. Pulmonary edema - is to have dialysis today. 2. Anemia persists - GI eval today and plan for EGD tomorrow. Transfusion today. 3. ESRD on HD 4. MSSA bacteremia on IV Ancef. Further diagnoses and plan as above. <Nilesh Arias - Last Filed: 04/13/18 17:26> Hospitalist Progress Note - Encounter Date of Encounter: 04/13/18 Time of Encounter: 08:45 - Subjective Interval History: 04/13 no acute events today. She got dialyzed today and received 1 unit of pRBC. Patient is kept NPO for an EGd tomorrow owing to positive guaiac test. Currently Hb 7.9, s/p 3 units of pRBC. 04/12 Mrs. Taylor at the bedside. She endorses no acute distress but complains that her BiPAP bothers her arm out when she sleeps at night therefore she has not been using it. I told her nurse to request a respiratory therapist if they could reduce the rate of flow so patient can tolerate being on BiPAP. And has been oliguric the last 12 hours before obviously holding off on her on Lasix. On physical exam I did not appreciate much Rales in her lungs but she continues to be edematous in her extremities. She 'll get dialyzed tomorrow. She has not had a bowel movement yet I told the nurse to order of guaiac test to make sure she is not no evidence of blood in the stools. Patient's hemoglobin has gone up from 7.5-8.4 status post 1 unit of packed RBC. 04/11 no acute events overnight. Patient looks more awake and oritented than yesterday. Her Hb has gone richar from 8.1 to 7.5 given 1 unit pRBC. Had small amoutn of blood in her stool yesterday. Closely monitorng patient and will speak to GI 04/10 Ms. Taylor is a pleasant 78-year-old female with a past medical history of ESRD, diastolic dysfunction bracket open EF (60%), CAD who presented to the hospital because of dyspnea and also concerns for drop in her hemoglobin. Patient was found to have a hemoglobin of 0.7. She status post one unit of packed red blood cells. Currently hemoglobin is 8.8. Was seen this morning at the bedside she was somnolent with use of accessoy muscles. Repeat ABG did not show any worsening hypercarbia. She was on 3 L of oxygen thos AM. Has oliguric DIDIER secondary to her ESRD therefore held her diuretics this morning. - Exam Vitals: Temp Pulse Resp BP Pulse Ox 97.4 F L 78 17 125/56 97 04/13/18 14:25 04/13/18 12:55 04/13/18 14:25 04/13/18 14:25 04/13/18 12:26 Exam: Gen: Somnolent , no acute distress Chest: Diminished breath sounds B/L, mild rales, wheezing, use of accessory muscles Heart: S1S2+ RRR No murmurs Abd: Soft, NT, BS +, No organomegaly Ext: +1 edema, pulses are palpable, No calf tenderness Neuro : Benign findings Skin: No rash. - Assessment and Plan (1) Anemia Current Visit: No Status: Suspected Assessment and Plan: - Patient has a history of anemia of chronic disease likely due to her end-st age renal disease. -She presented to the ED with shortness of breath and fatigue and was found to have a hemoglobin of 6.7 on admission. -patient's Hb was 7.9 this morning s/p 3 unit of packed RBC altogether (2) Acute on chronic diastolic heart failure Current Visit: No Status: Acute Assessment and Plan: -Patient with a history of diastolic dysfunction her last echocardiogram was in 02/17 demonstrating an EF of 60%. - Chest x-ray was positive for hydrostatic pulmonary edema. -Was on 40 mg of Lasix on day .. She was dialyzed today. - On physical exam I did not appreciate any rales but she was mildly dyspneic. +1 Edema in her extremities. (3) Acute respiratory distress Current Visit: Yes Status: Acute Assessment and Plan: -Likely due to her history of diastolic dysfunction anemia of chronic disease. Patient had evidence of hydrostatic pulmonary edema on chest x-ray. She came to the ED with hemoglobin of 6.2 and is status post a 1 unit of packed red blood cells, repeat hemoglobin 8.1. -Physical exam she had some decreased breath sounds bilaterally with rails. Repeat ABG did not show any evidence of worsening hypercarbia. - She is on 2 L of oxygen morning, continued use BiPAP as needed. (4) CAD (coronary artery disease) Current Visit: No Status: Chronic Assessment and Plan: -Patient has a history of CAD. -Continue home medications. . (5) Cirrhosis Current Visit: No Status: Chronic Assessment and Plan: - Patient has a history of cirrhosis. -No acute symptoms at the moment like ascites. Holding on the diuretics because of oliguria today. (6) Hypertension Current Visit: No Status: Chronic Assessment and Plan: She has a history of hypertension. Currently she is normotensive. -On the home medicine clonidine, metoprolol. (7) History of aortic valve replacement with bioprosthetic valve Current Visit: No Status: Chronic Assessment and Plan: Patient has a history of for aortic valve replacement with bioprosthetic valve - Target INR 2-3. With this history patient is preload dependent hence not getting too much fluid out of her system would be ideal or else she might get hypotensive (8) Diabetes mellitus Current Visit: No Status: Chronic Assessment and Plan: - Has a history of diabetes. Currently she is on sliding scale insulin -Accuchecks ,target glucose goal is between 130- 180. (9) ESRF (end stage renal failure) Current Visit: Yes Status: Chronic Assessment and Plan: - Has a history of ESRD with GFR of 14. She receives dialysis 3 times a week -Nephrology consulted. Received dialysis yesterday (10) Hypokalemia Current Visit: Yes Status: Resolved Assessment and Plan: - Resolved. (11) Pulmonary edema Current Visit: Yes Status: Acute Assessment and Plan: -She has a history of diastolic dysfunction. -Most recent chest x-ray showed evidence of hydrostatic pulmonary edema with bilateral pleural effusions -s/p dialysis today. (12) Bacteremia due to methicillin susceptible Staphylococcus aureus (MSSA) Current Visit: No Status: Acute Assessment and Plan: - Hx of MSSA bacteremia - On Ancef - Time Spent with Patient Total time spent is greater than 50% in coordination of care (as documented) at patient's floor/unit and/or counseling patient: Internal Medicine: Result - Labs CBC & Chem 7: 04/13/18 04:50 04/13/18 04:50 Labs: Short CBC 04/13/18 Range/Units 04:50 WBC 6.9 (4.3-11.1) K/mcL Hgb 7.9 L (11.5-15.4) g/dL Hct 25.6 L (35.3-44.9) % Plt Count 64 L (140-400) K/mcL Neutrophils # 5.0 (1.6-8.9) K/mcL BMP 04/13/18 04:50 Sodium 131 L Potassium 4.6 Chloride 94 L Carbon Dioxide 29 BUN 34 H Creatinine 4.45 H Glucose 150 H Calcium 8.3 L - ABG Interpretation ABG results: ABG ABG pH 7.45 pH Units (7.32-7.45) 04/10/18 11:38 ABG pCO2 48 mmHg (35-45) H 04/10/18 11:38 ABG pO2 91 mmHg (85-104) 04/10/18 11:38 ABG O2 Saturation 97 % (95-98) 04/10/18 11:38 <Avi Almodovar Job - Last Filed: 04/13/18 16:36> (1) CAD (coronary artery disease) Qualifiers: Coronary Disease-Associated Artery/Lesion type: [place] artery [place] vs. transplanted heart: [place] heart Associated angina: without angina Qualified Code(s): I25.10 - Atherosclerotic heart disease of [place] coronary artery without angina pectoris (2) Cirrhosis Qualifiers: Hepatic cirrhosis type: unspecified hepatic cirrhosis Ascites presence: without ascites Qualified Code(s): K74.60 - Unspecified cirrhosis of liver (3) Hypertension Qualifiers: Hypertension type: essential hypertension Qualified Code(s): I10 - Essential (primary) hypertension (4) Anemia Qualifiers: Anemia type: iron deficiency Iron deficiency anemia type: chronic blood loss Qualified Code(s): D50.0 - Iron deficiency anemia secondary to blood loss (chronic) (7) Diabetes mellitus Qualifiers: Diabetes mellitus type: type 2 Diabetes mellitus personal banking officer insulin use: with senior care use Diabetes mellitus complication status: with hyperglycemia Qualified Code(s): E11.65 - Type 2 diabetes mellitus with hyperglycemia; Z79.4 - head scorer (current) use of insulin (11) Pulmonary edema Qualifiers: Chronicity: acute Qualified Code(s): J81.0 - Acute pulmonary edema <Nilesh Arias - Last Filed: 04/13/18 17:26> (1) Anemia Qualifiers: Anemia type: iron deficiency Iron deficiency anemia type: chronic blood loss Qualified Code(s): D50.0 - Iron deficiency anemia secondary to blood loss (chronic) (4) CAD (coronary artery disease) Qualifiers: Coronary Disease-Associated Artery/Lesion type: [place] artery [place] vs. transplanted heart: [place] heart Associated angina: without angina Qualified Code(s): I25.10 - Atherosclerotic heart disease of [place] coronary artery without angina pectoris (5) Cirrhosis Qualifiers: Hepatic cirrhosis type: unspecified hepatic cirrhosis Ascites presence: without ascites Qualified Code(s): K74.60 - Unspecified cirrhosis of liver (6) Hypertension Qualifiers: Hypertension type: essential hypertension Qualified Code(s): I10 - Essential (primary) hypertension (8) Diabetes mellitus Qualifiers: Diabetes mellitus type: type 2 Diabetes mellitus senior care insulin use: with senior care use Diabetes mellitus complication status: with hyperglycemia Qualified Code(s): E11.65 - Type 2 diabetes mellitus with hyperglycemia; Z79.4 - head scorer (current) use of insulin (11) Pulmonary edema Qualifiers: Chronicity: acute Qualified Code(s): J81.0 - Acute pulmonary edema
[2018-04-13] MEDS ORDERED: SODIUM CHLORIDE/NAHCO3/KCL/PEG 4,000 ML SOLN.RECON PO ONE (17:00)
[2018-04-13] MEDS: ceFAZolin 1,000 MG in Water for inj. (sterile) 20 ML 10 ML IVP SCH (18:22)
[2018-04-14 03:34] LABS: Red Blood Count 2.95 M/mcL (3.82-4.97)
[2018-04-14 03:36] LABS: Basophils % 0.3 %; Eosinophils # 0.1 K/mcL (0.0-0.6); Eosinophils % 1.7 %; Hematocrit 28.3 % (35.3-44.9); Hemoglobin 8.8 g/dL (11.5-15.4); Immature Granulocytes % 0.3 % (0-4); Immature Platelets 2.5 % (1.1-6.1); Lymphocytes # 0.6 K/mcL (0.6-4.6); Lymphocytes % 9.2 %; Mean Corpuscular HGB Conc 31.1 g/dL (31.6-35.5); Mean Corpuscular Hemoglobin 29.8 pg (28.0-33.3); Mean Corpuscular Volume 95.9 fL (83.0-100.0); Mean Platelet Volume 9.8 fL (9.4-12.4); Monocytes % 15.7 %; Neutrophils # 4.8 K/mcL (1.6-8.9); Red Cell Distribution Width 19.1 % (11.5-14.5); Segmented Neutrophils % 72.8 %
[2018-04-14 03:37] LABS: Platelet Count 56 K/mcL (140-400)
[2018-04-14 03:50] LABS: Calcium 8.2 mg/dL (8.6-10.3); Potassium 3.8 mEq/L (3.5-5.1)
[2018-04-14] MEDS: Insulin LISPRO 300 UNITS/3 ML VIAL SQ SCH ×4 (07:45→20:52)
--- NOTE | 2018-04-14 08:14 | Internal Med Progress Note ---
<Pati Baeza - Last Filed: 04/14/18 13:52> Hospitalist Progress Note - Encounter Date of Encounter: 04/14/18 - Exam Vitals: Temp Pulse Resp BP Pulse Ox 98.2 F 53 16 108/55 100 04/14/18 12:57 04/14/18 12:57 04/14/18 12:57 04/14/18 12:57 04/14/18 12:57 - Assessment and Plan (1) CAD (coronary artery disease) Current Visit: No Status: Chronic (2) Cirrhosis Current Visit: No Status: Chronic (3) Hypertension Current Visit: No Status: Chronic (4) Anemia Current Visit: No Status: Suspected (5) Bacteremia due to methicillin susceptible Staphylococcus aureus (MSSA) Current Visit: No Status: Acute (6) History of aortic valve replacement with bioprosthetic valve Current Visit: No Status: Chronic (7) Acute on chronic diastolic heart failure Current Visit: No Status: Acute (8) Diabetes mellitus Current Visit: No Status: Chronic (9) ESRF (end stage renal failure) Current Visit: Yes Status: Chronic (10) Hypokalemia Current Visit: Yes Status: Resolved (11) Acute respiratory distress Current Visit: Yes Status: Acute (12) Pulmonary edema Current Visit: Yes Status: Acute - Time Spent with Patient Total time spent is greater than 50% in coordination of care (as documented) at patient's floor/unit and/or counseling patient: Internal Medicine: Result - Labs CBC & Chem 7: 04/14/18 03:15 04/14/18 03:15 Labs: Short CBC 04/14/18 Range/Units 03:15 WBC 6.6 (4.3-11.1) K/mcL Hgb 8.8 L (11.5-15.4) g/dL Hct 28.3 L (35.3-44.9) % Plt Count 56 L (140-400) K/mcL Neutrophils # 4.8 (1.6-8.9) K/mcL BMP 04/14/18 03:15 Sodium 133 L Potassium 3.8 Chloride 96 L Carbon Dioxide 30 H BUN 20 Creatinine 3.11 H Glucose 106 H Calcium 8.2 L - ABG Interpretation ABG results: ABG ABG pH 7.45 pH Units (7.32-7.45) 04/10/18 11:38 ABG pCO2 48 mmHg (35-45) H 04/10/18 11:38 ABG pO2 91 mmHg (85-104) 04/10/18 11:38 ABG O2 Saturation 97 % (95-98) 04/10/18 11:38 Consult Discharge Plan - Plan Referrals: NONE,PCP [Primary Care Provider] - - Attending Attestation I examined this patient and my medical decision-making was reviewed with the Resident Physician Dr Arias I agree with the documented findings, disposition and treatment plan as described except to the extent set forth below/addl details below Ms Taylor is currently admitted for anemia and pulmonary edema. She is undergoing egd/cscope today awake, no abd pain, sob or fatigue currently. awaiting egd. gen- alert, awake,appears stated age eyes- pupils equal round, + conjunctival pallor cv- reg rate and rhythm, normal s1,s2, + SM, pitting edema to just above knees lungs- ctabl, no wheezing, rhonchi or crackles in ant/lat [place], normal resp effort on o2 nc abd- soft, non tender, non distended, neuro- AAOx3 Pulmonary edema on chart review appears most likely 2/2 acute on chronic diasotlic chf complicated by ESRD and possibly by hx of liver cirrhosis-improved with ESRD, did not make urine with trial of lasix, nephro following, wean o2 as able acute on chronic anemia 2/2 gib, occult stool +, currently stable with hgb 8.8- GI to do scope, will fu recs, most recent prbcs yesterday Chronic Thrombocytopenia throughout admit- plts 56, monitpring for bleeding as above ESRD on HD- nephro following MSSA bacteremia hx 02/11/18 cx on IV Ancef at snf prior to admit reportedly, CM will d/w SNF resuming on dc -i have reviewed march summary and it notes - Infectious disease recommended 6 weeks total of IV Ancef (last dose on 03/27/18) followed by indefinite doxycycline -will need to confirm with snf if this was changed since last dc in prep for med to cont on this dc Further diagnoses and plan as documented by resident dispo- will be back to snf when med stable, hopefully tomorrow if hgbs remain stable and pending gi interventions <Nilesh Arias - Last Filed: 04/14/18 17:39> Hospitalist Progress Note - Encounter Date of Encounter: 04/14/18 Time of Encounter: 09:10 - Subjective Interval History: 04/13 no acute events llast night. . Patient had a positive guaiac test, therefore underwent EGD and Colonoscopy today. On her EGD , patient was found to have reflux esophagitis, with multiple recently bleeding angioectasia in the stomach which were clipped and cauterized. On colonoscopy, patient was found to have single recently bleeding colonic angioectesia and clipped and cauterized. She is hemodynamically stable status post endoscopies. We are going to monitor patient's H&H 2 q6h. 04/12 Mrs. Taylor at the bedside. She endorses no acute distress but complains that her BiPAP bothers her arm out when she sleeps at night therefore she has not been using it. I told her nurse to request a respiratory therapist if they could reduce the rate of flow so patient can tolerate being on BiPAP. And has been oliguric the last 12 hours before obviously holding off on her on Lasix. On physical exam I did not appreciate much Rales in her lungs but she continues to be edematous in her extremities. She 'll get dialyzed tomorrow. She has not had a bowel movement yet I told the nurse to order of guaiac test to make sure she is not no evidence of blood in the stools. Patient's hemoglobin has gone up from 7.5-8.4 status post 1 unit of packed RBC. 04/11 no acute events overnight. Patient looks more awake and oritented than yesterday. Her Hb has gone richar from 8.1 to 7.5 given 1 unit pRBC. Had small amoutn of blood in her stool yesterday. Closely monitorng patient and will speak to GI 04/10 Ms. Taylor is a pleasant 78-year-old female with a past medical history of ESRD, diastolic dysfunction bracket open EF (60%), CAD who presented to the hospital because of dyspnea and also concerns for drop in her hemoglobin. Patient was found to have a hemoglobin of 0.7. She status post one unit of packed red blood cells. Currently hemoglobin is 8.8. Was seen this morning at the bedside she was somnolent with use of accessoy muscles. Repeat ABG did not show any worsening hypercarbia. She was on 3 L of oxygen thos AM. Has oliguric DIDIER secondary to her ESRD therefore held her diuretics this morning. - Exam Vitals: Temp Pulse Resp BP Pulse Ox 98.2 F 55 15 107/51 99 04/14/18 08:06 04/14/18 08:06 04/14/18 04:40 04/14/18 08:06 04/14/18 08:06 Exam: Gen: Somnolent , no acute distress Chest: Diminished breath sounds B/L, mild rales, wheezing, use of accessory muscles Heart: S1S2+ RRR No murmurs Abd: Soft, NT, BS +, No organomegaly Ext: +1 edema, pulses are palpable, No calf tenderness Neuro : Benign findings Skin: No rash. - Assessment and Plan (1) Anemia Current Visit: No Status: Suspected Assessment and Plan: - Patient has a history of anemia of chronic disease likely due to her end- stage renal disease. -She presented to the ED with shortness of breath and fatigue and was found to have a hemoglobin of 6.7 on admission. -patient's Hb was 8.8 this morning s/p 3 unit of packed RBC altogether . -Patient had a positive guaiac test, underwent EGD and colonoscopy today which found angiectasias which were clipped and cauterized. She does stable hemodynamically post procedure. Started IV Protonix for GI prophylaxis. - Monitoring patient's H&H q6h. Transfuse pRBC of her hemoglobin is less than 7. (2) Acute on chronic diastolic heart failure Current Visit: No Status: Acute Assessment and Plan: -Patient with a history of diastolic dysfunction her last echocardiogram was in 02/17 demonstrating an EF of 60%. - Chest x-ray was positive for hydrostatic pulmonary edema. s/p dialysis yesterday - Patient's physical exam looks unremarkable with no rails/wheezing on exam (3) Acute respiratory distress Current Visit: Yes Status: Acute Assessment and Plan: -Seems to have resolved this AM. Patient was in resp distress likely Likely multifactorial : due to her history of diastolic dysfunction and anemia of chronic disease. Also has a history of aortic valve replacement along with aortic stenosis which is contributing to her acute respiratory distress. Patien t had evidence of hydrostatic pulmonary edema on chest x-ray. She came to the ED with hemoglobin of 6.2 and is status post a 3 unit of packed red blood cells, repeat hemoglobin 8.8. -Physical exam was benign this morning. - She is on 2 L of oxygen morning, continued use BiPAP as needed, although patient endroses discomfort and tried to educate the patient about improtance of being on BiPAP because it helps with the pre-load. Continue to monitor (4) CAD (coronary artery disease) Current Visit: No Status: Chronic Assessment and Plan: -Patient has a history of CAD. -Continue home medications. . (5) Cirrhosis Current Visit: No Status: Chronic Assessment and Plan: - Patient has a history of cirrhosis. Patient also has a history of portal gastropathy secondary to her cirrhosis -No acute symptoms at the moment like ascites. Holding on the diuretics because of oliguria . (6) Hypertension Current Visit: No Status: Chronic Assessment and Plan: She has a history of hypertension. -On the home medicine clonidine, metoprolol. - Currently normotensive at 117/63 (7) History of aortic valve replacement with bioprosthetic valve Current Visit: No Status: Chronic Assessment and Plan: Patient has a history of for aortic valve replacement with bioprosthetic valve - Target INR 2-3. With this history patient is preload dependent hence not getting too much fluid out of her system would be ideal or else she might get hypotensive (8) Diabetes mellitus Current Visit: No Status: Chronic Assessment and Plan: - Has a history of diabetes. Currently she is on sliding scale insulin -Accuchecks ,target glucose goal is between 130- 180. (9) ESRF (end stage renal failure) Current Visit: Yes Status: Chronic Assessment and Plan: - Has a history of ESRD with GFR of 10. She receives dialysis 3 times a week -Nephrology consulted. Received dialysis yesterday (10) Hypokalemia Current Visit: Yes Status: Resolved Assessment and Plan: - Resolved. (11) Pulmonary edema Current Visit: Yes Status: Acute Assessment and Plan: -She has a history of diastolic dysfunction. The presence of aortic stenosis also complicates her pulmonary edema picture. -Most recent chest x-ray showed evidence of hydrostatic pulmonary edema with bilateral pleural effusions -s/p dialysis today. (12) Bacteremia due to methicillin susceptible Staphylococcus aureus (MSSA) Current Visit: No Status: Acute Assessment and Plan: - Hx of MSSA bacteremia - On Ancef - Time Spent with Patient Total time spent is greater than 50% in coordination of care (as documented) at patient's floor/unit and/or counseling patient: Internal Medicine: Result - Labs CBC & Chem 7: 04/14/18 16:49 04/14/18 03:15 Labs: Short CBC 04/14/18 Range/Units 03:15 WBC 6.6 (4.3-11.1) K/mcL Hgb 8.8 L (11.5-15.4) g/dL Hct 28.3 L (35.3-44.9) % Plt Count 56 L (140-400) K/mcL Neutrophils # 4.8 (1.6-8.9) K/mcL BMP 04/14/18 03:15 Sodium 133 L Potassium 3.8 Chloride 96 L Carbon Dioxide 30 H BUN 20 Creatinine 3.11 H Glucose 106 H Calcium 8.2 L - ABG Interpretation ABG results: ABG ABG pH 7.45 pH Units (7.32-7.45) 04/10/18 11:38 ABG pCO2 48 mmHg (35-45) H 04/10/18 11:38 ABG pO2 91 mmHg (85-104) 04/10/18 11:38 ABG O2 Saturation 97 % (95-98) 04/10/18 11:38 <Pati Baeza - Last Filed: 04/14/18 13:52> (1) CAD (coronary artery disease) Qualifiers: Coronary Disease-Associated Artery/Lesion type: [place] artery [place] vs. transplanted heart: [place] heart Associated angina: without angina Qualified Code(s): I25.10 - Atherosclerotic heart disease of [place] coronary artery without angina pectoris (2) Cirrhosis Qualifiers: Hepatic cirrhosis type: unspecified hepatic cirrhosis Ascites presence: without ascites Qualified Code(s): K74.60 - Unspecified cirrhosis of liver (3) Hypertension Qualifiers: Hypertension type: essential hypertension Qualified Code(s): I10 - Essential (primary) hypertension (4) Anemia Qualifiers: Anemia type: iron deficiency Iron deficiency anemia type: chronic blood loss Qualified Code(s): D50.0 - Iron deficiency anemia secondary to blood loss (chronic) (8) Diabetes mellitus Qualifiers: Diabetes mellitus type: type 2 Diabetes mellitus halfway insulin use: with halfway use Diabetes mellitus complication status: with hyperglycemia Qualified Code(s): E11.65 - Type 2 diabetes mellitus with hyperglycemia; Z79.4 - adjunct faculty for medical terminology (current) use of insulin (12) Pulmonary edema Qualifiers: Chronicity: acute Qualified Code(s): J81.0 - Acute pulmonary edema <Nilesh Arias - Last Filed: 04/14/18 17:39> (1) Anemia Qualifiers: Anemia type: iron deficiency Iron deficiency anemia type: chronic blood loss Qualified Code(s): D50.0 - Iron deficiency anemia secondary to blood loss (chronic) (4) CAD (coronary artery disease) Qualifiers: Coronary Disease-Associated Artery/Lesion type: [place] artery [place] vs. transplanted heart: [place] heart Associated angina: without angina Qualified Code(s): I25.10 - Atherosclerotic heart disease of [place] coronary artery without angina pectoris (5) Cirrhosis Qualifiers: Hepatic cirrhosis type: unspecified hepatic cirrhosis Ascites presence: without ascites Qualified Code(s): K74.60 - Unspecified cirrhosis of liver (6) Hypertension Qualifiers: Hypertension type: essential hypertension Qualified Code(s): I10 - Essential (primary) hypertension (8) Diabetes mellitus Qualifiers: Diabetes mellitus type: type 2 Diabetes mellitus halfway insulin use: with halfway use Diabetes mellitus complication status: with hyperglycemia Qualified Code(s): E11.65 - Type 2 diabetes mellitus with hyperglycemia; Z79.4 - custodial (current) use of insulin (11) Pulmonary edema Qualifiers: Chronicity: acute Qualified Code(s): J81.0 - Acute pulmonary edema
[2018-04-14] MEDS: Lactobacillus 1 EACH CAP.SPRINK PO SCH ×2 (08:16→20:51)
[2018-04-14] MEDS: Isosorbide MONOnitrate (24 HR) 30 MG TAB.ER.24H PO SCH (08:16)
[2018-04-14] MEDS: cloNIDine HCl 0.1 MG TABLET PO SCH ×2 (08:16→20:51)
[2018-04-14] MEDS: Bumetanide 1 MG TABLET PO SCH (08:16)
[2018-04-14] MEDS: Multivit/Ca/Min/Fe/FA 1 TAB TABLET PO SCH (08:17)
[2018-04-14] MEDS: Cholecalciferol (D-3) 1,000 UNIT TABLET PO SCH (08:17)
[2018-04-14] MEDS: Nystatin POWDER 30 GM BOTTLE TP SCH ×3 (08:30→20:51)
--- NOTE | 2018-04-14 09:30 | Nephrology Progress Note ---
Addendum entered and electronically signed by Regulo Cochran DO 04/14/18 19:12: I have personally performed a face to face evaluation on this patient. I have reviewed and agree with the care plan. History and Exam by me shows: ESRD on HD MWF. Next HD planned for Tomorrow. Original Note: Date of Encounter: 04/14/18 Time of Encounter: 09:28 - Assessment and Plan (1) ESRD (end stage renal disease) on dialysis Current Visit: Yes Status: Acute Current regimen is MWF. HD completed yesterday. Avoid nephrotoxins and renal dose. Continue renal diet (2) Cellulitis Current Visit: No Status: Acute Patient states she is currently being treated for BLL cellulitis per primary team Qualifiers: Site of cellulitis: extremity Site of cellulitis of extremity: lower extremity Laterality: unspecified laterality Qualified Code(s): L03.119 - Cellulitis of unspecified part of limb (3) Anemia Current Visit: No Status: Suspected Hgb is 7.9 today. Stool is + for occult blood. Transfusion parameters per primary team Is NPO for upper and lower scope today. Qualifiers: Anemia type: iron deficiency Iron deficiency anemia type: chronic blood loss Qualified Code(s): D50.0 - Iron deficiency anemia secondary to blood loss (chronic) (4) HTN (hypertension) Current Visit: Yes Status: Acute Stable. Qualifiers: Qualified Code(s): I10 - Essential (primary) hypertension Subjective Principal diagnosis: low hgb Interval history: Pt seen and examined, doing well. Denies CP or shortness of breath. Still feels fatigued. Objective - Vital Signs Vital signs: Vital Signs Temp Pulse Resp BP Pulse Ox 04/14/18 08:06 98.2 F 55 107/51 99 04/14/18 04:40 98.1 F 51 15 109/55 100 04/13/18 19:45 98.5 F 64 15 114/54 99 04/13/18 15:56 97.5 F L 62 15 114/58 100 04/13/18 14:25 97.4 F L 17 125/56 04/13/18 14:10 118/52 04/13/18 13:55 116/54 04/13/18 13:40 119/53 04/13/18 13:25 130/54 04/13/18 13:10 124/53 11/12/18 12:55 97.4 F L 78 15 132/58 04/13/18 12:41 97.2 F L 64 16 108/54 04/13/18 12:40 108/54 04/13/18 12:26 97.5 F L 73 15 108/52 97 04/13/18 12:25 108/52 04/13/18 12:10 118/53 04/13/18 11:55 111/52 04/13/18 11:40 115/54 04/13/18 11:25 121/57 04/13/18 11:10 123/53 04/13/18 10:55 128/61 04/13/18 10:40 97.3 F L 17 123/63 Intake and Output 04/13/18 04/14/18 04/14/18 23:59 07:59 15:59 Intake Total 0 / 0 Output Total 0 / 0 0 / 0 Balance 0 / 0 Intake: IV Fluids Ancef 1,000 MG In Water for inj . (sterile) 10 ML @ 200 mls/hr IVP Q24H [facility] Rx#:[id number] Oral 0 / 0 0 / 0 Output: Urine 0 / 0 0 / 0 Other: Stool Size Moderate Stool Consistency soft Stool Color Brown Black # Bowel Movements 1 Weight 105.3 kg Blood Glucose* 179 88 Patient Weight 04/14/18 23:59 Weight 105.3 kg - General Appearance General appearance: Present: well-developed, well-nourished EENT: Present: ATNC, hearing intact, vision intact Neck: Present: supple Respiratory: Present: clear Cardiology: Present: edema (Trace bilat lower extremity edema.), normal S1, normal S2 Dialysis Vascular Access: Venous Catheter (Tunneled Line, DRSG C/D/I) Gastrointestinal: Present: normoactive bowel sounds, no tenderness, no guarding Integumentary: Present: no rash, warm and dry Neurologic: Present: alert and oriented x3 Psychiatric: Present: mood/affect appropriate, cooperative - Lab 04/14/18 03:15 04/14/18 03:15 Most recent lab results ABG pH 7.45 pH Units (7.32-7.45) 04/10/18 11:38 ABG pCO2 48 mmHg (35-45) H 04/10/18 11:38 ABG pO2 91 mmHg (85-104) 04/10/18 11:38 ABG HCO3 34 mEq/L (21-27) H 04/10/18 11:38 ABG O2 Saturation 97 % (95-98) 04/10/18 11:38 Calcium 8.2 mg/dL (8.6-10.3) L 04/14/18 03:15 Magnesium 1.9 mg/dL (1.6-2.6) 04/10/18 06:31 Consult Discharge Plan - Plan Referrals: NONE,PCP [Primary Care Provider] -
--- NOTE | 2018-04-14 11:18 | Anesthesia Evaluation PreOp ---
Date of Encounter: 04/14/18 Time of Encounter: 11:17 - Past History Planned Operation: EGD/Colonoscopy Cardiac History: HTN, Cardiac Surgery (AVR 2014) Pulmonary History: Former smoker, Other (PFT: Mod. 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 ACHILLES HEEL REPAIR. LEFT TKR. BLADDER REPAIR. AVR 08/2014. A&P. BREAST BIOPSY) : No Alcohol Use: none Drug use: none Medications and Allergies Cholecalciferol (D-3) [Vitamin D] 1,000 unit PO DAILY 04/07/17 [History] Multivit-Min/FA/Lycopen/Lutein [Centrum Silver Tablet] 1 tab PO DAILY 04/07/17 [History] Vitamin E Acetate [Vitamin E] 400 unit PO DAILY 04/07/17 [History] Ferrous Sulfate [Iron] 325 mg PO DAILY 11/28/17 [History] Insulin Glargine,Hum.rec.anlog [Lantus Solostar] 30 units SQ HS 11/28/17 [History] Insulin LISPRO [Humalog] 0 unit SQ TIDWM 11/28/17 [History] Metoprolol [Lopressor] 12.5 mg PO BID 11/28/17 [History] Isosorbide MONOnitrate (24 HR) [Imdur] 30 mg PO DAILY #30 tab.er.24h 12/26/17 [Rx] cloNIDine HCl [CloNIDine HCl] 0.1 mg PO BID 02/11/18 [History] ceFAZolin [Ancef] 1,000 gm IV 1900 02/28/18 [History] Bumetanide [Bumex] 1 mg PO DAILY 04/10/18 [History] Docusate [Colace] 100 mg PO BID PRN 04/10/18 [History] L. Acidophilus/Pectin, [place] [Acidophilus Caplet] 1 tab PO BID 04/10/18 [History] Allergy/AdvReac Type Severity Reaction Status Date / Time Ejrzwuv-Fny-Peb Reductase AdvReac Muscle Pain Verified 11/28/17 10:02 Inhibitor [Statins] - Meds/Allergy Pre-op Review Medications Reviewed: Yes Allergies Reviewed: Yes Beta Blockers on Current Med List: Yes If Beta Blockers taken, Date/Time (Last Dose taken): 08:16 04/14/2018 Anesthesia Results - Labs 04/14/18 03:15 04/14/18 03:15 Name: Alicia Taylor Date of Study: 05/11/2015 CORONARY ANGIOGRAPHY Indications: Abnormal Test - Stress Impressions: Mild atherosclerotic coronary artery disease. Recommendations: Optimal medical therapy of patient's disease. Aggressive risk factor modification. Coronary Dominance: right Lesion Findings/Interventions * Left Main Coronary Artery The LMCA is angiographically free of disease. * Left Anterior Descending There is a 30% stenosis in the Mid LAD. The lesion has a KATE flow of 3. * Circumflex There is a 20% stenosis in the Mid Circumflex. The lesion has a KATE flow of 3. * Right Coronary Artery The RCA is angiographically free of disease. The Right PDA is angiographically free of disease. Transesophageal Echocardiogram Name: Alicia Taylor Date of Study: 11/28/2017 Date: 1940 Ht: 64.0in Medical Record#: [id number] Age: 77 Wt: 201.0lb Gender: Female BSA: 1.96 Order #: [id number] Location: [facility] Room #: [id number] Reading Physician: Isak Rosas DO, FACC Ordering Physician: Андрей Tirado MD Chiller Hand: Isak Rosas DO, FACC Indications: Bacteremia Impressions: LVEF 60%. Normal size and function. Mild concentric left ventricular hypertrophy. Right ventricle was normal in size and systolic function. Bioprosthetic AV appears well seated in the LVOT. The leaflets were not well visualized. The annulus does appear mildly thickened, likely representing pannus formation. No aortic regurgitation. Gradients to assess for aortic stenosis not well obtained. Please refer to TTE performed 11/27/2017. Mild mitral regurgitation. No pulmonary hypertension identified. - Imaging EKG: report reviewed (02/12/18 NSR) Anesthesia Exam Vital Signs/O2 Sat, Most Current Temp Pulse Resp BP Pulse Ox 98.2 F 55 15 107/51 99 04/14/18 08:06 04/14/18 08:06 04/14/18 04:40 04/14/18 08:06 04/14/18 08:06 Blood glucose: 88 NPO (# of Hours): > 8 hrs Pain Scale: 0 Pain Scale Used: Numeric (1 - 10) - HEENT Pupil (Motor): Pupils equal, EOMI Mallampati: III Teeth: Missing Denture Type: Upper: Complete Oral Opening: Greater than 3 - HYDROELECTRIC MACHINERY MECHANIC LOC: Oriented HYDROELECTRIC MACHINERY MECHANIC Motor: Normal RUE, Normal LUE, Normal RLE, Normal LLE, Normal Face HYDROELECTRIC MACHINERY MECHANIC Sensory: Normal: RUE, LUE, RLE, LLE, Face - Cardiac Rhythm: Regular Murmur: None JVD: No Carotid Bruit: No - Pulmonary Breath Sounds: bilateral Clear Respiratory Effort: Symmetrical Anesthesia Assess/Plan ASA Score: 3 Anesthetic Plan: MAC Autologous Blood: Yes Monitoring Plan: Standard Monitors Recovery Plan: PACU
[2018-04-14] MEDS ORDERED: Propofol 500 MG/50 ML INFUS..BTL ONE (13:19)
[2018-04-14] MEDS ORDERED: *HR* Dextrose 50 % in Water (Syg) 50 ML SYRINGE IVP ONE (14:25)
--- NOTE | 2018-04-14 15:13 | Anesthesia Evaluation Post Op ---
Date of Encounter: 04/14/18 Time of Encounter: 15:13 - Vital Signs Vital Signs: Vital Signs/O2 Sat, Most Current Temp Pulse Resp BP Pulse Ox 98.3 F 59 20 111/56 97 04/14/18 15:00 04/14/18 15:00 04/14/18 15:00 04/14/18 15:00 04/14/18 15:00 - Lungs Lungs: Clear Ascult./Percussion - Airway Airway: Non-obstructed - Cardiovascular Regular Rate - Mental Status Mental Status: Alert & Oriented, Answers Appropriately - Pain Pain Scale: 0 Pain Scale used: Numeric (1 - 10) - Nausea Vomiting Nausea Vomiting: Not Present - Hydration Hydration: Tolerates oral liquids, Has not voided - Discharge PostOp Status: Transfer Patient to floor
[2018-04-14 17:03] LABS: Hematocrit 28.4 % (35.3-44.9); Hemoglobin 8.9 g/dL (11.5-15.4)
[2018-04-14] MEDS: ceFAZolin 1,000 MG in Water for inj. (sterile) 20 ML 10 ML IVP SCH (18:13)
[2018-04-14] MEDS: Pantoprazole 40 MG VIAL IVP SCH (18:14)
[2018-04-14] MEDS: Insulin DETEMIR 100 UNIT/ML X5UNITS SQ SCH (20:51)
[2018-04-14 21:29] LABS: Hematocrit 27.6 % (35.3-44.9); Hemoglobin 8.5 g/dL (11.5-15.4)
[2018-04-15 04:21] LABS: Mean Corpuscular Hemoglobin 29.7 pg (28.0-33.3); Mean Corpuscular Volume 96.2 fL (83.0-100.0)
[2018-04-15 04:23] LABS: Basophils % 0.5 %; Eosinophils # 0.1 K/mcL (0.0-0.6); Eosinophils % 1.6 %; Hematocrit 27.5 % (35.3-44.9); Hemoglobin 8.5 g/dL (11.5-15.4); Immature Granulocytes % 0.6 % (0-4); Immature Platelets 2.3 % (1.1-6.1); Lymphocytes # 0.6 K/mcL (0.6-4.6); Lymphocytes % 8.9 %; Mean Corpuscular HGB Conc 30.9 g/dL (31.6-35.5); Mean Platelet Volume 10.2 fL (9.4-12.4); Monocytes % 16.5 %; Neutrophils # 4.5 K/mcL (1.6-8.9); Red Blood Count 2.86 M/mcL (3.82-4.97); Segmented Neutrophils % 71.9 %
[2018-04-15 04:27] LABS: Platelet Count 59 K/mcL (140-400)
[2018-04-15 04:37] LABS: Calcium 8.3 mg/dL (8.6-10.3); Potassium 4.2 mEq/L (3.5-5.1)
[2018-04-15] MEDS: Pantoprazole 40 MG VIAL IVP SCH ×2 (05:07→17:54)
[2018-04-15] MEDS ORDERED: 0.9 % Sodium Chloride 2,000 ML ONE (06:08)
[2018-04-15] MEDS ORDERED: 0.9 % Sodium Chloride 250 ML IVC PRN (06:44)
[2018-04-15] MEDS: Insulin LISPRO 300 UNITS/3 ML VIAL SQ SCH ×4 (08:09→20:16)
[2018-04-15] MEDS: Isosorbide MONOnitrate (24 HR) 30 MG TAB.ER.24H PO SCH (08:19)
[2018-04-15] MEDS: Cholecalciferol (D-3) 1,000 UNIT TABLET PO SCH (08:19)
[2018-04-15] MEDS: Multivit/Ca/Min/Fe/FA 1 TAB TABLET PO SCH (08:19)
[2018-04-15] MEDS: Bumetanide 1 MG TABLET PO SCH (08:19)
[2018-04-15] MEDS: Lactobacillus 1 EACH CAP.SPRINK PO SCH ×2 (08:19→20:15)
[2018-04-15] MEDS: cloNIDine HCl 0.1 MG TABLET PO SCH ×2 (08:35→20:15)
[2018-04-15] MEDS: Nystatin POWDER 30 GM BOTTLE TP SCH ×3 (08:36→20:16)
[2018-04-15 08:55] LABS: Hematocrit 27.9 % (35.3-44.9); Hemoglobin 8.6 g/dL (11.5-15.4)
--- NOTE | 2018-04-15 09:14 | Nephrology Progress Note ---
Addendum entered and electronically signed by Regulo Cochran DO 04/15/18 17:00: I have personally performed a face to face evaluation on this patient. I have reviewed and agree with the care plan. History and Exam by me shows: ESRD on HD MWF. I reviewed her labs, vitals, med list, and outpt dialysis records: she dialyzes at [facility] in [place], [place], with Dr. Rosales as her primary mainframe systems engineer. Okay to d/c from a renal perspective. Earlier today by assessing her complex risk assement and via E/M and MDM, I arranged for HD. Original Note: Date of Encounter: 04/15/18 Time of Encounter: 09:12 - Assessment and Plan (1) ESRD (end stage renal disease) on dialysis Current Visit: Yes Status: Acute Current regimen is MWF. HD in progress for today. Avoid nephrotoxins and renal dose. Continue renal diet (2) Cellulitis Current Visit: No Status: Acute Patient states she is currently being treated for BLL cellulitis per primary team Qualifiers: Site of cellulitis: extremity Site of cellulitis of extremity: lower extremity Laterality: unspecified laterality Qualified Code(s): L03.119 - Cellulitis of unspecified part of limb (3) Anemia Current Visit: No Status: Suspected Hgb is 8.6 today. Stool is + for occult blood. Transfusion parameters per primary team Upper and lower scope completed yesterday. Qualifiers: Anemia type: iron deficiency Iron deficiency anemia type: chronic blood loss Qualified Code(s): D50.0 - Iron deficiency anemia secondary to blood loss (chronic) (4) HTN (hypertension) Current Visit: Yes Status: Acute Stable. Qualifiers: Qualified Code(s): I10 - Essential (primary) hypertension Subjective Principal diagnosis: low hgb Interval history: Pt seen and examined in HD, doing well. Denies shortness of breath or chest pain. Denies nausea/vomiting/diarrhea. Objective - Vital Signs Vital signs: Vital Signs Temp Pulse Resp BP Pulse Ox 04/15/18 07:34 98.0 F 60 18 116/50 96 04/15/18 04:46 60 16 132/61 96 04/14/18 20:51 98.7 F 68 17 127/62 97 04/14/18 16:00 97.4 F L 55 116/59 98 04/14/18 15:00 98.3 F 59 20 111/56 97 04/14/18 14:50 98.3 F 61 18 117/63 93 04/14/18 14:40 61 20 121/57 92 04/14/18 14:30 63 22 111/54 90 04/14/18 14:20 98.7 F 75 24 120/58 90 04/14/18 12:57 98.2 F 53 16 108/55 100 04/14/18 12:00 97.7 F 53 118/64 100 Intake and Output 04/14/18 04/15/18 04/15/18 23:59 07:59 15:59 Output Total 0 / 0 Balance 0 / 0 Output: Urine 0 / 0 Other: Stool Size Small # Voids 1 # Bowel Movements 1 Weight 105.5 kg Blood Glucose* 132 107 Patient Weight 04/15/18 23:59 Weight 105.5 kg - General Appearance General appearance: Present: well-developed, well-nourished EENT: Present: ATNC, hearing intact, vision intact Neck: Present: supple Respiratory: Present: clear Cardiology: Present: no edema, normal S1, normal S2 Dialysis Vascular Access: Venous Catheter (Tunneled Line, dRSG C/D/I) Gastrointestinal: Present: normoactive bowel sounds, no tenderness, no guarding Integumentary: Present: no rash, warm and dry Neurologic: Present: alert and oriented x3 Psychiatric: Present: mood/affect appropriate, cooperative - Lab 04/15/18 08:33 04/15/18 04:00 Most recent lab results ABG pH 7.45 pH Units (7.32-7.45) 04/10/18 11:38 ABG pCO2 48 mmHg (35-45) H 04/10/18 11:38 ABG pO2 91 mmHg (85-104) 04/10/18 11:38 ABG HCO3 34 mEq/L (21-27) H 04/10/18 11:38 ABG O2 Saturation 97 % (95-98) 04/10/18 11:38 Calcium 8.3 mg/dL (8.6-10.3) L 04/15/18 04:00 Magnesium 1.9 mg/dL (1.6-2.6) 04/10/18 06:31 Consult Discharge Plan - Plan Referrals: NONE,PCP [Primary Care Provider] -
--- NOTE | 2018-04-15 15:18 | Discharge Summary ---
<Pati Baeza - Last Filed: 04/15/18 16:40> - NOTES TO OUTPATIENT PROVIDER Notes to Outpatient Provider: Found on egd and colonoscopy to have gastric and colonic angioectasias that were treated by GI, hgb at dc stable at 9.5, recommend cbc in next 3 days to confirm cont to uptrend. Cont with ESRD as per Nephro for fluid overload. She additionally has chronic thrombocytopenia that requires outpt monitoring for signs of bleeding. cbc as above. plts stable this admit and 58 on dc. Cont MSSA Bacteremia treatment as per her outpt ID renetta Álvarez. Orders not resulted at time of discharge: Pending orders 04/12/18 19:25 Stool guiac [Occult Blood,Stool] [BF] Routine Date of Encounter: 04/15/18 - Discharge Diagnosis (1) CAD (coronary artery disease) Status: Chronic Qualifiers: Coronary Disease-Associated Artery/Lesion type: ch[place] artery [place] vs. transplanted heart: chitimacha heart Associated angina: without angina Qualified Code(s): I25.10 - Atherosclerotic heart disease of ch[place] coronary artery without angina pectoris (2) Cirrhosis Status: Chronic Qualifiers: Hepatic cirrhosis type: unspecified hepatic cirrhosis Ascites presence: without ascites Qualified Code(s): K74.60 - Unspecified cirrhosis of liver (3) Hypertension Status: Chronic Qualifiers: Hypertension type: essential hypertension Qualified Code(s): I10 - Essential (primary) hypertension (4) Anemia Status: Suspected Qualifiers: Anemia type: iron deficiency Iron deficiency anemia type: chronic blood loss Qualified Code(s): D50.0 - Iron deficiency anemia secondary to blood loss (chronic) (5) Bacteremia due to methicillin susceptible Staphylococcus aureus (MSSA) Status: Acute (6) History of aortic valve replacement with bioprosthetic valve Status: Chronic (7) Acute on chronic diastolic heart failure Status: Acute (8) Diabetes mellitus Status: Chronic Qualifiers: Diabetes mellitus type: type 2 Diabetes mellitus long chain beamer insulin use: with intermediate use Diabetes mellitus complication status: with hyperglycemia Qualified Code(s): E11.65 - Type 2 diabetes mellitus with hyperglycemia; Z79.4 - detention (current) use of insulin (9) ESRF (end stage renal failure) Status: Chronic (10) Hypokalemia Status: Resolved (11) Acute respiratory distress Status: Acute (12) Pulmonary edema Status: Acute Qualifiers: Chronicity: acute Qualified Code(s): J81.0 - Acute pulmonary edema Hospital course: Ms. Taylor is a 78 year old female - Time Spent with Patient Total time spent providing and/or coordinating discharge services: - Discharge Medications Prescriptions: Pantoprazole Sodium [Protonix] 40 mg PO DAILY 30 Days #1 tablet. Home Medications: Cholecalciferol (D-3) [Vitamin D] 1,000 unit PO DAILY 04/07/17 [History] Multivit-Min/FA/Lycopen/Lutein [Centrum Silver Tablet] 1 tab PO DAILY 04/07/17 [History] Vitamin E Acetate [Vitamin E] 400 unit PO DAILY 04/07/17 [History] Ferrous Sulfate [Iron] 325 mg PO DAILY 11/28/17 [History] Insulin Glargine,Hum.rec.anlog [Lantus Solostar] 30 units SQ HS 11/28/17 [History] Insulin LISPRO [Humalog] 0 unit SQ TIDWM 11/28/17 [History] Metoprolol [Lopressor] 12.5 mg PO BID 11/28/17 [History] Isosorbide MONOnitrate (24 HR) [Imdur] 30 mg PO DAILY #30 tab.er.24h 12/26/17 [Rx] cloNIDine HCl [CloNIDine HCl] 0.1 mg PO BID 02/11/18 [History] ceFAZolin [Ancef] 1,000 gm IV 1900 02/28/18 [History] Bumetanide [Bumex] 1 mg PO DAILY 04/10/18 [History] Docusate [Colace] 100 mg PO BID PRN 04/10/18 [History] L. Acidophilus/Pectin, [place] [Acidophilus Caplet] 1 tab PO BID 04/10/18 [History] Pantoprazole Sodium [Protonix] 40 mg PO DAILY 30 Days #1 tablet. 04/15/18 [Rx] Allergies/Adverse Reactions: Allergy/AdvReac Type Severity Reaction Status Date / Time Bliaxxw-Jid-Bow Reductase AdvReac Muscle Pain Verified 11/28/17 10:02 Inhibitor [Statins] Date of admission: 04/10/18 17:04 Primary care physician: PCP NONE Consults: 04/09/18 17:12 Consult to Nephrology [CONS] Stat Consulting Provider: Kidney [facility]ica/ALCIDES/AFIA/NATHAN Reason for Consult: anemia, dialysis patient and concern for fluid overload, getting transfusions Call Completed: Yes 04/10/18 13:45 Consult to Dialysis [CONS] ONCE 04/13/18 08:15 Consult to Dialysis [CONS] ONCE 04/13/18 09:21 Consult to Gastroenterology [CONS] Routine Consulting Provider: Gastroenterology [facility] Reason for Consult: positive guaiac test Call Completed: Yes 04/15/18 06:45 Consult to Dialysis [CONS] ONCE - Constitutional Vitals: Temp Pulse Resp BP Pulse Ox 99.3 F 60 17 123/61 96 04/15/18 13:45 04/15/18 07:34 04/15/18 13:45 04/15/18 13:45 04/15/18 07:34 - Patient Status Disposition: Transfer SNF Condition: Fair Overall status at discharge: patient is progressing back to baseline - Discharge Instructions Follow Up With: NONE,PCP [Primary Care Provider] - Antoni Potts MD [Partnered Physician] - (office will call patient with appointment date and time) Dejah Suárez MD [Partnered Physician] - (i web requested an appointment they should call patient to let them know appointment date and time) Additional Instructions: - Continue taking IV Ancef until 04/26/2018. - Follow up with infectious diseases as an outpatient. - Continue with dialysis appointments (MW). - Follow Up with grease and tallow pumper as an outpatient in 2 weeks. - Continue on renal diet. -go the ED if the worsening shortness of breath, lightheartedness, fast heart rate or fatigue cbc in 3 days - Diet and Activity Activity: increase activity as tolerated Diet: other (renal, diabetic diet) - Attending Attestation I examined this patient and my medical decision-making was reviewed with the Resident Physician Dr Arias I agree with the documented findings, disposition and treatment plan as described except to the extent set forth below/addl details below Ms Taylor was admitted for anemia and pulmonary edema. Nephrology followed her in setting of fluid overload and she underwent HD per their recommendations throughout admit. In regards to acute on chronic anemia, Gi evaluated her and preformed egd and cscoep this admission with gastric angioectasias identified and colonic angioectasia identified, all treated. Hgb remains stable and resp status has improved with dialysis. After discussion with all involved teams she is cleared for discharge back to snf with outpt fu. awake, in HD, tired during HD but overall improved. Notes breathing cont to get better. no sob, cough or wheezing. le edema continues to improve. denies fevers, chills, nausea , emesis, abd pain. gen- alert, awake,appears stated age eyes- pupils equal round, no conjunctival pallor cv- reg rate and rhythm, normal s1,s2, + SM, pitting edema to just above knees now 1+ lungs- ctabl, no wheezing, rhonchi or crackles in [place], normal resp effort on o2 nc abd- soft, non tender, non distended, + bs neuro- AAOx3 Pulmonary edema on chart review appears most likely 2/2 acute on chronic diastolic chf complicated by ESRD with fluid overload -improved with ESRD, did not make urine with trial of lasix, nephro following, weaned o2 to RA-2L on day of dc, cont with nephro for hd on dc, cont home bumex acute on chronic anemia 2/2 gib, occult stool +, hgb remains stable 9.5 - GI egd and cscope 04/14 with multiple angioecstasias in stomach, esohpagitis, single colonic angioectasia s/p interventions by gi - d/w gi and ok to dc to home with outpt fu, cont ppi Chronic Thrombocytopenia throughout admit- plts stable 50s-60s,outpt cont monitoring MSSA bacteremia hx 02/11/18 cx on IV Ancef at snf prior to admit , cont while here as per Dr Álvarez outpt notes cont until 04/26 -fu with ID as scheduled HTN, cont home meds, fu outpt for further management Further diagnoses and plan as documented by resident dispo- dc to snf in stable condition time spent 25 minutes <Nilesh Arias - Last Filed: 04/15/18 19:50> - NOTES TO OUTPATIENT PROVIDER Notes to Outpatient Provider: - Follow-up with GI in 2 weeks from now. - Continue with dialysis appointments. - Patient needs to see infectious disease was she needs to be switched to oral suppressive therapy for her bacteremia. Orders not resulted at time of discharge: Pending orders 04/12/18 19:25 Stool guiac [Occult Blood,Stool] [BF] Routine 04/15/18 14:01 Hemoglobin and Hematocrit [HEME] Q6H Date of Encounter: 04/15/18 Time of Encounter: 09:00 - Discharge Diagnosis (1) CAD (coronary artery disease) Priority: Secondary Status: Chronic Qualifiers: Coronary Disease-Associated Artery/Lesion type: ch[place] artery [place] vs. transplanted heart: ch[place] heart Associated angina: without angina Qualified Code(s): I25.10 - Atherosclerotic heart disease of [place] coronary artery without angina pectoris (2) Cirrhosis Priority: Secondary Status: Chronic Qualifiers: Hepatic cirrhosis type: unspecified hepatic cirrhosis Ascites presence: without ascites Qualified Code(s): K74.60 - Unspecified cirrhosis of liver (3) Hypertension Priority: Secondary Status: Chronic Qualifiers: Hypertension type: essential hypertension Qualified Code(s): I10 - Essential (primary) hypertension (4) Anemia Priority: Primary Status: Suspected Qualifiers: Anemia type: iron deficiency Iron deficiency anemia type: chronic blood loss Qualified Code(s): D50.0 - Iron deficiency anemia secondary to blood loss (chronic) (5) Bacteremia due to methicillin susceptible Staphylococcus aureus (MSSA) Priority: Secondary Status: Acute (6) History of aortic valve replacement with bioprosthetic valve Priority: Secondary Status: Chronic (7) Acute on chronic diastolic heart failure Priority: Secondary Status: Acute (8) Diabetes mellitus Priority: Secondary Status: Chronic Qualifiers: Diabetes mellitus type: type 2 Diabetes mellitus intermediate insulin use: with long chain beamer use Diabetes mellitus complication status: with hyperglycemia Qualified Code(s): E11.65 - Type 2 diabetes mellitus with hyperglycemia; Z79.4 - detention (current) use of insulin (9) ESRF (end stage renal failure) Priority: Secondary Status: Chronic (10) Hypokalemia Priority: Secondary Status: Resolved (11) Acute respiratory distress Priority: Secondary Status: Acute (12) Pulmonary edema Priority: Secondary Status: Acute Qualifiers: Chronicity: acute Qualified Code(s): J81.0 - Acute pulmonary edema Hospital course: Ms. Taylor is a 78 year old female with PMHx of ESRD, diastolic dysfunction EF (60%), CAD, MSSA bacteremia, Cirrhosis, Hx of aortic valv replacement with bioprosthetic valve who presented to the hospital because of dyspnea and concerns for drop in her hemoglobin. Patient was found to have a hemoglobin of 6.7 on admission. Patient has had multiple transfusions in the past because of history of chronic anemia. Patient was in acute respiratory distress, initial chest x-ray had shown some evidence of hydrostatic pulmonary edema and she was utilizing 2 L of oxygen in the morning and was BiPAP at night. Respiratory distress was likely due to her history of diastolic dysfunction, anemia of chronic disease, complicated by the fact that patient has aortic stenosis. Patient was dialyzed multiple times during the course of her hospital stay to decrease her volume overload. She was also given a total of 3 units of packed red blood cells. During Day 4 of her hospital stay, patient was found to have positive stool occult blood test . GI was consulted and they did an EGD, revealed 3 small stigmata of recent bleeding angiectasias which were clipped and cauterized, along with presence of reflux esophagitis. She also underwent colonoscopy which was positive for a single recently bleeding colonic angiectasia, which was clipped and cauterized as well. On day 7 of her hospital stay. Patient's most recent H&H was 9.5/30.7 , and was deemed hemodynamically stable for discharge from nephrology and GI [facility]. Patient needs to follow gastroenterology as an outpatient in 2 weeks from now. - Time Spent with Patient Total time spent providing and/or coordinating discharge services: Date of admission: 04/10/18 17:04 Primary care physician: PCP NONE Consults: 04/09/18 17:12 Consult to Nephrology [CONS] Stat Consulting Provider: [facility]ica/ALCIDES/AFIA/NATHAN Reason for Consult: anemia, dialysis patient and concern for fluid overload, getting transfusions Call Completed: Yes 04/10/18 13:45 Consult to Dialysis [CONS] ONCE 04/13/18 08:15 Consult to Dialysis [CONS] ONCE 04/13/18 09:21 Consult to Gastroenterology [CONS] Routine Consulting Provider: Gastroenterology [facility] Reason for Consult: positive guaiac test Call Completed: Yes 04/15/18 06:45 Consult to Dialysis [CONS] ONCE - Constitutional Vitals: Temp Pulse Resp BP Pulse Ox 98.1 F 60 16 176/56 96 04/15/18 10:00 04/15/18 07:34 04/15/18 10:00 04/15/18 12:45 04/15/18 07:34 General appearance: Present: A&O X 3. Absent: answers questions appropriately (Dyspneic at rest. Tachypneic. Arouses to name.) Exam: Gen: Somnolent , no acute distress Chest: Diminished breath sounds B/L, mild rales, wheezing, use of accessory muscles Heart: S1S2+ RRR, systolic murmur Abd: Soft, NT, BS +, No organomegaly Ext: +1 edema, pulses are palpable, No calf tenderness Neuro : Benign findings Skin: No rash. Addendum entered and electronically signed by Pati Baeza DO 04/16/18 07:37: Pt did not dc 04/15 due to SNF not having her room available. She had no overnight events and remains stable for dc to SNF. Her vital signs remain normal. Hgb this morning is 8.4. Hgb yesterday 9.5 suspected to be error as hgb has been varying between 8.9-8.4 over last 7 checks with that one exception. She remains hemodynamically stable. Repeat cbc within 3 days or sooner if symptoms. Addendum entered and electronically signed by Pati Baeza DO 04/16/18 10:23: repeat hgb 04/16 morning is 8.8. stable for dc to snf Addendum entered and electronically signed by Nilesh Arias 04/17/18 20:19: Addendum entered and electronically signed by Pati Baeza DO 04/19/18 07:42: Addendum entered and electronically signed by Nilesh Arias 04/19/18 10:01: Addendum entered and electronically signed by Pati Baeza DO 04/20/18 07:21: Addendum entered and electronically signed by Nilesh Arias 04/20/18 10:39:
[2018-04-15 15:41] LABS: Hematocrit 30.7 % (35.3-44.9); Hemoglobin 9.5 g/dL (11.5-15.4)
--- NOTE | 2018-04-15 16:10 | Physician Discharge Referral ---
<Nilesh Arias - Last Filed: 04/15/18 22:38> ExtendedCare Referral Info Transfer To: [facility] - Diagnosis (1) CAD (coronary artery disease) Status: Chronic (2) Cirrhosis Status: Chronic (3) Hypertension Status: Chronic (4) Anemia Priority: Primary Status: Suspected (5) Bacteremia due to methicillin susceptible Staphylococcus aureus (MSSA) Status: Acute (6) History of aortic valve replacement with bioprosthetic valve Status: Chronic (7) Acute on chronic diastolic heart failure Status: Acute (8) Diabetes mellitus Status: Chronic (9) ESRF (end stage renal failure) Status: Chronic (10) Hypokalemia Status: Resolved (11) Acute respiratory distress Status: Acute (12) Pulmonary edema Status: Acute - Transfer Medications Prescriptions: Pantoprazole Sodium [Protonix] 40 mg PO DAILY 30 Days #1 tablet.dr Home Medications: Cholecalciferol (D-3) [Vitamin D] 1,000 unit PO DAILY 04/07/17 [History] Multivit-Min/FA/Lycopen/Lutein [Centrum Silver Tablet] 1 tab PO DAILY 04/07/17 [History] Vitamin E Acetate [Vitamin E] 400 unit PO DAILY 04/07/17 [History] Ferrous Sulfate [Iron] 325 mg PO DAILY 11/28/17 [History] Insulin Glargine,Hum.rec.anlog [Lantus Solostar] 30 units SQ HS 11/28/17 [History] Insulin LISPRO [Humalog] 0 unit SQ TIDWM 11/28/17 [History] Metoprolol [Lopressor] 12.5 mg PO BID 11/28/17 [History] Isosorbide MONOnitrate (24 HR) [Imdur] 30 mg PO DAILY #30 tab.er.24h 12/26/17 [Rx] cloNIDine HCl [CloNIDine HCl] 0.1 mg PO BID 02/11/18 [History] ceFAZolin [Ancef] 1,000 gm IV 1900 02/28/18 [History] Bumetanide [Bumex] 1 mg PO DAILY 04/10/18 [History] Docusate [Colace] 100 mg PO BID PRN 04/10/18 [History] L. Acidophilus/Pectin, [place] [Acidophilus Caplet] 1 tab PO BID 04/10/18 [History] Pantoprazole Sodium [Protonix] 40 mg PO DAILY 30 Days #1 tablet. 04/15/18 [Rx] Allergies/Adverse Reactions: Allergy/AdvReac Type Severity Reaction Status Date / Time Jpohfmv-Ejy-Oru Reductase AdvReac Muscle Pain Verified 11/28/17 10:02 Inhibitor [Statins] - Respiratory Orders Smoking Cessation: Smoking cessation has been advised. For more information, call the [employer] Quit Line at 9-696-LBGJ-NOW. CERTIFICATION: I certify that the transfer of the above named patient to an Extended Care Facility is necessary for the continuing treatment of the diagnosis listed. The above information is true and accurate reflection of patient's current condition. Confidential - Redisclosure prohibited without a patient's written consent. <Pati Baeza - Last Filed: 04/16/18 07:37> [facility] Provider in Charge after Transfer: PCP Institutional Level of Care: Skilled - Diagnosis (1) CAD (coronary artery disease) Status: Chronic (2) Cirrhosis Status: Chronic (3) Hypertension Status: Chronic (4) Anemia Status: Suspected (5) Bacteremia due to methicillin susceptible Staphylococcus aureus (MSSA) Status: Acute (6) History of aortic valve replacement with bioprosthetic valve Status: Chronic (7) Acute on chronic diastolic heart failure Status: Acute (8) Diabetes mellitus Status: Chronic (9) ESRF (end stage renal failure) Status: Chronic (10) Hypokalemia Status: Resolved (11) Acute respiratory distress Status: Acute (12) Pulmonary edema Status: Acute - Respiratory Orders Oxygen / L per min (2L) Smoking Cessation: Smoking cessation has been advised. For more information, call the [employer] Quit Line at 0-886-ENCN-NOW. - Lab Orders Lab Orders: CBC (3 days) - Mobility Orders Ambulate - Rehabiliation Orders Rehab Potential: Good - Diet Orders Renal (renal, diabetic) CERTIFICATION: I certify that the transfer of the above named patient to an Extended Care Facility is necessary for the continuing treatment of the diagnosis listed. The above information is true and accurate reflection of patient's current condition. Confidential - Redisclosure prohibited without a patient's written consent.
[2018-04-15] MEDS: ceFAZolin 1,000 MG in Water for inj. (sterile) 20 ML 10 ML IVP SCH (17:53)
[2018-04-15] MEDS: Acetaminophen 325 MG TABLET PO PRN (20:15)
[2018-04-15] MEDS: Insulin DETEMIR 100 UNIT/ML X5UNITS SQ SCH (20:16)
[2018-04-16] MEDS: Pantoprazole 40 MG VIAL IVP SCH (05:00)
[2018-04-16 05:18] LABS: Basophils % 0.5 %; Eosinophils # 0.1 K/mcL (0.0-0.6); Eosinophils % 2.1 %; Hematocrit 27.1 % (35.3-44.9); Hemoglobin 8.4 g/dL (11.5-15.4); Immature Granulocytes % 0.5 % (0-4); Lymphocytes # 0.6 K/mcL (0.6-4.6); Lymphocytes % 10.8 %; Mean Corpuscular Hemoglobin 29.7 pg (28.0-33.3); Mean Corpuscular Volume 95.8 fL (83.0-100.0); Mean Platelet Volume 9.7 fL (9.4-12.4); Monocytes # 1.1 K/mcL (0.0-1.3); Monocytes % 18.7 %; Neutrophils # 3.9 K/mcL (1.6-8.9); Red Blood Count 2.83 M/mcL (3.82-4.97); Red Cell Distribution Width 18.6 % (11.5-14.5); Segmented Neutrophils % 67.4 %
[2018-04-16 05:20] LABS: Platelet Count 58 K/mcL (140-400)
[2018-04-16 05:45] LABS: Platelet Estimate Decreased (Normal)
[2018-04-16] MEDS: Acetaminophen 325 MG TABLET PO PRN (07:23)
--- NOTE | 2018-04-16 08:13 | Internal Med Progress Note ---
<Pati Baeza - Last Filed: 04/16/18 10:19> Hospitalist Progress Note - Encounter Date of Encounter: 04/16/18 - Exam Vitals: Temp Pulse Resp BP Pulse Ox 97.7 F 64 17 132/58 98 04/16/18 07:15 04/16/18 07:15 04/16/18 04:54 04/16/18 07:15 04/16/18 07:15 - Assessment and Plan (1) CAD (coronary artery disease) Current Visit: No Status: Chronic (2) Cirrhosis Current Visit: No Status: Chronic (3) Hypertension Current Visit: No Status: Chronic (4) Anemia Current Visit: No Status: Suspected (5) Bacteremia due to methicillin susceptible Staphylococcus aureus (MSSA) Current Visit: No Status: Acute (6) History of aortic valve replacement with bioprosthetic valve Current Visit: No Status: Chronic (7) Acute on chronic diastolic heart failure Current Visit: No Status: Acute (8) Diabetes mellitus Current Visit: No Status: Chronic (9) ESRF (end stage renal failure) Current Visit: Yes Status: Chronic (10) Hypokalemia Current Visit: Yes Status: Resolved (11) Acute respiratory distress Current Visit: Yes Status: Acute (12) Pulmonary edema Current Visit: Yes Status: Acute - Time Spent with Patient Total time spent is greater than 50% in coordination of care (as documented) at patient's floor/unit and/or counseling patient: Internal Medicine: Result - Labs CBC & Chem 7: 04/16/18 09:42 04/15/18 04:00 Labs: Short CBC 04/15/18 04/16/18 04/16/18 Range/Units 14:01 05:00 09:42 WBC 5.8 (4.3-11.1) K/mcL Hgb 9.5 L 8.4 L 8.8 L (11.5-15.4) g/dL Hct 30.7 L 27.1 L 28.6 L (35.3-44.9) % Plt Count 58 L (140-400) K/mcL Neutrophils # 3.9 (1.6-8.9) K/mcL - ABG Interpretation ABG results: ABG ABG pH 7.45 pH Units (7.32-7.45) 04/10/18 11:38 ABG pCO2 48 mmHg (35-45) H 04/10/18 11:38 ABG pO2 91 mmHg (85-104) 04/10/18 11:38 ABG O2 Saturation 97 % (95-98) 04/10/18 11:38 Consult Discharge Plan - Plan Additional Instructions: - Continue taking IV Ancef until 04/26/2018. - Follow up with infectious diseases as an outpatient. - Continue with dialysis appointments (MW). - Follow Up with clinical tech as an outpatient in 2 weeks. - Continue on renal diet. -go the ED if the worsening shortness of breath, lightheartedness, fast heart rate or fatigue cbc in 3 days Referrals: NONE,PCP [Primary Care Provider] - Antoni Potts MD [Partnered Physician] - (office will call patient with appointment date and time) Dejah Suárez MD [Partnered Physician] - (i web requested an appointment they should call patient to let them know appointment date and time) Prescriptions: Pantoprazole Sodium [Protonix] 40 mg PO DAILY 30 Days #1 tablet. - Attending Attestation I examined this patient and my medical decision-making was reviewed with the Resident Physician Dr Arias I agree with the documented findings, disposition and treatment plan as described except to the extent set forth below/addl details below Ms Taylor was admitted for anemia and pulmonary edema. Nephrology followed her in setting of fluid overload and she underwent HD per their recommendations throughout admit. In regards to acute on chronic anemia, Gi evaluated her and preformed egd and cscoep this admission with gastric angioectasias identified and colonic angioectasia identified, all treated. Hgb remains stable and resp status has improved with dialysis. After discussion with all involved teams she is cleared for discharge back to snf with outpt fu. Her dc 04/15 was delayed due to SNF not having her room available for her return. awake, in bed, pleasant. Feeling well. sob cont to improve daily. no presyncope, cough, wheeze, fevers or chills. No cp, pressure or palpitations. gen- alert, awake,appears stated age eyes- pupils equal round, no conjunctival pallor cv- reg rate and rhythm, normal s1,s2, + SM, pitting edema to knees 1+ lungs- ctabl, no wheezing, rhonchi or crackles in ant/[place], normal resp effort on o2 nc neuro- AAOx3 Pulmonary edema on chart review appears most likely 2/2 acute on chronic diastolic chf complicated by ESRD with fluid overload -improved with ESRD, did not make urine with trial of lasix, nephro followed, RA to 2L NC in last day intermittently, cont with nephro for hd on dc, cont home bumex acute on chronic anemia 2/2 gib, occult stool +, hgb remains stable 9.5 reading yesterday seems unlikely as she is back to 8.4 as she has been in recent checks. (last 7 checks have range in 8s and 9.5 appears to have been outl ier) -rechekc this morning hgb 8.8 -she remains stable for dc to snf - GI egd and cscope 04/14 with multiple angioecstasias in stomach, esohpagitis, single colonic angioectasia s/p interventions by gi - d/w gi and ok to dc to home with outpt fu, cont ppi Chronic Thrombocytopenia throughout admit- plts stable 50s-60s,outpt cont monitoring MSSA bacteremia hx 02/11/18 cx on IV Ancef at snf prior to admit , cont while here as per Dr Álvarez outpt notes cont until 04/26 -fu with ID as scheduled HTN, cont home meds, fu outpt for further management Further diagnoses and plan as documented by resident dispo- dc to snf in stable condition <Nilesh Arias - Last Filed: 04/16/18 16:19> Hospitalist Progress Note - Encounter Date of Encounter: 04/16/18 Time of Encounter: 09:00 - Subjective Interval History: 04/16 Saw patient at the bedside. She was A&O*3. She was endorsing generalized headache and was told by her nurse she received two doses of extra strength Tylenol. On physical exam she does not seem to be endorsing any neurological deficits. Stat H&H this morning showed her Hb at 8.8 . Patient is stable for discharge today to the SNF. 04/13 no acute events llast night. . Patient had a positive guaiac test, therefore underwent EGD and Colonoscopy today. On her EGD , patient was found to have reflux esophagitis, with multiple recently bleeding angioectasia in the stomach which were clipped and cauterized. On colonoscopy, patient was found to have single recently bleeding colonic angioectesia and clipped and cauterized. She is hemodynamically stable status post endoscopies. We are going to monitor pat cecarl's H&H 2 q6h. 04/12 Mrs. Taylor at the bedside. She endorses no acute distress but complains that her BiPAP bothers her arm out when she sleeps at night therefore she has not been using it. I told her nurse to request a respiratory therapist if they could reduce the rate of flow so patient can tolerate being on BiPAP. And has been oliguric the last 12 hours before obviously holding off on her on Lasix. On physical exam I did not appreciate much Rales in her lungs but she continues to be edematous in her extremities. She 'll get dialyzed tomorrow. She has not had a bowel movement yet I told the nurse to order of guaiac test to make sure she is not no evidence of blood in the stools. Patient's hemoglobin has gone up from 7.5-8.4 status post 1 unit of packed RBC. 04/11 no acute events overnight. Patient looks more awake and oritented than yesterday. Her Hb has gone richar from 8.1 to 7.5 given 1 unit pRBC. Had small amoutn of blood in her stool yesterday. Closely monitorng patient and will speak to GI 04/10 Ms. Taylor is a pleasant 78-year-old female with a past medical history of ESRD, diastolic dysfunction bracket open EF (60%), CAD who presented to the hospital because of dyspnea and also concerns for drop in her hemoglobin. Patient was found to have a hemoglobin of 0.7. She status post one unit of packed red blood cells. Currently hemoglobin is 8.8. Was seen this morning at the bedside she was somnolent with use of accessoy muscles. Repeat ABG did not show any worsening hypercarbia. She was on 3 L of oxygen thos AM. Has oliguric DIDIER secondary to her ESRD therefore held her diuretics this morning. - Exam Vitals: Temp Pulse Resp BP Pulse Ox 97.7 F 64 17 132/58 98 04/16/18 07:15 04/16/18 07:15 04/16/18 04:54 04/16/18 07:15 04/16/18 07:15 Exam: Gen: Somnolent , no acute distress, endorsing mild REED Chest: Diminished breath sounds B/L, mild rales, wheezing, use of accessory muscles Heart: S1S2+ RRR, systolic murmur Abd: Soft, NT, BS +, No organomegaly Ext: +1 edema, pulses are palpable, No calf tenderness Neuro : no focal neurological findings Skin: No rash. - Assessment and Plan (1) Acute respiratory distress Current Visit: Yes Status: Acute Assessment and Plan: -Appears to have resolved this AM. - Patient was in resp distress during the course of her hospital stay likely Likely multifactorial : due to her history of diastolic dysfunction and anemia of chronic disease. Also has a history of aortic valve replacement along with aortic stenosis which is contributing to her acute respiratory distress. Patient had evidence of hydrostatic pulmonary edema on chest x-ray. She came to the ED with hemoglobin of 6.2 and is status post a 3 unit of packed red blood cells, repeat hemoglobin 8.8 this AM. -Physical exam was benign this morning. - Patent was on room air satting at 94% this morning, (2) CAD (coronary artery disease) Current Visit: No Status: Chronic Assessment and Plan: -Patient has a history of CAD. -Continue home medications. . (3) Cirrhosis Current Visit: No Status: Chronic Assessment and Plan: - Patient has a history of cirrhosis. Patient also has a history of portal gastropathy secondary to her cirrhosis -No acute symptoms at the moment like ascites. . (4) Hypertension Current Visit: No Status: Chronic Assessment and Plan: She has a history of hypertension. -On the home medicine clonidine, metoprolol. - Currently normotensive at 123/59 (5) Anemia Current Visit: No Status: Suspected Assessment and Plan: - Patient has a history of anemia of chronic disease likely due to her end- stage renal disease. -She presented to the ED with shortness of breath and fatigue and was found to have a hemoglobin of 6.7 on admission. -patient's Hb was 8.8 this morning s/p 3 unit of packed RBC altogether . -Patient had a positive guaiac test, underwent EGD and colonoscopy today which found angiectasias which were clipped and cauterized. She does stable hemodynamically post procedure. Started IV Protonix for GI prophylaxis. -She and is hemodynamically stable to go to the SNF. (6) Bacteremia due to methicillin susceptible Staphylococcus aureus (MSSA) Current Visit: No Status: Acute Assessment and Plan: - Hx of MSSA bacteremia - Continue taking Ancef until patient sees her infectious disease specialist (7) History of aortic valve replacement with bioprosthetic valve Current Visit: No Status: Chronic Assessment and Plan: Patient has a history of for aortic valve replacement with bioprosthetic valve - Target INR 2-3. With this history patient is preload dependent hence not getting too much fluid out of her system would be ideal or else she might get hypotensive (8) Acute on chronic diastolic heart failure Current Visit: No Status: Acute Assessment and Plan: -Patient with a history of diastolic dysfunction her last echocardiogram was in 02/17 demonstrating an EF of 60%. - Chest x-ray was positive for hydrostatic pulmonary edema. s/p dialysis yesterday - Patient's physical exam looks unremarkable with no rails/wheezing on exam (9) Diabetes mellitus Current Visit: No Status: Chronic Assessment and Plan: - Has a history of diabetes. Currently she is on sliding scale insulin -Accuchecks ,target glucose goal is between 130- 180. (10) ESRF (end stage renal failure) Current Visit: Yes Status: Chronic Assessment and Plan: - Has a history of ESRD with GFR of 10. She receives dialysis 3 times a week -Nephrology consulted. Received dialysis Friday and Friday. (11) Hypokalemia Current Visit: Yes Status: Resolved Assessment and Plan: - Resolved. (12) Pulmonary edema Current Visit: Yes Status: Acute Assessment and Plan: -She has a history of diastolic dysfunction. The presence of aortic stenosis also complicates her pulmonary edema picture. -patient is s/p multiple rounds of dialysis in the hospital . on physical exam, no evidence of rales, or wheezing today. - Time Spent with Patient Total time spent is greater than 50% in coordination of care (as documented) at patient's floor/unit and/or counseling patient: Internal Medicine: Result - Labs CBC & Chem 7: 04/16/18 09:42 04/15/18 04:00 Labs: Short CBC 04/15/18 04/15/18 04/16/18 Range/Units 08:33 14:01 05:00 WBC 5.8 (4.3-11.1) K/mcL Hgb 8.6 L 9.5 L 8.4 L (11.5-15.4) g/dL Hct 27.9 L 30.7 L 27.1 L (35.3-44.9) % Plt Count 58 L (140-400) K/mcL Neutrophils # 3.9 (1.6-8.9) K/mcL - ABG Interpretation ABG results: ABG ABG pH 7.45 pH Units (7.32-7.45) 04/10/18 11:38 ABG pCO2 48 mmHg (35-45) H 04/10/18 11:38 ABG pO2 91 mmHg (85-104) 04/10/18 11:38 ABG O2 Saturation 97 % (95-98) 04/10/18 11:38 <Pati Baeza - Last Filed: 04/16/18 10:19> (1) CAD (coronary artery disease) Qualifiers: Coronary Disease-Associated Artery/Lesion type: [place] artery [place] vs. transplanted heart: [place] heart Associated angina: without angina Qualified Code(s): I25.10 - Atherosclerotic heart disease of [place] coronary artery without angina pectoris (2) Cirrhosis Qualifiers: Hepatic cirrhosis type: unspecified hepatic cirrhosis Ascites presence: without ascites Qualified Code(s): K74.60 - Unspecified cirrhosis of liver (3) Hypertension Qualifiers: Hypertension type: essential hypertension Qualified Code(s): I10 - Essential (primary) hypertension (4) Anemia Qualifiers: Anemia type: iron deficiency Iron deficiency anemia type: chronic blood loss Qualified Code(s): D50.0 - Iron deficiency anemia secondary to blood loss (chronic) (8) Diabetes mellitus Qualifiers: Diabetes mellitus type: type 2 Diabetes mellitus data operations director insulin use: with usp use Diabetes mellitus complication status: with hyperglycemia Qualified Code(s): E11.65 - Type 2 diabetes mellitus with hyperglycemia; Z79.4 - correction (current) use of insulin (12) Pulmonary edema Qualifiers: Chronicity: acute Qualified Code(s): J81.0 - Acute pulmonary edema <Arias,Nilesh - Last Filed: 04/16/18 16:19> (2) CAD (coronary artery disease) Qualifiers: Coronary Disease-Associated Artery/Lesion type: [place] artery [place] vs. transplanted heart: [place] heart Associated angina: without angina Qualified Code(s): I25.10 - Atherosclerotic heart disease of [place] coronary artery without angina pectoris (3) Cirrhosis Qualifiers: Hepatic cirrhosis type: unspecified hepatic cirrhosis Ascites presence: without ascites Qualified Code(s): K74.60 - Unspecified cirrhosis of liver (4) Hypertension Qualifiers: Hypertension type: essential hypertension Qualified Code(s): I10 - Essential (primary) hypertension (5) Anemia Qualifiers: Anemia type: iron deficiency Iron deficiency anemia type: chronic blood loss Qualified Code(s): D50.0 - Iron deficiency anemia secondary to blood loss (chronic) (9) Diabetes mellitus Qualifiers: Diabetes mellitus type: type 2 Diabetes mellitus data operations director insulin use: with data operations director use Diabetes mellitus complication status: with hyperglycemia Qualified Code(s): E11.65 - Type 2 diabetes mellitus with hyperglycemia; Z79.4 - awning hanger helper (current) use of insulin (12) Pulmonary edema Qualifiers: Chronicity: acute Qualified Code(s): J81.0 - Acute pulmonary edema
[2018-04-16] MEDS: Isosorbide MONOnitrate (24 HR) 30 MG TAB.ER.24H PO SCH (09:33)
[2018-04-16] MEDS: Cholecalciferol (D-3) 1,000 UNIT TABLET PO SCH (09:33)
[2018-04-16] MEDS: Lactobacillus 1 EACH CAP.SPRINK PO SCH (09:33)
[2018-04-16] MEDS: cloNIDine HCl 0.1 MG TABLET PO SCH (09:34)
[2018-04-16] MEDS: Multivit/Ca/Min/Fe/FA 1 TAB TABLET PO SCH (09:34)
[2018-04-16] MEDS: Bumetanide 1 MG TABLET PO SCH (09:34)
[2018-04-16] MEDS: Nystatin POWDER 30 GM BOTTLE TP SCH (09:36)
[2018-04-16] MEDS: Insulin LISPRO 300 UNITS/3 ML VIAL SQ SCH ×2 (09:36→13:31)
--- NOTE | 2018-04-16 09:39 | Nephrology Progress Note ---
Addendum entered and electronically signed by Regulo Cochran DO 04/16/18 17:19: I have personally performed a face to face evaluation on this patient. I have reviewed and agree with the care plan. History and Exam by me shows: Recommend next HD for tomorrow to maintain her schedule of HD every MWF. Discussed H/H with primary team. Thank you . Original Note: Date of Encounter: 04/16/18 Time of Encounter: 09:37 - Assessment and Plan (1) ESRD (end stage renal disease) on dialysis Current Visit: Yes Status: Acute Current regimen is MWF. HD completed yesterday. Avoid nephrotoxins and renal dose. Continue renal diet May go home from a renal stand point. (2) Cellulitis Current Visit: No Status: Acute Patient states she is currently being treated for BLL cellulitis per primary team Qualifiers: Site of cellulitis: extremity Site of cellulitis of extremity: lower extremity Laterality: unspecified laterality Qualified Code(s): L03.119 - Cellulitis of unspecified part of limb (3) Anemia Current Visit: No Status: Suspected Hgb is 8.4 today, awaiting recheck and if stable then primary is going to discharge home. Stool is + for occult blood. Transfusion parameters per primary team Upper and lower scope completed yesterday. Qualifiers: Anemia type: iron deficiency Iron deficiency anemia type: chronic blood loss Qualified Code(s): D50.0 - Iron deficiency anemia secondary to blood loss (chronic) (4) HTN (hypertension) Current Visit: Yes Status: Acute Stable. Qualifiers: Qualified Code(s): I10 - Essential (primary) hypertension Subjective Principal diagnosis: low hgb Interval history: Pt seen and examined is doing well. Denies shortness of breath or chest pain. Denies nausea/vomiting/diarrhea. Objective - Vital Signs Vital signs: Vital Signs Temp Pulse Resp BP Pulse Ox 04/16/18 07:15 97.7 F 64 132/58 98 04/16/18 04:54 63 17 124/53 95 04/15/18 20:30 96 04/15/18 20:14 97.7 F 76 17 144/65 96 04/15/18 16:48 98.2 F 82 17 153/63 94 04/15/18 13:45 99.3 F 17 123/61 04/15/18 13:30 131/67 04/15/18 13:15 121/60 04/15/18 13:00 172/63 04/15/18 12:45 176/56 04/15/18 12:30 172/60 04/15/18 12:15 159/58 04/15/18 12:00 147/68 04/15/18 11:45 156/55 04/15/18 11:30 165/63 04/15/18 11:15 166/71 04/15/18 11:00 153/66 04/15/18 10:45 166/67 04/15/18 10:30 158/55 04/15/18 10:15 115/49 04/15/18 10:00 98.1 F 16 111/55 Intake and Output 04/15/18 04/16/18 04/16/18 23:59 07:59 15:59 Output Total 0 / 0 0 / 0 Balance 0 / 0 0 / 0 Output: Urine 0 / 0 0 / 0 Other: Weight 106 kg Blood Glucose* 193 106 Patient Weight 04/16/18 23:59 Weight 106 kg - General Appearance General appearance: Present: well-developed, well-nourished EENT: Present: ATNC, hearing intact, vision intact Neck: Present: supple Respiratory: Present: clear Cardiology: Present: edema (Trace bilat lower extremity edema.), normal S1, normal S2 Dialysis Vascular Access: Venous Catheter (Tunneled Line, DRSG C/D/I) Gastrointestinal: Present: normoactive bowel sounds, no tenderness, no guarding Integumentary: Present: no rash, warm and dry Neurologic: Present: alert and oriented x3 Psychiatric: Present: mood/affect appropriate, cooperative - Lab 04/16/18 09:42 04/15/18 04:00 Most recent lab results ABG pH 7.45 pH Units (7.32-7.45) 04/10/18 11:38 ABG pCO2 48 mmHg (35-45) H 04/10/18 11:38 ABG pO2 91 mmHg (85-104) 04/10/18 11:38 ABG HCO3 34 mEq/L (21-27) H 04/10/18 11:38 ABG O2 Saturation 97 % (95-98) 04/10/18 11:38 Calcium 8.3 mg/dL (8.6-10.3) L 04/15/18 04:00 Magnesium 1.9 mg/dL (1.6-2.6) 04/10/18 06:31 Consult Discharge Plan - Plan Additional Instructions: - Continue taking IV Ancef until 04/26/2018. - Follow up with infectious diseases as an outpatient. - Continue with dialysis appointments (MW). - Follow Up with systems test analyst as an outpatient in 2 weeks. - Continue on renal diet. -go the ED if the worsening shortness of breath, lightheartedness, fast heart rate or fatigue cbc in 3 days Referrals: NONE,PCP [Primary Care Provider] - Antoni Potts MD [Partnered Physician] - (office will call patient with appointment date and time) Dejah Suárez MD [Partnered Physician] - (i web requested an appointment they should call patient to let them know appointment date and time) Prescriptions: Pantoprazole Sodium [Protonix] 40 mg PO DAILY 30 Days #1 tablet.
[2018-04-16 09:50] LABS: Hematocrit 28.6 % (35.3-44.9); Hemoglobin 8.8 g/dL (11.5-15.4)
[2018-04-16 11:08] VITALS: BP 123/59
== END 2018-04-16 18:01 | DRG 377 ==
LOC: 2NENU 15:20 → EMEROOARM 15:20 → SUATTDRO 18:47 → 2NENU 20:35 → SUATTDRO 04-10 17:04
PROVIDERS: ADMIT Internal Medicine; ATTEND Internal Medicine

== ENCOUNTER 2018-04-17 15:00 | Observation (INO) ==
[2018-04-17] MEDS ORDERED: 0.9 % Sodium Chloride 250 ML IVC PRN (16:50)
--- NOTE | 2018-04-17 17:02 | Nephrology Consult Note ---
Date of Encounter: 04/17/18 Time of Encounter: 17:00 Assessment and Plan (1) ESRD (end stage renal disease) on dialysis Status: Acute Will arrange for HD today. She was just discharged yesterday and returns today with acute respiratory distress. I was consulted late in the day on Friday, and I will arrange for 2hr of HD on Friday and another dialysis on Friday. (2) Acute respiratory distress Status: Acute See above. History of Present Illness - Reason for Consult Consult date: 04/17/18 end stage renal disease Requesting physician: Krunal Reddy - Chief Complaint ESRD and shortness of breath - History of Present Illness Alicia Taylor is a pleasant 78 y/o WF with a pmh of ESRD on HD MWF with a Permacath. Nephrology was consulted late on Friday with a request for extra dialysis. She was just discharged yesterday. She was not able to provide any HPI or ROS history d/t her AMS, but reportedly she was being taking to her routine dialysis unit at [facility] in [place], [place], and was confused and brought back to [facility] [place]. She did not yet have her HD for Friday. I reviewed the [facility] [employer] EHR on the mobile Allie and her primary health service coordinator is Dr. Rosales. She has not been on dialysis long. Past Med Surg Social Fam HX - Past Medical History Medical history: arthritis, cancer, cirrhosis, CHF, diabetes, hyperlipidemia, hypertension, liver disease, renal disease Additional medical history: valvular heart disease Psychiatric history: no psych history - Past Surgical History Surgical History: appendectomy, cataract, heart valve replacement, hysterectomy, [place]/BSO Additional surgical history: HAMMER TOES. ACHILLES HEEL REPAIR. LEFT TKR. BLADDER REPAIR. AVR 08/2014. A&P. BREAST BIOPSY - Social History Smoking Status: Former smoker Smokeless Tobacco Status: No Alcohol use: none Drug use: none - Family History Mother Living Status: Hx Family Cardiac Disorders: No Hx Family Respiratory Disorders: No Hx Family Endocrine Disorder: Yes Hx Family Neurologic Disorders: Yes Medications and Allergies Cholecalciferol (D-3) [Vitamin D] 1,000 unit PO DAILY 04/07/17 [History] Multivit-Min/FA/Lycopen/Lutein [Centrum Silver Tablet] 1 tab PO DAILY 04/07/17 [History] Vitamin E Acetate [Vitamin E] 400 unit PO DAILY 04/07/17 [History] Ferrous Sulfate [Iron] 325 mg PO DAILY 11/28/17 [History] Insulin Glargine,Hum.rec.anlog [Lantus Solostar] 30 units SQ HS 11/28/17 [History] Insulin LISPRO [Humalog] 0 unit SQ TIDWM 11/28/17 [History] Metoprolol [Lopressor] 12.5 mg PO BID 11/28/17 [History] Isosorbide MONOnitrate (24 HR) [Imdur] 30 mg PO DAILY #30 tab.er.24h 12/26/17 [Rx] ceFAZolin [Ancef] 1,000 gm IV 1900 02/28/18 [History] Bumetanide [Bumex] 1 mg PO DAILY 04/10/18 [History] Docusate [Colace] 100 mg PO BID PRN 04/10/18 [History] L. Acidophilus/Pectin, Vill[place] [Acidophilus Caplet] 1 tab PO BID 04/10/18 [History] Allergy/AdvReac Type Severity Reaction Status Date / Time Diytvkh-Zbu-Ncc Reductase AdvReac Muscle Pain Verified 04/19/18 02:15 Inhibitor [Statins] Review of Systems ROS unobtainable: due to mental status Exam - Vital Signs Vital signs: Intake and Output 04/17/18 04/17/18 04/17/18 07:59 15:59 23:59 Other: Stool Size Small Stool Consistency soft formed Stool Characteristics Normal for Patient Stool Color Brown - General Appearance General appearance: well-developed, appears started age, moderate distress, fatigue, frail EENT: ATNC, PERRL, mucous membranes moist Neck: supple Respiratory: wheezing, course breath sounds Cardiology: edema (2+ pitting ankle edema b/l), normal S1, normal S2 - Dialysis Access Dialysis Vascular Access: Venous Catheter (Permacath without exitsite erythema or exudates. The cuff was not exposed.) Gastrointestinal: no tenderness, no guarding, obese Integumentary: warm and dry Neurologic: no focal deficit, confused, disoriented Musculoskeletal: no deformities, no erythema, no clubbing Psychiatric: cooperative Results - Lab Results 04/18/18 05:46 04/18/18 05:46 I reviewed the labs, vitals, med lists, progress notes and imaging. Consult Discharge Plan - Plan Instructions: Diabetes Mellitus Type 2 in Adults (DC) Referrals: NONE,PCP [Primary Care Provider] -
[2018-04-17] MEDS ORDERED: Naloxone 0.4 MG/ML INJ IVP PRN (17:20)
[2018-04-17] MEDS ORDERED: D5% in Water 1,000 ML IVC PRN (17:23)
[2018-04-17] MEDS ORDERED: *HR* Dextrose 50 % in Water (Syg) 50 ML SYRINGE IVP PRN (17:23)
[2018-04-17] MEDS ORDERED: Dextrose Gel 15 GM/37.5 ML TUBE PO PRN ×2 (17:23)
[2018-04-17] MEDS ORDERED: 0.9 % Sodium Chloride 2,000 ML ONE (17:36)
--- NOTE | 2018-04-17 18:09 | Internal Med History&Physical ---
Date of Encounter: 04/17/18 Time of Encounter: 17:30 Internal Medicine - H&P: HPI Chief complaint: Also mental status Admitted From: Hospital to Hospital Transfer History of present illness: Ms. Taylor is a 78 year old female with past medical history of diabetes, hypertension, hyperlipidemia, heart failure with preserved EF, ESRD on hemodialysis Friday, prosthetic aortic valve, presented to the outside facility with transient altered mental status. It appears that the nursing facility staff was concerned for her mental stats this morning when she was about to be sent for her usual dialysis session. Patient has no recollection of what had happened earlier today but is currently completely alert and oriented. Of note, she was recently admitted for acute on chronic anemia secondary to angioectasia and pulmonary edema. Patient states that she felt pretty good when she was discharged on 04/16 and also reports that she does not feel much different from the day that she was discharged. Denies any fever/chills, nausea/vomiting, shortness of breath, productive cough, abdominal pain, or diarrhea. Does not make any urine anymore so unsure about dysuria. No chest pain, palpitation, lightheadedness, or worsening leg swelling. At the outside facility, she was afebrile and hemodynamically stable. Initial workup showed stable hemoglobin, troponin 0.10, and ABG with pH 7.34 and CO2 of 57 (slightly higher than her usual values around 48). Lactic acid was normal. Chest x-ray was reviewed by myself and showed pulmonary edema with small bilateral pleural effusions. Patient was intolerant to BiPAP at the outside facility. Patient was transferred to [facility] with nephrology consult for inpatient dialysis. Past Med Surg Social Fam HX - Past Medical History Attestation: Yes The following information was validated with the patient. Source: patient, old records reviewed Medical history: arthritis, cancer, cirrhosis, CHF, diabetes, hyperlipidemia, hypertension, liver disease, renal disease Additional medical history: valvular heart disease Psychiatric history: no psych history - Past Surgical History Surgical History: appendectomy, cataract, heart valve replacement, hysterectomy, [place]/BSO Additional surgical history: HAMMER TOES. ACHILLES HEEL REPAIR. LEFT TKR. BLADDER REPAIR. AVR 08/2014. A&P. BREAST BIOPSY - Social History Smoking Status: Former smoker Smokeless Tobacco Status: No Alcohol use: none Drug use: none - Family History Mother Living Status: Hx Family Cardiac Disorders: No Hx Family Respiratory Disorders: No Hx Family Endocrine Disorder: Yes Hx Family Neurologic Disorders: Yes Internal Medicine - H&P: Meds Cholecalciferol (D-3) [Vitamin D] 1,000 unit PO DAILY 04/07/17 [History] Multivit-Min/FA/Lycopen/Lutein [Centrum Silver Tablet] 1 tab PO DAILY 04/07/17 [History] Vitamin E Acetate [Vitamin E] 400 unit PO DAILY 04/07/17 [History] Ferrous Sulfate [Iron] 325 mg PO DAILY 11/28/17 [History] Insulin Glargine,Hum.rec.anlog [Lantus Solostar] 30 units SQ HS 11/28/17 [History] Insulin LISPRO [Humalog] 0 unit SQ TIDWM 11/28/17 [History] Metoprolol [Lopressor] 12.5 mg PO BID 11/28/17 [History] Isosorbide MONOnitrate (24 HR) [Imdur] 30 mg PO DAILY #30 tab.er.24h 12/26/17 [Rx] cloNIDine HCl [CloNIDine HCl] 0.1 mg PO BID 02/11/18 [History] ceFAZolin [Ancef] 1,000 gm IV 1900 02/28/18 [History] Bumetanide [Bumex] 1 mg PO DAILY 04/10/18 [History] Docusate [Colace] 100 mg PO BID PRN 04/10/18 [History] L. Acidophilus/Pectin, [place] [Acidophilus Caplet] 1 tab PO BID 04/10/18 [History] Allergy/AdvReac Type Severity Reaction Status Date / Time [id number]-[id number] Reductase AdvReac Muscle Pain Verified 11/28/17 10:02 Inhibitor [Statins] All Systems PM: A 10-system review of systems was performed and is negative for pertinent findings except as documented above in the HPI. - Constitutional Vitals: Pulse Resp BP Pulse Ox 69 20 136/49 97 04/17/18 17:14 04/17/18 17:14 04/17/18 17:14 04/17/18 17:14 Exam: General: Alert and oriented, not in acute distress. HEENT:EOM, pupils equal, round and reactive. Cardiovascular:Normal S1 & S2, No JVD. Pulse regular. Lungs: Minimal bilateral crackles at the bases Abdomen:Soft, non-tender, no rigidity. Extremities: bilateral LE edema upto knees. Neurological:Normal cognition and motor skills. Non-focal Skin:Normal color, no rash, no lesions. Pulses:Carotid and radial pulses normal +2. Rest of the physical exam is non contributory - Assessment and plan (1) Acute and chronic respiratory failure with hypercapnia Current Visit: Yes Status: Acute Assessment and plan: in the setting of CXR finding of fluid overload intolerant to bipap, does not make any urine as well HD order per nephro, appreciate input educated pt the importance of compliance to BiPaP, at least overnight will repeat limited echo to assess for EF. Previous one in 01/2018 showed normal EF and moderate diastolic dysfunction as well as mod-severe pulmonary HTN 1st troponin 0.1, trend check EKG (2) Metabolic encephalopathy Current Visit: Yes Status: Resolved Assessment and plan: secondary to the above, currently no evidence of encephalopathy, tx as above (3) Elevated troponin Current Visit: No Status: Acute Assessment and plan: 0.1, in the setting of fluid overload, ESRD, and absence of anginal symptoms will trend check EKG limited echo as above (4) ESRD (end stage renal disease) on dialysis Current Visit: No Status: Acute Assessment and plan: HD per nephyung funk input (5) Diabetes mellitus type 2 in obese Current Visit: Yes Status: Chronic Assessment and plan: On Levemir 30 units and sliding scale at the nursing facility Resume Levemir at lower dose and cover with low-dose sliding scale. Accuchecks before meals and at bedtime, ADA diet (6) HTN (hypertension) Current Visit: Yes Status: Chronic Assessment and plan: Resume home meds when reconciled Qualifiers: Hypertension type: unspecified Qualified Code(s): I10 - Essential (primary) hypertension (7) MSSA bacteremia Current Visit: No Status: Acute Assessment and plan: hx of MSSA bacteremia in the presence of prosthetic aortic valve and left knee prosthesis last +ve culture on 03/01 blood cultures taken at the outside facility, follow up continue Ancef through 04/26 per ID (8) DVT prophylaxis Current Visit: Yes Status: Acute Assessment and plan: Subcutaneous heparin - Time Spent With Patient Total time spent is greater than 50% in coordination of care (as documented) at patient's floor/unit and/or counseling patient:
[2018-04-17] MEDS: *HR* Heparin 5,000 UNIT/ML VIAL SQ SCH (18:34)
[2018-04-17] MEDS ORDERED: ceFAZolin 1,000 MG in Water for inj. (sterile) 20 ML 10 ML IVP SCH (19:00)
[2018-04-17] MEDS ORDERED: Insulin DETEMIR 100 UNIT/ML X5UNITS SQ SCH (21:00)
[2018-04-17] MEDS ORDERED: Insulin LISPRO 300 UNITS/3 ML VIAL SQ SCH (21:00)
[2018-04-17] MEDS: Lactobacillus 1 EACH CAP.SPRINK PO SCH (22:12)
[2018-04-17] MEDS ORDERED: Perflutren Lipid Microsphere 1.3 ML in 0.9 % Sodium Chloride 8.7 ML IVP ONE (23:10)
[2018-04-17] MEDS ORDERED: Perflutren Lipid Microsphere 2 ML VIAL ONE (23:15)
[2018-04-18] MEDS ORDERED: Acetaminophen 325 MG TABLET PO PRN (04:03)
[2018-04-18] MEDS ORDERED: *HR* LORazepam 2 MG/ML VIAL IVP ONE (04:05)
[2018-04-18] MEDS: *HR* Heparin 5,000 UNIT/ML VIAL SQ SCH (05:39)
[2018-04-18 05:59] LABS: VBG HCO3 27 mEq/L (21-27); VBG PCO2 38 mmHg (41-51); VBG PH 7.47 pH Units (7.32-7.42); VBG PO2 102 mmHg (25-50)
[2018-04-18 06:01] LABS: Basophils % 0.4 %; Hemoglobin 8.6 g/dL (11.5-15.4); Monocytes # 1.1 K/mcL (0.0-1.3); Monocytes % 16.1 %
[2018-04-18 06:03] LABS: Eosinophils # 0.1 K/mcL (0.0-0.6); Eosinophils % 1.6 %; Hematocrit 28.2 % (35.3-44.9); Immature Granulocytes % 0.3 % (0-4); Immature Platelets 2.3 % (1.1-6.1); Lymphocytes # 0.5 K/mcL (0.6-4.6); Lymphocytes % 7.5 %; Mean Corpuscular HGB Conc 30.5 g/dL (31.6-35.5); Mean Corpuscular Hemoglobin 29.4 pg (28.0-33.3); Mean Corpuscular Volume 96.2 fL (83.0-100.0); Neutrophils # 5.1 K/mcL (1.6-8.9); Red Blood Count 2.93 M/mcL (3.82-4.97); Red Cell Distribution Width 18.2 % (11.5-14.5); Segmented Neutrophils % 74.1 %
[2018-04-18 06:17] LABS: Platelet Count 75 K/mcL (140-400)
[2018-04-18 06:19] LABS: Calcium 8.3 mg/dL (8.6-10.3); Potassium 4.2 mEq/L (3.5-5.1)
[2018-04-18] MEDS ORDERED: 0.9 % Sodium Chloride 2,000 ML ONE (07:00)
[2018-04-18] MEDS ORDERED: 0.9 % Sodium Chloride 250 ML IVC PRN (07:39)
[2018-04-18] MEDS ORDERED: 0.9 % Sodium Chloride 1,000 ML PRIME SCH (07:45)
[2018-04-18] MEDS ORDERED: *HR* Heparin 10,000 UNIT/10 ML VIAL IV PRN (08:09)
[2018-04-18] MEDS ORDERED: Isosorbide MONOnitrate (24 HR) 30 MG TAB.ER.24H PO SCH (09:00)
[2018-04-18] MEDS ORDERED: Cholecalciferol (D-3) 1,000 UNIT TABLET PO SCH (09:00)
[2018-04-18] MEDS ORDERED: Bumetanide 1 MG TABLET PO SCH (09:00)
[2018-04-18] MEDS: Lactobacillus 1 EACH CAP.SPRINK PO SCH (09:12)
[2018-04-18] MEDS: Insulin LISPRO 300 UNITS/3 ML VIAL SQ SCH ×2 (10:15→14:57)
--- NOTE | 2018-04-18 10:39 | Nephrology Progress Note ---
Date of Encounter: 04/18/18 Time of Encounter: 09:40 - Assessment and Plan (1) ESRD (end stage renal disease) on dialysis Status: Acute Will arrange for HD today () to target her peripheral edema. Discussed with the floor RN and engineering test mechanic in detail for dialysis today () and then to go back to a MWF regimen: I've also placed standing orders for HD on MWF going forward. (2) Peripheral edema Status: Acute See above (3) Thrombocytopenia Status: Chronic As per primary (4) Acute respiratory distress Status: Acute This may not be completely a fluid factor, but nevertheless, I've ordered another back to back dialysis treatment for today (Friday). Subjective Principal diagnosis: ESRD Interval history: Pt was s/e. She did not affirm N/V/D or F/C and said that she was not sure why she was brought back to the hospital yesterday. She said her breathing was easier today compared to yesterday. Objective - Vital Signs Vital signs: Vital Signs Temp Pulse Resp BP Pulse Ox 04/18/18 09:27 70 94 04/18/18 07:16 98.3 F 72 129/53 94 04/18/18 04:02 98.6 F 69 18 122/64 95 04/17/18 23:31 97.7 F 75 16 119/54 98 04/17/18 22:27 102 97 04/17/18 22:05 97.6 F 74 18 129/90 97 04/17/18 21:20 97.1 F L 18 174/73 04/17/18 21:00 166/77 04/17/18 20:45 165/100 04/17/18 20:30 149/100 04/17/18 20:15 154/73 04/17/18 20:00 136/58 04/17/18 19:45 142/87 04/17/18 19:30 153/73 04/17/18 19:15 148/74 04/17/18 19:00 97.0 F L 20 150/75 04/17/18 17:14 69 20 136/49 97 Intake and Output 04/17/18 04/18/18 04/18/18 23:59 07:59 15:59 Intake Total 610 / 610 30 / 30 Output Total 3100 / 3100 0 / 0 Balance -2490 / -2490 30 Intake: IV Fluids Ancef 1,000 MG In Water for inj . (sterile) 10 ML @ 200 mls/hr IVP Q24H [facility] Rx#:[id number] Oral 0 / 0 30 / 30 Intake, Rinseback and Flushes 600 / 600 Output: Urine 0 / 0 0 / 0 Total Dialysis (HD) Output 3100 / 3100 Other: Stool Size Small Stool Consistency soft formed Stool Characteristics Normal for Patient Stool Color Brown Weight 102.5 kg Blood Glucose* 179 234 234 Hemodialysis Net Fluid Removed 2500 (mL) - General Appearance Exam: General appearance: well-developed, appears started age, moderate distress, fatigue, frail EENT: ATNC, PERRL, mucous membranes moist Neck: supple Respiratory: wheezing, course breath sounds Cardiology: edema (1-2+ pitting ankle edema b/l), normal S1, normal S2 - Dialysis Access Dialysis Vascular Access: Venous Catheter (Permacath without exitsite erythema or exudates. The cuff was not exposed.) Gastrointestinal: no tenderness, no guarding, obese Integumentary: warm and dry Neurologic: no focal deficit, alert and conversant Musculoskeletal: no deformities, no erythema, no clubbing Psychiatric: cooperative - Lab 04/18/18 05:46 04/18/18 05:46 Most recent lab results Calcium 8.3 mg/dL (8.6-10.3) L 04/18/18 05:46 Consult Discharge Plan - Plan Instructions: Diabetes Mellitus Type 2 in Adults (DC) Referrals: NONE,PCP [Primary Care Provider] -
--- NOTE | 2018-04-18 12:56 | Discharge Summary ---
- NOTES TO OUTPATIENT PROVIDER Notes to Outpatient Provider: Patient was admitted for transient encephalopathy likely due to mild respiratory acidosis 2/2 volume overload. Upon transfer to [facility], she was already alert and oriented x 3. Underwent 2 sessions of HD unevenfully with improvement in her blood gas and she will be discharged back to her facility to follow up on routine HD schedule. Holding clonidine as her BP drops a bit during HD. Orders not resulted at time of discharge: Pending orders 04/17/18 17:38 EKG [ECG 12 lead ECG] [ECG] Routine Date of Encounter: 04/18/18 Time of Encounter: 09:30 - Discharge Diagnosis (1) Acute and chronic respiratory failure with hypercapnia Priority: Primary Status: Acute (2) Metabolic encephalopathy Priority: Secondary Status: Resolved (3) Elevated troponin Priority: Secondary Status: Acute (4) ESRD (end stage renal disease) on dialysis Priority: Secondary Status: Acute (5) Diabetes mellitus type 2 in obese Priority: Secondary Status: Chronic (6) HTN (hypertension) Priority: Secondary Status: Chronic Qualifiers: Hypertension type: unspecified Qualified Code(s): I10 - Essential (primary) hypertension (7) MSSA bacteremia Priority: Secondary Status: Acute (8) DVT prophylaxis Priority: Secondary Status: Acute Hospital course: Ms. Taylor is a 78 year old female with past medical history of diabetes, hypertension, hyperlipidemia, heart failure with preserved EF, ESRD on hemodialysis Friday, prosthetic aortic valve, was admitted for transient encephalopathy likely due to mild respiratory acidosis 2/2 volume overload. Upon transfer to [facility], she was already alert and oriented x 3. Underwent 2 sessions of HD unevenfully with improvement in her blood gas and she will be discharged back to her facility to follow up on routine HD schedule. Holding clonidine as her BP drops a bit during HD. Discharge discussed with: patient, nurse - Time Spent with Patient Total time spent providing and/or coordinating discharge services: 34 mins - Discharge Medications Home Medications: Cholecalciferol (D-3) [Vitamin D] 1,000 unit PO DAILY 04/07/17 [History] Multivit-Min/FA/Lycopen/Lutein [Centrum Silver Tablet] 1 tab PO DAILY 04/07/17 [History] Vitamin E Acetate [Vitamin E] 400 unit PO DAILY 04/07/17 [History] Ferrous Sulfate [Iron] 325 mg PO DAILY 11/28/17 [History] Insulin Glargine,Hum.rec.anlog [Lantus Solostar] 30 units SQ HS 11/28/17 [History] Insulin LISPRO [Humalog] 0 unit SQ TIDWM 11/28/17 [History] Metoprolol [Lopressor] 12.5 mg PO BID 11/28/17 [History] Isosorbide MONOnitrate (24 HR) [Imdur] 30 mg PO DAILY #30 tab.er.24h 12/26/17 [Rx] ceFAZolin [Ancef] 1,000 gm IV 1900 02/28/18 [History] Bumetanide [Bumex] 1 mg PO DAILY 04/10/18 [History] Docusate [Colace] 100 mg PO BID PRN 04/10/18 [History] L. Acidophilus/Pectin, [place] [Acidophilus Caplet] 1 tab PO BID 04/10/18 [History] Allergies/Adverse Reactions: Allergy/AdvReac Type Severity Reaction Status Date / Time Slwrnlm-Hpo-Izt Reductase AdvReac Muscle Pain Verified 11/28/17 10:02 Inhibitor [Statins] Date of admission: 04/17/18 16:31 Primary care physician: PCP NONE Consults: 04/17/18 17:00 Consult to Dialysis [CONS] ONCE 04/17/18 18:00 Consult to Pastoral Services [CONS] Routine Comment: Consult to Belt Dresser [CONS] Routine Reason for SW Consult: d/c arrangement to return to [facility] 04/18/18. HD patient M-W-F salazar. 04/18/18 07:45 Consult to Dialysis [CONS] ONCE - Constitutional Vitals: Temp Pulse Resp BP Pulse Ox 98.3 F 70 18 129/53 94 04/18/18 07:16 04/18/18 09:27 04/18/18 04:02 04/18/18 07:16 04/18/18 09:27 Exam: General: Alert and oriented, not in acute distress. Cardiovascular:Normal S1 & S2, No JVD. Pulse regular. Lungs: Minimal bilateral crackles at the bases Abdomen:Soft, non-tender, no rigidity. Extremities: bilateral LE edema upto knees. Neurological:Normal cognition and motor skills. Non-focal - Patient Status Disposition: Transfer SNF Condition: Fair Overall status at discharge: patient is progressing back to baseline - Discharge Instructions Instructions: Diabetes Mellitus Type 2 in Adults (DC) Follow Up With: NONE,PCP [Primary Care Provider] - - Diet and Activity Activity: as per physical therapy Diet: advance to your usual diet
--- NOTE | 2018-04-18 12:59 | Physician Discharge Referral ---
ExtendedCare Referral Info Institutional Level of Care: Skilled - Diagnosis (1) Acute and chronic respiratory failure with hypercapnia Priority: Primary Status: Acute (2) Metabolic encephalopathy Priority: Secondary Status: Resolved (3) Elevated troponin Priority: Secondary Status: Acute (4) ESRD (end stage renal disease) on dialysis Priority: Secondary Status: Acute (5) Diabetes mellitus type 2 in obese Priority: Secondary Status: Chronic (6) HTN (hypertension) Priority: Secondary Status: Chronic (7) MSSA bacteremia Priority: Secondary Status: Acute (8) DVT prophylaxis Priority: Secondary Status: Acute - Transfer Medications Home Medications: Cholecalciferol (D-3) [Vitamin D] 1,000 unit PO DAILY 04/07/17 [History] Multivit-Min/FA/Lycopen/Lutein [Centrum Silver Tablet] 1 tab PO DAILY 04/07/17 [History] Vitamin E Acetate [Vitamin E] 400 unit PO DAILY 04/07/17 [History] Ferrous Sulfate [Iron] 325 mg PO DAILY 11/28/17 [History] Insulin Glargine,Hum.rec.anlog [Lantus Solostar] 30 units SQ HS 11/28/17 [History] Insulin LISPRO [Humalog] 0 unit SQ TIDWM 11/28/17 [History] Metoprolol [Lopressor] 12.5 mg PO BID 11/28/17 [History] Isosorbide MONOnitrate (24 HR) [Imdur] 30 mg PO DAILY #30 tab.er.24h 12/26/17 [Rx] ceFAZolin [Ancef] 1,000 gm IV 1900 02/28/18 [History] Bumetanide [Bumex] 1 mg PO DAILY 04/10/18 [History] Docusate [Colace] 100 mg PO BID PRN 04/10/18 [History] L. Acidophilus/Pectin, [place] [Acidophilus Caplet] 1 tab PO BID 04/10/18 [History] Allergies/Adverse Reactions: Allergy/AdvReac Type Severity Reaction Status Date / Time Skzfkrx-[id number]-Fvp Reductase AdvReac Muscle Pain Verified 11/28/17 10:02 Inhibitor [Statins] - Respiratory Orders Oxygen / L per min (prior O2 setting) Smoking Cessation: Smoking cessation has been advised. For more information, call the [employer] Tobacco Quit Line at 5-163-FBFZ-NOW. - Rehabiliation Orders Rehab Orders: Evaluation for Physical Therapy, Evaluation for Occupational Therapy CERTIFICATION: I certify that the transfer of the above named patient to an Extended Care Facility is necessary for the continuing treatment of the diagnosis listed. The above information is true and accurate reflection of patient's current condition. Confidential - Redisclosure prohibited without a patient's written consent.
[2018-04-18 14:45] VITALS: BP 116/54
--- NOTE | 2018-04-21 07:22 | Electrocardiograph Report ---
[place] [address] Test Date: 2018-04-17 Pat Name: Alicia Taylor Department: 110 Room: 2N05 Gender: F Segment Producer: MEKHI : 1940 Requested By: Krunal Reddy Order Number: [id number] Reading MD: Isak Rosas Measurements Intervals [place] Rate: 69 P: -70 MS: 97 QRS: 158 QRSD: 91 T: 149 QT: 380 QTc: 399 Interpretive Statements Possible ectopic atrial rhythm Consider limb lead reversal Electronically Signed On 04-21-2018 7:20:30 EST by Isak Rosas
== END 2018-04-18 16:04 ==
LOC: 2NNU → SUATTDRO 16:31
PROVIDERS: ADMIT Internal Medicine; ATTEND Internal Medicine

== ENCOUNTER 2018-04-19 01:51 | Inpatient (IN) ==
--- NOTE | 2018-04-19 02:20 | Emergency Department Note ---
Addendum entered and electronically signed by Jose De Jesus Vinson DO 04/19/18 06:50: Addendum: Documentation air due to dragon dictation. Patient's daughter wants the patient to remain a full code, patient is in agreement with this. She *does* want the patient to be admitted at this time. Original documentation stated that she did not want patient admitted, this was dragon dictation error. Original Note: Disposition Clinical Impression: Mental status, decreased, History of bacteremia Hypothyroidism Qualifiers: Hypothyroidism type: unspecified Qualified Code(s): E03.9 - Hypothyroidism, unspecified Fatigue Qualifiers: Fatigue type: unspecified Qualified Code(s): R53.83 - Other fatigue Disposition: Admitted As Inpatient Condition: Fair Time of Disposition: 06:03 Altered Mental Status HPI - General Chief Complaint: ED Altered Mental Status Stated Complaint: AMS Time Seen by Provider: 04/19/18 02:05 Source: patient, EMS Mode of arrival: EMS Limitations: other Nursing Notes Reviewed: Yes Vital Signs Reviewed: Yes - History of Present Illness HPI Narrative: Patient is a 78-year-old female with past medical history of hypertension, hyperlipidemia, diabetes, dementia, cirrhosis, CHF, diabetes, hypothyroidism, CKD and dialysis. She was also recently discharged from [facility] due to MSSA bacteremia and is currently receiving Ancef through a PICC line. [facility] due to concern for altered mental status. They state that the patient was less responsive and confused today. Her family is also present at bedside and agrees that she has had a change in her mental status. The patient herself is able to answer questions appropriately but does answer them somewhat slowly and appears to be very sleepy on exam. She denies any chest pain, shortness of breath, nausea, vomiting, diarrhea, abdominal pain, dysuria, hematuria. Denies any recent changes in medications. Denies any specific numbness, tingling, weakness. She does admit to overall fatigue. - Related Data Home Medications Medication Instructions Recorded Confirmed RX: Cholecalciferol (D-3) [Vitamin 1,000 unit PO DAILY 04/07/17 04/17/18 D] RX: Multivit-Min/FA/Lycopen/Lutein 1 tab PO DAILY 04/07/17 04/17/18 [Centrum Silver Tablet] RX: Vitamin E Acetate [Vitamin E] 400 unit PO DAILY 04/07/17 04/17/18 RX: Ferrous Sulfate [Iron] 325 mg PO DAILY 11/28/17 04/17/18 RX: Insulin Glargine,Hum.rec.anlog 30 units SQ HS 11/28/17 04/17/18 [Lantus Solostar] RX: Insulin LISPRO [Humalog] 0 unit SQ TIDWM 11/28/17 04/17/18 RX: Metoprolol [Lopressor] 12.5 mg PO BID 11/28/17 04/17/18 RX: ceFAZolin [Ancef] 1,000 gm IV 1900 02/28/18 04/17/18 RX: Bumetanide [Bumex] 1 mg PO DAILY 04/10/18 04/17/18 RX: Docusate [Colace] 100 mg PO BID PRN 04/10/18 04/17/18 RX: L. Acidophilus/Pectin, Darby 1 tab PO BID 04/10/18 04/17/18 [Acidophilus Caplet] Previous Rx's Medication Instructions Recorded RX: Isosorbide MONOnitrate (24 HR) 30 mg PO DAILY #30 tab.er.24h 12/26/17 [Imdur] Allergies Allergy/AdvReac Type Severity Reaction Status Date / Time Ctlfovs-Xyg-Grf Reductase AdvReac Muscle Pain Verified 04/19/18 02:15 Inhibitor [Statins] All systems ED: reviewed and negative except as stated. Constitutional: Denies: fever Cardiovascular: Denies: chest pain Respiratory: Denies: cough, dyspnea, sputum production Gastrointestinal: Denies: abdominal pain, nausea, vomiting, diarrhea, constipation Genitourinary: Denies: urgency, dysuria, frequency, hematuria, discharge Neurological: Denies: headache, weakness, numbness, paresthesias Past Medical History - Past Medical History Attestation: Yes The following information was validated with the patient. Source: patient Medical history: Reports: arthritis, cancer, cirrhosis, CHF, diabetes, hyperlipidemia, hypertension, liver disease, renal disease Surgical history: Reports: appendectomy, cataract, heart valve replacement, hysterectomy, [place]/BSO Psychiatric history: Reports: no psych history - Social History Smoking Status: Former smoker Smokeless Tobacco Status: No Alcohol use: Reports: none Drug use: Reports: none Physical Exam - General General appearance: other (Sleepy but arousable) - Head Head exam: atraumatic, normocephalic, normal inspection - Eye Eye exam: Present: normal appearance, PERRL, EOMI - ENT ENT exam: normal exam, normal oropharynx, mucous membranes moist - Neck Neck exam: Present: normal inspection, full ROM, trachea midline - Chest Chest inspection: Present: normal inspection, symmetric chest wall rise - Respiratory Respiratory exam: Present: normal lung sounds bilaterally - Cardiovascular Cardiovascular exam: Present: regular rate, normal rhythm, normal heart sounds - Abdominal Exam Abdominal exam: Present: soft, Non-Tender. Absent: tenderness, distention, guarding, rebound, rigidity - Extremities Exam Extremities exam: Present: normal inspection, full ROM. Absent: tenderness, pedal edema - Neurological Exam Neurological exam: Present: oriented X3, CN II-XII intact, other (sleepy on exam). Absent: motor sensory deficit - Expanded Neurological Exam Patient oriented to: Present: person, place, time Speech: Absent: fluid speech Cranial nerves: EOM function (II, III, IV, ): Normal, facial sensation (V): Normal, facial palsy (VII): Normal, spinal accessory function (XI): Normal, tongue deviation (XII): Normal Motor strength - LUE: 4/5 Motor strength - RUE: 4/5 Motor strength - LLE: 4/5 Motor strength - RLE: 4/5 Sensory exam upper extremity: light touch: Normal Sensory exam lower extremity: light touch: Normal Coma Scale Eye Opening: To Voice Coma Scale Motor Response: Obeys Commands Coma Scale Verbal Response: Oriented Coma Scale Total: 14 - Psychiatric Psychiatric exam: Present: normal affect, normal mood - Skin Skin exam: Present: warm, dry, intact, normal color Course Course Narrative: Vitals within normal limits. Physical exam shows no focal neurologic deficits. Patient is sleepy on exam but is arousable and answers questions appropriately. Do not feel that CT the head is necessary at this time. Basic labs show chronic anemia, CKD near baseline for the patient, troponin elevated near baseline for the patient. No current chest pain or shortness of breath. Urine shows likely contamination but will send cultures. We will culture was also sent due to history of bacteremia. Chest x-ray negative for any acute cardio pulmonary process but does show some pulmonary edema bilateral effusions. Did not aggressively give fluid at this time due to pulmonary edema and effusions. Ammonia level within normal limits. CO2 level shows no major abnormality from baseline. TSH was elevated at 12. Currently pending free T3 and T4. Family not comfortable with patient going back to the [facility] at this time. We will wait on pending labs and then admitted to the hospitalist for generalized fatigue and sleepiness, change in mental status, hypothyroidism. Patient received ancef today at outside facility. No additional antibiotics necessary at this time. 04:47 free T3 mildly low. Free T4 normal. Results were all discussed with the patient and family. After discussing wishes, patient states that she wanted to leave decision fall. Further care in the hands of her daughter Tiera. I discussed everything with daily, she was for the patient to remain a full code and does not want the patient to be admitted that this time for generalized fatigue, change in mental status, hypothyroidism, recent MSSA infection and further care. Chest X-Ray 04/19/18 02:13 IMPRESSION: No significant change in pulmonary edema and bilateral effusions. D/ / Scooby Bond MD / Scooby Bond MD Interpreting Provider: Scooby Bond MD Vital Signs Temperature 98.8 F 04/19/18 02:10 Pulse Rate 82 04/19/18 02:10 Respiratory Rate 18 04/19/18 02:10 Blood Pressure 122/55 04/19/18 02:10 O2 Sat by Pulse Oximetry 96 04/19/18 02:10 Temperature 98.8 F 04/19/18 02:10 Pulse Rate 89 04/19/18 04:52 Respiratory Rate 20 04/19/18 04:52 Blood Pressure 135/70 04/19/18 04:52 O2 Sat by Pulse Oximetry 95 04/19/18 04:52 Oxygen Delivery Oxygen Delivery Nasal Cannula Altered Mental Status - MDM Narrative Medical decision making narrative: Vitals within normal limits. Physical exam shows no focal neurologic deficits. Patient is sleepy on exam but is arousable and answers questions appropriately. Do not feel that CT the head is necessary at this time. Basic labs show chronic anemia, CKD near baseline for the patient, troponin elevated near baseline for the patient. No current chest pain or shortness of breath. Urine shows likely contamination but will send cultures. We will culture was also sent due to history of bacteremia. Chest x-ray negative for any acute cardio pulmonary process but does show some pulmonary edema bilateral effusions. Did not aggressively give fluid at this time due to pulmonary edema and effusions. Ammonia level within normal limits. CO2 level shows no major abnormality from baseline. TSH was elevated at 12. Currently pending free T3 and T4. Family not comfortable with patient going back to the [facility] at this time. We will wait on pending labs and then admitted to the hospitalist for generalized fatigue and sleepiness, change in mental status, hypothyroidism. Patient received ancef today at outside facility. No additional antibiotics necessary at this time. 04:47 free T3 mildly low. Free T4 normal. Results were all discussed with the patient and family. After discussing wishes, patient states that she wanted to leave decision fall. Further care in the hands of her daughter Tiera. I discussed everything with daily, she was for the patient to remain a full code and does not want the patient to be admitted that this time for generalized fatigue, change in mental status, hypothyroidism, recent MSSA infection and further care. - Medical Records Medical records reviewed: Yes I reviewed the patient's medical records. - Lab Data Lab results reviewed: Yes I reviewed the patient's lab results. Result diagrams: 04/19/18 02:30 04/19/18 02:30 Lab Results 04/19/18 04/19/18 04/19/18 Range/Units 02:30 02:30 02:30 WBC 7.2 (4.3-11.1) K/mcL RBC 2.92 L (3.82-4.97) M/mcL Hgb 8.7 L (11.5-15.4) g/dL Hct 27.9 L (35.3-44.9) % MCV 95.5 (83.0-100.0) fL MCH 29.8 (28.0-33.3) pg MCHC 31.2 L (31.6-35.5) g/dL RDW 18.1 H (11.5-14.5) % Plt Count 66 L (140-400) K/mcL MPV 9.6 (9.4-12.4) fL Immature Gran % 0.6 (0-4) % Seg Neutrophils % 75.9 % Lymphocytes % 7.1 % Monocytes % 14.6 % Eosinophils % 1.4 % Basophils % 0.4 % Neutrophils # 5.5 (1.6-8.9) K/mcL Lymphocytes # 0.5 L (0.6-4.6) K/mcL Monocytes # 1.1 (0.0-1.3) K/mcL Eosinophils # 0.1 (0.0-0.6) K/mcL Basophils # 0.0 (0.0-0.2) K/mcL VBG pH (7.32-7.42) pH Units VBG pCO2 (41-51) mmHg VBG pO2 (25-50) mmHg VBG HCO3 (21-27) mEq/L Sodium 135 L (136-145) mEq/L Potassium 3.7 (3.5-5.1) mEq/L Chloride 99 (98-107) mEq/L Carbon Dioxide 28 (23-29) mEq/L BUN 16 (8-23) mg/dL Creatinine 2.64 H (0.60-1.20) mg/dL Est GFR ( Amer) 21 L (> 60) Est GFR (Non-Af Amer) 17 L (> 60) BUN/Creatinine Ratio 6 (6-26) Glucose 197 H (70-105) mg/dL Calculated Osmolality 287 (280-300) Calcium 8.3 L (8.6-10.3) mg/dL Total Bilirubin 0.6 (0.3-1.0) mg/dL Direct Bilirubin 0.2 (0.0-0.2) mg/dL Indirect Bilirubin 0.4 (0.0-1.2) mg/dL AST 23 (13-39) Units/L ALT < 3 L (7-52) Units/L Alkaline Phosphatase 133 H (34-104) Units/L Ammonia 50 (16-53) mcmol/L Troponin I 0.08 H* (< 0.04) ng/mL Serum Total Protein 7.0 (6.4-8.9) g/dL Albumin 2.8 L (3.5-5.7) g/dL Globulin 4.2 H (2.4-3.5) g/dL Albumin/Globulin Ratio 0.7 L (1.1-2.2) TSH 12.596 H (0.340-5.600) mcIU/mL Free T4 0.83 (0.70-2.00) ng/dl Free T3 2.43 L (2.50-3.90) pg/mL Urine Color (Yellow) Urine Clarity (Clear) Urine pH (5.0-8.0) pH Units Ur Specific [place] (1.010-1.025) Urine Protein (Neg-Trace) mg/dL Urine Glucose (UA) (Normal) mg/dL Urine Ketones (Negative) mg/dL Urine Blood (Negative) Urine Nitrite (Negative) Urine Bilirubin (Negative) Urine Urobilinogen (Normal) mg/dL Ur Leukocyte Esterase (Negative) Urine Microscopic RBC (0-3) per hpf Urine Microscopic WBC (0-3) per hpf Ur Squamous Epith Cells (None-Few) per lpf Urine Bacteria (None-Few) per hpf Hyaline Casts (None-Few) per lpf Ur Culture Indicated? (NO) 04/19/18 04/19/18 Range/Units 02:52 03:31 WBC (4.3-11.1) K/mcL RBC (3.82-4.97) M/mcL Hgb (11.5-15.4) g/dL Hct (35.3-44.9) % MCV (83.0-100.0) fL MCH (28.0-33.3) pg MCHC (31.6-35.5) g/dL RDW (11.5-14.5) % Plt Count (140-400) K/mcL MPV (9.4-12.4) fL Immature Gran % (0-4) % Seg Neutrophils % % Lymphocytes % % Monocytes % % Eosinophils % % Basophils % % Neutrophils # (1.6-8.9) K/mcL Lymphocytes # (0.6-4.6) K/mcL Monocytes # (0.0-1.3) K/mcL Eosinophils # (0.0-0.6) K/mcL Basophils # (0.0-0.2) K/mcL VBG pH 7.38 (7.32-7.42) pH Units VBG pCO2 52 H (41-51) mmHg VBG pO2 69 H (25-50) mmHg VBG HCO3 31 H (21-27) mEq/L Sodium (136-145) mEq/L Potassium (3.5-5.1) mEq/L Chloride (98-107) mEq/L Carbon Dioxide (23-29) mEq/L BUN (8-23) mg/dL Creatinine (0.60-1.20) mg/dL Est GFR ( Amer) (> 60) Est GFR (Non-Af Amer) (> 60) BUN/Creatinine Ratio (6-26) Glucose (70-105) mg/dL Calculated Osmolality (280-300) Calcium (8.6-10.3) mg/dL Total Bilirubin (0.3-1.0) mg/dL Direct Bilirubin (0.0-0.2) mg/dL Indirect Bilirubin (0.0-1.2) mg/dL AST (13-39) Units/L ALT (7-52) Units/L Alkaline Phosphatase (34-104) Units/L Ammonia (16-53) mcmol/L Troponin I (< 0.04) ng/mL Serum Total Protein (6.4-8.9) g/dL Albumin (3.5-5.7) g/dL Globulin (2.4-3.5) g/dL Albumin/Globulin Ratio (1.1-2.2) TSH (0.340-5.600) mcIU/mL Free T4 (0.70-2.00) ng/dl Free T3 (2.50-3.90) pg/mL Urine Color Dark Yellow (Yellow) Urine Clarity Cloudy A (Clear) Urine pH 6.0 (5.0-8.0) pH Units Ur Specific [place] 1.019 (1.010-1.025) Urine Protein >=300 H (Neg-Trace) mg/dL Urine Glucose (UA) 100 H (Normal) mg/dL Urine Ketones Trace H (Negative) mg/dL Urine Blood Small H (Negative) Urine Nitrite Negative (Negative) Urine Bilirubin Small H (Negative) Urine Urobilinogen Normal (Normal) mg/dL Ur Leukocyte Esterase Small H (Negative) Urine Microscopic RBC 0-3 (0-3) per hpf Urine Microscopic WBC TNTC H (0-3) per hpf Ur Squamous Epith Cells Many H (None-Few) per lpf Urine Bacteria None Seen (None-Few) per hpf Hyaline Casts Few (None-Few) per lpf Ur Culture Indicated? NO. A (NO) - Radiology Data Radiology results reviewed: Yes I reviewed the patient's radiology results. Chest X-Ray 04/19/18 02:13 IMPRESSION: No significant change in pulmonary edema and bilateral effusions. D/ / Scooby Bond MD / Scooby Bond MD Interpreting Provider: Scooby Bond MD - EKG Data EKG attestation: Yes I reviewed and interpreted this EKG. EKG results narrative: 04/19/2018 at 02:01. Sinus rhythm. Rate 71. W[place] 149. QRS 95. QTc 423. No acute ST elevation or depression. TPA Checklist - LKW: 3-4.5 hrs Add. Warnings/Precautions Patient/family understanding: The patient/family members have been counseled and understood the risk, benefit, and alternatives of treatment. S.B.A.R. - S.B.A.REri Situation: Demographics, MOA Background: Presenting Complaint, Relevant PMH, Meds, & Allergies Assessment: Vital Signs, Course and respsone to treatment, Exam Concerns, Patient/Family Expectation, Pertinant Lab Results Recommendation: Barrier(s) to disposition, Recommendation based on pending studies, treatments, or consults S.B.A.REri Report Given to: Dr. Julio RamírezBAlexa Repor Time: 06:03 Attestation Statement - Attestation Attestation: Resident Attestation: I examined this patient and my medical decision making was reviewed with the Resident Physician. I agree with the documented findings, disposition and treatment plan as described except to the extent set forth below. We independently had [id number] contact with the patient. Pt seen with Resident Physician Dr. Vinson. Please see resident note for further details and disposition. Patient with recent hospitalization. [facility] to the [facility]. Sent back to the emergency department for concern for altered mental status as well as swelling of the extremities. Chart review shows bacteremia on Ancef for MSSA. Patient received dialysis for fluid retention and did have significant improvement including improvement of her hypercapnia. Patient with no specific complaint on my evaluation. Stating that she just continues to be sick with no significant improvement. Initial blood work was obtained. Blood work has resulted and the case has been discussed with family. Family was very upset and crying at bedside prior to me discussing with them. They are very upset at her overall condition. She continues to be on a steady decline. They do not understand her overall poor health. We did have multiple discussions with them in regards to her health condition. At this time they still do not fully grasp her medical condition. The do want her to be full code. Blood work does not show any specific abnormality but given the clinical condition and continued concerned the patient will be admitted for further observation and treatment. Pitting edema to the lower extremities, abdomen soft nontender to palpation, regular rate and rhythm, clear to auscultation bilaterally, answers questions appropriately and no focal deficit.
[2018-04-19 02:49] LABS: Basophils % 0.4 %; Eosinophils # 0.1 K/mcL (0.0-0.6); Eosinophils % 1.4 %; Hematocrit 27.9 % (35.3-44.9); Hemoglobin 8.7 g/dL (11.5-15.4); Immature Granulocytes % 0.6 % (0-4); Lymphocytes # 0.5 K/mcL (0.6-4.6); Lymphocytes % 7.1 %; Mean Corpuscular HGB Conc 31.2 g/dL (31.6-35.5); Mean Corpuscular Hemoglobin 29.8 pg (28.0-33.3); Mean Corpuscular Volume 95.5 fL (83.0-100.0); Mean Platelet Volume 9.6 fL (9.4-12.4); Monocytes # 1.1 K/mcL (0.0-1.3); Monocytes % 14.6 %; Neutrophils # 5.5 K/mcL (1.6-8.9); Red Blood Count 2.92 M/mcL (3.82-4.97); Red Cell Distribution Width 18.1 % (11.5-14.5); Segmented Neutrophils % 75.9 %
[2018-04-19 02:51] LABS: Platelet Count 66 K/mcL (140-400)
[2018-04-19 02:56] LABS: VBG HCO3 31 mEq/L (21-27); VBG PCO2 52 mmHg (41-51); VBG PH 7.38 pH Units (7.32-7.42); VBG PO2 69 mmHg (25-50)
[2018-04-19 03:15] LABS: Alanine Aminotransferase < 3 Units/L (7-52); Albumin 2.8 g/dL (3.5-5.7); Albumin/Globulin Ratio 0.7 (1.1-2.2); Alkaline Phosphatase 133 Units/L (34-104); Aspartate Amino Transferase 23 Units/L (13-39); BUN/Creatinine Ratio 6 (6-26); Bilirubin,Direct 0.2 mg/dL (0.0-0.2); Bilirubin,Indirect 0.4 mg/dL (0.0-1.2); Bilirubin,Total 0.6 mg/dL (0.3-1.0); Blood Urea Nitrogen 16 mg/dL (8-23); Calcium 8.3 mg/dL (8.6-10.3); Carbon Dioxide 28 mEq/L (23-29); Chloride 99 mEq/L (98-107); Globulin 4.2 g/dL (2.4-3.5); Glucose 197 mg/dL (70-105); Osmolality,Calculated 287 (280-300); Potassium 3.7 mEq/L (3.5-5.1); Sodium 135 mEq/L (136-145); Troponin I 0.08 ng/mL (< 0.04); eGFR For Non-African Americans 17 (> 60)
[2018-04-19 03:51] LABS: Thyroid Stimulating Hormone 12.596 mcIU/mL (0.340-5.600)
[2018-04-19 03:52] LABS: Bilirubin,Urine Small (Negative); Blood,Urine Small (Negative); Clarity,Urine Cloudy (Clear); Color,Urine Dark Yellow (Yellow); Glucose,Urine (UA) 100 mg/dL (Normal); Ketones,Urine Trace mg/dL (Negative); Leukocyte Esterase,Urine Small (Negative); Nitrite,Urine Negative (Negative); Protein,Urine >=300 mg/dL (Neg-Trace); Specific Gravity,Urine 1.019 (1.010-1.025); Urobilinogen,Urine Normal (Normal)
[2018-04-19 03:54] LABS: Bacteria,Urine None Seen per hpf (None-Few); RBC,Urine 0-3 per hpf (0-3); Squamous Epithelial Cell,Urine Many per lpf (None-Few); WBC,Urine TNTC per hpf (0-3)
[2018-04-19 04:21] LABS: Hyaline Casts,Urine Few per lpf (None-Few)
[2018-04-19 04:40] LABS: Triiodothyronine (T3) Free 2.43 pg/mL (2.50-3.90)
[2018-04-19] MEDS ORDERED: *HR* Dextrose 50 % in Water (Syg) 50 ML SYRINGE IVP PRN (06:12)
[2018-04-19] MEDS ORDERED: D5% in Water 1,000 ML IVC PRN (06:12)
[2018-04-19] MEDS ORDERED: Dextrose Gel 15 GM/37.5 ML TUBE PO PRN ×2 (06:12)
[2018-04-19] MEDS ORDERED: Naloxone 0.4 MG/ML INJ IVP PRN (06:31)
[2018-04-19] MEDS ORDERED: Ipratropium/Albuterol Neb 3 ML IH PRN (06:32)
--- NOTE | 2018-04-19 06:38 | Internal Med History&Physical ---
Date of Encounter: 04/19/18 Time of Encounter: 06:35 Internal Medicine - H&P: HPI Chief complaint: Confused Admitted From: Emergency Dept Plans for Post Hospital Care: Transfer Halfway Facility History of present illness: Ms. Taylor is a 78 year old female with past medical history of chronic respiratory failure on 2 L nasal cannula oxygen, diabetes, hypertension, hyperlipidemia, heart failure with preserved EF, ESRD on hemodialysis Friday, prosthetic aortic valve, presented to us from her nursing facility due to altered mental status. Please note the patient is alert oriented 3 at the time of my examination has been so throughout her ED stay. She is very lethargic and falls asleep frequently while conversing. Family is concerned and wanted her to stay in the hospital. The patient was just discharged to nursing facility yesterday and arrived at the nursing facility at 6 PM and the family was called around 1 AM stating and were told that the patient is lethargic and somewhat confused and needed to be reevaluated. Apparently during her last admission she stated he was also having some encephalopathy and was suspected that it was due to mild respiratory acidosis and volume overload. She had a couple of HD sessions and was transferred back to her nursing facility. In the ED the patient was afebrile. She was hemodynamic is stable. She was on about 2-3 L of nasal cannula oxygen satting in the mid 90s. The patient has lower extremity cellulitis noticed redness in both lower extremities and the family stimulated this is so much improved compared to previous. She finished antibiotics IV and oral previously. Sometime last month she was also being treated for MSSA bacteremia and finished IV antibiotics with Ancef. Labs in the ED showed no leukocytosis. Showed a nemia of chronic disease. It also showed the function consistent with end-stage renal disease. Troponins were elevated 0.08 but they are chronically elevated. TSH came high at 12.596 but free T4 was normal and free T3 was low at 2.43. Urinalysis came back with no signs of UTI. The patient has had no fever, chills, nausea, vomiting, chest pain, shortness of breath, abdominal pain, diarrhea, constipation, urinary symptoms, or neurological symptoms. Past Med Surg Social Fam HX - Past Medical History Medical history: arthritis, cancer, cirrhosis, CHF, diabetes, hyperlipidemia, hypertension, liver disease, renal disease Additional medical history: valvular heart disease Psychiatric history: no psych history - Past Surgical History Surgical History: appendectomy, cataract, heart valve replacement, hysterectomy, [place]/BSO Additional surgical history: HAMMER TOES. ACHILLES HEEL REPAIR. LEFT TKR. BLADDER REPAIR. AVR 08/2014. A&P. BREAST BIOPSY - Social History Smoking Status: Former smoker Smokeless Tobacco Status: No Alcohol use: none Drug use: none - Family History Mother Living Status: Hx Family Cardiac Disorders: No Hx Family Respiratory Disorders: No Hx Family Endocrine Disorder: Yes Hx Family Neurologic Disorders: Yes Internal Medicine - H&P: Meds Cholecalciferol (D-3) [Vitamin D] 1,000 unit PO DAILY 04/07/17 [History] Multivit-Min/FA/Lycopen/Lutein [Centrum Silver Tablet] 1 tab PO DAILY 04/07/17 [History] Vitamin E Acetate [Vitamin E] 400 unit PO DAILY 04/07/17 [History] Ferrous Sulfate [Iron] 325 mg PO DAILY 11/28/17 [History] Insulin Glargine,Hum.rec.anlog [Lantus Solostar] 30 units SQ HS 11/28/17 [History] Insulin LISPRO [Humalog] 0 unit SQ TIDWM 11/28/17 [History] Metoprolol [Lopressor] 12.5 mg PO BID 11/28/17 [History] Isosorbide MONOnitrate (24 HR) [Imdur] 30 mg PO DAILY #30 tab.er.24h 12/26/17 [Rx] ceFAZolin [Ancef] 1,000 gm IV 1900 02/28/18 [History] Bumetanide [Bumex] 1 mg PO DAILY 04/10/18 [History] Docusate [Colace] 100 mg PO BID PRN 04/10/18 [History] L. Acidophilus/Pectin, [place] [Acidophilus [place]] 1 tab PO BID 04/10/18 [History] Allergy/AdvReac Type Severity Reaction Status Date / Time [id number]-Ulw-Jvq Reductase AdvReac Muscle Pain Verified 04/19/18 02:15 Inhibitor [Statins] All Systems PM: A 10-system review of systems was performed and is negative for pertinent findings except as documented above in the HPI. Review of systems: All systems reviewed are negative except for as mentioned above - Constitutional Vitals: Temp Pulse Resp BP Pulse Ox 98.8 F 91 20 138/64 100 04/19/18 02:10 04/19/18 06:07 04/19/18 06:07 04/19/18 06:07 04/19/18 06:07 Exam: GEN: NAD, lethargic HEENT: AT, NC, No cyanosis, oral mucosa is moist, No JVD Lymphatics: No lymphadenoapthy Eyes: Extrocular muscles intact, anicteric CVS:RRR. S1, S2, systolic murmur heard throughout RESP: Diminished with bibasilar crackles ABD: Soft, NT, ND, +BS EXT: No edema, No rashes, 2+ DP NEURO: Nonfocal, CN II-XII intact, No focal motor or sensory deficits. Patient is lethargic but is alert oriented 3. Psych: Cooperative, Not anxious or depressed Internal Med - H&P Results - Labs CBC & Chem 7: 04/19/18 02:30 04/19/18 02:30 Labs: Short CBC 04/19/18 Range/Units 02:30 WBC 7.2 (4.3-11.1) K/mcL Hgb 8.7 L (11.5-15.4) g/dL Hct 27.9 L (35.3-44.9) % Plt Count 66 L (140-400) K/mcL Neutrophils # 5.5 (1.6-8.9) K/mcL BMP 04/19/18 02:30 Sodium 135 L Potassium 3.7 Chloride 99 Carbon Dioxide 28 BUN 16 Creatinine 2.64 H Glucose 197 H Calcium 8.3 L Cardiac Enzymes 04/19/18 Range/Units 02:30 Troponin I 0.08 H* (< 0.04) ng/mL Liver Function 04/19/18 Range/Units 02:30 Total Bilirubin 0.6 (0.3-1.0) mg/dL Direct Bilirubin 0.2 (0.0-0.2) mg/dL AST 23 (13-39) Units/L ALT < 3 L (7-52) Units/L Alkaline Phosphatase 133 H (34-104) Units/L Albumin 2.8 L (3.5-5.7) g/dL Urine 04/19/18 Range/Units 03:31 Urine Color Dark Yellow (Yellow) Urine Clarity Cloudy A (Clear) Urine pH 6.0 (5.0-8.0) pH Units Ur Specific [place] 1.019 (1.010-1.025) Urine Protein >=300 H (Neg-Trace) mg/dL Urine Glucose (UA) 100 H (Normal) mg/dL - ABG Interpretation ABG results: 04/19/18 02:52 VBG pH 7.38 VBG pCO2 52 H VBG pO2 69 H VBG HCO3 31 H - Impressions ITS Impressions Chest X-Ray 04/19/18 02:13 IMPRESSION: No significant change in pulmonary edema and bilateral effusions. D/ / Scooby Bond MD / Scooby Bond MD Interpreting Provider: Scooby Bond MD - Assessment and plan (1) Altered mental status Current Visit: No Status: Acute Assessment and plan: Patient is lethargic and falls asleep frequently while conversing with her. However when she is awake she has no focal neurological deficit. She is alert oriented 3. I do not have an exact etiology to this. He does have elevated TSH around 12 with a normal T4 but low T3. I have elected started on he was Rx seen. The ED did not get a CT had as they did not feel that was needed. I also do not think it is necessary either. She had a CT head on 04/17 oh showed no acute findings. We will get an ABG. Ammonia level was normal. She does have a history of cirrhosis. Other labs were unremarkable. The patient did have MSSA bacteremia and finished antibiotics recently. She also finished have axillary lower extremity cellulitis. There is still some redness to her lower extremities but I doubt an infectious cause is causing her symptoms. There is no leukocytosis or fevers. She has no hypoglycemia either. Monitor while she is hospitalized. Qualifiers: Altered mental status type: somnolence Qualified Code(s): R40.0 - Somnolence (2) Elevated TSH Current Visit: Yes Status: Acute Assessment and plan: TSH was around 12. T3 was low T4 was normal. Given the fact that her TSH is above 10 and her overall presentation I have elected started on levothyroxine. She will need TSH repeated in 6 weeks (3) Chronic diastolic heart failure Current Visit: No Status: Chronic Assessment and plan: The patient does have some lower extremity edema and crackles but nothing above her baseline and this is likely due to kidney disease. We will just resume the patient home medications. (4) Hypertension Current Visit: No Status: Chronic Assessment and plan: Resume home meds once they are reconciled Qualifiers: Hypertension type: essential hypertension Qualified Code(s): I10 - Essential (primary) hypertension (5) Anemia Current Visit: No Status: Suspected Assessment and plan: Stable. We will monitor Qualifiers: Anemia type: due to chronic kidney disease Chronic kidney disease stage: on chronic dialysis Qualified Code(s): N18.6 - End stage renal disease; D63.1 - Anemia in chronic kidney disease; Z99.2 - Dependence on renal dialysis (6) Diabetes mellitus Current Visit: No Status: Chronic Assessment and plan: We will place the patient on insulin sliding scale. Accu-Cheks. Resume basal insulin once it is reconciled. 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: with local intermodal truck driver use Diabetes mellitus complication status: with kidney complications Diabetes mellitus complication detail: with chronic kidney disease Chronic kidney disease stage: on chronic dialysis Qualified Code(s): E11.22 - Type 2 diabetes mellitus with diabetic chronic kidney disease; N18.6 - End stage renal disease; Z79.4 - superintendent container terminal (current) use of insulin; Z99.2 - Dependence on renal dialysis (7) ESRF (end stage renal failure) Current Visit: No Status: Chronic Assessment and plan: We will consult nephrology to resume dialysis (8) Elevated troponin Current Visit: No Status: Acute Assessment and plan: Chronic. No need to trend. The patient has no chest pain. Likely due to kidney disease. (9) Cirrhosis Current Visit: No Status: Chronic Assessment and plan: Family states that she was diagnosed with this due to diabetes. LFTs are unremarkable except elevated phosphatase. Ammonia level is normal. We will monitor. Qualifiers: Hepatic cirrhosis type: other cirrhosis Qualified Code(s): K74.69 - Other cirrhosis of liver (10) DVT prophylaxis Current Visit: No Status: Acute Assessment and plan: Heparin subcutaneous - Time Spent With Patient Total time spent is greater than 50% in coordination of care (as documented) at patient's floor/unit and/or counseling patient:
--- NOTE | 2018-04-19 08:14 | Internal Med Progress Note ---
Hospitalist Progress Note - Encounter Date of Encounter: 04/19/18 Time of Encounter: 08:11 - Subjective Interval History: Patient admitted overnight with altered level of consciousness and altered mental status. Seen and examined at bedside today. Continues to be drowsy and somewhat confused but is able to answer basic support questions. She is compla ining of constant abdominal pain. She reports that she has not had a bowel movement in many days. - Exam Vitals: Temp Pulse Resp BP Pulse Ox 98.8 F 91 20 138/64 100 04/19/18 02:10 04/19/18 06:07 04/19/18 06:07 04/19/18 06:07 04/19/18 06:07 Exam: GEN: NAD, lethargic, confused but able to answer basic questions HEENT: AT, NC, No cyanosis, oral mucosa is moist, No JVD Lymphatics: No lymphadenoapthy Eyes: Extrocular muscles intact, anicteric PERRLA CVS:RRR. S1, S2, systolic murmur heard throughout RESP: Diminished with bibasilar crackles ABD: Soft, nondistended, tenderness with hypoactive bowel sounds. No rebound to palpation EXT: No edema, No rashes, 2+ DP NEURO: Nonfocal, CN II-XII intact, No focal motor or sensory deficits. Patient is lethargic but is alert oriented [address] Psych: Cooperative, Not anxious or depressed - Assessment and Plan (1) Altered mental status Current Visit: No Status: Acute Assessment and Plan: Assessment patient is lethargic but is conversational and alert to self and place Recent CT of head on 04/17 showed no acute findings She was found to have an elevated TSH of around 12 and a low T3 which could be contributing to altered mental state; start levothyroxine and monitor She does not appear toxic or acutely ill and is afebrile and without leukocytosis however, she is having abdominal pain of unclear etiology In the meantime I will obtain a KUB for further evaluation. ABGs are within normal limits, ammonia level also normal and there are no obvious metabolic derangements Recent diagnosis of MSSA bacteremia. She was seen by infectious disease and started on Ancef and this is to continue until 04/27/18; again she does not appear to be toxic or bacteremic at this time but I will continue Ancef as directed Low suspicion for myxedema as the patient is not hypoglycemic and is hemodynamically stable and does not appear to be grossly obtunded At this time etiology for altered mental state remains unclear we will continue to monitor in observation (2) Cirrhosis Current Visit: No Status: Chronic Assessment and Plan: per hx ammonia normal LFT's are unremarkable except elevated phosphatase (3) Chronic diastolic heart failure Current Visit: No Status: Chronic Assessment and Plan: persistent chronic lower extremity edema fine bibasilar rales not in acute excerbation and not volume overloaded continue home meds (4) Hypertension Current Visit: No Status: Chronic Assessment and Plan: Control Continue anti-HTN medications and monitor Adjust meds accordingly (5) Anemia Current Visit: No Status: Suspected Assessment and Plan: Chronic, appears stable over the last year Average H&H 8-9 No active bleeding History of CKD likely contributing Continue to Monitor (6) Diabetes mellitus Current Visit: No Status: Chronic Assessment and Plan: Continue insulin sliding scale. Accu-Cheks. Resume basal insulin once it is reconciled. (7) ESRF (end stage renal failure) Current Visit: No Status: Chronic Assessment and Plan: Friday, Friday, Friday hemodialysis Follows with [facility]; we will consult (8) Elevated troponin Current Visit: No Status: Acute Assessment and Plan: Chronic. No need to trend. He remains chest pain-free. Likely due to kidney disease. (9) Elevated TSH Current Visit: Yes Status: Acute Assessment and Plan: TSH was around 12. T3 was low T4 was normal treat with synthroid; will need Rx at D/C and repeat TSH IN 6-weeks (10) Abdominal pain Current Visit: Yes Status: Acute Assessment and Plan: etiology unclear per exam she has mild tenderness to palpation and diminished/sluggish bowel sounds Does not appear acute she is reporting constipation for 3-4 days obtain KUB start colace now (11) DVT prophylaxis Current Visit: No Status: Acute Assessment and Plan: SC Heparin - Time Spent with Patient Total time spent is greater than 50% in coordination of care (as documented) at patient's floor/unit and/or counseling patient: less than 15 minutes Plan of Care Discussed with: patient Internal Medicine: Result - Labs CBC & Chem 7: 04/19/18 02:30 04/19/18 02:30 Labs: Short CBC 04/19/18 Range/Units 02:30 WBC 7.2 (4.3-11.1) K/mcL Hgb 8.7 L (11.5-15.4) g/dL Hct 27.9 L (35.3-44.9) % Plt Count 66 L (140-400) K/mcL Neutrophils # 5.5 (1.6-8.9) K/mcL BMP 04/19/18 02:30 Sodium 135 L Potassium 3.7 Chloride 99 Carbon Dioxide 28 BUN 16 Creatinine 2.64 H Glucose 197 H Calcium 8.3 L Cardiac Enzymes 04/19/18 Range/Units 02:30 Troponin I 0.08 H* (< 0.04) ng/mL Liver Function 04/19/18 Range/Units 02:30 Total Bilirubin 0.6 (0.3-1.0) mg/dL Direct Bilirubin 0.2 (0.0-0.2) mg/dL AST 23 (13-39) Units/L ALT < 3 L (7-52) Units/L Alkaline Phosphatase 133 H (34-104) Units/L Albumin 2.8 L (3.5-5.7) g/dL Urine 04/19/18 Range/Units 03:31 Urine Color Dark Yellow (Yellow) Urine Clarity Cloudy A (Clear) Urine pH 6.0 (5.0-8.0) pH Units Ur Specific [place] 1.019 (1.010-1.025) Urine Protein >=300 H (Neg-Trace) mg/dL Urine Glucose (UA) 100 H (Normal) mg/dL - Impressions Impressions Chest X-Ray 04/19/18 02:13 IMPRESSION: No significant change in pulmonary edema and bilateral effusions. D/ / Scooby Bond MD / Scooby Bond MD Interpreting Provider: Scooby Bond MD Consult Discharge Plan - Plan Referrals: Latoya Harkins, [employer] [Primary Care Provider] - (1) Altered mental status Qualifiers: Altered mental status type: somnolence Qualified Code(s): R40.0 - Somnolence (2) Cirrhosis Qualifiers: Hepatic cirrhosis type: other cirrhosis Qualified Code(s): K74.69 - Other cirrhosis of liver (4) Hypertension Qualifiers: Hypertension type: essential hypertension Qualified Code(s): I10 - Essential (primary) hypertension (5) Anemia Qualifiers: Anemia type: due to chronic kidney disease Chronic kidney disease stage: on c hronic dialysis Qualified Code(s): N18.6 - End stage renal disease; D63.1 - Anemia in chronic kidney disease; Z99.2 - Dependence on renal dialysis (6) Diabetes mellitus Qualifiers: Diabetes mellitus type: type 2 Diabetes mellitus detention insulin use: with emt intermediate use Diabetes mellitus complication status: with kidney complications Diabetes mellitus complication detail: with chronic kidney disease Chronic kidney disease stage: on chronic dialysis Qualified Code(s): E11.22 - Type 2 diabetes mellitus with diabetic chronic kidney disease; N18.6 - End stage renal disease; Z79.4 - [facility] (current) use of insulin; Z99.2 - Dependence on renal dialysis (10) Abdominal pain Qualifiers: Abdominal location: unspecified location Qualified Code(s): R10.9 - Unspecified abdominal pain
[2018-04-19 08:31] LABS: ABG Base Excess 6 mEq/L (-2 to 3); ABG HCO3 32 mEq/L (21-27); ABG Oxygen Saturation 93 % (95-98); ABG PCO2 52 mmHg (35-45); ABG PH 7.39 pH Units (7.32-7.45); ABG PO2 67 mmHg (85-104); ABG TCO2 33 mEq/L (20-26); Blood Gas FiO2 2.5 (1-15=lpm or21-100=%)
[2018-04-19] MEDS ORDERED: ceFAZolin 1,000 MG in Water for inj. (sterile) 20 ML 10 ML IVPB SCH (09:00)
[2018-04-19] MEDS: Insulin LISPRO 300 UNITS/3 ML VIAL SQ SCH ×4 (09:36→21:53)
[2018-04-19] MEDS: ceFAZolin 1,000 MG in Water for inj. (sterile) 20 ML 10 ML IVPB SCH (09:53)
[2018-04-19] MEDS: *HR* Heparin 5,000 UNIT/ML VIAL SQ SCH ×2 (14:07→21:53)
[2018-04-19] MEDS: Acetaminophen 325 MG TABLET PO PRN ×2 (14:08→23:49)
[2018-04-20 04:33] LABS: Basophils % 0.4 %; Immature Granulocytes % 0.6 % (0-4)
[2018-04-20 04:34] LABS: Eosinophils # 0.1 K/mcL (0.0-0.6); Eosinophils % 1.4 %; Hematocrit 27.4 % (35.3-44.9); Hemoglobin 8.4 g/dL (11.5-15.4); Immature Platelets 1.9 % (1.1-6.1); Lymphocytes # 0.6 K/mcL (0.6-4.6); Lymphocytes % 7.7 %; Mean Corpuscular HGB Conc 30.7 g/dL (31.6-35.5); Mean Corpuscular Hemoglobin 29.3 pg (28.0-33.3); Mean Corpuscular Volume 95.5 fL (83.0-100.0); Mean Platelet Volume 9.3 fL (9.4-12.4); Monocytes # 1.2 K/mcL (0.0-1.3); Monocytes % 14.4 %; Red Blood Count 2.87 M/mcL (3.82-4.97); Red Cell Distribution Width 18.1 % (11.5-14.5); Segmented Neutrophils % 75.5 %
[2018-04-20 04:36] LABS: Neutrophils # 6.1 K/mcL (1.6-8.9); Platelet Count 82 K/mcL (140-400)
[2018-04-20 04:55] LABS: Calcium 8.3 mg/dL (8.6-10.3); Magnesium 1.8 mg/dL (1.6-2.6); Potassium 3.9 mEq/L (3.5-5.1)
[2018-04-20] MEDS: *HR* Heparin 5,000 UNIT/ML VIAL SQ SCH ×3 (05:58→20:40)
[2018-04-20] MEDS ORDERED: 0.9 % Sodium Chloride 250 ML IVC PRN (06:52)
[2018-04-20] MEDS: Insulin LISPRO 300 UNITS/3 ML VIAL SQ SCH ×4 (08:00→20:42)
[2018-04-20] MEDS: Acetaminophen 325 MG TABLET PO PRN (08:56)
--- NOTE | 2018-04-20 09:12 | Event Note ---
Date of Encounter: 04/20/18 Time of Encounter: 09:11 The patient continues to have delirium of unknown etiology. She will likely take more than 2 midnights stabilize and I will be making her inpatient status as such
[2018-04-20] MEDS ORDERED: Ibuprofen 400 MG TABLET PO ONE (10:07)
--- NOTE | 2018-04-20 10:07 | Nephrology Consult Note ---
Addendum entered and electronically signed by Darrell Rosales MD 04/20/18 22:00: I examined this patient and my medical decision-making was reviewed with the Resident Physician. I agree with the documented findings, disposition and treatment plan as described except to the extent set forth below. The patient was seen on dialysis. Her complaint was of pain on her "backside". She was given 1 dose of ibuprofen. I recommend palliative consult for pain control especially if you are not trying to give opiates. Original Note: Date of Encounter: 04/20/18 Time of Encounter: 10:05 Assessment and Plan (1) ESRD (end stage renal disease) on dialysis Current Visit: Yes Status: Chronic - ESRD on MWF dialysis via permacath on the right - Multiple dialysis sessions in the past week including Friday, Friday, Friday, Friday - Interviewed and evaluated in HD this morning - Labs and vitals stable - Uremia is an unlikely cause of her altered mental status given multiple dialysis sessions in the past week. Plan - Continue with scheduled MWF dialysis sessions (2) Altered mental status Current Visit: Yes Status: Acute - Unclear etiology at this time - Unlikely uremia as she has been dialyzed multiple times without improvement of symptoms - Alternative etiologies include hepatic, septic, thyroid, progression of suspected dementia - Blood cultures positive in 06/03 for Staph aureus. Infectious disease has been consulted. - Unclear baseline - Further management per primary team Qualifiers: Altered mental status type: somnolence Qualified Code(s): R40.0 - Somnolence (3) Cirrhosis Current Visit: Yes Status: Chronic - Per chart review - Ammonia noted to be 50 -Unable to calculate meld score without coagulation studies - Also noted that the patient is not on lactulose - Further management per primary team Qualifiers: Hepatic cirrhosis type: other cirrhosis Qualified Code(s): K74.69 - Other cirrhosis of liver (4) Diabetes mellitus type 2 in obese Current Visit: Yes Status: Chronic Recommend tight glucose control Blood glucose of 165 this morning (5) Back pain Current Visit: Yes Status: Acute - Patient has complaint of back pain this morning when examined in dialysis - Unclear if chronic or acute - Consider palliative consult for pain management long-term Qualifiers: Back pain location: low back pain Chronicity: unspecified Back pain laterality: unspecified Sciatica presence: without sciatica Qualified Code(s): M54.5 - Low back pain History of Present Illness - Reason for Consult Consult date: 04/20/18 end stage renal disease - Chief Complaint Confused from intermediate - History of Present Illness Ms. Taylor is a 78-year-old female with a past medical history of ESRD on MWF dialysis. She was an additional past medical history of arthritis, cirrhosis, congestive heart failure, diabetes, hyperlipidemia, hypertension, chronic respiratory failure on 3 L at home. She presented to the emergency room on 04/19 from intermediate for confusion and lethargy. Of note, she has been admitted 3 times in the last week for similar complaints. She has undergone hemodialysis on Friday, Friday, Friday, Friday and now again Friday. On presentation to the hospital, vital signs have been significant for heart rate in the 100s, respiratory rate in the 20s. Laboratory results have been significant for a BUNs/creatinine of 23/3.54, arterial blood gas shows mild compensated respiratory acidosis, ammonia of 50, alkaline phosphatase of 133, TSH was also elevated at 12.596 with a normal T4 and mildly low T3 at 2.43. Blood cultures were obtained and are thus far negative for growth. CT head was not obtained at this admission as she has had one earlier this week. Upon interview today, patient does appear confused and falls asleep during interview. She states the reason that she was brought to the hospital was her thyroid, she is otherwise unsure. She does have complaint this morning of abdominal dull ache most prominent in the right lower quadrant as well as itching/bilateral cellulitis of lower extremities. She states she was hospitalized recently for cellulitis and has noticed a decrease in swelling but now the itch. She also has chronic back and buttock pain which is chronic for her. She denies any symptoms of fevers, chills, chest pain, shortness of breath, nausea, vomiting. Remainder of interview is limited secondary to mental status and no family present at bedside. No family history able to be obtained secondary to mental status. Past Med Surg Social Fam HX - Past Medical History Medical history: arthritis, cancer, cirrhosis, CHF, diabetes, hyperlipidemia, hypertension, liver disease, renal disease Additional medical history: valvular heart disease Psychiatric history: no psych history - Past Surgical History Surgical History: appendectomy, cataract, heart valve replacement, hysterectomy, [place]/BSO Additional surgical history: HAMMER TOES. ACHILLES HEEL REPAIR. LEFT TKR. BLADDER REPAIR. AVR 08/2014. A&P. BREAST BIOPSY - Social History Smoking Status: Former smoker Smokeless Tobacco Status: No Alcohol use: none Drug use: none - Family History Mother Living Status: Hx Family Cardiac Disorders: No Hx Family Respiratory Disorders: No Hx Family Endocrine Disorder: Yes Hx Family Neurologic Disorders: Yes Medications and Allergies Cholecalciferol (D-3) [Vitamin D] 1,000 unit PO DAILY 04/07/17 [History] Multivit-Min/FA/Lycopen/Lutein [Centrum Silver Tablet] 1 tab PO DAILY 04/07/17 [History] Vitamin E Acetate [Vitamin E] 400 unit PO DAILY 04/07/17 [History] Ferrous Sulfate [Iron] 325 mg PO DAILY 11/28/17 [History] Insulin Glargine,Hum.rec.anlog [Lantus Solostar] 30 units SQ HS 11/28/17 [History] Insulin LISPRO [Humalog] 0 unit SQ TIDWM 11/28/17 [History] Metoprolol [Lopressor] 12.5 mg PO BID 11/28/17 [History] Isosorbide MONOnitrate (24 HR) [Imdur] 30 mg PO DAILY #30 tab.er.24h 12/26/17 [Rx] ceFAZolin [Ancef] 1,000 gm IV 1900 02/28/18 [History] Bumetanide [Bumex] 1 mg PO DAILY 04/10/18 [History] Docusate [Colace] 100 mg PO BID PRN 04/10/18 [History] L. Acidophilus/Pectin, Callahan [Acidophilus Caplet] 1 tab PO BID 04/10/18 [History] Allergy/AdvReac Type Severity Reaction Status Date / Time Keqjibi-Pib-Wbn Reductase AdvReac Muscle Pain Verified 04/19/18 02:15 Inhibitor [Statins] Review of Systems ROS unobtainable: due to mental status Constitutional: lethargy, no chills, no fever(s), no weakness, no weight gain, no weight loss Cardiovascular: no chest pain, no diaphoresis, no dyspnea, no dyspnea on exertion, no edema, no orthopnea, no palpitations, no pedal edema Respiratory: no cough, no dyspnea, no dyspnea on exertion Gastrointestinal: abdominal pain, no diarrhea, no nausea, no vomiting Genitourinary Female: no dysuria Integumentary: no rash Neurological: confusion Exam - Vital Signs Vital signs: Initial Vital Signs Temp Pulse Resp BP Pulse Ox 98.8 F 82 18 122/55 96 04/19/18 02:10 04/19/18 02:10 04/19/18 02:10 04/19/18 02:10 04/19/18 02:10 Vital Signs - Last 8 Hours Temp Pulse Resp BP Pulse Ox 04/20/18 06:52 97.5 F L 92 17 144/71 99 04/20/18 03:17 97.9 F 100 15 107/83 96 Intake and Output 04/19/18 04/20/18 04/20/18 23:59 07:59 15:59 Other: Stool Size Smear Stool Consistency soft Stool Color Brown # Urine Diapers 0 0 # Bowel Movements 1 # Bowel Movement Diapers 0 Weight 101.3 kg Blood Glucose* 197 173 Patient Weight 04/20/18 23:59 Weight 101.3 kg - General Appearance Exam: Gen.: Vitals noted. No acute distress. Alert and does respond to questions however falls asleep during interview. HEENT: PERRL/EOMI, oropharynx clear, Normocephalic, atraumatic, MMM Cardiac: RRR, no murmur, +S1/S2 Pulmonary: CTA bilaterally, no wheezes, rales or rhonchi, equal chest expansion Abdomen: mildly tender to palpation of right lower quadrant, BS noted, no guarding, no rebound. Mildly firm to palpation of soft tissues on right side MSK: ROM not assessed, no joint swelling noted Extremities: no BLE edema, nontender calf, no cyanosis or clubbing, dry skin of bilateral lower extremities with no evidence of erythema, warmth. Neuro: moves all extremities, no focal deficits Psych: Unable to assess secondary to mental status Results - Lab Results 04/20/18 04:00 04/20/18 04:00 Most recent lab results ABG pH 7.39 pH Units (7.32-7.45) 04/19/18 08:28 ABG pCO2 52 mmHg (35-45) H 04/19/18 08:28 ABG pO2 67 mmHg (85-104) L 04/19/18 08:28 ABG HCO3 32 mEq/L (21-27) H 04/19/18 08:28 ABG O2 Saturation 93 % (95-98) L 04/19/18 08:28 Calcium 8.3 mg/dL (8.6-10.3) L 04/20/18 04:00 Magnesium 1.8 mg/dL (1.6-2.6) 04/20/18 04:00 Consult Discharge Plan - Plan Referrals: Latoya Harkins, [employer]PA[employer] TE[employer]ER [Primary Care Provider] -
[2018-04-20 10:19] LABS: Acinetobacter baumannii by PCR Not Detected (Not Detect); Candida albicans by PCR Not Detected (Not Detect); Candida glabrata by PCR Not Detected (Not Detect); Candida krusei by PCR Not Detected (Not Detect); Candida parapsilosis by PCR Not Detected (Not Detect); Candida tropicalis by PCR Not Detected (Not Detect); Enterobacter cloacae Cmplx PCR Not Detected (Not Detect); Enterobacteriaceae by PCR Not Detected (Not Detect); Enterococcus by PCR Not Detected (Not Detect); Escherichia coli by PCR Not Detected (Not Detect); Klebsiella oxytoca by PCR Not Detected (Not Detect); Klebsiella pneumoniae by PCR Not Detected (Not Detect); Proteus by PCR Not Detected (Not Detect); Pseudomonas aeruginosa by PCR Not Detected (Not Detect); Serratia marcescens by PCR Not Detected (Not Detect); Staphylococcus aureus by PCR DETECTED (Not Detect); Staphylococcus by PCR DETECTED (Not Detect); Streptococcus agalactiae(B)PCR Not Detected (Not Detect); Streptococcus by PCR Not Detected (Not Detect); Streptococcus pneumoniae PCR Not Detected (Not Detect); Streptococcus pyogenes (A) PCR Not Detected (Not Detect); blaKPC Carbapenem-Resist Gene Not Detected (Not Detect); mecA Methicillin-Resist Gene Not Detected (Not Detect); vanA/B Vancomycin-Resist Genes Not Detected (Not Detect)
[2018-04-20] MEDS ORDERED: *HR* Heparin 10,000 UNIT/10 ML VIAL IV PRN (11:23)
--- NOTE | 2018-04-20 11:53 | Internal Med Progress Note ---
Hospitalist Progress Note - Encounter Date of Encounter: 04/20/18 Time of Encounter: 11:51 - Subjective Interval History: Patient admitted overnight with altered level of consciousness and altered mental status. Seen and examined today while in HD. Continues to be drowsy and somewhat confused but is able to answer basic questions. C/O coccygeal pain f rom prolonged lying - Exam Vitals: Temp Pulse Resp BP Pulse Ox 97.5 F L 92 17 144/71 99 04/20/18 06:52 04/20/18 06:52 04/20/18 06:52 04/20/18 06:52 04/20/18 06:52 Exam: GEN: MIld distress lethargy persists, confused but able to answer basic questions HEENT: AT, NC, No cyanosis, oral mucosa is moist, No JVD Lymphatics: No lymphadenoapthy Eyes: Extrocular muscles intact, anicteric PERRLA CVS:RRR. S1, S2, systolic murmur heard, no rubs or gallops RESP: Diminished with bibasilar crackles ABD: Soft, nondistended, tenderness with hypoactive bowel sounds. No rebound to palpation EXT: No edema, No rashes, 2+ DP NEURO: Nonfocal, CN II-XII intact, No focal motor or sensory deficits. Patient is lethargic but is alert oriented [address] Psych: Cooperative, Not anxious or depressed - Assessment and Plan (1) Altered mental status Current Visit: Yes Status: Acute Assessment and Plan: Patient presents with altered mental status, most likely due to toxic encephalopathy Recently admitted and treated for bacteremia with MSSA Discharge to [facility] and returned with decreased LOC, intermittent confusion and MS alterations I did not repeat CT imaging of head on arrival as Recent CT of head on 04/17 showed no acute findings She has no obvious lateralizing or focal neurological deficits Should be noted that she was found to have an elevated TSH of around 12 and a low T3 which could be somewhat contributing to altered mental state; however, the patient does not have a myxedema presentation so this is most likely caused by toxic encephalopathy with recurrent bacteremia Blood cultures 1 of 2 positive for GPC She is without leukocytosis and is afebrile. However, she is tachycardic; although this could be due to dose of levothyroxine as well I will consult infectious disease for further evaluation and recommendations; thank you and I appreciate your recommendations Obtain ESR CRP an ABG now I will continue Ancef as previously recommended per ID on prior admission and defer to ID for ABX changes and/or adjustments (2) Cirrhosis Current Visit: Yes Status: Chronic Assessment and Plan: h/o cirrhosis ammonia level on presentation normal LFT's are unremarkable with the exception of an elevated phosphatase most likely not hepatic encephalopathy (3) Chronic diastolic heart failure Current Visit: No Status: Chronic Assessment and Plan: persistent chronic lower extremity edema fine bibasilar rales persist however, she does not appear to be having an acute excerbation continue home meds (4) Hypertension Current Visit: No Status: Chronic Assessment and Plan: stable Continue anti-HTN medications and monitor Adjust meds accordingly (5) Anemia Current Visit: No Status: Suspected Assessment and Plan: Chronic, appears stable over the last year Average H&H 8-9 No active bleeding History of CKD likely contributing Continue to Monitor (6) Diabetes mellitus Current Visit: No Status: Chronic Assessment and Plan: FSBG stable Continue insulin sliding scale & Accu-Cheks Resume basal insulin once it is reconciled. (7) ESRF (end stage renal failure) Current Visit: No Status: Chronic Assessment and Plan: Friday, Friday, Friday hemodialysis Follows with [facility] who is seeing in consultation; thank you (8) Elevated troponin Current Visit: No Status: Acute Assessment and Plan: Chronic. No need to trend. He remains chest pain-free. Likely due to kidney disease. (9) Elevated TSH Current Visit: Yes Status: Acute Assessment and Plan: TSH was around 12. T3 was low T4 was normal treat with synthroid; will need Rx at D/C and repeat TSH IN 6-weeks Having tachycardic episodes today, etiology unclear but likely related to new dose of Synthroid Dose to 25 mcg daily (10) Abdominal pain Current Visit: Yes Status: Acute Assessment and Plan: etiology unclear per exam she has mild tenderness to palpation and diminished/sluggish bowel sounds Does not appear acute she is reporting constipation for 3-4 days KUB is without obstruction Continue colace (11) DVT prophylaxis Current Visit: No Status: Acute Assessment and Plan: SC Heparin - Time Spent with Patient Total time spent is greater than 50% in coordination of care (as documented) at patient's floor/unit and/or counseling patient: less than 15 minutes Plan of Care Discussed with: patient Internal Medicine: Result - Labs CBC & Chem 7: 04/20/18 04:00 04/20/18 04:00 Labs: Short CBC 04/20/18 Range/Units 04:00 WBC 8.1 (4.3-11.1) K/mcL Hgb 8.4 L (11.5-15.4) g/dL Hct 27.4 L (35.3-44.9) % Plt Count 82 L (140-400) K/mcL Neutrophils # 6.1 (1.6-8.9) K/mcL BMP 04/20/18 04:00 Sodium 133 L Potassium 3.9 Chloride 96 L Carbon Dioxide 28 BUN 23 Creatinine 3.54 H Glucose 165 H Calcium 8.3 L - ABG Interpretation ABG results: ABG ABG pH 7.39 pH Units (7.32-7.45) 04/19/18 08:28 ABG pCO2 52 mmHg (35-45) H 04/19/18 08:28 ABG pO2 67 mmHg (85-104) L 04/19/18 08:28 ABG O2 Saturation 93 % (95-98) L 04/19/18 08:28 - Impressions Impressions KUB X-Ray 04/19/18 08:09 IMPRESSION: No evidence of bowel obstruction. D/ / 04/19/2018 14:02:20 Hermes Watkins MD / zac Interpreting Provider: Hermes Watkins MD Consult Discharge Plan - Plan Referrals: Latoya Harkins, [employer] TE[employer]ICAL CONSULTANT [Primary Care Provider] - (1) Altered mental status Qualifiers: Altered mental status type: somnolence Qualified Code(s): R40.0 - Somnolence (2) Cirrhosis Qualifiers: Hepatic cirrhosis type: other cirrhosis Qualified Code(s): K74.69 - Other cirrhosis of liver (4) Hypertension Qualifiers: Hypertension type: essential hypertension Qualified Code(s): I10 - Essential (primary) hypertension (5) Anemia Qualifiers: Anemia type: due to chronic kidney disease Chronic kidney disease stage: on chronic dialysis Qualified Code(s): N18.6 - End stage renal disease; D63.1 - Anemia in chronic kidney disease; Z99.2 - Dependence on renal dialysis (6) Diabetes mellitus Qualifiers: Diabetes mellitus type: type 2 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
[2018-04-20] MEDS ORDERED: 0.9 % Sodium Chloride 2,000 ML ONE (11:57)
[2018-04-20 12:10] LABS: ABG Base Excess 6 mEq/L (-2 to 3); ABG HCO3 31 mEq/L (21-27); ABG Oxygen Saturation 97 % (95-98); ABG PCO2 47 mmHg (35-45); ABG PH 7.43 pH Units (7.32-7.45); ABG PO2 91 mmHg (85-104); ABG TCO2 32 mEq/L (20-26)
[2018-04-20] MEDS: ceFAZolin 1,000 MG in Water for inj. (sterile) 20 ML 10 ML IVPB SCH ×2 (12:40→18:08)
--- NOTE | 2018-04-20 13:05 | Infectious Disease Consult ---
Date of Encounter: 04/20/18 Time of Encounter: 12:53 Assessment and Plan (1) Bacteremia due to methicillin susceptible Staphylococcus aureus (MSSA) Status: Acute Assessment and plan: Complicated MSSA bacteremia due to setting of hardware status post total knee replacement and by prostatic valve 11/07/2017 2 out of 2 sets positive for MSSA discharge on oral doxycycline for 7 days 11/26/2017 2 out of 2 sets positive for MSSA repeat cultures on November 28 no growth treated with 4 weeks of IV cefazolin for complicated MSSA bacteremia at that time ELVER and TTE were negative 02/11/2018 2 out of 2 sets positive for MSSA bacteremia patient was transferred to [place] I did speak with the infectious disease doctor up in [place] to take care of the patient and they told me that his WBC scan which was negative the also get a ELVER which was negative so they treated with MSSA bacteremia that is complicated Patient was treated by me with call to treat for good 8 weeks followed by oral suppressive therapy for a long time. Recently patient was admitted for CHF exacerbation and I called the resident spoke with him and recommended the patient gets discharged on IV cefazolin until she sees me in clinic as an outpatient. Currently patient is admitted and 2 out of 2 sets on 04/19/2018 are positive for gram-positive cocci and PCR speak and MSSA Extensive review of system and physical exam is not suggestive for endocarditis or endocarditis stigmata. Source of infection is not clear. Endocarditis is still my differential and could be a central line associated bloodstream infection from dialysis catheter Physical exam not suggestive prosthetic joint infection I do not know if it has to do with the fact that the patient has MGUS? I will discuss with allergy immunology to see if they have any suggestions Some literature review suggest using cefazolin and ertapenem for synergy I will treat this at this point as prosthetic valve endocarditis I will continue cefazolin I will add rifampin and gentamicin. I will ask pharmacy to help with the dosing. Get blood cultures from both dialysis catheter and peripheral I will also do a WBC scan and repeat ELVER to rule out endocarditis or a focus of infection that were missing. I had a very long discussion with the patient and her daughter Tiera and explained to them the risk of gentamicin and rifampin but I believe that at this point I am concerned for persistent bacteremia even though the or the treated for over 6-8 weeks. Monitor labs and for drug toxicity (2) Prosthetic valve endocarditis Status: Acute Assessment and plan: We will check ELVER Start empiric gentamicin and rifampin once I checked the patient's meld score and make sure it stable Qualifiers: Encounter type: sequela Qualified Code(s): T82.6XXS - Infection and inflammatory reaction due to cardiac valve prosthesis, sequela (3) Chronic kidney disease (CKD), stage V Status: Acute (4) Monoclonal gammopathy of unknown significance Status: Acute (5) Cirrhosis Status: Chronic Assessment and plan: Etiology not clear Check meld score Qualifiers: Hepatic cirrhosis type: other cirrhosis Qualified Code(s): K74.69 - Other cirrhosis of liver (6) Diabetes mellitus type 2 in obese Status: Chronic (7) History of aortic valve replacement with bioprosthetic valve Status: Chronic Infectious Disease HPI - Data of Consult Patient: new to practice Consult date: 04/20/18 Requesting Physician: Kehinde Kim MD Primary Care Provider: Latoya Harkins CNP - Consult Narrative Reason for consult: AMS History of present illness: Ms. Taylor is a 78 year old female Patient is a 78-year-old woman well known to our service presented to [place] on 04/19/2018 with altered mental status, we are consulted on 04/20/2018 for "presented with toxic encephalopathy. Blood cultures positive for gram-positive cocci one puff 2 sets. Recently treated by infectious disease for MSSA bacteremia". briefly, patient is a 78 -year-old woman with past medical history mentioned below who was diagnosed with complicated MSSA bacteremia due to bilateral knee hardware and bioprosthetic aortic heart valve. 11/07/2017: 2 out of 2 sets positive for MSSA discharge on oral doxycycline for 7 days. 11/26/2017: 2 out of 2 sets positive for MSSA; repeat cultures on November 28 no growth. Treated with 4 weeks of IV cefazolin for complicated MSSA bacteremia. At that time ELVER and TTE were negative. 02/11/2018 2 out of 2 sets positive for MSSA bacteremia. Patient was transferred to [place]. Exact treatment at that time unclear but we will get records 03/31/2018 1 out of 2 sets positive for MSSA bacteremia. ESR elevated at 89. CRP was not checked. Check rheumatoid factor.--> normal. Recommend CT of the head and neck, CT chest, CT abdomen and pelvis, and bilateral knees. --> non-revealing for source/seeding of bacteremia. WBC scan at [place] was negative. Repeat blood cultures x2 sets drawn 03/04/18 is NGTD. Continue Ancef 1 g IV every 24 hours, dose adjusted for the patient's hemodialysis status. patient refuses a ELVER prior to discharge. We will treat with IV Ancef at least through 04/26/2018 and probably switch to oral suppressive therapy for a long time after that. Dose adjust the Ancef patient with a creatinine clearance. We have to be very vigilant because her creatinine is still fluctuating. Since admission, patient has been afebrile, tachycardic with tachypnea. Presenting labs revealed a WBC of 7.2 with 76% neutrophils and 15% monocytes? Creatinine of 2.64 BUN of 16. TSH of 12.6. Urinalysis was contaminated. Blood cultures 1 out of 2 sets from 04/19/2018 are positive for gram-positive cocci and PCR picked up MSSA. Chest x-ray shows no significant changes in pulmonary edema and bilateral effusions. Currently patient sitting up in bed and appears comfortable. Her daughter Tiera is at bedside. She is her only daughter. Asked her if she has DPO a and she said no but they will be happy to sign all the paperwork and get a no tries copy. CC: Kehinde Kim MD Past Med Surg Social Fam HX - Past Medical History Medical history: arthritis, cancer, cirrhosis, CHF, diabetes, hyperlipidemia, hypertension, liver disease, renal disease Additional medical history: valvular heart disease Psychiatric history: no psych history - Past Surgical History Surgical History: appendectomy, cataract, heart valve replacement, hysterectomy, [place]/BSO Additional surgical history: HAMMER TOES. ACHILLES HEEL REPAIR. LEFT TKR. BLADDER REPAIR. AVR 08/2014. A&P. BREAST BIOPSY - Social History Smoking Status: Former smoker Smokeless Tobacco Status: No Alcohol use: none Drug use: none - Family History Mother Living Status: Hx Family Cardiac Disorders: No Hx Family Respiratory Disorders: No Hx Family Endocrine Disorder: Yes Hx Family Neurologic Disorders: Yes Infectious Disease-CN:Meds RX: Cholecalciferol (D-3) [Vitamin D] 1,000 unit PO DAILY 04/07/17 [History] RX: Multivit-Min/FA/Lycopen/Lutein [Centrum Silver Tablet] 1 tab PO DAILY 04/07/17 [History] RX: Vitamin E Acetate [Vitamin E] 400 unit PO DAILY 04/07/17 [History] RX: Ferrous Sulfate [Iron] 325 mg PO DAILY 11/28/17 [History] RX: Insulin Glargine,Hum.rec.anlog [Lantus Solostar] 30 units SQ HS 11/28/17 [History] RX: Insulin LISPRO [Humalog] 0 unit SQ TIDWM 11/28/17 [History] RX: Metoprolol [Lopressor] 12.5 mg PO BID 11/28/17 [History] RX: Isosorbide MONOnitrate (24 HR) [Imdur] 30 mg PO DAILY #30 tab.er.24h 12/26/17 [Rx] RX: ceFAZolin [Ancef] 1,000 gm IV 1900 02/28/18 [History] RX: Bumetanide [Bumex] 1 mg PO DAILY 04/10/18 [History] RX: Docusate [Colace] 100 mg PO BID PRN 04/10/18 [History] RX: L. Acidophilus/Pectin, Grubbs [Acidophilus Caplet] 1 tab PO BID 04/10/18 [History] Allergy/AdvReac Type Severity Reaction Status Date / Time Dluacem-Qtt-Cko Reductase AdvReac Muscle Pain Verified 04/19/18 02:15 Inhibitor [Statins] Review of systems: 10 point review of systems done, negative other for what is mentioned in history of present illness. Exam - Constitutional Vitals: Temp Pulse Resp BP Pulse Ox 97.5 F L 92 17 144/71 99 04/20/18 06:52 04/20/18 06:52 04/20/18 06:52 04/20/18 06:52 04/20/18 06:52 General appearance: cooperative, no acute distress, no febrile - Head Head exam: Present: atraumatic, normocephalic - Eye Eye exam: Present: EOMI, PERRL, sclera anicteric Additional comments: No conjunctival hemorrhage - ENT ENT exam: Present: mucous membranes moist, normal exam - Neck Neck exam: Present: full ROM. Absent: meningismus - Respiratory Respiratory exam: Present: CTAB. Absent: wheezes - Cardiovascular Cardiovascular exam: Present: RRR, +S1, +S2 Additional comments: Patient does have a mechanical valve I did not appreciate any new murmur. Dialysis catheter right chest intact with no signs of infection - GI/Abdominal GI/Abdominal exam: Present: normal bowel sounds, soft. Absent: tenderness - Extremities Exam Extremities exam: Present: full ROM, normal inspection. Absent: joint swelling - Back Exam Back exam: Present: normal inspection. Absent: CVA tenderness (L), CVA tenderness (R), vertebral tenderness - Neurological Exam Neurological exam: Present: alert, oriented X3, no focal deficits - Psychiatric Psychiatric exam: Present: normal affect, normal mood - Skin Skin exam: Present: normal color. Absent: rash Additional comments: No endocarditis stigmata Infectious Disease CN: Results - Labs CBC & Chem 7: 04/20/18 04:00 04/20/18 04:00 Cultures: Cultures 04/19/18 04:40 Blood Culture - Preliminary Peripheral Venipuncture Gram Positive Cocci 04/19/18 04:45 Blood Culture - Preliminary Peripheral Venipuncture Culture is incubating and being continuously monitored for growth. Final report to follow. Serology: Serology 04/19/18 04/19/18 Range/Units 04:40 03:31 Urine Color Dark Yellow (Yellow) Urine Clarity Cloudy A (Clear) Urine pH 6.0 (5.0-8.0) pH Units Ur Specific [place] 1.019 (1.010-1.025) Urine Protein >=300 H (Neg-Trace) mg/dL Urine Glucose (UA) 100 H (Normal) mg/dL Urine Ketones Trace H (Negative) mg/dL Urine Blood Small H (Negative) Urine Nitrite Negative (Negative) Urine Bilirubin Small H (Negative) Urine Urobilinogen Normal (Normal) mg/dL Ur Leukocyte Esterase Small H (Negative) Urine Microscopic RBC 0-3 (0-3) per hpf Urine Microscopic WBC TNTC H (0-3) per hpf Ur Squamous Epith Cells Many H (None-Few) per lpf Urine Bacteria None Seen (None-Few) per hpf Hyaline Casts Few (None-Few) per lpf Ur Culture Indicated? NO. A (NO) A. baumannii (PCR) Not Detected (Not Detect) Negin albicans (PCR) Not Detected (Not Detect) C. glabrata (PCR) Not Detected (Not Detect) C. krusei (PCR) Not Detected (Not Detect) C. parapsilosis (PCR) Not Detected (Not Detect) C. tropicalis (PCR) Not Detected (Not Detect) Enterobacteriac sp PCR Not Detected (Not Detect) E. cloacae complex PCR Not Detected (Not Detect) Enterococcus sp PCR Not Detected (Not Detect) E. coli (PCR) Not Detected (Not Detect) H. influenzae (PCR) Not Detected (Not Detect) Klebsiella oxytoca PCR Not Detected (Not Detect) Klebsiella pneumoniae Not Detected (Not Detect) List. monocytogenes PCR Not Detected (Not Detect) N. meningitidis (PCR) Not Detected (Not Detect) Proteus species (PCR) Not Detected (Not Detect) Serratia marcescens PCR Not Detected (Not Detect) Staphylococcus sp PCR DETECTED A (Not Detect) Staph aureus (PCR) DETECTED A (Not Detect) mecA-Methicil Res Gene Not Detected (Not Detect) Streptococcus sp PCR Not Detected (Not Detect) Group A Strep DNA Not Detected (Not Detect) Group B Strep (PCR) Not Detected (Not Detect) Strep pneumoniae (PCR) Not Detected (Not Detect) P. aeruginosa (PCR) Not Detected (Not Detect) Jake/B-Vanco Res Genes Not Detected (Not Detect) KPC (blaKPC) Detect PCR Not Detected (Not Detect) Consult Discharge Plan - Plan Referrals: Latoya Harkins, REFRIGERATOR ROOM CLERK [Primary Care Provider] -
[2018-04-21] MEDS: Levothyroxine 25 MCG TABLET PO SCH (05:44)
[2018-04-21] MEDS: *HR* Heparin 5,000 UNIT/ML VIAL SQ SCH ×3 (05:46→20:53)
--- NOTE | 2018-04-21 08:00 | Electrocardiograph Report ---
[place] [address] Test Date: 2018-04-19 Pat Name: Alicia Taylor Department: EXAM2 Room: 2A16 Gender: F Construction Flagger: : 1940 Requested By: Guru Garrido Order Number: [id number] Reading MD: Isak Rosas Measurements Intervals [place] Rate: 71 P: 15 UT: 149 QRS: 49 QRSD: 95 T: 59 QT: 389 QTc: 423 Interpretive Statements Sinus rhythm Atrial premature complex Borderline low voltage, extremity leads Nonspecific ST and T-wave changes Electronically Signed On 04-21-2018 7:58:29 EST by Isak Rosas
[2018-04-21] MEDS: Insulin LISPRO 300 UNITS/3 ML VIAL SQ SCH ×4 (09:25→21:34)
--- NOTE | 2018-04-21 09:39 | Infectious Disease Progress No ---
Date of Encounter: 04/21/18 Time of Encounter: 09:37 - Assessment and Plan (1) Bacteremia due to methicillin susceptible Staphylococcus aureus (MSSA) Current Visit: No Status: Acute Complicated MSSA bacteremia due to setting of hardware status post total knee replacement and by prostatic valve. 11/07/2017 2 out of 2 sets positive for MSSA discharge on oral doxycycline for 7 days. 11/26/2017 2 out of 2 sets positive for MSSA repeat cultures on November 28 no growth treated with 4 weeks of IV cefazolin for complicated MSSA bacteremia At that time, ELVER and TTE were negative. 02/11/2018 2 out of 2 sets positive for MSSA bacteremia patient was transferred to [place]. The patient had a WBC scan and ELVER which were negative. The patient was treated with 8 weeks of IV cefazolin followed by prolonged oral suppressive therapy. Recently, the patient was admitted for CHF and the primary team was advised by the ID team to continue treatment until follow-up with ID. Currently ,patient is admitted and 2 out of 2 sets on 04/19/2018 are positive for MSSA. Repeat blood culture drawn peripherally 04/20/18 is pending x 1 set. Extensive review of system and physical exam is not suggestive of endocarditis and physical exam negative for endocarditis stigmata. Source of infection is not clear. Endocarditis is still my differential and could be a central line associated bloodstream infection from dialysis catheter. Physical exam not suggestive prosthetic joint infection. The patient has one major and one minor Modified Hayden's criteria. The patient does have a history of MGUS, so not sure if this is contributing to the persistent bacteremia. Will discuss with allergy/immunology. Some literature review suggests using cefazolin and ertapenem for synergy. At this point, will treat as prosthetic valve endocarditis. Currently on cefazolin. Recommendations: - Await repeat blood cultures to finalize. - Check CBC, CMP, rheumatoid factor, and INR now. - Get one set of peripheral blood cultures and one set of blood cultures from the Perma-cath now. Discussed with nephrology and nursing and will have the HD nurse draw the Perma-cath culture per policy. - Check rheumatoid factor. - Get whole-body WBC scan. - The patient will need a ELVER prior to discharge. - Continue ancef 1 gram IV Q24H, dose-adjusted for the patient's HD status. - Duration of treatment depends on the clinical picture. - Monitor labs and dose-adjust antibiotics. - Strict glucose control. (2) Prosthetic valve endocarditis Current Visit: Yes Status: Suspected Will plan to treat as prosthetic valve endocarditis given the recurrence of her bacteremia. No endocarditis stigmata noted on exam. The patient has one major and one minor Modified Hayden's Criteria. Antibiotics as above. Qualifiers: Encounter type: sequela Qualified Code(s): T82.6XXS - Infection and inflammatory reaction due to cardiac valve prosthesis, sequela (3) Cirrhosis Current Visit: Yes Status: Chronic Etiology unclear. Check INR and LFTs to calculate MELD score. Qualifiers: Hepatic cirrhosis type: other cirrhosis Qualified Code(s): K74.69 - Other c irrhosis of liver (4) Diabetes mellitus type 2 in obese Current Visit: Yes Status: Chronic (5) History of aortic valve replacement with bioprosthetic valve Current Visit: No Status: Chronic (6) MGUS (monoclonal gammopathy of unknown significance) Current Visit: No Status: Acute (7) Chronic kidney disease (CKD), stage V Current Visit: Yes Status: Acute Nephrology consulted and following. - Subjective Interval history: Patient seen and examined with nursing at the bedside. No acute events noted overnight. Patient states overall she feels okay. She denies any fevers, chill s, or rigors. Denies chest pain, does report some chronic shortness of breath and cough productive of green sputum that is chronic and at baseline for her. She denies any nausea, vomiting, diarrhea, or abdominal pain. She does report some issues with constipation. She does not make urine secondary to her end- stage renal disease. She states she ate her breakfast this morning and her appetite is good. She denies any oral thrush or new skin lesions. Infect Dis PN-Objective Data - Labs CBC & Chem 7: 04/21/18 11:13 04/21/18 11:13 Labs: Laboratory Results - last 24 hr 04/19/18 04/20/18 04/20/18 04:40 06:57 11:38 ESR ABG pH ABG pCO2 ABG pO2 ABG HCO3 ABG Total CO2 ABG O2 Saturation ABG Base Excess O2 Delivery Device Inspired O2 POC Glucose 173 H 127 H Lactic Acid C-Reactive Protein A. baumannii (PCR) Not Detected Negin albicans (PCR) Not Detected C. glabrata (PCR) Not Detected C. krusei (PCR) Not Detected C. parapsilosis (PCR) Not Detected C. tropicalis (PCR) Not Detected Enterobacteriac sp PCR Not Detected E. cloacae complex PCR Not Detected Enterococcus sp PCR Not Detected E. coli (PCR) Not Detected H. influenzae (PCR) Not Detected Klebsiella oxytoca PCR Not Detected Klebsiella pneumoniae Not Detected List. monocytogenes PCR Not Detected N. meningitidis (PCR) Not Detected Proteus species (PCR) Not Detected Serratia marcescens PCR Not Detected Staphylococcus sp PCR DETECTED A Staph aureus (PCR) DETECTED A mecA-Methicil Res Gene Not Detected Streptococcus sp PCR Not Detected Group A Strep DNA Not Detected Group B Strep (PCR) Not Detected Strep pneumoniae (PCR) Not Detected P. aeruginosa (PCR) Not Detected Jake/B-Vanco Res Genes Not Detected KPC (blaKPC) Detect PCR Not Detected 04/20/18 04/20/18 04/20/18 12:05 12:05 12:05 ESR 43 H ABG pH ABG pCO2 ABG pO2 ABG HCO3 ABG Total CO2 ABG O2 Saturation ABG Base Excess O2 Delivery Device Inspired O2 POC Glucose Lactic Acid 1.0 C-Reactive Protein 141 H A. baumannii (PCR) Negin albicans (PCR) C. glabrata (PCR) C. krusei (PCR) C. parapsilosis (PCR) C. tropicalis (PCR) Enterobacteriac sp PCR E. cloacae complex PCR Enterococcus sp PCR E. coli (PCR) H. influenzae (PCR) Klebsiella oxytoca PCR Klebsiella pneumoniae List. monocytogenes PCR N. meningitidis (PCR) Proteus species (PCR) Serratia marcescens PCR Staphylococcus sp PCR Staph aureus (PCR) mecA-Methicil Res Gene Streptococcus sp PCR Group A Strep DNA Group B Strep (PCR) Strep pneumoniae (PCR) P. aeruginosa (PCR) Jake/B-Vanco Res Genes KPC (blaKPC) Detect PCR 04/20/18 04/20/18 04/21/18 12:08 16:31 08:06 ESR ABG pH 7.43 ABG pCO2 47 H ABG pO2 91 ABG HCO3 31 H ABG Total CO2 32 H ABG O2 Saturation 97 ABG Base Excess 6 H O2 Delivery Device Cannula Inspired O2 36.0 POC Glucose 235 H 226 H Lactic Acid C-Reactive Protein A. baumannii (PCR) Negin albicans (PCR) C. glabrata (PCR) C. krusei (PCR) C. parapsilosis (PCR) C. tropicalis (PCR) Enterobacteriac sp PCR E. cloacae complex PCR Enterococcus sp PCR E. coli (PCR) H. influenzae (PCR) Klebsiella oxytoca PCR Klebsiella pneumoniae List. monocytogenes PCR N. meningitidis (PCR) Proteus species (PCR) Serratia marcescens PCR Staphylococcus sp PCR Staph aureus (PCR) mecA-Methicil Res Gene Streptococcus sp PCR Group A Strep DNA Group B Strep (PCR) Strep pneumoniae (PCR) P. aeruginosa (PCR) Jake/B-Vanco Res Genes KPC (blaKPC) Detect PCR Cultures: Cultures 04/19/18 04:40 Blood Culture - Preliminary Peripheral Venipuncture Staphylococcus aureus 04/19/18 04:45 Blood Culture - Preliminary Peripheral Venipuncture Staphylococcus aureus 04/20/18 19:34 Blood Culture - Preliminary Peripheral Venipuncture Culture is incubating and being continuously monitored for growth. Final report to follow. Serology 04/19/18 04/19/18 Range/Units 04:40 03:31 Urine Color Dark Yellow (Yellow) Urine Clarity Cloudy A (Clear) Urine pH 6.0 (5.0-8.0) pH Units Ur Specific [place] 1.019 (1.010-1.025) Urine Protein >=300 H (Neg-Trace) mg/dL Urine Glucose (UA) 100 H (Normal) mg/dL Urine Ketones Trace H (Negative) mg/dL Urine Blood Small H (Negative) Urine Nitrite Negative (Negative) Urine Bilirubin Small H (Negative) Urine Urobilinogen Normal (Normal) mg/dL Ur Leukocyte Esterase Small H (Negative) Urine Microscopic RBC 0-3 (0-3) per hpf Urine Microscopic WBC TNTC H (0-3) per hpf Ur Squamous Epith Cells Many H (None-Few) per lpf Urine Bacteria None Seen (None-Few) per hpf Hyaline Casts Few (None-Few) per lpf Ur Culture Indicated? NO. A (NO) A. baumannii (PCR) Not Detected (Not Detect) Negin albicans (PCR) Not Detected (Not Detect) C. glabrata (PCR) Not Detected (Not Detect) C. krusei (PCR) Not Detected (Not Detect) C. parapsilosis (PCR) Not Detected (Not Detect) C. tropicalis (PCR) Not Detected (Not Detect) Enterobacteriac sp PCR Not Detected (Not Detect) E. cloacae complex PCR Not Detected (Not Detect) Enterococcus sp PCR Not Detected (Not Detect) E. coli (PCR) Not Detected (Not Detect) H. influenzae (PCR) Not Detected (Not Detect) Klebsiella oxytoca PCR Not Detected (Not Detect) Klebsiella pneumoniae Not Detected (Not Detect) List. monocytogenes PCR Not Detected (Not Detect) N. meningitidis (PCR) Not Detected (Not Detect) Proteus species (PCR) Not Detected (Not Detect) Serratia marcescens PCR Not Detected (Not Detect) Staphylococcus sp PCR DETECTED A (Not Detect) Staph aureus (PCR) DETECTED A (Not Detect) mecA-Methicil Res Gene Not Detected (Not Detect) Streptococcus sp PCR Not Detected (Not Detect) Group A Strep DNA Not Detected (Not Detect) Group B Strep (PCR) Not Detected (Not Detect) Strep pneumoniae (PCR) Not Detected (Not Detect) P. aeruginosa (PCR) Not Detected (Not Detect) Jake/B-Vanco Res Genes Not Detected (Not Detect) KPC (blaKPC) Detect PCR Not Detected (Not Detect) Exam - Constitutional Vitals: Temp Pulse Resp BP Pulse Ox 98.2 F 106 19 131/60 97 04/21/18 07:00 04/21/18 07:00 04/21/18 07:00 04/21/18 07:00 04/21/18 07:00 General appearance: cooperative, no acute distress, obese - Head Head exam: Present: atraumatic, normal inspection, normocephalic - Eye Eye exam: Present: EOMI, normal appearance, PERRL Pupils: Present: normal accommodation Additional comments: No subconjunctival hemorrhage noted. - ENT ENT exam: Present: mucous membranes moist - Neck Neck exam: Present: normal inspection - Respiratory Respiratory exam: Present: CTAB. Absent: rales, respiratory distress, rhonchi, wheezes - Cardiovascular Cardiovascular exam: Present: RRR, +S1, +S2, systolic murmur - GI/Abdominal GI/Abdominal exam: Present: distended (Obese), normal bowel sounds, soft. Absent: tenderness - Extremities Exam Extremities exam: Present: pedal edema (Trace bilateral lower extremities). Absent: joint swelling, normal inspection (Venous stasis dermatitis noted to the bilateral lower extremities.), tenderness - Neurological Exam Neurological exam: Present: alert, oriented X3, no focal deficits - Psychiatric Psychiatric exam: Present: normal affect, normal mood - Skin Skin exam: Present: dry, intact, normal color, warm - Additional findings Additional findings: Permacath noted to the right upper chest with transparent dressing clean, dry, and intact. No erythema, warmth, or tenderness noted. Consult Discharge Plan - Plan Referrals: Latoya Harkins, SENIOR FUNCTIONAL ANALYST [Primary Care Provider] - (Patient will follow up with PCP at the [facility]) - Attending Attestation I examined this patient and my medical decision-making was reviewed with the Resident Physician. I agree with the documented findings, disposition and treatment plan as described except to the extent set forth below.
[2018-04-21] MEDS ORDERED: *HR* Heparin 5,000 UNIT/ML VIAL ONE ×2 (10:57→10:58)
[2018-04-21 11:31] LABS: Basophils % 0.2 %; Eosinophils # 0.1 K/mcL (0.0-0.6); Hematocrit 30.3 % (35.3-44.9); Immature Granulocytes % 0.8 % (0-4); Lymphocytes # 0.5 K/mcL (0.6-4.6); Lymphocytes % 5.2 %; Mean Corpuscular HGB Conc 29.7 g/dL (31.6-35.5); Mean Corpuscular Hemoglobin 29.4 pg (28.0-33.3); Mean Platelet Volume 9.8 fL (9.4-12.4); Monocytes # 0.9 K/mcL (0.0-1.3); Monocytes % 10.6 %; Red Blood Count 3.06 M/mcL (3.82-4.97); Red Cell Distribution Width 18.3 % (11.5-14.5); Segmented Neutrophils % 82.2 %
[2018-04-21 11:33] LABS: Neutrophils # 7.2 K/mcL (1.6-8.9); Platelet Count 77 K/mcL (140-400)
[2018-04-21 11:40] LABS: INR 1.5; Prothrombin Time 17.4 Seconds (9.4-12.1)
[2018-04-21 11:47] LABS: Calcium 8.6 mg/dL (8.6-10.3); Potassium 4.1 mEq/L (3.5-5.1)
[2018-04-21 11:50] LABS: Alanine Aminotransferase < 3 Units/L (7-52); Albumin 2.9 g/dL (3.5-5.7); Albumin/Globulin Ratio 0.6 (1.1-2.2); Alkaline Phosphatase 164 Units/L (34-104); Aspartate Amino Transferase 30 Units/L (13-39); Bilirubin,Direct 0.2 mg/dL (0.0-0.2); Bilirubin,Indirect 0.5 mg/dL (0.0-1.2); Bilirubin,Total 0.7 mg/dL (0.3-1.0); Globulin 4.6 g/dL (2.4-3.5); Total Protein 7.5 g/dL (6.4-8.9)
--- NOTE | 2018-04-21 13:13 | Internal Med Progress Note ---
Hospitalist Progress Note - Encounter Date of Encounter: 04/21/18 Time of Encounter: 11:00 - Subjective Interval History: Hospital course reviewed. Patient with history of complicated MSSA bacteremia in the setting of L knee prosthesis and AVR is admitted for another S. aureus bacteremia despite being on IV Ancef as an outpatient. ID input appreciated; for WBC scan and ELVER. Patient does not have any focal complaints including chest pain, shortness of breath, palpitation, hemoptysis, or cough. No fever/chills, N/V, or worsening left knee pain. Discussed with the family members at bedside at length regarding the hospitalization course. - Exam Vitals: Temp Pulse Resp BP Pulse Ox 97.9 F 112 18 140/67 99 04/21/18 10:54 04/21/18 10:54 04/21/18 10:54 04/21/18 10:54 04/21/18 10:54 Exam: GEN: Slightly lethargic but easily arousable by voice. Appears comfortable, confused but able to answer basic questions CVS:RRR. S1, S2, systolic murmur RESP: Diminished with bibasilar crackles ABD: Soft, nondistended. EXT: No Osler's nodes or splinter hemorrhage NEURO: Nonfocal - Assessment and Plan (1) MSSA bacteremia Current Visit: Yes Status: Acute Assessment and Plan: Hx of complicated MSSA bacteremia in the setting of left knee prosthesis and aortic valve replacement: see ID noted for detail was admitted for mild respiratory acidosis requring [id number] HD over the weekend. Blood cultures were negative on that date Cultures done on 04/19 +ve for S. aureus in both sets Please take cultures from HD catheter as well appreciate ID input, will empirically treat as prosthetic valve endocarditis. Continue ancef for now -> may need to add rifampin WBC scan per ID ELVER (2) ESRF (end stage renal failure) Current Visit: No Status: Chronic Assessment and Plan: Friday, Friday, Friday hemodialysis Follows with [facility] who is seeing in consultation; appreciate input will need to coordinate the timing for HD and ELVER tomorrow (3) Elevated TSH Current Visit: Yes Status: Acute Assessment and Plan: TSH was around 12. T3 was low T4 was normal started on synthroid and family states she looks a bit more alert and "perked up" today although it is difficult to diagnose hypothyroidism in acutely ill state, it probably would be reasonable to continue tx given her positive response and TSH being > 10 repeat TSH in 6 weeks as outpatient (4) Diabetes mellitus Current Visit: No Status: Chronic Assessment and Plan: FSBG > 230s since yesterday PM add levemir at lower dose Continue insulin sliding scale & Accu-Cheks ADA diet (5) Cirrhosis Current Visit: Yes Status: Chronic Assessment and Plan: h/o cirrhosis, sees Dr. Potts as an outpatient MELD 26 ammonia level on presentation normal not in decompensation, monitor (6) Hypertension Current Visit: No Status: Chronic Assessment and Plan: stable Continue anti-HTN medications and monitor (7) Elevated troponin Current Visit: No Status: Chronic Assessment and Plan: Chronically elevated. He remains chest pain-free. Likely due to ESRD (8) DVT prophylaxis Current Visit: No Status: Acute Assessment and Plan: SQ Heparin - Time Spent with Patient Total time spent is greater than 50% in coordination of care (as documented) at patient's floor/unit and/or counseling patient: Plan of Care Discussed with: patient Internal Medicine: Result - Labs CBC & Chem 7: 04/21/18 11:13 04/21/18 11:13 Labs: Short CBC 04/21/18 Range/Units 11:13 WBC 8.8 (4.3-11.1) K/mcL Hgb 9.0 L (11.5-15.4) g/dL Hct 30.3 L (35.3-44.9) % Plt Count 77 L (140-400) K/mcL Neutrophils # 7.2 (1.6-8.9) K/mcL BMP 04/21/18 11:13 Sodium 134 L Potassium 4.1 Chloride 97 L Carbon Dioxide 30 H BUN 23 Creatinine 3.17 H Glucose 271 H Calcium 8.6 Liver Function 04/21/18 Range/Units 11:13 Total Bilirubin 0.7 (0.3-1.0) mg/dL Direct Bilirubin 0.2 (0.0-0.2) mg/dL AST 30 (13-39) Units/L ALT < 3 L (7-52) Units/L Alkaline Phosphatase 164 H (34-104) Units/L Albumin 2.9 L (3.5-5.7) g/dL - ABG Interpretation ABG results: ABG ABG pH 7.43 pH Units (7.32-7.45) 04/20/18 12:08 ABG pCO2 47 mmHg (35-45) H 04/20/18 12:08 ABG pO2 91 mmHg (85-104) 04/20/18 12:08 ABG O2 Saturation 97 % (95-98) 04/20/18 12:08 PT/INR, D-dimer PT 17.4 Seconds (9.4-12.1) H 04/21/18 11:13 Consult Discharge Plan - Plan Referrals: Latoya Harkins VAMP STRAP IRONER [Primary Care Provider] - (Patient will follow up with PCP at the [facility]) (4) Diabetes mellitus Qualifiers: Diabetes mellitus type: type 2 Diabetes mellitus fci insulin use: with fci use Diabetes mellitus complication status: with kidney complications Diabetes mellitus complication detail: with chronic kidney disease Chronic kidney disease stage: on chronic dialysis Qualified Code(s): E11.22 - Type 2 diabetes mellitus with diabetic chronic kidney disease; N18.6 - End stage renal disease; Z79.4 - USP (current) use of insulin; Z99.2 - Dependence on renal dialysis (5) Cirrhosis Qualifiers: Hepatic cirrhosis type: other cirrhosis Qualified Code(s): K74.69 - Other cirrhosis of liver (6) Hypertension Qualifiers: Hypertension type: essential hypertension Qualified Code(s): I10 - Essential (primary) hypertension
--- NOTE | 2018-04-21 13:51 | Nephrology Progress Note ---
Addendum entered and electronically signed by Darrell Rosales MD 04/21/18 21:32: I examined this patient and my medical decision-making was reviewed with the Resident Physician. I agree with the documented findings, disposition and treatment plan as described except to the extent set forth below. Plan for dialysis tomorrow. Spoke with patient's family. Original Note: Date of Encounter: 04/21/18 Time of Encounter: 13:50 - Assessment and Plan (1) ESRD (end stage renal disease) on dialysis Current Visit: Yes Status: Chronic - ESRD on MWF dialysis via permacath on the right - Multiple dialysis sessions in the past week including Friday, Friday, Friday, Friday - Interviewed and evaluated in HD 04/20/18 - Labs and vitals stable - Uremia is an unlikely cause of her altered mental status given multiple dialysis sessions in the past week. Plan - Continue with scheduled MWF dialysis sessions (2) Altered mental status Current Visit: Yes Status: Acute - Unclear etiology at this time however patient was notably found be bacteremic with gram-positive cocci as well as gram-negative rods growing in the urine - Unlikely uremia as she has been dialyzed multiple times without improvement of symptoms - Suspect that this is secondary to infection, bacteremia. - Blood cultures positive 2 for MSSA - Dialysis catheter culture obtained and is so far negative for growth - Infectious disease has been consulted. - Unclear baseline -- If blood cultures drawn from dialysis catheter do grow bacteria, may have to consider exchange - Further management per primary team and infectious disease Qualifiers: Altered mental status type: somnolence Qualified Code(s): R40.0 - Somnolence (3) Cirrhosis Current Visit: Yes Status: Chronic - Per chart review - Ammonia noted to be 50 -Unable to calculate meld score without coagulation studies - Also noted that the patient is not on lactulose - Further management per primary team Qualifiers: Hepatic cirrhosis type: other cirrhosis Qualified Code(s): K74.69 - Other cirrhosis of liver (4) Diabetes mellitus type 2 in obese Current Visit: Yes Status: Chronic Recommend tight glucose control (5) Back pain Current Visit: Yes Status: Acute - Patient has complaint of back pain this morning when examined in dialysis - Unclear if chronic or acute - Consider palliative consult for pain management long-term, especially if avoiding opioids Qualifiers: Back pain location: low back pain Chronicity: unspecified Back pain laterality: unspecified Sciatica presence: without sciatica Qualified Code(s): M54.5 - Low back pain Subjective Principal diagnosis: ESRD altered mental status Interval history: Patient was seen and examined at bedside this morning. She is notably very difficult to arouse and lethargic. She does respond to tactile stimuli but then falls right back asleep. No family present at bedside. Objective - Vital Signs Vital signs: Vital Signs Temp Pulse Resp BP Pulse Ox 04/21/18 10:54 97.9 F 112 18 140/67 99 04/21/18 07:00 98.2 F 106 19 131/60 97 04/21/18 04:29 98.2 F 111 18 110/62 93 04/21/18 00:00 97.8 F 105 17 131/65 97 04/20/18 21:21 99 04/20/18 20:41 98.5 F 103 18 124/72 99 04/20/18 16:25 98.1 F 106 16 149/82 98 Intake and Output 04/20/18 04/21/18 04/21/18 23:59 07:59 15:59 Intake Total 600 / 600 Balance 600 / 600 Intake: IV Fluids Ancef 1,000 MG In Water for inj . (sterile) 10 ML @ 200 mls/hr IVPB Q24H [facility] Rx#:[id number] Oral 600 / 600 Other: Meal Lunch Percent of Meal Consumed 20% Stool Size Small Stool Consistency soft Stool Characteristics Normal for Patient Stool Color Brown Green # Bowel Movements 2 Blood Glucose* 267 291 - General Appearance Exam: Gen.: Vitals noted. No acute distress. Unable to assess orientation due to altered mental status. Patient sleeping comfortably and does respond to tactile stimuli but falls immediately back to sleep. HEENT: PERRL/EOMI, oropharynx clear, Normocephalic, atraumatic, MMM Cardiac: Tachycardia, difficult to determine rhythm given a rate, +S1/S2 Pulmonary: CTA bilaterally, no wheezes, rales or rhonchi, equal chest expansion Abdomen: soft, nontender, BS noted, no guarding, no rebound. Firmness on right abdomen appears to be improved. Extremities: no BLE edema, nontender calf, no cyanosis or clubbing. Dry skin of bilateral lower extremities Neuro: Unable to assess secondary to mental status Psych: Unable to assess - Lab 04/21/18 11:13 04/21/18 11:13 Most recent lab results ABG pH 7.43 pH Units (7.32-7.45) 04/20/18 12:08 ABG pCO2 47 mmHg (35-45) H 04/20/18 12:08 ABG pO2 91 mmHg (85-104) 04/20/18 12:08 ABG HCO3 31 mEq/L (21-27) H 04/20/18 12:08 ABG O2 Saturation 97 % (95-98) 04/20/18 12:08 Calcium 8.6 mg/dL (8.6-10.3) 04/21/18 11:13 Magnesium 1.8 mg/dL (1.6-2.6) 04/20/18 04:00 Consult Discharge Plan - Plan Referrals: Latoya Harkins, RACING SECRETARY AND HANDICAPPER [Primary Care Provider] - (Patient will follow up with [facility]CP at the [facility])
[2018-04-21] MEDS: ceFAZolin 1,000 MG in Water for inj. (sterile) 20 ML 10 ML IVPB SCH (17:49)
[2018-04-21 19:31] LABS: Enterococcus by PCR Not Detected (Not Detect); Staphylococcus by PCR DETECTED (Not Detect); blaKPC Carbapenem-Resist Gene Not Detected (Not Detect); mecA Methicillin-Resist Gene Not Detected (Not Detect); vanA/B Vancomycin-Resist Genes Not Detected (Not Detect)
[2018-04-21 19:32] LABS: Acinetobacter baumannii by PCR Not Detected (Not Detect); Candida albicans by PCR Not Detected (Not Detect); Candida glabrata by PCR Not Detected (Not Detect); Candida krusei by PCR Not Detected (Not Detect); Candida parapsilosis by PCR Not Detected (Not Detect); Candida tropicalis by PCR Not Detected (Not Detect); Enterobacter cloacae Cmplx PCR Not Detected (Not Detect); Enterobacteriaceae by PCR Not Detected (Not Detect); Escherichia coli by PCR Not Detected (Not Detect); Klebsiella oxytoca by PCR Not Detected (Not Detect); Klebsiella pneumoniae by PCR Not Detected (Not Detect); Proteus by PCR Not Detected (Not Detect); Pseudomonas aeruginosa by PCR Not Detected (Not Detect); Serratia marcescens by PCR Not Detected (Not Detect); Staphylococcus aureus by PCR DETECTED (Not Detect); Streptococcus agalactiae(B)PCR Not Detected (Not Detect); Streptococcus by PCR Not Detected (Not Detect); Streptococcus pneumoniae PCR Not Detected (Not Detect); Streptococcus pyogenes (A) PCR Not Detected (Not Detect)
[2018-04-21] MEDS: Acetaminophen 325 MG TABLET PO PRN (20:51)
[2018-04-21] MEDS: Insulin DETEMIR 100 UNIT/ML X5UNITS SQ SCH (21:12)
[2018-04-22] MEDS: Acetaminophen 325 MG TABLET PO PRN ×2 (04:08→21:36)
[2018-04-22] MEDS: *HR* Heparin 5,000 UNIT/ML VIAL SQ SCH ×3 (06:09→21:19)
[2018-04-22] MEDS: Levothyroxine 25 MCG TABLET PO SCH (06:09)
[2018-04-22 06:37] LABS: Mean Corpuscular Volume 96.8 fL (83.0-100.0); Red Cell Distribution Width 18.1 % (11.5-14.5)
[2018-04-22 06:39] LABS: Hematocrit 27.5 % (35.3-44.9); Hemoglobin 8.2 g/dL (11.5-15.4); Immature Platelets 1.5 % (1.1-6.1); Mean Corpuscular HGB Conc 29.8 g/dL (31.6-35.5); Mean Corpuscular Hemoglobin 28.9 pg (28.0-33.3); Mean Platelet Volume 9.6 fL (9.4-12.4); Red Blood Count 2.84 M/mcL (3.82-4.97)
[2018-04-22 07:00] LABS: Calcium 8.6 mg/dL (8.6-10.3); Potassium 4.1 mEq/L (3.5-5.1)
[2018-04-22] MEDS ORDERED: 0.9 % Sodium Chloride 250 ML IVC PRN (07:36)
[2018-04-22] MEDS ORDERED: *HR* Heparin 10,000 UNIT/10 ML VIAL IV PRN (07:36)
[2018-04-22] MEDS ORDERED: 0.9 % Sodium Chloride 1,000 ML PRIME SCH (07:45)
[2018-04-22] MEDS ORDERED: Lidocaine Viscous Oral Soln 15 ML SOLUTION MM PRN (08:26)
[2018-04-22] MEDS ORDERED: *HR* FentaNYL (PF) 100 MCG/2 ML VIAL IVP PRN (08:26)
[2018-04-22] MEDS ORDERED: 0.9 % Sodium Chloride 500 ML IVC ONE ×2 (08:27→09:01)
[2018-04-22] MEDS ORDERED: Tetracaine/Benzocaine/Butamben 1 SPRAY AEROSOL MM ONE (08:27)
[2018-04-22] MEDS ORDERED: *HR* Midazolam HCl 5 MG/5 ML VIAL IVP PRN (08:27)
--- NOTE | 2018-04-22 11:23 | Nephrology Progress Note ---
Addendum entered and electronically signed by Darrell Rosales MD 04/22/18 20:17: I examined this patient and my medical decision-making was reviewed with the Resident Physician. I agree with the documented findings, disposition and treatment plan as described except to the extent set forth below. Patient seen on dialysis. Plan for removal of tunneled catheter as her blood culture continues to be positive. Patient also has endocarditis and has been evaluated by CT surgery. Original Note: Date of Encounter: 04/22/18 Time of Encounter: 11:05 - Assessment and Plan (1) ESRD (end stage renal disease) on dialysis Current Visit: Yes Status: Chronic - ESRD on MWF dialysis via permacath on the right, Non infected looking. - Multiple dialysis sessions in the past week including Friday, Friday, Friday, Friday - Interviewed and evaluated in HD 04/20/18 - Labs and vitals stable - Uremia is an unlikely cause of her altered mental status given multiple dialysis sessions in the past week. Plan - Continue with scheduled MWF dialysis sessions - Plan for dialysis today (2) Altered mental status Current Visit: Yes Status: Acute - Unclear etiology at this time however patient was notably found be bacteremic with gram-positive cocci as well as gram-negative rods growing in the urine - Cultures positive for MSSA in blood, GPC in repeat blood. Urine growing citrobacter - Cultures from dialysis line so far NG. - Unlikely uremia as she has been dialyzed multiple times without improvement of symptoms - Suspect that this is secondary to infection, bacteremia. - Infectious disease is following. - Unclear baseline -- If blood cultures drawn from dialysis catheter do grow bacteria, may have to consider exchange - Further management per primary team and infectious disease - Unclear if improving as she received sedation for ELVER this morning. Qualifiers: Altered mental status type: somnolence Qualified Code(s): R40.0 - Somnolence (3) Cirrhosis Current Visit: Yes Status: Chronic - Per chart review - Ammonia noted to be 50 -Unable to calculate meld score without coagulation studies - Also noted that the patient is not on lactulose - Further management per primary team Qualifiers: Hepatic cirrhosis type: other cirrhosis Qualified Code(s): K74.69 - Other cirrhosis of liver (4) Diabetes mellitus type 2 in obese Current Visit: Yes Status: Chronic Recommend tight glucose control (5) Back pain Current Visit: Yes Status: Acute - Patient has complaint of back pain this morning when examined in dialysis - Unclear if chronic or acute - Consider palliative consult for pain management long-term, especially if avoiding opioids Qualifiers: Back pain location: low back pain Chronicity: unspecified Back pain laterality: unspecified Sciatica presence: without sciatica Qualified Code(s): M54.5 - Low back pain Subjective Principal diagnosis: ESRD altered mental status Interval history: Patient was seen and examined at bedside this morning. She has just returned from EL[place] and is sleeping. Unable to provide ROS and no family present. She did not arouse to tactile stimuli but did moan after being shook. No overnight events. Objective - Vital Signs Vital signs: Vital Signs Temp Pulse Resp BP Pulse Ox 04/22/18 08:57 97.9 F 79 24 111/51 98 04/22/18 08:05 97.5 F L 80 19 119/76 98 04/22/18 04:08 97.5 F L 78 18 99/63 98 04/22/18 00:44 98.1 F 81 17 124/61 99 04/21/18 21:03 98.9 F 108 18 108/55 98 04/21/18 15:26 98.2 F 102 18 134/73 99 Intake and Output 04/21/18 04/22/18 04/22/18 23:59 07:59 15:59 Intake Total Balance Intake: IV Fluids 0.9 % Sodium Chloride 500 ML @ 10 mls/hr IVC .Q24H [facility] Rx#: [id number] Ancef 1,000 MG In Water for inj . (sterile) 10 ML @ 200 mls/hr IVPB Q24H [facility] Rx#:[id number] Other: Stool Size Small Small Stool Consistency soft formed Stool Color Brown # Bowel Movement Diapers 1 Weight 102 kg 101.605 kg Blood Glucose* 218 137 Patient Weight 04/22/18 23:59 Weight 101.605 kg - General Appearance Exam: Gen.: Vitals noted. No acute distress. Sleeping and difficult to arouse. HEENT: PERRL/EOMI, oropharynx clear, Normocephalic, atraumatic, MMM Cardiac: RRR, systolic murmur, +S1/S2 Pulmonary: Mild wheezes diffusely, equal chest expansion Abdomen: soft, grimaces with palpitation of abdomen, BS noted, no guarding, no rebound. MSK: ROM intact, no joint swelling noted Extremities: no BLE edema, nontender calf, no cyanosis or clubbing Neuro: Unable to assess. Sleeping. Psych: Unable to assess. - Lab 04/22/18 06:03 04/22/18 06:03 Most recent lab results ABG pH 7.43 pH Units (7.32-7.45) 04/20/18 12:08 ABG pCO2 47 mmHg (35-45) H 04/20/18 12:08 ABG pO2 91 mmHg (85-104) 04/20/18 12:08 ABG HCO3 31 mEq/L (21-27) H 04/20/18 12:08 ABG O2 Saturation 97 % (95-98) 04/20/18 12:08 Calcium 8.6 mg/dL (8.6-10.3) 04/22/18 06:03 Magnesium 1.8 mg/dL (1.6-2.6) 04/20/18 04:00 Consult Discharge Plan - Plan Referrals: Latoya Harkins, MYSQL DATABASE ADMINISTRATOR [Primary Care Provider] - (Patient will follow up with PCP at the [facility])
--- NOTE | 2018-04-22 11:29 | Internal Med Progress Note ---
Hospitalist Progress Note - Encounter Date of Encounter: 04/22/18 Time of Encounter: 08:45 - Subjective Interval History: No acute events overnight. Denies chest pain, shortness of breath, palpitation, hemoptysis, cough, fever/chills, N/V, or worsening left knee pain. - Exam Vitals: Temp Pulse Resp BP Pulse Ox 97.9 F 79 24 111/51 98 04/22/18 08:57 04/22/18 08:57 04/22/18 08:57 04/22/18 08:57 04/22/18 08:57 Exam: GEN: Alert and oriented x 2. Appears comfortable, confused but able to answer basic questions CVS:RRR. S1, S2, systolic murmur RESP: Diminished with bibasilar crackles ABD: Soft, nondistended. EXT: No Osler's nodes or splinter hemorrhage NEURO: Nonfocal - Assessment and Plan (1) MSSA bacteremia Current Visit: Yes Status: Acute Assessment and Plan: Hx of complicated MSSA bacteremia in the setting of left knee prosthesis and aor tic valve replacement: see ID notes for detail was admitted for mild respiratory acidosis requring [id number] HD over the weekend. Blood cultures were negative on that date Cultures done on 04/19 +ve for S. 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 Continue ancef for now -> consideration given for the addition of levaquin for ELVER today (2) ESRF (end stage renal failure) Current Visit: No Status: Chronic Assessment and Plan: Friday, Friday, Friday hemodialysis Follows with [facility] who is seeing in consultation; appreciate input HD today (3) Elevated TSH Current Visit: Yes Status: Acute Assessment and Plan: TSH was around 12. T3 was low T4 was normal started on synthroid and family states she looks a bit more alert and "perked up" today although it is difficult to diagnose hypothyroidism in acutely ill state, it probably would be reasonable to continue tx given her positive response and TSH being > 10 repeat TSH in 6 weeks as outpatient (4) Diabetes mellitus Current Visit: No Status: Chronic Assessment and Plan: continue levemir and low dose sliding scale & Accu-Cheks ADA diet (5) Cirrhosis Current Visit: No Status: Chronic Assessment and Plan: h/o cirrhosis, sees Dr. Potts as an outpatient MELD 26 ammonia level on presentation normal not in decompensation, monitor (6) Hypertension Current Visit: No Status: Chronic Assessment and Plan: stable Continue anti-HTN medications and monitor (7) Elevated troponin Current Visit: No Status: Chronic Assessment and Plan: Chronically elevated. He remains chest pain-free. Likely due to ESRD (8) DVT prophylaxis Current Visit: No Status: Acute Assessment and Plan: SQ Heparin - Time Spent with Patient Total time spent is greater than 50% in coordination of care (as documented) at patient's floor/unit and/or counseling patient: Plan of Care Discussed with: patient Internal Medicine: Result - Labs CBC & Chem 7: 04/22/18 06:03 04/22/18 06:03 Labs: Short CBC 04/21/18 04/22/18 Range/Units 11:13 06:03 WBC 8.8 8.1 (4.3-11.1) K/mcL Hgb 9.0 L 8.2 L (11.5-15.4) g/dL Hct 30.3 L 27.5 L (35.3-44.9) % Plt Count 77 L 81 L (140-400) K/mcL Neutrophils # 7.2 (1.6-8.9) K/mcL BMP 04/21/18 04/22/18 11:13 06:03 Sodium 134 L 134 L Potassium 4.1 4.1 Chloride 97 L 98 Carbon Dioxide 30 H 28 BUN 23 31 H Creatinine 3.17 H 3.87 H Glucose 271 H 183 H Calcium 8.6 8.6 Liver Function 04/21/18 Range/Units 11:13 Total Bilirubin 0.7 (0.3-1.0) mg/dL Direct Bilirubin 0.2 (0.0-0.2) mg/dL AST 30 (13-39) Units/L ALT < 3 L (7-52) Units/L Alkaline Phosphatase 164 H (34-104) Units/L Albumin 2.9 L (3.5-5.7) g/dL - ABG Interpretation ABG results: ABG ABG pH 7.43 pH Units (7.32-7.45) 04/20/18 12:08 ABG pCO2 47 mmHg (35-45) H 04/20/18 12:08 ABG pO2 91 mmHg (85-104) 04/20/18 12:08 ABG O2 Saturation 97 % (95-98) 04/20/18 12:08 PT/INR, D-dimer PT 17.4 Seconds (9.4-12.1) H 04/21/18 11:13 - Impressions Impressions WBC Scan Nuclear Medicine 04/20/18 19:23 IMPRESSION: Patchy bilateral pulmonary accumulation of activity, for which inflammatory or infectious pneumonitis are considerations given the asymmetry. Suggest correlation with chest radiograph or CT. 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 ocean transportation intermediary insulin use: with nursing home use Diabetes mellitus complication status: with kidney complications Diabetes mellitus complication detail: with chronic kidney disease Chronic kidney disease stage: on chronic dialysis Qualified Code(s): E11.22 - Type 2 diabetes mellitus with diabetic chronic kidney disease; N18.6 - End stage renal disease; Z79.4 - care home (current) use of insulin; Z99.2 - Dependence on renal dialysis (5) Cirrhosis Qualifiers: Hepatic cirrhosis type: other cirrhosis Qualified Code(s): K74.69 - Other cir rhosis of liver (6) Hypertension Qualifiers: Hypertension type: essential hypertension Qualified Code(s): I10 - Essential (primary) hypertension
--- NOTE | 2018-04-22 14:55 | Cardiothoracic Consult Note ---
Date of Encounter: 04/22/18 Time of Encounter: 14:46 Assessment and Plan (1) Endocarditis due to Staphylococcus Current Visit: Yes Status: Acute The patient is a 78-year-old type II diabetic, hypertensive lady with CKD, Stage V and cirrhosis who underwent an aortic valve replacement (21 mm Mosaic Ultra porcine tissue valve) in August 2014. Recently she has developed chills, fever, and altered mental status and was admitted to [facility] in October 2017. During this hospitalization the patient was found to have MSSA bacteremia and she has had 5 subsequent hospitalizations with same diagnosis. She has been treated appropriately with antibiotics and has not been diagnosed with prosthetic valve endocarditis. During this current admission she again had positive blood cultures for MSSA and a transesophageal echocardiogram has rev ealed an 8 elevated by 7 mm mobile echogenic mass attached to the bioprosthetic aortic valve. I have been asked to evaluate the patient for possible treatment options. Ideally, the patient should undergo redo AVR; however, the patient has multiple medical conditions which made this option for elective. The STS risk calculator reveals an operative mortality risk 35.8% and this does not taken to account that the patient has moderate to severe pulmonary hypertension based on a transthoracic echocardiogram performed January 2015. The patient should be treated with appropriate antibiotics, but it is unlikely that this will clear the infection. The assessment and plan as outlined above was discussed with the patient and/or family members who expressed understanding and agreement. All questions were answered. - History of Present Illness Consult date: 04/22/18 Requesting physician: Krunal Reddy Consult reason: Prosthetic valve endocarditis Chief complaint: Altered mental status History of present illness: Ms. Taylor is a 78 year old type II diabetic, hypertensive lady with chronic kidney disease, stage V and cirrhosis who is had multiple admissions for methicillin sensitive Staphylococcus aureus septicemia during the last 5 months. The patient was admitted to [facility] on 04/19/2018 from her nursing facility with altered mental status. Of note, the patient was initially admitted to [facility] on 11/08/2017 with chills, fever, and altered mental status. During this hospitalization, she was noted to have methicillin sensitive Staphylococcus aureus bacteremia and she was treated appropriately with antibiotics. The patient has had 5 additional admissions with the same diagnosis since that time. She underwent an aortic valve replacement with a #21 Mosaic ultra porcine tissue valve on 09/04/[address] Braden Dasilva. She is been evaluated by Dr. Dejah Suárez, infectious disease securities consultant, during these hospitalizations and he has been concerned about possible prosthetic valve endocarditis during these hospitalizations. She has had appropriate courses of antibiotics for the MSSA bacteremia. Previous echocardiograms not revealed any vegetations; however, a transesophageal echocardiogram performed this morning revealed an LVEF 55-60% as well as an 8 mm x 7 mm mobile echogenic structure attached to the bioprosthetic aortic valve. I have been asked to evaluate the patient for treatment recommendations. Past Med Surg Social Fam HX - Past Medical History Medical history: arthritis, cancer, cirrhosis, CHF, diabetes, hyperlipidemia, hypertension, liver disease, renal disease, valvular heart disease (Prosthetic v alve endocarditis, MSSA), other (MSSA bacteremia) Additional medical history: valvular heart disease Psychiatric history: no psych history - Past Surgical History Surgical History: appendectomy, cataract, heart valve replacement (AVR (21 mm Mosaic Ultra porcine tissue valve)), knee replacement (Left total knee replacement), [place]/BSO, other (Urinary bladder suspension, hammertoe repair, breast biopsy) Additional surgical history: HAMMER TOES. ACHILLES HEEL REPAIR. LEFT TKR. BLADDER REPAIR. AVR 08/2014. A&P. BREAST BIOPSY - Social History Smoking Status: Former smoker Smokeless Tobacco Status: No Alcohol use: none Drug use: none Occupational status: retired Current living situation: Home - Independent Activity Level: Mostly sedentary Recent Out of Country Travel Within the Last 8 Weeks: No Exposure or Possible Exposure to Illness During Travel: No - Family History Mother Living Status: Hx Family Cardiac Disorders: No Hx Family Respiratory Disorders: No Hx Family Endocrine Disorder: Yes Hx Family Neurologic Disorders: Yes Medications and Allergies Bumetanide [Bumex] 1 mg PO DAILY 04/21/18 [History] Cholecalciferol (D-3) [Vitamin D] 1,000 unit PO DAILY 04/21/18 [History] Docusate [Colace] 100 mg PO BID PRN 04/21/18 [History] Ferrous Sulfate [Iron] 325 mg PO DAILY@0800 04/21/18 [History] Insulin Glargine [Lantus] 30 unit SQ HS 04/21/18 [History] Insulin LISPRO [Admelog] 0 unit SQ TIDAC 04/21/18 [History] Isosorbide MONOnitrate [Isosorbide Mononitrate ER] 30 mg PO DAILY 04/21/18 [History] Lactobacillus [Culturelle] 1 each PO BID 04/21/18 [History] Metoprolol [Lopressor] 12.5 mg PO BID 04/21/18 [History] Multivitamin/Iron/Folic Acid [Centrum Complete Multivit Tab] 1 each PO DAILY 04/21/18 [History] Vitamin E Acid Succinate [Vitamin E] 400 unit PO DAILY 04/21/18 [History] ceFAZolin [Ancef] 1,000 mg IVPB Q24H 04/21/18 [History] Allergy/AdvReac Type Severity Reaction Status Date / Time [id number] Reductase AdvReac Muscle Pain Verified 04/19/18 02:15 Inhibitor [Statins] All Systems Review: The remainder of the systems were reviewed and are negative Physical Examination Vital Signs, Last 4 Hours Temp Resp BP 04/22/18 14:12 97.2 F L 18 122/73 04/22/18 14:00 113/62 04/22/18 13:45 112/64 04/22/18 13:30 118/65 04/22/18 13:15 120/67 04/22/18 13:00 114/63 04/22/18 12:45 113/62 04/22/18 12:30 108/57 04/22/18 12:15 120/65 04/22/18 12:00 128/66 04/22/18 11:45 118/64 04/22/18 11:30 121/65 04/22/18 11:15 127/67 04/22/18 11:00 97.4 F L 18 132/68 General: Conversant, No Apparent Distress HEENT: Atraumatic, Normocephaly, Trachea midline Neck: No JVD, Normal carotid pulses Cardiac: Reg Rate and Rhythm, Normal S1 and S2, Other (3/6 systolic ejection murmur best heard in the RLSB and apex) Lungs: Normal Breath Sounds, No Wheeze, Rales, Rhonchi Neuro: Alert and responsive, No focal deficits noted, Motor nerves intact, Sensory nerves intact Vascular: Normal capillary refill Abdomen: Soft, Non-tender Skin: No rashes noted on visualized skin Musculoskeletal: No Chest Wall Tenderness Extremities: No Clubbing, No Cyanosis, No Edema Results 04/22/18 06:03 04/22/18 06:03 Lab Results, Last 24 hours 04/22/18 04/22/18 06:03 06:03 WBC 8.1 Hgb 8.2 L Hct 27.5 L Plt Count 81 L Sodium 134 L Potassium 4.1 Chloride 98 Carbon Dioxide 28 BUN 31 H Creatinine 3.87 H Glucose 183 H Calcium 8.6 - Imaging Chest Xray: image reviewed (Increased cardiac size. No pneumothorax. Increased pulmonary vascularity consistent with pulmonary edema. Bilateral pleural effusions, left side greater than right side) Consult Discharge Plan - Plan Referrals: Latoya Harkins, CLOCK AND WATCH HANDS DIPPER [Primary Care Provider] - (Patient will follow up with PCP at the [facility])
[2018-04-22] MEDS: Isosorbide MONOnitrate (24 HR) 30 MG TAB.ER.24H PO SCH (15:24)
[2018-04-22] MEDS: Bumetanide 1 MG TABLET PO SCH (15:24)
[2018-04-22] MEDS: Cholecalciferol (D-3) 1,000 UNIT TABLET PO SCH (15:24)
[2018-04-22] MEDS: Insulin LISPRO 300 UNITS/3 ML VIAL SQ SCH ×3 (15:25→21:21)
[2018-04-22] MEDS ORDERED: *HR* Metoprolol 5 MG/5 ML VIAL IVP ONE (16:06)
[2018-04-22] MEDS: ceFAZolin 1,000 MG in Water for inj. (sterile) 20 ML 10 ML IVPB SCH (16:19)
--- NOTE | 2018-04-22 16:32 | Infectious Disease Progress No ---
Date of Encounter: 04/22/18 Time of Encounter: 13:30 - Assessment and Plan (1) Bacteremia due to methicillin susceptible Staphylococcus aureus (MSSA) Current Visit: No Status: Acute Complicated MSSA bacteremia due to setting of hardware status post total knee replacement and by prostatic valve. 11/07/2017 2 out of 2 sets positive for MSSA discharge on oral doxycycline for 7 days. 11/26/2017 2 out of 2 sets positive for MSSA repeat cultures on November 28 no growth treated with 4 weeks of IV cefazolin for complicated MSSA bacteremia At that time, ELVER and TTE were negative. 02/11/2018 2 out of 2 sets positive for MSSA bacteremia patient was transferred to [facility]. The patient had a WBC scan and ELVER which were negative. The patient was treated with 8 weeks of IV cefazolin followed by prolonged oral suppressive therapy. Recently, the patient was admitted for CHF and the primary team was advised by the ID team to continue treatment until follow-up with ID. Currently ,patient is admitted and 2 out of 2 sets on 04/19/2018 are positive for MSSA. Repeat blood culture drawn peripherally 04/21/18 x 1 set and centrall x 1 set are pending. Extensive review of system and physical exam is not suggestive of endocarditis and physical exam negative for endocarditis stigmata. Source of infection is endocarditis. Physical exam not suggestive prosthetic joint infection. Rheumatoid factor elevated at 14. The patient has two major and two minor Modified Hayden's criteria. ELVER was positive for 8mm x 7mm vegetation on the bioprosthetic valve concerning for endocarditis. The patient does have a history of MGUS, so not sure if this is contributing to the persistent bacteremia. Will discuss with allergy/immunology. Some literature review suggests using cefazolin and ertapenem for synergy. Currently on cefazolin. Recommendations: - Await repeat blood cultures to finalize. - Consult CTS. - HD catheter will likely need to be removed, but will await cultures. Will discuss with the nephrology. - Continue ancef 1 gram IV Q24H, dose-adjusted for the patient's HD status. - Start gentamicin IV. Will ask pharmacy to help with dosing since the patient i s on HD. - Start rifampin 300mg PO BID. - Check baseline LFTs. The patient has known cirrhosis so we will need to monitor LFTs closely. - Duration of treatment depends on the clinical picture. - Monitor labs and dose-adjust antibiotics. - Strict glucose control. 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 The patient has two major and one minor Modified Hayden's Criteria. Antibiotics as above. Qualifiers: Encounter type: sequela Qualified Code(s): T82.6XXS - Infection and inflammatory reaction due to cardiac valve prosthesis, sequela (3) Cirrhosis Current Visit: No Status: Chronic Etiology unclear. Chronic. MELD score 26. Qualifiers: Hepatic cirrhosis type: other cirrhosis Qualified Code(s): K74.69 - Other cirrhosis of liver (4) Diabetes mellitus type 2 in obese Current Visit: Yes Status: Chronic (5) History of aortic valve replacement with bioprosthetic valve Current Visit: No Status: Chronic (6) MGUS (monoclonal gammopathy of unknown significance) Current Visit: No Status: Acute (7) Chronic kidney disease (CKD), stage V Current Visit: Yes Status: Acute Nephrology consulted and following. - Subjective Interval history: Patient seen and examined in the HD unit. No acute events noted overnight. P atient states overall she feels okay, but has been confused per nursing staff. She denies any fevers, chills, or rigors. Denies chest pain, does report some chronic shortness of breath and cough productive of green sputum that is chronic and at baseline for her. She denies any nausea, vomiting, diarrhea, or abdominal pain. She reports difficulty having a bowel movement and reports some issues with constipation. She does not make urine secondary to her end-stage renal disease. She denies any oral thrush or new skin lesions. Infect Dis PN-Objective Data - Labs CBC & Chem 7: 04/23/18 04:00 04/23/18 04:00 Labs: Laboratory Results - last 24 hr 04/20/18 04/20/18 04/21/18 19:34 20:38 10:53 WBC RBC Hgb Hct MCV MCH MCHC RDW Plt Count MPV Immature Plt Fraction Sodium Potassium Chloride Carbon Dioxide BUN Creatinine Est GFR ( Amer) Est GFR (Non-Af Amer) BUN/Creatinine Ratio Glucose POC Glucose 267 H 291 H Calculated Osmolality Calcium A. baumannii (PCR) Not Detected Negin albicans (PCR) Not Detected C. glabrata (PCR) Not Detected C. krusei (PCR) Not Detected C. parapsilosis (PCR) Not Detected C. tropicalis (PCR) Not Detected Enterobacteriac sp PCR Not Detected E. cloacae complex PCR Not Detected Enterococcus sp PCR Not Detected E. coli (PCR) Not Detected H. influenzae (PCR) Not Detected Klebsiella oxytoca PCR Not Detected Klebsiella pneumoniae Not Detected List. monocytogenes PCR Not Detected N. meningitidis (PCR) Not Detected Proteus species (PCR) Not Detected Serratia marcescens PCR Not Detected Staphylococcus sp PCR DETECTED A Staph aureus (PCR) DETECTED A mecA-Methicil Res Gene Not Detected Streptococcus sp PCR Not Detected Group A Strep DNA Not Detected Group B Strep (PCR) Not Detected Strep pneumoniae (PCR) Not Detected P. aeruginosa (PCR) Not Detected Jake/B-Vanco Res Genes Not Detected KPC (blaKPC) Detect PCR Not Detected 04/21/18 04/22/18 04/22/18 15:24 06:03 06:03 WBC 8.1 RBC 2.84 L Hgb 8.2 L Hct 27.5 L MCV 96.8 MCH 28.9 MCHC 29.8 L RDW 18.1 H Plt Count 81 L MPV 9.6 Immature Plt Fraction 1.5 Sodium 134 L Potassium 4.1 Chloride 98 Carbon Dioxide 28 BUN 31 H Creatinine 3.87 H Est GFR ( Amer) 14 L Est GFR (Non-Af Amer) 11 L BUN/Creatinine Ratio 8 Glucose 183 H POC Glucose 248 H Calculated Osmolality 289 Calcium 8.6 A. baumannii (PCR) Negin albicans (PCR) C. glabrata (PCR) C. krusei (PCR) C. parapsilosis (PCR) C. tropicalis (PCR) Enterobacteriac sp PCR E. cloacae complex PCR Enterococcus sp PCR E. coli (PCR) H. influenzae (PCR) Klebsiella oxytoca PCR Klebsiella pneumoniae List. monocytogenes PCR N. meningitidis (PCR) Proteus species (PCR) Serratia marcescens PCR Staphylococcus sp PCR Staph aureus (PCR) mecA-Methicil Res Gene Streptococcus sp PCR Group A Strep DNA Group B Strep (PCR) Strep pneumoniae (PCR) P. aeruginosa (PCR) Jake/B-Vanco Res Genes KPC (blaKPC) Detect PCR Cultures: Cultures 04/19/18 04:45 Blood Culture - Final Peripheral Venipuncture Staphylococcus aureus 04/20/18 14:00 Urine Culture - Preliminary Urine,Clean Catch Citrobacter freundii Gram Positive Cocci 04/19/18 04:40 Blood Culture - Final Peripheral Venipuncture Staphylococcus aureus 04/20/18 19:34 Blood Culture - Preliminary Peripheral Venipuncture Gram Positive Cocci 04/21/18 11:00 Blood Culture - Preliminary Central Venous Catheter Culture is incubating and being continuously monitored for growth. Final report to follow. 04/21/18 11:13 Blood Culture - Preliminary Central Venous Catheter Culture is incubating and being continuously monitored for growth. Final report to follow. Serology 04/20/18 04/19/18 04/19/18 Range/Units 19:34 04:40 03:31 Urine Color Dark Yellow (Yellow) Urine Clarity Cloudy A (Clear) Urine pH 6.0 (5.0-8.0) pH Units Ur Specific [place] 1.019 (1.010-1.025) Urine Protein >=300 H (Neg-Trace) mg/dL Urine Glucose (UA) 100 H (Normal) mg/dL Urine Ketones Trace H (Negative) mg/dL Urine Blood Small H (Negative) Urine Nitrite Negative (Negative) Urine Bilirubin Small H (Negative) Urine Urobilinogen Normal (Normal) mg/dL Ur Leukocyte Esterase Small H (Negative) Urine Microscopic RBC 0-3 (0-3) per hpf Urine Microscopic WBC TNTC H (0-3) per hpf Ur Squamous Epith Cells Many H (None-Few) per lpf Urine Bacteria None Seen (None-Few) per hpf Hyaline Casts Few (None-Few) per lpf Ur Culture Indicated? NO. A (NO) A. baumannii (PCR) Not Detected Not Detected (Not Detect) Negin albicans (PCR) Not Detected Not Detected (Not Detect) C. glabrata (PCR) Not Detected Not Detected (Not Detect) C. krusei (PCR) Not Detected Not Detected (Not Detect) C. parapsilosis (PCR) Not Detected Not Detected (Not Detect) C. tropicalis (PCR) Not Detected Not Detected (Not Detect) Enterobacteriac sp PCR Not Detected Not Detected (Not Detect) E. cloacae complex PCR Not Detected Not Detected (Not Detect) Enterococcus sp PCR Not Detected Not Detected (Not Detect) E. coli (PCR) Not Detected Not Detected (Not Detect) H. influenzae (PCR) Not Detected Not Detected (Not Detect) Klebsiella oxytoca PCR Not Detected Not Detected (Not Detect) Klebsiella pneumoniae Not Detected Not Detected (Not Detect) List. monocytogenes PCR Not Detected Not Detected (Not Detect) N. meningitidis (PCR) Not Detected Not Detected (Not Detect) Proteus species (PCR) Not Detected Not Detected (Not Detect) Serratia marcescens PCR Not Detected Not Detected (Not Detect) Staphylococcus sp PCR DETECTED A DETECTED A (Not Detect) Staph aureus (PCR) DETECTED A DETECTED A (Not Detect) mecA-Methicil Res Gene Not Detected Not Detected (Not Detect) Streptococcus sp PCR Not Detected Not Detected (Not Detect) Group A Strep DNA Not Detected Not Detected (Not Detect) Group B Strep (PCR) Not Detected Not Detected (Not Detect) Strep pneumoniae (PCR) Not Detected Not Detected (Not Detect) P. aeruginosa (PCR) Not Detected Not Detected (Not Detect) Jake/B-Vanco Res Genes Not Detected Not Detected (Not Detect) KPC (blaKPC) Detect PCR Not Detected Not Detected (Not Detect) Exam - Constitutional Vitals: Temp Pulse Resp BP Pulse Ox 97.8 F 83 18 136/83 91 04/22/18 15:45 04/22/18 15:45 04/22/18 15:45 04/22/18 15:45 04/22/18 15:45 General appearance: cooperative, morbidly obese, no acute distress - Head Head exam: Present: atraumatic, normal inspection, normocephalic - Eye Eye exam: Present: EOMI, normal appearance, PERRL Pupils: Present: normal accommodation - ENT ENT exam: Present: mucous membranes moist - Neck Neck exam: Present: normal inspection - Respiratory Respiratory exam: Present: CTAB. Absent: rales, respiratory distress, rhonchi, wheezes - Cardiovascular Cardiovascular exam: Present: RRR, +S1, +S2 - GI/Abdominal GI/Abdominal exam: Present: distended (obese), normal bowel sounds, soft. Absent: tenderness - Extremities Exam Extremities exam: Present: normal inspection. Absent: joint swelling, pedal edema, tenderness - Neurological Exam Neurological exam: Present: alert, no focal deficits. Absent: oriented X3 (Oriented to person and place.) - Psychiatric Psychiatric exam: Present: normal affect, normal mood - Skin Skin exam: Present: dry, intact, pallor, warm - Additional findings Additional findings: Perma-cath noted to the right upper chest with transparent dressing C/D/I. No surrounding erythema, warmth, or drainage noted. Consult Discharge Plan - Plan Referrals: Latoya Harkins CNP [Primary Care Provider] - (Patient will follow up with PCP at the [facility]) - Attending Attestation I examined this patient and my medical decision-making was reviewed with the Re side Physician. I agree with the documented findings, disposition and treatment plan as described except to the extent set forth below.
[2018-04-22] MEDS ORDERED: Gentamicin 150 MG in 0.9 % Sodium Chloride 100 ML IVPB SCH (18:00)
[2018-04-22] MEDS: rifAMPin 150 MG CAPSULE PO SCH (18:15)
[2018-04-22 19:15] LABS: Enterococcus by PCR Not Detected (Not Detect); Staphylococcus aureus by PCR DETECTED (Not Detect); Staphylococcus by PCR DETECTED (Not Detect); mecA Methicillin-Resist Gene Not Detected (Not Detect)
[2018-04-22 19:16] LABS: Acinetobacter baumannii by PCR Not Detected (Not Detect); Candida albicans by PCR Not Detected (Not Detect); Candida glabrata by PCR Not Detected (Not Detect); Candida krusei by PCR Not Detected (Not Detect); Candida parapsilosis by PCR Not Detected (Not Detect); Candida tropicalis by PCR Not Detected (Not Detect); Enterobacter cloacae Cmplx PCR Not Detected (Not Detect); Enterobacteriaceae by PCR Not Detected (Not Detect); Escherichia coli by PCR Not Detected (Not Detect); Klebsiella oxytoca by PCR Not Detected (Not Detect); Klebsiella pneumoniae by PCR Not Detected (Not Detect); Proteus by PCR Not Detected (Not Detect); Pseudomonas aeruginosa by PCR Not Detected (Not Detect); Serratia marcescens by PCR Not Detected (Not Detect); Streptococcus agalactiae(B)PCR Not Detected (Not Detect); Streptococcus by PCR Not Detected (Not Detect); Streptococcus pneumoniae PCR Not Detected (Not Detect); Streptococcus pyogenes (A) PCR Not Detected (Not Detect)
[2018-04-22] MEDS: Insulin DETEMIR 100 UNIT/ML X5UNITS SQ SCH (21:20)
[2018-04-23] MEDS: Melatonin 3 MG TABLET PO PRN (00:25)
[2018-04-23 04:16] LABS: Mean Corpuscular Volume 96.3 fL (83.0-100.0)
[2018-04-23 04:17] LABS: Hematocrit 25.8 % (35.3-44.9); Mean Corpuscular Hemoglobin 29.9 pg (28.0-33.3); Mean Platelet Volume 9.6 fL (9.4-12.4); Red Blood Count 2.68 M/mcL (3.82-4.97); Red Cell Distribution Width 18.3 % (11.5-14.5)
[2018-04-23 04:24] LABS: Potassium 4.1 mEq/L (3.5-5.1)
[2018-04-23 04:25] LABS: Calcium 8.2 mg/dL (8.6-10.3)
[2018-04-23] MEDS: *HR* Heparin 5,000 UNIT/ML VIAL SQ SCH ×3 (05:46→21:10)
[2018-04-23] MEDS: Levothyroxine 25 MCG TABLET PO SCH (05:46)
[2018-04-23] MEDS: Insulin LISPRO 300 UNITS/3 ML VIAL SQ SCH ×4 (08:31→21:09)
[2018-04-23] MEDS: Bumetanide 1 MG TABLET PO SCH (08:32)
[2018-04-23] MEDS: rifAMPin 150 MG CAPSULE PO SCH ×2 (08:32→17:36)
[2018-04-23] MEDS: Isosorbide MONOnitrate (24 HR) 30 MG TAB.ER.24H PO SCH (08:32)
[2018-04-23] MEDS: Cholecalciferol (D-3) 1,000 UNIT TABLET PO SCH (08:32)
--- NOTE | 2018-04-23 08:57 | Nephrology Progress Note ---
Date of Encounter: 04/23/18 Time of Encounter: 08:56 - Assessment and Plan (1) ESRD (end stage renal disease) on dialysis Current Visit: Yes Status: Chronic HD MWF. Renal vitamins. Renal dose medications. Renal diet. Additional dialysis and ultrafiltration as needed. Plan for dialysis Friday. Secondary to endocarditis and persistent bacteremia will likely need to remove catheter after dialysis tomorrow. (2) Endocarditis due to Staphylococcus Current Visit: Yes Status: Acute Per ID and primary team. Per CTS patient is a high risk surgical candidate for valve replacement. (3) Diabetes mellitus type 2 in obese Current Visit: Yes Status: Chronic Per the primary team. (4) Hypertension Current Visit: No Status: Chronic Titrate antihypertensive medication as needed. Qualifiers: Hypertension type: essential hypertension Qualified Code(s): I10 - Essential (primary) hypertension Subjective Principal diagnosis: ESRD altered mental status Interval history: Patient was seen and evaluated. No new complaint. Patient remains disoriented. Objective - Vital Signs Vital signs: Vital Signs Temp Pulse Resp BP Pulse Ox 04/23/18 06:25 98.5 F 82 16 107/58 96 04/23/18 04:33 97.6 F 83 17 118/66 97 04/23/18 00:29 97.8 F 70 17 103/44 99 04/22/18 20:25 98 F 76 17 110/64 97 04/22/18 15:45 97.8 F 83 18 136/83 91 04/22/18 14:12 97.2 F L 18 122/73 04/22/18 14:00 113/62 04/22/18 13:45 112/64 04/22/18 13:30 118/65 04/22/18 13:15 120/67 04/22/18 13:00 114/63 04/22/18 12:45 113/62 04/22/18 12:30 108/57 04/22/18 12:15 120/65 04/22/18 12:00 128/66 04/22/18 11:45 118/64 04/22/18 11:30 121/65 04/22/18 11:15 127/67 04/22/18 11:00 97.4 F L 18 132/68 04/22/18 08:57 97.9 F 79 24 111/51 98 Intake and Output 04/22/18 04/23/1818 23:59 07:59 15:59 Intake Total 103.75 / 103.75 Balance 103.75 / 103.75 Intake: IV Fluids 103.75 / 103.75 Gentamicin 150 MG In 0.9 % 103.75 / 103.75 Sodium Chloride 100 ML @ 100 mls/hr IVPB MOWEFR ROMARIO Rx#: [id number] Other: Stool Size Large # Urine Diapers 1 # Bowel Movement Diapers 1 Weight 92.5 kg Blood Glucose* 184 187 Patient Weight 04/23/18 23:59 Weight 92.5 kg - General Appearance General appearance: Present: well-developed, well-nourished EENT: Present: ATNC Neck: Present: supple Respiratory: Present: course breath sounds Cardiology: Present: regular rate Dialysis Vascular Access: Venous Catheter Gastrointestinal: Present: no tenderness Integumentary: Present: warm and dry Neurologic: Present: alert and oriented x3 Musculoskeletal: Present: no cyanosis Psychiatric: Present: mood/affect appropriate - Lab 04/23/18 04:00 04/23/18 04:00 Most recent lab results ABG pH 7.43 pH Units (7.32-7.45) 04/20/18 12:08 ABG pCO2 47 mmHg (35-45) H 04/20/18 12:08 ABG pO2 91 mmHg (85-104) 04/20/18 12:08 ABG HCO3 31 mEq/L (21-27) H 04/20/18 12:08 ABG O2 Saturation 97 % (95-98) 04/20/18 12:08 Calcium 8.2 mg/dL (8.6-10.3) L 04/23/18 04:00 Magnesium 1.8 mg/dL (1.6-2.6) 04/20/18 04:00 Consult Discharge Plan - Plan Referrals: Latoya Harkins PAY CLERK [Primary Care Provider] - (Patient will follow up with PCP at the [facility])
--- NOTE | 2018-04-23 10:18 | Internal Med Progress Note ---
Hospitalist Progress Note - Encounter Date of Encounter: 04/23/18 Time of Encounter: 08:40 - Subjective Interval History: No acute events overnight. Feels stronger today and more alert as well. Denies chest pain, shortness of breath, fever/chills, N/V, or worsening left knee pain. - Exam Vitals: Temp Pulse Resp BP Pulse Ox 98.5 F 82 16 107/58 96 04/23/18 06:25 04/23/18 06:25 04/23/18 06:25 04/23/18 06:25 04/23/18 06:25 Exam: GEN: Alert and oriented x 2. Appears comfortable, confused but able to answer basic questions CVS:RRR. S1, S2, systolic murmur RESP: Diminished with bibasilar crackles ABD: Soft, nondistended. EXT: No Osler's nodes or splinter hemorrhage. L knee cold to touch NEURO: Nonfocal - Assessment and Plan (1) MSSA bacteremia Current Visit: Yes Status: Acute Assessment and Plan: Hx of complicated MSSA bacteremia in the setting of left knee prosthesis and aortic valve replacement: see ID notes for detail was admitted for mild respiratory acidosis requring [id number] HD in 04/17. Blood cultures were negative on that date Cultures done on 04/19 and 04/20 +ve for S. aureus in both sets. Repeat c/s from HD catheter on 04/21 +ve for GPC in 1 set ELVER concerning for vegetation (8x7 mm) on prosthetic aortic valve) CTS input appreciated, high surgical risk appreciate ID input, rifampin and gentamicin added in addition to ancef will likely require HD catheter removal, will need to discuss with nephro and ID tomorrow (2) ESRF (end stage renal failure) Current Visit: No Status: Chronic Assessment and Plan: Friday, Friday, Friday hemodialysis Follows with [facility] who is seeing in consultation; appreciate input HD per nephro will discuss regarding HD catheter removal and HD access (3) Elevated TSH Current Visit: Yes Status: Acute Assessment and Plan: TSH was around 12. T3 was low T4 was normal started on synthroid and family states she looks a bit more alert and "perked up" today although it is difficult to diagnose hypothyroidism in acutely ill state, it probably would be reasonable to continue tx given her positive response and TSH being > 10 repeat TSH in 6 weeks as outpatient (4) Diabetes mellitus Current Visit: No Status: Chronic Assessment and Plan: continue levemir and low dose sliding scale & Accu-Cheks ADA diet (5) Cirrhosis Current Visit: No Status: Chronic Assessment and Plan: h/o cirrhosis, sees Dr. Potts as an outpatient MELD 26 ammonia level on presentation normal not in decompensation, monitor (6) Hypertension Current Visit: No Status: Chronic Assessment and Plan: stable Continue anti-HTN medications and monitor (7) Elevated troponin Current Visit: No Status: Chronic Assessment and Plan: Chronically elevated. He remains chest pain-free. Likely due to ESRD (8) DVT prophylaxis Current Visit: No Status: Acute Assessment and Plan: SQ Heparin - Time Spent with Patient Total time spent is greater than 50% in coordination of care (as documented) at patient's floor/unit and/or counseling patient: Plan of Care Discussed with: patient Internal Medicine: Result - Labs CBC & Chem 7: 04/23/18 04:00 04/23/18 04:00 Labs: Short CBC 04/23/18 Range/Units 04:00 WBC 9.4 (4.3-11.1) K/mcL Hgb 8.0 L (11.5-15.4) g/dL Hct 25.8 L (35.3-44.9) % Plt Count 77 L (140-400) K/mcL BMP 04/23/18 04:00 Sodium 134 L Potassium 4.1 Chloride 98 Carbon Dioxide 29 BUN 22 Creatinine 2.97 H Glucose 164 H Calcium 8.2 L - ABG Interpretation ABG results: ABG ABG pH 7.43 pH Units (7.32-7.45) 04/20/18 12:08 ABG pCO2 47 mmHg (35-45) H 04/20/18 12:08 ABG pO2 91 mmHg (85-104) 04/20/18 12:08 ABG O2 Saturation 97 % (95-98) 04/20/18 12:08 PT/INR, D-dimer PT 17.4 Seconds (9.4-12.1) H 04/21/18 11:13 Consult Discharge Plan - Plan Referrals: Latoya Harkins, UNATTENDED GROUND SENSOR SPECIALIST [Primary Care Provider] - (Patient will follow up with PCP at the [facility]) (4) Diabetes mellitus Qualifiers: Diabetes mellitus type: type 2 Diabetes mellitus lobsterman insulin use: with lobsterman use Diabetes mellitus complication status: with kidney complications Diabetes mellitus complication detail: with chronic kidney disease Chronic kidney disease stage: on chronic dialysis Qualified Code(s): E11.22 - Type 2 diabetes mellitus with diabetic chronic kidney disease; N18.6 - End stage renal disease; Z79.4 - ferry terminal agent (current) use of insulin; Z99.2 - Dependence on renal dialysis (5) Cirrhosis Qualifiers: Hepatic cirrhosis type: other cirrhosis Qualified Code(s): K74.69 - Other cirrhosis of liver (6) Hypertension Qualifiers: Hypertension type: essential hypertension Qualified Code(s): I10 - Essential (primary) hypertension
--- NOTE | 2018-04-23 10:48 | Infectious Disease Progress No ---
Date of Encounter: 04/23/18 Time of Encounter: 10:46 - Assessment and Plan (1) Bacteremia due to methicillin susceptible Staphylococcus aureus (MSSA) Current Visit: No Status: Acute Complicated MSSA bacteremia due to setting of hardware status post total knee replacement and by prostatic valve. 11/07/2017 2 out of 2 sets positive for MSSA discharge on oral doxycycline for 7 days. 11/26/2017 2 out of 2 sets positive for MSSA repeat cultures on November 28 no growth treated with 4 weeks of IV cefazolin for complicated MSSA bacteremia At that time, ELVER and TTE were negative. 02/11/2018 2 out of 2 sets positive for MSSA bacteremia patient was transferred to [place]. The patient had a WBC scan and ELVER which were negative. The patient was treated with 8 weeks of IV cefazolin followed by prolonged oral suppressive therapy. Recently, the patient was admitted for CHF and the primary team was advised by the ID team to continue treatment until follow-up with ID. Currently ,patient is admitted and 2 out of 2 sets on 04/19/2018 are positive for MSSA. Repeat blood culture drawn peripherally 04/21/18 x 1 set and centrall x 1 set are pending. Extensive review of system and physical exam is not suggestive of endocarditis and physical exam negative for endocarditis stigmata. Source of infection is endocarditis. Physical exam not suggestive prosthetic joint infection. Rheumatoid factor elevated at 14. The patient has two major and two minor Modified Hayden's criteria. ELVER was positive for 8mm x 7mm vegetation on the bioprosthetic valve concerning for endocarditis. The patient does have a history of MGUS, so not sure if this is contributing to the persistent bacteremia. Will discuss with allergy/immunology. Some literature review suggests using cefazolin and ertapenem for synergy. Currently on cefazolin. Recommendations: - Await repeat blood cultures to finalize. - Consult CTS. - HD catheter will likely need to be removed, but will await cultures. Will discuss with the nephrology. - Continue ancef 1 gram IV Q24H, dose-adjusted for the patient's HD status. - Start gentamicin IV. Will ask pharmacy to help with dosing since the patient i s on HD. - Start rifampin 300mg PO BID. - Check baseline LFTs. The patient has known cirrhosis so we will need to monitor LFTs closely. - Duration of treatment depends on the clinical picture. - Monitor labs and dose-adjust antibiotics. - Strict glucose control. 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 The patient has two major and one minor Modified Hayden's Criteria. Antibiotics as above. Appreciate cardiothoracic's recommendations and input Patient started on gentamicin and rifampin. Patient has poor liver and am very concerned about using the rifampin but I do not think it is optional at this time. Asked pharmacy to help us with the gentamicin and patient will need a hearing test prior to discharge Qualifiers: Encounter type: sequela Qualified Code(s): T82.6XXS - Infection and inflammatory reaction due to cardiac valve prosthesis, sequela (3) Cirrhosis Current Visit: No Status: Chronic Etiology unclear. Chronic. MELD score 26. Qualifiers: Hepatic cirrhosis type: other cirrhosis Qualified Code(s): K74.69 - Other cirrhosis of liver (4) Diabetes mellitus type 2 in obese Current Visit: Yes Status: Chronic (5) History of aortic valve replacement with bioprosthetic valve Current Visit: No Status: Chronic (6) MGUS (monoclonal gammopathy of unknown significance) Current Visit: No Status: Acute (7) Chronic kidney disease (CKD), stage V Current Visit: Yes Status: Acute Nephrology consulted and following. (8) Asymptomatic bacteriuria Current Visit: Yes Status: Acute I do not believe they are causing any issues. Patient has no SIRS criteria and was clinically well. We will continue to observe. Put the patient in contact isolation - Subjective Interval history: Patient seen and examined.. Clinically looks worse. Was a little bit confused initially but then she has all the questions. Denies any tinnitus or earache or loss of balance. Patient had decent appetite. No bowel movements today. No chest pain or shortness of breath. Vital signs: Afebrile no tachycardia WBC 9.4 Cultures reviewed Infect Dis PN-Objective Data - Labs CBC & Chem 7: 04/23/18 04:00 04/23/18 04:00 Labs: Laboratory Results - last 24 hr 04/21/18 04/21/18 04/22/18 11:13 21:05 07:58 WBC RBC Hgb Hct MCV MCH MCHC RDW Plt Count MPV Immature Plt Fraction Sodium Potassium Chloride Carbon Dioxide BUN Creatinine Est GFR ( Amer) Est GFR (Non-Af Amer) BUN/Creatinine Ratio Glucose POC Glucose 218 H 146 H Calculated Osmolality Calcium A. baumannii (PCR) Not Detected Negin albicans (PCR) Not Detected C. glabrata (PCR) Not Detected C. krusei (PCR) Not Detected C. parapsilosis (PCR) Not Detected C. tropicalis (PCR) Not Detected Enterobacteriac sp PCR Not Detected E. cloacae complex PCR Not Detected Enterococcus sp PCR Not Detected E. coli (PCR) Not Detected H. influenzae (PCR) Not Detected Klebsiella oxytoca PCR Not Detected Klebsiella pneumoniae Not Detected List. monocytogenes PCR Not Detected N. meningitidis (PCR) Not Detected Proteus species (PCR) Not Detected Serratia marcescens PCR Not Detected Staphylococcus sp PCR DETECTED A Staph aureus (PCR) DETECTED A mecA-Methicil Res Gene Not Detected Streptococcus sp PCR Not Detected Group A Strep DNA Not Detected Group B Strep (PCR) Not Detected Strep pneumoniae (PCR) Not Detected P. aeruginosa (PCR) Not Detected Jake/B-Vanco Res Genes N/A KPC (blaKPC) Detect PCR N/A 04/22/18 04/22/18 04/22/18 11:07 15:37 20:29 WBC RBC Hgb Hct MCV MCH MCHC RDW Plt Count MPV Immature Plt Fraction Sodium Potassium Chloride Carbon Dioxide BUN Creatinine Est GFR ( Amer) Est GFR (Non-Af Amer) BUN/Creatinine Ratio Glucose POC Glucose 137 H 120 H 184 H Calculated Osmolality Calcium A. baumannii (PCR) Negin albicans (PCR) C. glabrata (PCR) C. krusei (PCR) C. parapsilosis (PCR) C. tropicalis (PCR) Enterobacteriac sp PCR E. cloacae complex PCR Enterococcus sp PCR E. coli (PCR) H. influenzae (PCR) Klebsiella oxytoca PCR Klebsiella pneumoniae List. monocytogenes PCR N. meningitidis (PCR) Proteus species (PCR) Serratia marcescens PCR Staphylococcus sp PCR Staph aureus (PCR) mecA-Methicil Res Gene Streptococcus sp PCR Group A Strep DNA Group B Strep (PCR) Strep pneumoniae (PCR) P. aeruginosa (PCR) Jake/B-Vanco Res Genes KPC (blaKPC) Detect PCR 04/23/18 04/23/18 04/23/18 04:00 04:00 06:32 WBC 9.4 RBC 2.68 L Hgb 8.0 L Hct 25.8 L MCV 96.3 MCH 29.9 MCHC 31.0 L RDW 18.3 H Plt Count 77 L MPV 9.6 Immature Plt Fraction 2.0 Sodium 134 L Potassium 4.1 Chloride 98 Carbon Dioxide 29 BUN 22 Creatinine 2.97 H Est GFR ( Amer) 18 L Est GFR (Non-Af Amer) 15 L BUN/Creatinine Ratio 7 Glucose 164 H POC Glucose 187 H Calculated Osmolality 285 Calcium 8.2 L A. baumannii (PCR) Negin albicans (PCR) C. glabrata (PCR) C. krusei (PCR) C. parapsilosis (PCR) C. tropicalis (PCR) Enterobacteriac sp PCR E. cloacae complex PCR Enterococcus sp PCR E. coli (PCR) H. influenzae (PCR) Klebsiella oxytoca PCR Klebsiella pneumoniae List. monocytogenes PCR N. meningitidis (PCR) Proteus species (PCR) Serratia marcescens PCR Staphylococcus sp PCR Staph aureus (PCR) mecA-Methicil Res Gene Streptococcus sp PCR Group A Strep DNA Group B Strep (PCR) Strep pneumoniae (PCR) P. aeruginosa (PCR) Jake/B-Vanco Res Genes KPC (blaKPC) Detect PCR Cultures: Cultures 04/20/18 14:00 Urine Culture - Final Urine,Clean Catch Citrobacter freundii Vancomycin Resistant Enterococcus faecium 04/20/18 19:34 Blood Culture - Final Peripheral Venipuncture Staphylococcus aureus 04/21/18 11:13 Blood Culture - Preliminary Central Venous Catheter Gram Positive Cocci 04/19/18 04:45 Blood Culture - Final Peripheral Venipuncture Staphylococcus aureus 04/19/18 04:40 Blood Culture - Final Peripheral Venipuncture Staphylococcus aureus 04/21/18 11:00 Blood Culture - Preliminary Central Venous Catheter Culture is incubating and being continuously monitored for growth. Final report to follow. Serology 04/21/18 04/20/18 04/19/18 Range/Units 11:13 19:34 04:40 Urine Color (Yellow) Urine Clarity (Clear) Urine pH (5.0-8.0) pH Units Ur Specific [place]amping [place] (1.010-1.025) Urine Protein (Neg-Trace) mg/dL Urine Glucose (UA) (Normal) mg/dL Urine Ketones (Negative) mg/dL Urine Blood (Negative) Urine Nitrite (Negative) Urine Bilirubin (Negative) Urine Urobilinogen (Normal) mg/dL Ur Leukocyte Esterase (Negative) Urine Microscopic RBC (0-3) per hpf Urine Microscopic WBC (0-3) per hpf Ur Squamous Epith Cells (None-Few) per lpf Urine Bacteria (None-Few) per hpf Hyaline Casts (None-Few) per lpf Ur Culture Indicated? (NO) A. baumannii (PCR) Not Detected Not Detected Not Detected (Not Detect) Engin albicans (PCR) Not Detected Not Detected Not Detected (Not Detect) C. glabrata (PCR) Not Detected Not Detected Not Detected (Not Detect) C. krusei (PCR) Not Detected Not Detected Not Detected (Not Detect) C. parapsilosis (PCR) Not Detected Not Detected Not Detected (Not Detect) C. tropicalis (PCR) Not Detected Not Detected Not Detected (Not Detect) Enterobacteriac sp PCR Not Detected Not Detected Not Detected (Not Detect) E. cloacae complex PCR Not Detected Not Detected Not Detected (Not Detect) Enterococcus sp PCR Not Detected Not Detected Not Detected (Not Detect) E. coli (PCR) Not Detected Not Detected Not Detected (Not Detect) H. influenzae (PCR) Not Detected Not Detected Not Detected (Not Detect) Klebsiella oxytoca PCR Not Detected Not Detected Not Detected (Not Detect) Klebsiella pneumoniae Not Detected Not Detected Not Detected (Not Detect) List. monocytogenes PCR Not Detected Not Detected Not Detected (Not Detect) N. meningitidis (PCR) Not Detected Not Detected Not Detected (Not Detect) Proteus species (PCR) Not Detected Not Detected Not Detected (Not Detect) Serratia marcescens PCR Not Detected Not Detected Not Detected (Not Detect) Staphylococcus sp PCR DETECTED A DETECTED A DETECTED A (Not Detect) Staph aureus (PCR) DETECTED A DETECTED A DETECTED A (Not Detect) mecA-Methicil Res Gene Not Detected Not Detected Not Detected (Not Detect) Streptococcus sp PCR Not Detected Not Detected Not Detected (Not Detect) Group A Strep DNA Not Detected Not Detected Not Detected (Not Detect) Group B Strep (PCR) Not Detected Not Detected Not Detected (Not Detect) Strep pneumoniae (PCR) Not Detected Not Detected Not Detected (Not Detect) P. aeruginosa (PCR) Not Detected Not Detected Not Detected (Not Detect) Jake/B-Vanco Res Genes N/A Not Detected Not Detected (Not Detect) KPC (blaKPC) Detect PCR N/A Not Detected Not Detected (Not Detect) 04/19/18 Range/Units 03:31 Urine Color Dark Yellow (Yellow) Urine Clarity Cloudy A (Clear) Urine pH 6.0 (5.0-8.0) pH Units Ur Specific [place] 1.019 (1.010-1.025) Urine Protein >=300 H (Neg-Trace) mg/dL Urine Glucose (UA) 100 H (Normal) mg/dL Urine Ketones Trace H (Negative) mg/dL Urine Blood Small H (Negative) Urine Nitrite Negative (Negative) Urine Bilirubin Small H (Negative) Urine Urobilinogen Normal (Normal) mg/dL Ur Leukocyte Esterase Small H (Negative) Urine Microscopic RBC 0-3 (0-3) per hpf Urine Microscopic WBC TNTC H (0-3) per hpf Ur Squamous Epith Cells Many H (None-Few) per lpf Urine Bacteria None Seen (None-Few) per hpf Hyaline Casts Few (None-Few) per lpf Ur Culture Indicated? NO. A (NO) A. baumannii (PCR) (Not Detect) Negin albicans (PCR) (Not Detect) C. glabrata (PCR) (Not Detect) C. krusei (PCR) (Not Detect) C. parapsilosis (PCR) (Not Detect) C. tropicalis (PCR) (Not Detect) Enterobacteriac sp PCR (Not Detect) E. cloacae complex PCR (Not Detect) Enterococcus sp PCR (Not Detect) E. coli (PCR) (Not Detect) H. influenzae (PCR) (Not Detect) Klebsiella oxytoca PCR (Not Detect) Klebsiella pneumoniae (Not Detect) List. monocytogenes PCR (Not Detect) N. meningitidis (PCR) (Not Detect) Proteus species (PCR) (Not Detect) Serratia marcescens PCR (Not Detect) Staphylococcus sp PCR (Not Detect) Staph aureus (PCR) (Not Detect) mecA-Methicil Res Gene (Not Detect) Streptococcus sp PCR (Not Detect) Group A Strep DNA (Not Detect) Group B Strep (PCR) (Not Detect) Strep pneumoniae (PCR) (Not Detect) P. aeruginosa (PCR) (Not Detect) Jake/B-Vanco Res Genes (Not Detect) KPC (blaKPC) Detect PCR (Not Detect) Exam - Constitutional Vitals: Temp Pulse Resp BP Pulse Ox 98.5 F 82 16 107/58 96 04/23/18 06:25 04/23/18 06:25 04/23/18 06:25 04/23/18 06:25 04/23/18 06:25 General appearance: no acute distress, no febrile - Head Head exam: Present: atraumatic, normocephalic - Respiratory Respiratory exam: Present: CTAB. Absent: rhonchi, wheezes - Cardiovascular Cardiovascular exam: Present: RRR, +S1, +S2 - GI/Abdominal GI/Abdominal exam: Present: normal bowel sounds, soft. Absent: tenderness - Extremities Exam Extremities exam: Present: full ROM. Absent: joint swelling Consult Discharge Plan - Plan Referrals: Laotya Harkins, ELECTRIC SWITCH TESTER [Primary Care Provider] - (Patient will follow up with PCP at the [facility])
[2018-04-23] MEDS: ceFAZolin 1,000 MG in Water for inj. (sterile) 20 ML 10 ML IVPB SCH (17:36)
[2018-04-23] MEDS: Insulin DETEMIR 100 UNIT/ML X5UNITS SQ SCH (21:09)
[2018-04-24] MEDS: Acetaminophen 325 MG TABLET PO PRN ×3 (00:42→19:57)
[2018-04-24] MEDS: *HR* Heparin 5,000 UNIT/ML VIAL SQ SCH ×3 (05:41→21:28)
[2018-04-24] MEDS: Levothyroxine 25 MCG TABLET PO SCH (05:41)
[2018-04-24 06:48] LABS: Mean Corpuscular Volume 96.7 fL (83.0-100.0)
[2018-04-24 06:50] LABS: Hematocrit 26.1 % (35.3-44.9); Hemoglobin 7.9 g/dL (11.5-15.4); Immature Platelets 1.7 % (1.1-6.1); Mean Corpuscular HGB Conc 30.3 g/dL (31.6-35.5); Mean Corpuscular Hemoglobin 29.3 pg (28.0-33.3); Mean Platelet Volume 9.4 fL (9.4-12.4); Red Blood Count 2.7 M/mcL (3.82-4.97); Red Cell Distribution Width 18.1 % (11.5-14.5)
[2018-04-24 07:09] LABS: Calcium 8.7 mg/dL (8.6-10.3)
[2018-04-24] MEDS ORDERED: *HR* Heparin 10,000 UNIT/10 ML VIAL IV PRN (07:50)
[2018-04-24] MEDS ORDERED: 0.9 % Sodium Chloride 250 ML IVC PRN (07:50)
[2018-04-24] MEDS ORDERED: 0.9 % Sodium Chloride 1,000 ML PRIME SCH (08:00)
[2018-04-24] MEDS ORDERED: Gentamicin 1 EACH in 0.9 % Sodium Chloride 100 ML IVPB PRN (09:30)
[2018-04-24] MEDS: Insulin LISPRO 300 UNITS/3 ML VIAL SQ SCH ×4 (09:54→21:25)
--- NOTE | 2018-04-24 09:58 | Nephrology Progress Note ---
Addendum entered and electronically signed by Darrell Rosales MD 04/24/18 18:01: I examined this patient and my medical decision-making was reviewed with the Resident Physician. I agree with the documented findings, disposition and treatment plan as described except to the extent set forth below. Patient was seen on dialysis. Dialysis catheter removed after dialysis. Will evaluate for the need for dialysis on Friday. Original Note: Date of Encounter: 04/24/18 Time of Encounter: 13:45 - Assessment and Plan (1) ESRD (end stage renal disease) on dialysis Current Visit: Yes Status: Chronic - ESRD on MWF dialysis via permacath on the right, Non infected looking. - Multiple dialysis sessions in the past week including Friday, Friday, Friday, Friday - Interviewed and evaluated in HD 04/24/18 - Labs and vitals stable - Uremia is an unlikely cause of her altered mental status given multiple dialysis sessions in the past week. Plan - Continue with scheduled MWF dialysis sessions - Plan for dialysis today - Plan for removal of tunnelled catheter as her blood cultures remain positive and vegetation on Echo after HD today - Plan for possible CVC replacement Friday (2) Altered mental status Current Visit: Yes Status: Acute Likely secondary to endocarditis. - Management per ID and primary team - Unlikely uremia given alternative source and no improvement with HD sessions. - Stable from previous Qualifiers: Altered mental status type: somnolence Qualified Code(s): R40.0 - Somnolence (3) Cirrhosis Current Visit: Yes Status: Chronic per history ammonia 50 Per primary team Qualifiers: Hepatic cirrhosis type: other cirrhosis Qualified Code(s): K74.69 - Other cirrhosis of liver (4) Diabetes mellitus type 2 in obese Current Visit: Yes Status: Chronic per primary team (5) Back pain Current Visit: Yes Status: Acute Qualifiers: Back pain location: low back pain Chronicity: unspecified Back pain laterality: unspecified Sciatica presence: without sciatica Qualified Code(s): M54.5 - Low back pain (6) Prosthetic valve endocarditis Current Visit: Yes Status: Suspected - Due to MSSA. Vegetation on prosthetic mitral valve on ELVER - CT deemed too high risk for surgery - ID following - Plan to remove tunnelled HD cath after HD today - Further management per ID and Primary team Qualifiers: Encounter type: sequela Qualified Code(s): T82.6XXS - Infection and inflammatory reaction due to cardiac valve prosthesis, sequela Subjective Principal diagnosis: ESRD altered mental status Interval history: Patient was seen and examined at bedside this morning in dialysis. She remains lethargic and confused however is comfortable. No acute events overnight. Objective - Vital Signs Vital signs: Vital Signs Temp Pulse Resp BP Pulse Ox 04/24/18 06:59 97.9 F 79 18 112/54 95 04/24/18 03:23 97.8 F 70 18 101/53 97 04/24/18 00:19 97.6 F 70 20 121/60 98 04/23/18 20:00 97.8 F 83 20 131/58 98 04/23/18 15:40 97.6 F 73 15 127/64 99 04/23/18 10:45 99.5 F 70 18 117/64 97 Intake and Output 04/23/18 04/24/18 04/24/18 23:59 07:59 15:59 Other: Stool Size Smear Stool Consistency soft Stool Color Brown # Bowel Movement Diapers 1 Weight 88 kg Blood Glucose* 315 192 Patient Weight 04/24/18 23:59 Weight 88 kg - General Appearance Exam: Gen.: Vitals noted. No acute distress. Sleeping. Does want to tactile stimuli however is disoriented HEENT: PERRL/EOMI, oropharynx clear, Normocephalic, atraumatic, MMM Cardiac: RRR, systolic murmur, +S1/S2 Pulmonary: Her auscultation bilaterally. equal chest expansion Abdomen: soft, grimaces with palpitation of abdomen, BS noted, no guarding, no rebound. MSK: ROM intact, no joint swelling noted Extremities: no BLE edema, nontender calf, no cyanosis or clubbing Neuro: Alert and oriented 1, no focal deficits appreciated. Psych: Unable to assess. - Lab 04/24/18 06:28 04/24/18 06:28 Most recent lab results ABG pH 7.43 pH Units (7.32-7.45) 04/20/18 12:08 ABG pCO2 47 mmHg (35-45) H 04/20/18 12:08 ABG pO2 91 mmHg (85-104) 04/20/18 12:08 ABG HCO3 31 mEq/L (21-27) H 04/20/18 12:08 ABG O2 Saturation 97 % (95-98) 04/20/18 12:08 Calcium 8.7 mg/dL (8.6-10.3) 04/24/18 06:28 Magnesium 1.8 mg/dL (1.6-2.6) 04/20/18 04:00 Consult Discharge Plan - Plan Referrals: Latoya Harkins, RETAIL PROPERTY MANAGER [Primary Care Provider] - (Patient will follow up with PCP at the [facility])
--- NOTE | 2018-04-24 10:22 | Internal Med Progress Note ---
Hospitalist Progress Note - Encounter Date of Encounter: 04/24/18 Time of Encounter: 07:30 - Subjective Interval History: No acute events overnight. Denies chest pain, shortness of breath, fever/chills, N/V, or worsening left knee pain. - Exam Vitals: Temp Pulse Resp BP Pulse Ox 97.9 F 79 18 112/54 95 04/24/18 06:59 04/24/18 06:59 04/24/18 06:59 04/24/18 06:59 04/24/18 06:59 Exam: GEN: Alert and oriented x 3. Appears comfortable CVS:RRR. S1, S2, systolic murmur RESP: Diminished with bibasilar crackles ABD: Soft, nondistended. EXT: No Osler's nodes or splinter hemorrhage. L knee cold to touch NEURO: Nonfocal - Assessment and Plan (1) MSSA bacteremia Current Visit: Yes Status: Acute Assessment and Plan: Hx of complicated MSSA bacteremia in the setting of left knee prosthesis and aortic valve replacement: see ID notes for detail was admitted for mild respiratory acidosis requring avtb-gt-afys HD in 04/17. Blood cultures were negative on that date Cultures done on 04/19 and 04/20 +ve for S. aureus in both sets. Repeat c/s from HD catheter on 04/21 +ve for GPC in 1 set ELVER concerning for vegetation (8x7 mm) on prosthetic aortic valve CTS input appreciated, high surgical risk, for conservative mx for now appreciate ID input, rifampin and gentamicin added in addition to ancef discussed with nephro. HD today and HD catheter removal afterward (2) ESRF (end stage renal failure) Current Visit: No Status: Chronic Assessment and Plan: Friday, Friday, Friday hemodialysis Follows with [facility] who is seeing in consultation; appreciate input HD and removal of catheter as per the discussion with Nephro as above (3) Elevated TSH Current Visit: Yes Status: Acute Assessment and Plan: TSH was around 12. T3 was low T4 was normal started on synthroid and family states she looks a bit more alert and "perked up" today although it is difficult to diagnose hypothyroidism in acutely ill state, it probably would be reasonable to continue tx given her positive response and TSH being > 10 repeat TSH in 6 weeks as outpatient (4) Diabetes mellitus Current Visit: No Status: Chronic Assessment and Plan: continue levemir and low dose sliding scale & Accu-Cheks ADA diet (5) Cirrhosis Current Visit: No Status: Chronic Assessment and Plan: h/o cirrhosis, sees Dr. Potts as an outpatient MELD 26 ammonia level on presentation normal not in decompensation, monitor (6) Hypertension Current Visit: No Status: Chronic Assessment and Plan: stable Continue anti-HTN medications and monitor (7) Elevated troponin Current Visit: No Status: Chronic Assessment and Plan: Chronically elevated. He remains chest pain-free. Likely due to ESRD (8) DVT prophylaxis Current Visit: No Status: Acute Assessment and Plan: SQ Heparin - Time Spent with Patient Total time spent is greater than 50% in coordination of care (as documented) at patient's floor/unit and/or counseling patient: Plan of Care Discussed with: patient Internal Medicine: Result - Labs CBC & Chem 7: 04/24/18 06:28 04/24/18 06:28 Labs: Short CBC 04/24/18 Range/Units 06:28 WBC 8.7 (4.3-11.1) K/mcL Hgb 7.9 L (11.5-15.4) g/dL Hct 26.1 L (35.3-44.9) % Plt Count 74 L (140-400) K/mcL BMP 04/24/18 06:28 Sodium 132 L Potassium 4.0 Chloride 97 L Carbon Dioxide 27 BUN 34 H Creatinine 4.08 H Glucose 207 H Calcium 8.7 - ABG Interpretation ABG results: ABG ABG pH 7.43 pH Units (7.32-7.45) 04/20/18 12:08 ABG pCO2 47 mmHg (35-45) H 04/20/18 12:08 ABG pO2 91 mmHg (85-104) 04/20/18 12:08 ABG O2 Saturation 97 % (95-98) 04/20/18 12:08 PT/INR, D-dimer PT 17.4 Seconds (9.4-12.1) H 04/21/18 11:13 Consult Discharge Plan - Plan Referrals: Latoya Harkins, MACHINE BURRER [Primary Care Provider] - (Patient will follow up with PCP at the [facility]) (4) Diabetes mellitus Qualifiers: Diabetes mellitus type: type 2 Diabetes mellitus shelter insulin use: with shelter use Diabetes mellitus complication status: with kidney complications Diabetes mellitus complication detail: with chronic kidney disease Chronic kidney disease stage: on chronic dialysis Qualified Code(s): E11.22 - Type 2 diabetes mellitus with diabetic chronic kidney disease; N18.6 - End stage renal disease; 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
[2018-04-24] MEDS: Bumetanide 1 MG TABLET PO SCH (13:32)
[2018-04-24] MEDS: Isosorbide MONOnitrate (24 HR) 30 MG TAB.ER.24H PO SCH (13:32)
[2018-04-24] MEDS: Cholecalciferol (D-3) 1,000 UNIT TABLET PO SCH (13:33)
[2018-04-24] MEDS: rifAMPin 150 MG CAPSULE PO SCH ×2 (13:46→18:51)
--- NOTE | 2018-04-24 14:44 | IR Procedure Note ---
Date of procedure: 04/24/18 Consent Obtained: Written consent Timeout: Correct patient and procedure verified, Correct site verified, Time out performed, Skin prep completed Indications: infected permacath Procedure Performed: permacath removal Was there an certified teacher assistant present: No Site/Technique: rt IJ catheter Results/Findings: adequate removal Estimated blood loss (cc): 0 Complications: None; Tolerated procedure well Specimen: none
--- NOTE | 2018-04-24 15:32 | ENT - Consult Note ---
Date of Encounter: 04/28/18 Time of Encounter: 15:29 Assessment and Plan (1) Abnormal auditory perception, unspecified Current Visit: Yes Status: Chronic --Due to patient mental status, unable to obtain full history and unable to perform Tuning fork Exam --Patient able to easily hear at conversational volume levels --Patient to have audiogram on 04/30/2018 in office at 230 PM --Will be available if needed, otherwise, patient can follow up in the office after Audiogram. Please note: EMR will not allow the note to be officially signed at this time a [employer] help desk is unable to resolve the inability to sign the document as the issue can not be esclated due to personel being out of office for holiday. Qualifiers: Laterality: unspecified laterality Qualified Code(s): H93.299 - Other abnormal auditory perceptions, unspecified ear Code(s): H93.299 - Other abnormal auditory perceptions, unspecified ear SNOMED Code(s): 28863455 History of Present Illness Consult date: 04/24/18 Reason for ENT Consult: other (Hearing Evaluation, Patient on Getamicin.) Requesting physician: Krunal Reddy History of present illness: This is a 78 y/o F who was admitted for MSSA bacteremia complicated by prosthetic joint and prosthetic heart valve and is currently being treated with Gentamicin. ENT is being asked to evaluate hearing. Patient had difficulty relaying history. History comes from chart review and from familly. Echocardiogram showed findings suggestive of endocarditis and the patient was placed on Gentamicin on 04/23/2018. Per Family Members, patient has not history of hearing loss and has no history of noise exposure. Past Med Surg Social Fam HX - Past Medical History Attestation: Yes The following information was validated with the patient. Medical history: arthritis, cancer, cirrhosis, CHF, diabetes, hyperlipidemia, hypertension, liver disease, renal disease, valvular heart disease (Prosthetic valve endocarditis, MSSA), other (MSSA bacteremia) Additional medical history: valvular heart disease Psychiatric history: no psych history - Past Surgical History Surgical History: appendectomy, cataract, heart valve replacement (AVR (21 mm Mosaic Ultra porcine tissue valve)), knee replacement (Left total knee replacement), [place]/BSO, other (Urinary bladder suspension, hammertoe repair, breast biopsy) Additional surgical history: HAMMER TOES. ACHILLES HEEL REPAIR. LEFT TKR. BLADDER REPAIR. AVR 08/2014. A&P. BREAST BIOPSY - Social History Smoking Status: Former smoker Smokeless Tobacco Status: No Alcohol use: none Drug use: none - Family History Mother Living Status: Hx Family Cardiac Disorders: No Hx Family Respiratory Disorders: No Hx Family Endocrine Disorder: Yes Hx Family Neurologic Disorders: Yes Medications and Allergies Bumetanide [Bumex] 1 mg PO DAILY 04/21/18 [History] Cholecalciferol (D-3) [Vitamin D] 1,000 unit PO DAILY 04/21/18 [History] Ferrous Sulfate [Iron] 325 mg PO DAILY@0800 04/21/18 [History] Insulin Glargine [Lantus] 30 unit SQ HS 04/21/18 [History] Insulin LISPRO [Admelog] 0 unit SQ TIDAC 04/21/18 [History] Isosorbide MONOnitrate [Isosorbide Mononitrate ER] 30 mg PO DAILY 04/21/18 [History] Lactobacillus [Culturelle] 1 each PO BID 04/21/18 [History] Metoprolol [Lopressor] 12.5 mg PO BID 04/21/18 [History] Multivitamin/Iron/Folic Acid [Centrum Complete Multivit Tab] 1 each PO DAILY 04/21/18 [History] RX: Docusate [Colace] 100 mg PO BID PRN 04/21/18 [History] Vitamin E Acid Succinate [Vitamin E] 400 unit PO DAILY 04/21/18 [History] ceFAZolin [Ancef] 1,000 mg IVPB Q24H 04/21/18 [History] Allergy/AdvReac Type Severity Reaction Status Date / Time Tdqgbhl-Bue-Gyd Reductase AdvReac Muscle Pain Verified 04/19/18 02:15 Inhibitor [Statins] ENT - ROS ROS unobtainable: due to mental status ENT Exam Initial Vital Signs Temp Pulse Resp BP Pulse Ox 98.8 F 82 18 122/55 96 04/19/18 02:10 04/19/18 02:10 04/19/18 02:10 04/19/18 02:10 04/19/18 02:10 - General physical appearance well developed, well nourished, no distress - Eyes PERRL, normal ocular movement - ENT Other (Head: Normocephalic, Atraumatic, Parotid and SMG glands symmetric. Left Ear: Normal Pinna, the EAC partialy occluded by cerumen, unable to visualize the tympanic membrane. Left Ear: Normal Pinna, the EAC partialy occluded by cerumen, unable to visualize the tympanic membrane. Nose: Setum deviated to the right. Inferior Turbinates normal in size. There is crusted blood bilaterally on caudal septum without active bleeding. Oral Cavity: Upper Dentures, Mucosa dry, tonsils atrophied, no mucosal lesions or masses noted. ) - Neck no masses, trachea midline, no lymphadectomy - Respiratory normal expansion, normal respiratory effort - Neurologic CN 2-12 grossly intact, other (Oriented to Person only. Patient unable to cooperate with Tuning Fork Examination. ) Exam Initial Vital Signs Temp Pulse Resp BP Pulse Ox 98.8 F 82 18 122/55 96 04/19/18 02:10 04/19/18 02:10 04/19/18 02:10 04/19/18 02:10 04/19/18 02:10 Results - Labs 04/28/18 03:25 04/28/18 03:25 Abnormal lab results RBC 2.70 M/mcL (3.82-4.97) L 04/24/18 06:28 Hgb 7.9 g/dL (11.5-15.4) L 04/24/18 06:28 Hct 26.1 % (35.3-44.9) L 04/24/18 06:28 MCHC 30.3 g/dL (31.6-35.5) L 04/24/18 06:28 RDW 18.1 % (11.5-14.5) H 04/24/18 06:28 Plt Count 74 K/mcL (140-400) L 04/24/18 06:28 Lymphocytes # 0.5 K/mcL (0.6-4.6) L 04/21/18 11:13 ESR 43 mm/hr (0-15) H 04/20/18 12:05 PT 17.4 Seconds (9.4-12.1) H 04/21/18 11:13 ABG pCO2 47 mmHg (35-45) H 04/20/18 12:08 ABG HCO3 31 mEq/L (21-27) H 04/20/18 12:08 ABG Total CO2 32 mEq/L (20-26) H 04/20/18 12:08 ABG Base Excess 6 mEq/L (-2 to 3) H 04/20/18 12:08 VBG pCO2 52 mmHg (41-51) H 04/19/18 02:52 VBG pO2 69 mmHg (25-50) H 04/19/18 02:52 VBG HCO3 31 mEq/L (21-27) H 04/19/18 02:52 Sodium 132 mEq/L (136-145) L 04/24/18 06:28 Chloride 97 mEq/L (98-107) L 04/24/18 06:28 BUN 34 mg/dL (8-23) H 04/24/18 06:28 Creatinine 4.08 mg/dL (0.60-1.20) H 04/24/18 06:28 Est GFR ( Amer) 13 (> 60) L 04/24/18 06:28 Est GFR (Non-Af Amer) 11 (> 60) L 04/24/18 06:28 Glucose 207 mg/dL (70-105) H 04/24/18 06:28 POC Glucose 315 mg/dL (70-99) H 04/23/18 20:14 ALT < 3 Units/L (7-52) L 04/21/18 11:13 Alkaline Phosphatase 164 Units/L (34-104) H 04/21/18 11:13 Troponin I 0.08 ng/mL (< 0.04) H* 04/19/18 02:30 C-Reactive Protein 141 mg/L (Less than 10) H 04/20/18 12:05 Albumin 2.9 g/dL (3.5-5.7) L 04/21/18 11:13 Globulin 4.6 g/dL (2.4-3.5) H 04/21/18 11:13 Albumin/Globulin Ratio 0.6 (1.1-2.2) L 04/21/18 11:13 TSH 12.596 mcIU/mL (0.340-5.600) H 04/19/18 02:30 Free T3 2.43 pg/mL (2.50-3.90) L 04/19/18 02:30 Urine Clarity Cloudy (Clear) A 04/19/18 03:31 Urine Protein >=300 mg/dL (Neg-Trace) H 04/19/18 03:31 Urine Glucose (UA) 100 mg/dL (Normal) H 04/19/18 03:31 Urine Ketones Trace mg/dL (Negative) H 04/19/18 03:31 Urine Blood Small (Negative) H 04/19/18 03:31 Urine Bilirubin Small (Negative) H 04/19/18 03:31 Ur Leukocyte Esterase Small (Negative) H 04/19/18 03:31 Urine Microscopic WBC TNTC per hpf (0-3) H 04/19/18 03:31 Ur Squamous Epith Cells Many per lpf (None-Few) H 04/19/18 03:31 Ur Culture Indicated? NO. (NO) A 04/19/18 03:31 Rheumatoid Factor 14 IU/mL (Less than 14) H 04/21/18 11:13 Staphylococcus sp PCR DETECTED (Not Detect) A 04/21/18 11:13 Staph aureus (PCR) DETECTED (Not Detect) A 04/21/18 11:13 Diabetes panel 04/24/18 Range/Units 06:28 Sodium 132 L (136-145) mEq/L Potassium 4.0 (3.5-5.1) mEq/L Chloride 97 L (98-107) mEq/L Carbon Dioxide 27 (23-29) mEq/L BUN 34 H (8-23) mg/dL Creatinine 4.08 H (0.60-1.20) mg/dL Glucose 207 H (70-105) mg/dL Calcium 8.7 (8.6-10.3) mg/dL Calcium panel 04/24/18 Range/Units 06:28 Calcium 8.7 (8.6-10.3) mg/dL Pituitary panel 04/24/18 Range/Units 06:28 Sodium 132 L (136-145) mEq/L Potassium 4.0 (3.5-5.1) mEq/L Chloride 97 L (98-107) mEq/L Carbon Dioxide 27 (23-29) mEq/L BUN 34 H (8-23) mg/dL Creatinine 4.08 H (0.60-1.20) mg/dL Glucose 207 H (70-105) mg/dL Calcium 8.7 (8.6-10.3) mg/dL Adrenal panel 04/24/18 Range/Units 06:28 Sodium 132 L (136-145) mEq/L Potassium 4.0 (3.5-5.1) mEq/L Chloride 97 L (98-107) mEq/L Carbon Dioxide 27 (23-29) mEq/L BUN 34 H (8-23) mg/dL Creatinine 4.08 H (0.60-1.20) mg/dL Glucose 207 H (70-105) mg/dL Calcium 8.7 (8.6-10.3) mg/dL All other labs normal. Consult Discharge Plan - Plan Referrals: Latoya Harkins CNP [Primary Care Provider] - (Patient will follow up with PCP at the [facility])
[2018-04-24] MEDS ORDERED: Gentamicin 150 MG in 0.9 % Sodium Chloride 100 ML IVPB ONE (16:00)
--- NOTE | 2018-04-24 16:09 | Infectious Disease Progress No ---
Date of Encounter: 04/24/18 Time of Encounter: 16:06 - Assessment and Plan (1) Bacteremia due to methicillin susceptible Staphylococcus aureus (MSSA) Current Visit: No Status: Acute Complicated MSSA bacteremia due to setting of hardware status post total knee replacement and by prostatic valve. 11/07/2017 2 out of 2 sets positive for MSSA discharge on oral doxycycline for 7 days. 11/26/2017 2 out of 2 sets positive for MSSA repeat cultures on November 28 no growth treated with 4 weeks of IV cefazolin for complicated MSSA bacteremia At that time, ELVER and TTE were negative. 02/11/2018 2 out of 2 sets positive for MSSA bacteremia patient was transferred to [place]. The patient had a WBC scan and ELVER which were negative. The patient was treated with 8 weeks of IV cefazolin followed by prolonged oral suppressive therapy. Recently, the patient was admitted for CHF and the primary team was advised by the ID team to continue treatment until follow-up with ID. Currently ,patient is admitted and 2 out of 2 sets on 04/19/2018 are positive for MSSA. Repeat blood culture drawn peripherally 04/21/18 x 1 set and centrall x 1 set are pending. Extensive review of system and physical exam is not suggestive of endocarditis and physical exam negative for endocarditis stigmata. Source of infection is endocarditis. Physical exam not suggestive prosthetic joint infection. Rheumatoid factor elevated at 14. The patient has two major and two minor Modified Hayden's criteria. ELVER was positive for 8mm x 7mm vegetation on the bioprosthetic valve concerning for endocarditis. The patient does have a history of MGUS, so not sure if this is contributing to the persistent bacteremia. Will discuss with allergy/immunology. Some literature review suggests using cefazolin and ertapenem for synergy. Currently on cefazolin. Recommendations: - Await repeat blood cultures to finalize. - Consult CTS. - HD catheter will likely need to be removed, but will await cultures. Will discuss with the nephrology. - Continue ancef 1 gram IV Q24H, dose-adjusted for the patient's HD status. - Start gentamicin IV. Will ask pharmacy to help with dosing since the patient i s on HD. - Start rifampin 300mg PO BID. - Check baseline LFTs. The patient has known cirrhosis so we will need to monitor LFTs closely. - Duration of treatment depends on the clinical picture. - Monitor labs and dose-adjust antibiotics. - Strict glucose control. 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 The patient has two major and one minor Modified Hayden's Criteria. Antibiotics as above. Appreciate cardiothoracic's recommendations and input Patient started on gentamicin and rifampin. Patient has poor liver and am very concerned about using the rifampin but I do not think it is optional at this time. Asked pharmacy to help us with the gentamicin and patient will need a hearing test prior to discharge Qualifiers: Encounter type: sequela Qualified Code(s): T82.6XXS - Infection and inflammatory reaction due to cardiac valve prosthesis, sequela (3) Cirrhosis Current Visit: Yes Status: Chronic Etiology unclear. Chronic. MELD score 26. Qualifiers: Hepatic cirrhosis type: other cirrhosis Qualified Code(s): K74.69 - Other c irrhosis of liver (4) Diabetes mellitus type 2 in obese Current Visit: Yes Status: Chronic (5) History of aortic valve replacement with bioprosthetic valve Current Visit: No Status: Chronic (6) MGUS (monoclonal gammopathy of unknown significance) Current Visit: No Status: Acute (7) Chronic kidney disease (CKD), stage V Current Visit: Yes Status: Acute Nephrology consulted and following. (8) Asymptomatic bacteriuria Current Visit: Yes Status: Acute I patient is getting more confused. Consider repeating liver function tests and ammonia level especially that she is on rifampin. I am worried that the patient might be having a true UTI asymptomatic bacteriuria. As for the Citrobacter freundii, patient is already on gentamicin so no need to cover. If no improvement and ammonia level is not too high consider adding doxycycline for the VRE. Prognosis guarded - Subjective Interval history: Patient seen and examined.. Clinically looks worse. Was a little bit confused initially but then she has all the questions. Denies any tinnitus or earache or loss of balance. Patient had decent appetite. No bowel movements today. No chest pain or shortness of breath. Vital signs: Afebrile no tachycardia WBC 8.7 Cultures reviewed Infect Dis PN-Objective Data - Labs CBC & Chem 7: 04/24/18 06:28 04/24/18 06:28 Labs: Laboratory Results - last 24 hr 04/23/18 04/23/18 04/24/18 15:51 20:14 06:28 WBC 8.7 RBC 2.70 L Hgb 7.9 L Hct 26.1 L MCV 96.7 MCH 29.3 MCHC 30.3 L RDW 18.1 H Plt Count 74 L MPV 9.4 Immature Plt Fraction 1.7 Sodium Potassium Chloride Carbon Dioxide BUN Creatinine Est GFR ( Amer) Est GFR (Non-Af Amer) BUN/Creatinine Ratio Glucose POC Glucose 237 H 315 H Calculated Osmolality Calcium Random Gentamicin 04/24/18 04/24/18 06:28 06:28 WBC RBC Hgb Hct MCV MCH MCHC RDW Plt Count MPV Immature Plt Fraction Sodium 132 L Potassium 4.0 Chloride 97 L Carbon Dioxide 27 BUN 34 H Creatinine 4.08 H Est GFR ( Amer) 13 L Est GFR (Non-Af Amer) 11 L BUN/Creatinine Ratio 8 Glucose 207 H POC Glucose Calculated Osmolality 288 Calcium 8.7 Random Gentamicin 3.6 Cultures: Cultures 04/20/18 19:34 Blood Culture - Final Peripheral Venipuncture Staphylococcus aureus 04/21/18 11:13 Blood Culture - Final Central Venous Catheter Staphylococcus aureus 04/20/18 14:00 Urine Culture - Final Urine,Clean Catch Citrobacter freundii Vancomycin Resistant Enterococcus faecium 04/19/18 04:45 Blood Culture - Final Peripheral Venipuncture Staphylococcus aureus 04/19/18 04:40 Blood Culture - Final Peripheral Venipuncture Staphylococcus aureus 04/21/18 11:00 Blood Culture - Preliminary Central Venous Catheter Culture is incubating and being continuously monitored for growth. Final report to follow. Serology 04/21/18 04/20/18 04/19/18 Range/Units 11:13 19:34 04:40 Urine Color (Yellow) Urine Clarity (Clear) Urine pH (5.0-8.0) pH Units Ur Specific [place] (1.010-1.025) Urine Protein (Neg-Trace) mg/dL Urine Glucose (UA) (Normal) mg/dL Urine Ketones (Negative) mg/dL Urine Blood (Negative) Urine Nitrite (Negative) Urine Bilirubin (Negative) Urine Urobilinogen (Normal) mg/dL Ur Leukocyte Esterase (Negative) Urine Microscopic RBC (0-3) per hpf Urine Microscopic WBC (0-3) per hpf Ur Squamous Epith Cells (None-Few) per lpf Urine Bacteria (None-Few) per hpf Hyaline Casts (None-Few) per lpf Ur Culture Indicated? (NO) A. baumannii (PCR) Not Detected Not Detected Not Detected (Not Detect) Negin albicans (PCR) Not Detected Not Detected Not Detected (Not Detect) C. glabrata (PCR) Not Detected Not Detected Not Detected (Not Detect) C. krusei (PCR) Not Detected Not Detected Not Detected (Not Detect) C. parapsilosis (PCR) Not Detected Not Detected Not Detected (Not Detect) C. tropicalis (PCR) Not Detected Not Detected Not Detected (Not Detect) Enterobacteriac sp PCR Not Detected Not Detected Not Detected (Not Detect) E. cloacae complex PCR Not Detected Not Detected Not Detected (Not Detect) Enterococcus sp PCR Not Detected Not Detected Not Detected (Not Detect) E. coli (PCR) Not Detected Not Detected Not Detected (Not Detect) H. influenzae (PCR) Not Detected Not Detected Not Detected (Not Detect) Klebsiella oxytoca PCR Not Detected Not Detected Not Detected (Not Detect) Klebsiella pneumoniae Not Detected Not Detected Not Detected (Not Detect) List. monocytogenes PCR Not Detected Not Detected Not Detected (Not Detect) N. meningitidis (PCR) Not Detected Not Detected Not Detected (Not Detect) Proteus species (PCR) Not Detected Not Detected Not Detected (Not Detect) Serratia marcescens PCR Not Detected Not Detected Not Detected (Not Detect) Staphylococcus sp PCR DETECTED A DETECTED A DETECTED A (Not Detect) Staph aureus (PCR) DETECTED A DETECTED A DETECTED A (Not Detect) mecA-Methicil Res Gene Not Detected Not Detected Not Detected (Not Detect) Streptococcus sp PCR Not Detected Not Detected Not Detected (Not Detect) Group A Strep DNA Not Detected Not Detected Not Detected (Not Detect) Group B Strep (PCR) Not Detected Not Detected Not Detected (Not Detect) Strep pneumoniae (PCR) Not Detected Not Detected Not Detected (Not Detect) P. aeruginosa (PCR) Not Detected Not Detected Not Detected (Not Detect) Jake/B-Vanco Res Genes N/A Not Detected Not Detected (Not Detect) KPC (blaKPC) Detect PCR N/A Not Detected Not Detected (Not Detect) 04/19/18 Range/Units 03:31 Urine Color Dark Yellow (Yellow) Urine Clarity Cloudy A (Clear) Urine pH 6.0 (5.0-8.0) pH Units Ur Specific [place] 1.019 (1.010-1.025) Urine Protein >=300 H (Neg-Trace) mg/dL Urine Glucose (UA) 100 H (Normal) mg/dL Urine Ketones Trace H (Negative) mg/dL Urine Blood Small H (Negative) Urine Nitrite Negative (Negative) Urine Bilirubin Small H (Negative) Urine Urobilinogen Normal (Normal) mg/dL Ur Leukocyte Esterase Small H (Negative) Urine Microscopic RBC 0-3 (0-3) per hpf Urine Microscopic WBC TNTC H (0-3) per hpf Ur Squamous Epith Cells Many H (None-Few) per lpf Urine Bacteria None Seen (None-Few) per hpf Hyaline Casts Few (None-Few) per lpf Ur Culture Indicated? NO. A (NO) A. baumannii (PCR) (Not Detect) Negin albicans (PCR) (Not Detect) C. glabrata (PCR) (Not Detect) C. krusei (PCR) (Not Detect) C. parapsilosis (PCR) (Not Detect) C. tropicalis (PCR) (Not Detect) Enterobacteriac sp PCR (Not Detect) E. cloacae complex PCR (Not Detect) Enterococcus sp PCR (Not Detect) E. coli (PCR) (Not Detect) H. influenzae (PCR) (Not Detect) Klebsiella oxytoca PCR (Not Detect) Klebsiella pneumoniae (Not Detect) List. monocytogenes PCR (Not Detect) N. meningitidis (PCR) (Not Detect) Proteus species (PCR) (Not Detect) Serratia marcescens PCR (Not Detect) Staphylococcus sp PCR (Not Detect) Staph aureus (PCR) (Not Detect) mecA-Methicil Res Gene (Not Detect) Streptococcus sp PCR (Not Detect) Group A Strep DNA (Not Detect) Group B Strep (PCR) (Not Detect) Strep pneumoniae (PCR) (Not Detect) P. aeruginosa (PCR) (Not Detect) Jake/B-Vanco Res Genes (Not Detect) KPC (blaKPC) Detect PCR (Not Detect) - Impressions Impressions Tunnelled Catheter Removal 04/24/18 00:00 IMPRESSION: Successful subcutaneous Permacath removal. D/ / 04/24/2018 15:22:35 Sapphire Lynch MD / ok Interpreting Provider: Sapphire Lynch MD Exam - Constitutional Vitals: Temp Pulse Resp BP Pulse Ox 97.1 F L 79 18 134/66 95 04/24/18 13:24 04/24/18 06:59 04/24/18 13:24 04/24/18 13:24 04/24/18 06:59 General appearance: no febrile, no cooperative Exam: None cooperative, confused Consult Discharge Plan - Plan Referrals: Latoya Harkins, SHOTB[employer] OPERATOR [Primary Care Provider] - (Patient will follow up with PCP at the [facility])
[2018-04-24] MEDS: ceFAZolin 1,000 MG in Water for inj. (sterile) 20 ML 10 ML IVPB SCH (18:51)
[2018-04-24] MEDS: Insulin DETEMIR 100 UNIT/ML X5UNITS SQ SCH (21:29)
[2018-04-25 04:36] LABS: Mean Corpuscular Volume 95.7 fL (83.0-100.0); Red Blood Count 2.82 M/mcL (3.82-4.97); Red Cell Distribution Width 18.2 % (11.5-14.5)
[2018-04-25 04:38] LABS: Hemoglobin 8.3 g/dL (11.5-15.4); Immature Platelets 1.8 % (1.1-6.1); Mean Corpuscular HGB Conc 30.7 g/dL (31.6-35.5); Mean Corpuscular Hemoglobin 29.4 pg (28.0-33.3); Mean Platelet Volume 9.2 fL (9.4-12.4)
[2018-04-25 04:54] LABS: Calcium 8.4 mg/dL (8.6-10.3); Potassium 3.9 mEq/L (3.5-5.1)
[2018-04-25] MEDS: *HR* Heparin 5,000 UNIT/ML VIAL SQ SCH ×3 (06:01→21:01)
[2018-04-25] MEDS: rifAMPin 150 MG CAPSULE PO SCH ×2 (06:01→18:01)
[2018-04-25] MEDS: Levothyroxine 25 MCG TABLET PO SCH (06:01)
[2018-04-25] MEDS: Bumetanide 1 MG TABLET PO SCH (07:41)
[2018-04-25] MEDS: Insulin LISPRO 300 UNITS/3 ML VIAL SQ SCH ×4 (07:41→21:02)
[2018-04-25] MEDS: Isosorbide MONOnitrate (24 HR) 30 MG TAB.ER.24H PO SCH (07:41)
[2018-04-25] MEDS: Cholecalciferol (D-3) 1,000 UNIT TABLET PO SCH (07:41)
--- NOTE | 2018-04-25 09:28 | Internal Med Progress Note ---
Hospitalist Progress Note - Encounter Date of Encounter: 04/25/18 Time of Encounter: 08:00 - Subjective Interval History: No acute events overnight. Denies chest pain, shortness of breath, hemoptysis, fever/chills, or N/V. - Exam Vitals: Temp Pulse Resp BP Pulse Ox 97.4 F L 75 16 126/75 97 04/25/18 06:37 04/25/18 06:37 04/25/18 06:37 04/25/18 06:37 04/25/18 06:37 Exam: GEN: Alert and oriented x 3. Appears comfortable Chest: Dressing over R chest dry and clean CVS:RRR. S1, S2, systolic murmur RESP: Diminished with bibasilar crackles ABD: Soft, nondistended. EXT: No Osler's nodes or splinter hemorrhage. L knee cold to touch NEURO: Nonfocal - Assessment and Plan (1) Prosthetic valve endocarditis Current Visit: Yes Status: Acute Assessment and Plan: Hx of complicated MSSA bacteremia in the setting of left knee prosthesis and a ortic valve replacement: see ID notes for detail was admitted for mild respiratory acidosis requring [id number] HD in 04/17. Blood cultures were negative on that date Cultures done on 04/19 and 04/20 +ve for S. aureus in both sets. Repeat c/s from HD catheter on 04/21 +ve for GPC in 1 set ELVER concerning for vegetation (8x7 mm) on prosthetic aortic valve CTS input appreciated, high surgical risk, for conservative mx for now appreciate ID input, rifampin and gentamicin added in addition to ancef HD catheter removed, may require temporary HD access on Friday ENT input appreciated, for audiogram 04/30 at 230pm (2) MSSA bacteremia Current Visit: Yes Status: Acute Assessment and Plan: as above (3) ESRF (end stage renal failure) Current Visit: No Status: Chronic Assessment and Plan: Friday, Friday, Friday hemodialysis Follows with [facility] who is seeing in consultation; appreciate input HD catheter removed after the dialysis session yesterday will monitor her over the weekend and potentially plan for temporary access on Friday (4) Elevated TSH Current Visit: Yes Status: Acute Assessment and Plan: TSH was around 12. T3 was low T4 was normal started on synthroid and family states she looks a bit more alert and "perked up" today although it is difficult to diagnose hypothyroidism in acutely ill state, it probably would be reasonable to continue tx given her positive response and TSH being > 10 repeat TSH in 6 weeks as outpatient (5) Diabetes mellitus Current Visit: No Status: Chronic Assessment and Plan: continue levemir and low dose sliding scale & Accu-Cheks ADA diet (6) Cirrhosis Current Visit: Yes Status: Chronic Assessment and Plan: h/o cirrhosis, sees Dr. Potts as an outpatient MELD 26 ammonia level on presentation normal not in decompensation, monitor (7) Hypertension Current Visit: No Status: Chronic Assessment and Plan: stable Continue anti-HTN medications and monitor (8) Elevated troponin Current Visit: No Status: Chronic Assessment and Plan: Chronically elevated. He remains chest pain-free. Likely due to ESRD (9) DVT prophylaxis Current Visit: No Status: Acute Assessment and Plan: SQ Heparin - Time Spent with Patient Total time spent is greater than 50% in coordination of care (as documented) at patient's floor/unit and/or counseling patient: Plan of Care Discussed with: patient Internal Medicine: Result - Labs CBC & Chem 7: 04/25/18 04:05 04/25/18 04:05 Labs: Short CBC 04/25/18 Range/Units 04:05 WBC 8.0 (4.3-11.1) K/mcL Hgb 8.3 L (11.5-15.4) g/dL Hct 27.0 L (35.3-44.9) % Plt Count 74 L (140-400) K/mcL BMP 04/25/18 04:05 Sodium 132 L Potassium 3.9 Chloride 97 L Carbon Dioxide 27 BUN 18 Creatinine 2.64 H Glucose 178 H Calcium 8.4 L - ABG Interpretation ABG results: ABG ABG pH 7.43 pH Units (7.32-7.45) 04/20/18 12:08 ABG pCO2 47 mmHg (35-45) H 04/20/18 12:08 ABG pO2 91 mmHg (85-104) 04/20/18 12:08 ABG O2 Saturation 97 % (95-98) 04/20/18 12:08 PT/INR, D-dimer PT 17.4 Seconds (9.4-12.1) H 04/21/18 11:13 - Impressions Impressions Tunnelled Catheter Removal 04/24/18 00:00 IMPRESSION: Successful subcutaneous Permacath removal. D/ / 04/24/2018 15:22:35 Sapphire Lynch MD / [email or web address] Interpreting Provider: Sapphire Lynch MD Consult Discharge Plan - Plan Referrals: Latoya Harkins, MANAGER [employer]ATIONS [employer]UREMENT [Primary Care Provider] - (Patient will follow up with PCP at the [facility]) (1) Prosthetic valve endocarditis Qualifiers: Encounter type: sequela Qualified Code(s): T82.6XXS - Infection and inflammatory reaction due to cardiac valve prosthesis, sequela (5) Diabetes mellitus Qualifiers: Diabetes mellitus type: type 2 Diabetes mellitus [facility] insulin use: with terminal make up operator use Diabetes mellitus complication status: with kidney complications Diabetes mellitus complication detail: with chronic kidney disease Chronic kidney disease stage: on chronic dialysis Qualified Code(s): E11.22 - Type 2 diabetes mellitus with diabetic chronic kidney disease; N18.6 - End stage renal disease; Z79.4 - [facility] (current) use of insulin; Z99.2 - Dependence on renal dialysis (6) Cirrhosis Qualifiers: Hepatic cirrhosis type: other cirrhosis Qualified Code(s): K74.69 - Other cirrhosis of liver (7) Hypertension Qualifiers: Hypertension type: essential hypertension Qualified Code(s): I10 - Essential (primary) hypertension
--- NOTE | 2018-04-25 09:59 | Nephrology Progress Note ---
Date of Encounter: 04/25/18 Time of Encounter: 09:59 - Assessment and Plan (1) ESRD (end stage renal disease) on dialysis Current Visit: Yes Status: Chronic HD MWF. Renal vitamins. Renal dose medications. Renal diet. Additional dialysis and ultrafiltration as needed. Plan for dialysis Friday Secondary to endocarditis and persistent bacteremia her HD catheter was removed 04/24/2018. (2) Endocarditis due to Staphylococcus Current Visit: Yes Status: Acute Per ID and primary team. Per CTS patient is a high risk surgical candidate for valve replacement. (3) Diabetes mellitus type 2 in obese Current Visit: Yes Status: Chronic Per the primary team. (4) Hypertension Current Visit: No Status: Chronic Titrate antihypertensive medication as needed. Qualifiers: Hypertension type: essential hypertension Qualified Code(s): I10 - Essential (primary) hypertension Subjective Principal diagnosis: ESRD altered mental status Interval history: Patient was seen and evaluated. No new complaint. Patient resting comfortably.. Objective - Vital Signs Vital signs: Vital Signs Temp Pulse Resp BP Pulse Ox 04/25/18 06:37 97.4 F L 75 16 126/75 97 04/25/18 03:36 97.5 F L 79 16 132/70 99 04/25/18 01:18 97.8 F 81 17 123/71 99 04/24/18 19:08 97.6 F 90 18 121/67 98 04/24/18 16:44 98.3 F 86 18 119/64 96 04/24/18 13:24 97.1 F L 18 134/66 04/24/18 13:05 127/67 04/24/18 12:50 126/68 04/24/18 12:35 128/69 04/24/18 12:20 131/68 04/24/18 12:05 127/69 04/24/18 11:50 127/68 04/24/18 11:35 128/67 04/24/18 11:20 123/66 04/24/18 11:05 127/57 04/24/18 10:50 131/66 04/24/18 10:35 123/67 04/24/18 10:20 129/45 04/24/18 10:05 122/59 Intake and Output 04/24/18 04/25/18 04/25/18 23:59 07:59 15:59 Intake Total 120 / 120 360 / 360 600 / 600 Balance 120 / 120 360 / 360 600 / 600 Intake: Oral 120 / 120 360 / 360 600 / 600 Other: Meal Dinner Breakfast Percent of Meal Consumed 40% 100% Stool Size Moderate Stool Consistency soft Stool Color Brown # Urine Diapers 1 # Bowel Movement Diapers 1 Weight 87.9 kg Blood Glucose* 192 190 Patient Weight 04/25/18 23:59 Weight 87.9 kg - General Appearance General appearance: Present: well-developed, well-nourished EENT: Present: ATNC Neck: Present: supple Cardiology: Present: regular rate - Lab 04/25/18 04:05 04/25/18 04:05 Most recent lab results ABG pH 7.43 pH Units (7.32-7.45) 04/20/18 12:08 ABG pCO2 47 mmHg (35-45) H 04/20/18 12:08 ABG pO2 91 mmHg (85-104) 04/20/18 12:08 ABG HCO3 31 mEq/L (21-27) H 04/20/18 12:08 ABG O2 Saturation 97 % (95-98) 04/20/18 12:08 Calcium 8.4 mg/dL (8.6-10.3) L 04/25/18 04:05 Magnesium 1.8 mg/dL (1.6-2.6) 04/20/18 04:00 Consult Discharge Plan - Plan Referrals: Latoya Harkins, VALET PARKER [Primary Care Provider] - (Patient will follow up with PCP at the [facility])
[2018-04-25] MEDS: ceFAZolin 1,000 MG in Water for inj. (sterile) 20 ML 10 ML IVPB SCH (18:01)
[2018-04-25] MEDS: Acetaminophen 325 MG TABLET PO PRN (21:01)
[2018-04-25] MEDS: Melatonin 3 MG TABLET PO PRN (21:03)
[2018-04-25] MEDS: Insulin DETEMIR 100 UNIT/ML X5UNITS SQ SCH (21:06)
[2018-04-26] MEDS: rifAMPin 150 MG CAPSULE PO SCH ×3 (00:08→17:20)
[2018-04-26] MEDS: *HR* Heparin 5,000 UNIT/ML VIAL SQ SCH ×3 (05:41→20:41)
[2018-04-26] MEDS: Levothyroxine 25 MCG TABLET PO SCH (05:42)
[2018-04-26 07:32] LABS: Hemoglobin 8.6 g/dL (11.5-15.4); Mean Corpuscular Volume 96.2 fL (83.0-100.0)
[2018-04-26 07:34] LABS: Hematocrit 27.9 % (35.3-44.9); Immature Platelets 1.2 % (1.1-6.1); Mean Corpuscular HGB Conc 30.8 g/dL (31.6-35.5); Mean Corpuscular Hemoglobin 29.7 pg (28.0-33.3); Mean Platelet Volume 9.1 fL (9.4-12.4); Red Blood Count 2.9 M/mcL (3.82-4.97); Red Cell Distribution Width 18.5 % (11.5-14.5)
[2018-04-26 07:48] LABS: Calcium 8.7 mg/dL (8.6-10.3)
--- NOTE | 2018-04-26 08:17 | Nephrology Progress Note ---
Date of Encounter: 04/26/18 Time of Encounter: 08:17 - Assessment and Plan (1) ESRD (end stage renal disease) on dialysis Current Visit: Yes Status: Chronic HD MWF. Renal vitamins. Renal dose medications. Renal diet. Additional dialysis and ultrafiltration as needed. Plan for dialysis Friday if needed. Secondary to endocarditis and persistent bacteremia her HD catheter was removed 04/24/2018. Will need to replace HD catheter prior to next HD session. (2) Endocarditis due to Staphylococcus Current Visit: Yes Status: Acute Per ID and primary team. Per CTS patient is a high risk surgical candidate for valve replacement. continue antibiotic therapy. HD catheter removed. (3) Diabetes mellitus type 2 in obese Current Visit: Yes Status: Chronic Per the primary team. (4) Hypertension Current Visit: No Status: Chronic Titrate antihypertensive medication as needed. Qualifiers: Hypertension type: essential hypertension Qualified Code(s): I10 - Essential (primary) hypertension Subjective Principal diagnosis: ESRD altered mental status Interval history: Patient was seen and evaluated. No new complaint. Patient resting comfortably. Objective - Vital Signs Vital signs: Vital Signs Temp Pulse Resp BP Pulse Ox 04/26/18 06:52 97.5 F L 70 16 109/66 100 04/26/18 03:28 97.7 F 68 14 119/63 99 04/25/18 23:00 97.5 F L 62 15 116/54 98 04/25/18 20:10 97.7 F 72 16 111/61 96 04/25/18 15:27 97.5 F L 70 18 118/68 98 04/25/18 10:46 97.6 F 77 16 124/73 97 Intake and Output 04/25/18 04/26/18 04/26/18 23:59 07:59 15:59 Intake Total 120 / 120 470 / 470 Balance 120 / 120 470 / 470 Intake: IV Fluids Ancef 1,000 MG In Water for inj . (sterile) 10 ML @ 200 mls/hr IVPB Q24H [facility] Rx#:[id number] Oral 120 / 120 460 / 460 Other: Meal Dinner Percent of Meal Consumed 30% Stool Size Moderate Small Stool Consistency soft formed Stool Color Brown Brown # Urine Diapers 1 # Bowel Movement Diapers 1 1 Blood Glucose* 215 136 - General Appearance General appearance: Present: well-developed, well-nourished EENT: Present: ATNC Neck: Present: supple Cardiology: Present: edema, regular rate Integumentary: Present: warm and dry Musculoskeletal: Present: no cyanosis Psychiatric: Present: mood/affect appropriate - Lab 04/26/18 07:15 04/26/18 07:15 Most recent lab results ABG pH 7.43 pH Units (7.32-7.45) 04/20/18 12:08 ABG pCO2 47 mmHg (35-45) H 04/20/18 12:08 ABG pO2 91 mmHg (85-104) 04/20/18 12:08 ABG HCO3 31 mEq/L (21-27) H 04/20/18 12:08 ABG O2 Saturation 97 % (95-98) 04/20/18 12:08 Calcium 8.7 mg/dL (8.6-10.3) 04/26/18 07:15 Magnesium 1.8 mg/dL (1.6-2.6) 04/20/18 04:00 Consult Discharge Plan - Plan Referrals: Latoya Harkins BOTTOM FILLER [Primary Care Provider] - (Patient will follow up with PCP at the [facility])
[2018-04-26] MEDS: Insulin LISPRO 300 UNITS/3 ML VIAL SQ SCH ×4 (08:46→20:42)
[2018-04-26] MEDS: Cholecalciferol (D-3) 1,000 UNIT TABLET PO SCH (08:53)
[2018-04-26] MEDS: Bumetanide 1 MG TABLET PO SCH (08:53)
[2018-04-26] MEDS: Isosorbide MONOnitrate (24 HR) 30 MG TAB.ER.24H PO SCH (08:59)
--- NOTE | 2018-04-26 09:47 | Internal Med Progress Note ---
Hospitalist Progress Note - Encounter Date of Encounter: 04/26/18 Time of Encounter: 08:00 - Subjective Interval History: No acute events overnight. Denies chest pain, shortness of breath, hemoptysis, fever/chills, or N/V. Intermittent confusion noted but easily reoriented. - Exam Vitals: Temp Pulse Resp BP Pulse Ox 97.5 F L 70 16 109/66 100 04/26/18 06:52 04/26/18 06:52 04/26/18 06:52 04/26/18 06:52 04/26/18 06:52 Exam: GEN: Alert and oriented x 3. Appears comfortable Chest: R chest port site appears unremarkable without discharges or erythema. CVS:RRR. S1, S2, systolic murmur RESP: Diminished with bibasilar crackles ABD: Soft, nondistended. EXT: No Osler's nodes or splinter hemorrhage. L knee cold to touch NEURO: Nonfocal - Assessment and Plan (1) Prosthetic valve endocarditis Current Visit: Yes Status: Acute Assessment and Plan: Hx of complicated MSSA bacteremia in the setting of left knee prosthesis and aortic valve replacement: see ID notes for detail was admitted for mild respiratory acidosis requring [id number] HD in 04/17. Blood cultures were negative on that date Cultures done on 04/19 and 04/20 +ve for S. aureus in both sets. Repeat c/s from HD catheter on 04/21 +ve for GPC in 1 set ELVER concerning for vegetation (8x7 mm) on prosthetic aortic valve CTS input appreciated, high surgical risk, for conservative mx for now appreciate ID input, rifampin and gentamicin added in addition to ancef HD catheter removed on 04/24 discussed with nephrology. Will try to hold off on HD catheter insertion tomorrow until the blood cultures from 04/25 are negative at 48 hours unless HD becomes absolutely necessary ENT input appreciated, for audiogram 04/30 at 230pm (2) MSSA bacteremia Current Visit: Yes Status: Acute Assessment and Plan: as above (3) ESRF (end stage renal failure) Current Visit: No Status: Chronic Assessment and Plan: Friday, Friday, Friday hemodialysis Follows with [facility] who is seeing in consultation; appreciate input HD catheter removed after the dialysis session on 04/24 plan for temporary access and HD as above (4) Elevated TSH Current Visit: Yes Status: Acute Assessment and Plan: TSH was around 12. T3 was low T4 was normal started on synthroid and family states she looks a bit more alert and "perked up" today although it is difficult to diagnose hypothyroidism in acutely ill state, it probably would be reasonable to continue tx given her positive response and TSH being > 10 repeat TSH in 6 weeks as outpatient (5) Diabetes mellitus Current Visit: No Status: Chronic Assessment and Plan: continue levemir and low dose sliding scale & Accu-Cheks ADA diet (6) Cirrhosis Current Visit: Yes Status: Chronic Assessment and Plan: h/o cirrhosis, sees Dr. Potts as an outpatient MELD 26 ammonia level on presentation normal not in decompensation, monitor (7) Hypertension Current Visit: No Status: Chronic Assessment and Plan: stable Continue anti-HTN medications and monitor (8) Elevated troponin Current Visit: No Status: Chronic Assessment and Plan: Chronically elevated. He remains chest pain-free. Likely due to ESRD (9) DVT prophylaxis Current Visit: No Status: Acute Assessment and Plan: SQ Heparin - Time Spent with Patient Total time spent is greater than 50% in coordination of care (as documented) at patient's floor/unit and/or counseling patient: Plan of Care Discussed with: medical cost consultant (discussed with nephrology) Internal Medicine: Result - Labs CBC & Chem 7: 04/26/18 07:15 04/26/18 07:15 Labs: Short CBC 04/26/18 Range/Units 07:15 WBC 5.9 (4.3-11.1) K/mcL Hgb 8.6 L (11.5-15.4) g/dL Hct 27.9 L (35.3-44.9) % Plt Count 74 L (140-400) K/mcL BMP 04/26/18 07:15 Sodium 133 L Potassium 4.0 Chloride 97 L Carbon Dioxide 27 BUN 30 H Creatinine 3.73 H Glucose 151 H Calcium 8.7 - ABG Interpretation ABG results: ABG ABG pH 7.43 pH Units (7.32-7.45) 04/20/18 12:08 ABG pCO2 47 mmHg (35-45) H 04/20/18 12:08 ABG pO2 91 mmHg (85-104) 04/20/18 12:08 ABG O2 Saturation 97 % (95-98) 04/20/18 12:08 PT/INR, D-dimer PT 17.4 Seconds (9.4-12.1) H 04/21/18 11:13 Consult Discharge Plan - Plan Referrals: Latoya Harkins, [employer] OPERATOR [Primary Care Provider] - (Patient will follow up with PCP at the [facility]) (1) Prosthetic valve endocarditis Qualifiers: Encounter type: sequela Qualified Code(s): T82.6XXS - Infection and inflammatory reaction due to cardiac valve prosthesis, sequela (5) Diabetes mellitus Qualifiers: Diabetes mellitus type: type 2 Diabetes mellitus terminal gauger insulin use: with terminal gauger use Diabetes mellitus complication status: with kidney complications Diabetes mellitus complication detail: with chronic kidney disease Chronic kidney disease stage: on chronic dialysis Qualified Code(s): E11.22 - Type 2 diabetes mellitus with diabetic chronic kidney disease; N18.6 - End stage renal disease; Z79.4 - termite treater helper (current) use of insulin; Z99.2 - Dependence on renal dialysis (6) Cirrhosis Qualifiers: Hepatic cirrhosis type: other cirrhosis Qualified Code(s): K74.69 - Other cirrhosis of liver (7) Hypertension Qualifiers: Hypertension type: essential hypertension Qualified Code(s): I10 - Essential (primary) hypertension
[2018-04-26] MEDS: Acetaminophen 325 MG TABLET PO PRN (13:45)
[2018-04-26] MEDS ORDERED: Bisacodyl 10 MG RECTAL SUPPOSITORY RC ONE (14:28)
[2018-04-26] MEDS: ceFAZolin 1,000 MG in Water for inj. (sterile) 20 ML 10 ML IVPB SCH (17:19)
[2018-04-26] MEDS: Insulin DETEMIR 100 UNIT/ML X5UNITS SQ SCH (20:42)
[2018-04-26] MEDS: Melatonin 3 MG TABLET PO PRN (20:43)
[2018-04-26] MEDS: *HR* OxyCODONE Immed Rel 5 MG TABLET PO PRN (23:21)
[2018-04-27 03:45] LABS: Hematocrit 27.3 % (35.3-44.9); Hemoglobin 8.4 g/dL (11.5-15.4); Mean Corpuscular HGB Conc 30.8 g/dL (31.6-35.5); Mean Corpuscular Hemoglobin 29.6 pg (28.0-33.3); Mean Corpuscular Volume 96.1 fL (83.0-100.0); Mean Platelet Volume 9.5 fL (9.4-12.4); Red Blood Count 2.84 M/mcL (3.82-4.97); Red Cell Distribution Width 18.6 % (11.5-14.5)
[2018-04-27 03:46] LABS: Platelet Count 87 K/mcL (140-400)
[2018-04-27 03:58] LABS: Calcium 8.8 mg/dL (8.6-10.3); Potassium 4.5 mEq/L (3.5-5.1)
[2018-04-27] MEDS: *HR* Heparin 5,000 UNIT/ML VIAL SQ SCH ×3 (05:30→20:32)
[2018-04-27] MEDS: rifAMPin 150 MG CAPSULE PO SCH ×2 (05:33→17:27)
[2018-04-27] MEDS: Levothyroxine 25 MCG TABLET PO SCH (05:33)
[2018-04-27] MEDS: Insulin LISPRO 300 UNITS/3 ML VIAL SQ SCH ×4 (08:01→20:30)
[2018-04-27] MEDS: Isosorbide MONOnitrate (24 HR) 30 MG TAB.ER.24H PO SCH (08:01)
[2018-04-27] MEDS: Cholecalciferol (D-3) 1,000 UNIT TABLET PO SCH (08:02)
[2018-04-27] MEDS: Bumetanide 1 MG TABLET PO SCH (08:02)
--- NOTE | 2018-04-27 10:49 | Internal Med Progress Note ---
Hospitalist Progress Note - Encounter Date of Encounter: 04/27/18 Time of Encounter: 08:10 - Subjective Interval History: Pt appears slightly more confused today, although oriented x 3. No focal complaints including chest pain, shortness of breath, hemoptysis, fever/chills, or N/V. Abdominal pain improved after enema administration as well. - Exam Vitals: Temp Pulse Resp BP Pulse Ox 97.6 F 66 18 114/70 97 04/27/18 06:52 04/27/18 06:52 04/27/18 06:52 04/27/18 06:52 04/27/18 06:52 Exam: GEN: Alert and oriented x 3 at the time of interview. Appears comfortable but intermittently confused Chest: R chest port site appears unremarkable without discharges or erythema. CVS:RRR. S1, S2, systolic murmur RESP: Diminished with bibasilar crackles ABD: Soft, non-tender. Nondistended. EXT: No Osler's nodes or splinter hemorrhage. L knee cold to touch NEURO: Nonfocal - Assessment and Plan (1) Prosthetic valve endocarditis Current Visit: Yes Status: Acute Assessment and Plan: Hx of complicated MSSA bacteremia in the setting of left knee prosthesis and aortic valve replacement: see ID notes for detail was admitted for mild respiratory acidosis requring [id number] HD in 04/17. Blood cultures were negative on that date Cultures done on 04/19 and 04/20 +ve for S. aureus in both sets. Repeat c/s from HD catheter on 04/21 +ve for GPC in 1 set ELVER concerning for vegetation (8x7 mm) on prosthetic aortic valve CTS input appreciated, high surgical risk, for conservative mx for now appreciate ID input, rifampin and gentamicin added in addition to ancef HD catheter removed on 04/24 will discuss with nephrology regarding the timing of HD and temporary access. Blood cultures from 04/25 are negative as of now ENT input appreciated, for audiogram 04/30 at 230pm (2) MSSA bacteremia Current Visit: Yes Status: Acute Assessment and Plan: as above (3) ESRF (end stage renal failure) Current Visit: No Status: Chronic Assessment and Plan: Friday, Friday, Friday hemodialysis Follows with [facility] who is seeing in consultation; appreciate input HD catheter removed after the dialysis session on 04/24 plan for temporary access and HD as above (4) Cirrhosis Current Visit: Yes Status: Chronic Assessment and Plan: h/o cirrhosis, sees Dr. Potts as an outpatient MELD 26 on presentation ammonia level on presentation normal, slightly more confused today than her usual check ammonia (5) Elevated TSH Current Visit: Yes Status: Acute Assessment and Plan: TSH was around 12. T3 was low T4 was normal started on synthroid and family states she looks a bit more alert and "perked up" today although it is difficult to diagnose hypothyroidism in acutely ill state, it probably would be reasonable to continue tx given her positive response and TSH being > 10 repeat TSH in 6 weeks as outpatient (6) Diabetes mellitus Current Visit: No Status: Chronic Assessment and Plan: continue levemir and low dose sliding scale & Accu-Cheks ADA diet (7) Hypertension Current Visit: No Status: Chronic Assessment and Plan: stable Continue anti-HTN medications and monitor (8) Elevated troponin Current Visit: No Status: Chronic Assessment and Plan: Chronically elevated. He remains chest pain-free. Likely due to ESRD (9) DVT prophylaxis Current Visit: No Status: Acute Assessment and Plan: SQ Heparin - Time Spent with Patient Total time spent is greater than 50% in coordination of care (as documented) at patient's floor/unit and/or counseling patient: Plan of Care Discussed with: nurse Internal Medicine: Result - Labs CBC & Chem 7: 04/27/18 03:13 04/27/18 03:13 Labs: Short CBC 04/27/18 Range/Units 03:13 WBC 8.0 (4.3-11.1) K/mcL Hgb 8.4 L (11.5-15.4) g/dL Hct 27.3 L (35.3-44.9) % Plt Count 87 L (140-400) K/mcL BMP 04/27/18 03:13 Sodium 130 L Potassium 4.5 Chloride 95 L Carbon Dioxide 27 BUN 38 H Creatinine 4.64 H Glucose 168 H Calcium 8.8 - ABG Interpretation ABG results: ABG ABG pH 7.43 pH Units (7.32-7.45) 04/20/18 12:08 ABG pCO2 47 mmHg (35-45) H 04/20/18 12:08 ABG pO2 91 mmHg (85-104) 04/20/18 12:08 ABG O2 Saturation 97 % (95-98) 04/20/18 12:08 PT/INR, D-dimer PT 17.4 Seconds (9.4-12.1) H 04/21/18 11:13 Consult Discharge Plan - Plan Referrals: Latoya Harkins, HOT PUNCH PRESS OPERATOR [Primary Care Provider] - (Patient will follow up with PCP at the [facility]) (1) Prosthetic valve endocarditis Qualifiers: Encounter type: sequela Qualified Code(s): T82.6XXS - Infection and inflammatory reaction due to cardiac valve prosthesis, sequela (4) Cirrhosis Qualifiers: Hepatic cirrhosis type: other cirrhosis Qualified Code(s): K74.69 - Other cirrhosis of liver (6) Diabetes mellitus Qualifiers: Diabetes mellitus type: type 2 Diabetes mellitus detention insulin use: with detention use Diabetes mellitus complication status: with kidney complications Diabetes mellitus complication detail: with chronic kidney disease Chronic kidney disease stage: on chronic dialysis Qualified Code(s): E11.22 - Type 2 diabetes mellitus with diabetic chronic kidney disease; N18.6 - End stage renal disease; Z79.4 - assisted (current) use of insulin; Z99.2 - Dependence on renal dialysis (7) Hypertension Qualifiers: Hypertension type: essential hypertension Qualified Code(s): I10 - Essential (primary) hypertension
--- NOTE | 2018-04-27 12:37 | Infectious Disease Progress No ---
Date of Encounter: 04/27/18 Time of Encounter: 12:34 - Assessment and Plan (1) Bacteremia due to methicillin susceptible Staphylococcus aureus (MSSA) Current Visit: No Status: Acute Complicated MSSA bacteremia due to setting of hardware status post total knee replacement and by prostatic valve. 11/07/2017 2 out of 2 sets positive for MSSA discharge on oral doxycycline for 7 days. 11/26/2017 2 out of 2 sets positive for MSSA repeat cultures on November 28 no growth treated with 4 weeks of IV cefazolin for complicated MSSA bacteremia At that time, ELVER and TTE were negative. 02/11/2018 2 out of 2 sets positive for MSSA bacteremia patient was transferred to [place]. The patient had a WBC scan and ELVER which were negative. The patient was treated with 8 weeks of IV cefazolin followed by prolonged oral suppressive therapy. Recently, the patient was admitted for CHF and the primary team was advised by the ID team to continue treatment until follow-up with ID. Currently ,patient is admitted and 2 out of 2 sets on 04/19/2018 are positive for MSSA. Repeat blood culture drawn peripherally 04/21/18 x 1 set and centrall x 1 set are pending. Extensive review of system and physical exam is not suggestive of endocarditis and physical exam negative for endocarditis stigmata. Source of infection is endocarditis. Physical exam not suggestive prosthetic joint infection. Rheumatoid factor elevated at 14. The patient has two major and two minor Modified Hayden's criteria. ELVER was positive for 8mm x 7mm vegetation on the bioprosthetic valve concerning for endocarditis. The patient does have a history of MGUS, so not sure if this is contributing to the persistent bacteremia. Will discuss with allergy/immunology. Some literature review suggests using cefazolin and ertapenem for synergy. Currently on cefazolin. Recommendations: - Await repeat blood cultures to finalize. - Consult CTS. - Status post HD catheter removal. Cultures were positive. - Continue ancef 1 gram IV Q24H, dose-adjusted for the patient's HD status. - Continue gentamicin IV. Will ask pharmacy to help with dosing since the patient is on HD. Appreciate ENT recommendation. Repeat audiogram scheduled for 04/30/2018 - Continue rifampin 300mg PO BID. - Check baseline LFTs. The patient has known cirrhosis so we will need to monitor LFTs closely. - Duration of treatment depends on the clinical picture. - Monitor labs and dose-adjust antibiotics. - Strict glucose control. (2) Prosthetic valve endocarditis Current Visit: Yes Status: Acute ELVER showed a possible vegetation on the bioprosthetic valve measuring 8mm x 7mm. The patient has two major and one minor Modified Hayden's Criteria. Antibiotics as above. Appreciate cardiothoracic's recommendations and input Patient started on gentamicin and rifampin. Patient has poor liver and am very concerned about using the rifampin but I do not think it is optional at this time. Asked pharmacy to help us with the gentamicin and patient will need a hearing test prior to discharge Qualifiers: Encounter type: sequela Qualified Code(s): T82.6XXS - Infection and inflammatory reaction due to cardiac valve prosthesis, sequela (3) Cirrhosis Current Visit: Yes Status: Chronic Etiology unclear. Chronic. MELD score 26. Qualifiers: Hepatic cirrhosis type: other cirrhosis Qualified Code(s): K74.69 - Other cirrhosis of liver (4) Diabetes mellitus type 2 in obese Current Visit: Yes Status: Chronic (5) History of aortic valve replacement with bioprosthetic valve Current Visit: No Status: Chronic (6) MGUS (monoclonal gammopathy of unknown significance) Current Visit: No Status: Acute (7) Chronic kidney disease (CKD), stage V Current Visit: Yes Status: Acute Nephrology consulted and following. (8) Asymptomatic bacteriuria Current Visit: Yes Status: Acute I patient is getting more confused. Consider repeating liver function tests and ammonia level especially that she is on rifampin. I am worried that the patient might be having a true UTI asymptomatic bacteriuria. As for the Citrobacter freundii, patient is already on gentamicin so no need to cover. If no improvement and ammonia level is not too high consider adding doxycycline for the VRE. Prognosis guarded - Subjective Interval history: Patient seen and examined.. Clinically looks worse. Was a little bit confused initially but then she has all the questions. Denies any tinnitus or earache or loss of balance. Patient had decent appetite. No bowel movements today. No chest pain or shortness of breath. Vital signs: Afebrile no tachycardia WBC 8.0 Cultures reviewed Blood cultures 04/25/2018 2 out of 2 sets no growth to date Infect Dis PN-Objective Data - Labs CBC & Chem 7: 04/28/18 03:25 04/28/18 03:25 Labs: Laboratory Results - last 24 hr 04/26/18 04/26/18 04/26/18 08:11 10:39 15:12 WBC RBC Hgb Hct MCV MCH MCHC RDW Plt Count MPV Sodium Potassium Chloride Carbon Dioxide BUN Creatinine Est GFR ( Amer) Est GFR (Non-Af Amer) BUN/Creatinine Ratio Glucose POC Glucose 136 H 272 H 233 H Calculated Osmolality Calcium Phosphorus Ammonia Random Gentamicin 04/26/18 04/27/18 04/27/18 20:15 03:13 03:13 WBC 8.0 RBC 2.84 L Hgb 8.4 L Hct 27.3 L MCV 96.1 MCH 29.6 MCHC 30.8 L RDW 18.6 H Plt Count 87 L MPV 9.5 Sodium 130 L Potassium 4.5 Chloride 95 L Carbon Dioxide 27 BUN 38 H Creatinine 4.64 H Est GFR ( Amer) 11 L Est GFR (Non-Af Amer) 9 L BUN/Creatinine Ratio 8 Glucose 168 H POC Glucose 243 H Calculated Osmolality 283 Calcium 8.8 Phosphorus Ammonia Random Gentamicin 04/27/18 04/27/18 04/27/18 03:13 03:13 06:49 WBC RBC Hgb Hct MCV MCH MCHC RDW Plt Count MPV Sodium Potassium Chloride Carbon Dioxide BUN Creatinine Est GFR ( Amer) Est GFR (Non-Af Amer) BUN/Creatinine Ratio Glucose POC Glucose 153 H Calculated Osmolality Calcium Phosphorus 4.3 Ammonia Random Gentamicin 5.7 04/27/18 04/27/18 11:02 11:06 WBC RBC Hgb Hct MCV MCH MCHC RDW Plt Count MPV Sodium Potassium Chloride Carbon Dioxide BUN Creatinine Est GFR ( Amer) Est GFR (Non-Af Amer) BUN/Creatinine Ratio Glucose POC Glucose 172 H Calculated Osmolality Calcium Phosphorus Ammonia 86 H Random Gentamicin Cultures: Cultures 04/21/18 11:00 Blood Culture - Final Central Venous Catheter No growth. Final report. 04/25/18 04:05 Blood Culture - Preliminary Peripheral Venipuncture Culture is incubating and being continuously monitored for growth. Final report to follow. 04/25/18 03:50 Blood Culture - Preliminary Peripheral Venipuncture Culture is incubating and being continuously monitored for growth. Final report to follow. 04/20/18 19:34 Blood Culture - Final Peripheral Venipuncture Staphylococcus aureus 04/21/18 11:13 Blood Culture - Final Central Venous Catheter Staphylococcus aureus 04/20/18 14:00 Urine Culture - Final Urine,Clean Catch Citrobacter freundii Vancomycin Resistant Enterococcus faecium 04/19/18 04:45 Blood Culture - Final Peripheral Venipuncture Staphylococcus aureus 04/19/18 04:40 Blood Culture - Final Peripheral Venipuncture Staphylococcus aureus Serology 04/21/18 04/20/18 04/19/18 Range/Units 11:13 19:34 04:40 Urine Color (Yellow) Urine Clarity (Clear) Urine pH (5.0-8.0) pH Units Ur Specific [place] (1.010-1.025) Urine Protein (Neg-Trace) mg/dL Urine Glucose (UA) (Normal) mg/dL Urine Ketones (Negative) mg/dL Urine Blood (Negative) Urine Nitrite (Negative) Urine Bilirubin (Negative) Urine Urobilinogen (Normal) mg/dL Ur Leukocyte Esterase (Negative) Urine Microscopic RBC (0-3) per hpf Urine Microscopic WBC (0-3) per hpf Ur Squamous Epith Cells (None-Few) per lpf Urine Bacteria (None-Few) per hpf Hyaline Casts (None-Few) per lpf Ur Culture Indicated? (NO) A. baumannii (PCR) Not Detected Not Detected Not Detected (Not Detect) Negin albicans (PCR) Not Detected Not Detected Not Detected (Not Detect) C. glabrata (PCR) Not Detected Not Detected Not Detected (Not Detect) C. krusei (PCR) Not Detected Not Detected Not Detected (Not Detect) C. parapsilosis (PCR) Not Detected Not Detected Not Detected (Not Detect) C. tropicalis (PCR) Not Detected Not Detected Not Detected (Not Detect) Enterobacteriac sp PCR Not Detected Not Detected Not Detected (Not Detect) E. cloacae complex PCR Not Detected Not Detected Not Detected (Not Detect) Enterococcus sp PCR Not Detected Not Detected Not Detected (Not Detect) E. coli (PCR) Not Detected Not Detected Not Detected (Not Detect) H. influenzae (PCR) Not Detected Not Detected Not Detected (Not Detect) Klebsiella oxytoca PCR Not Detected Not Detected Not Detected (Not Detect) Klebsiella pneumoniae Not Detected Not Detected Not Detected (Not Detect) List. monocytogenes PCR Not Detected Not Detected Not Detected (Not Detect) N. meningitidis (PCR) Not Detected Not Detected Not Detected (Not Detect) Proteus species (PCR) Not Detected Not Detected Not Detected (Not Detect) Serratia marcescens PCR Not Detected Not Detected Not Detected (Not Detect) Staphylococcus sp PCR DETECTED A DETECTED A DETECTED A (Not Detect) Staph aureus (PCR) DETECTED A DETECTED A DETECTED A (Not Detect) mecA-Methicil Res Gene Not Detected Not Detected Not Detected (Not Detect) Streptococcus sp PCR Not Detected Not Detected Not Detected (Not Detect) Group A Strep DNA Not Detected Not Detected Not Detected (Not Detect) Group B Strep (PCR) Not Detected Not Detected Not Detected (Not Detect) Strep pneumoniae (PCR) Not Detected Not Detected Not Detected (Not Detect) P. aeruginosa (PCR) Not Detected Not Detected Not Detected (Not Detect) Jake/B-Vanco Res Genes N/A Not Detected Not Detected (Not Detect) KPC (blaKPC) Detect PCR N/A Not Detected Not Detected (Not Detect) 04/19/18 Range/Units 03:31 Urine Color Dark Yellow (Yellow) Urine Clarity Cloudy A (Clear) Urine pH 6.0 (5.0-8.0) pH Units Ur Specific [place] 1.019 (1.010-1.025) Urine Protein >=300 H (Neg-Trace) mg/dL Urine Glucose (UA) 100 H (Normal) mg/dL Urine Ketones Trace H (Negative) mg/dL Urine Blood Small H (Negative) Urine Nitrite Negative (Negative) Urine Bilirubin Small H (Negative) Urine Urobilinogen Normal (Normal) mg/dL Ur Leukocyte Esterase Small H (Negative) Urine Microscopic RBC 0-3 (0-3) per hpf Urine Microscopic WBC TNTC H (0-3) per hpf Ur Squamous Epith Cells Many H (None-Few) per lpf Urine Bacteria None Seen (None-Few) per hpf Hyaline Casts Few (None-Few) per lpf Ur Culture Indicated? NO. A (NO) A. baumannii (PCR) (Not Detect) Negin albicans (PCR) (Not Detect) C. glabrata (PCR) (Not Detect) C. krusei (PCR) (Not Detect) C. parapsilosis (PCR) (Not Detect) C. tropicalis (PCR) (Not Detect) Enterobacteriac sp PCR (Not Detect) E. cloacae complex PCR (Not Detect) Enterococcus sp PCR (Not Detect) E. coli (PCR) (Not Detect) H. influenzae (PCR) (Not Detect) Klebsiella oxytoca PCR (Not Detect) Klebsiella pneumoniae (Not Detect) List. monocytogenes PCR (Not Detect) N. meningitidis (PCR) (Not Detect) Proteus species (PCR) (Not Detect) Serratia marcescens PCR (Not Detect) Staphylococcus sp PCR (Not Detect) Staph aureus (PCR) (Not Detect) mecA-Methicil Res Gene (Not Detect) Streptococcus sp PCR (Not Detect) Group A Strep DNA (Not Detect) Group B Strep (PCR) (Not Detect) Strep pneumoniae (PCR) (Not Detect) P. aeruginosa (PCR) (Not Detect) Jake/B-Vanco Res Genes (Not Detect) KPC (blaKPC) Detect PCR (Not Detect) Exam - Constitutional Vitals: Temp Pulse Resp BP Pulse Ox 97.4 F L 66 18 113/66 96 04/27/18 11:07 04/27/18 11:07 04/27/18 11:07 04/27/18 11:07 04/27/18 11:07 General appearance: no acute distress, no febrile Exam: Mildly confused - Respiratory Respiratory exam: Present: CTAB. Absent: wheezes - Cardiovascular Cardiovascular exam: Present: RRR, +S2, systolic murmur - GI/Abdominal GI/Abdominal exam: Present: normal bowel sounds, soft. Absent: tenderness Consult Discharge Plan - Plan Referrals: Latoya Harkins CNP [Primary Care Provider] - (Patient will follow up with PCP at the [facility])
[2018-04-27] MEDS: Lactulose Oral Soln 20 GM/30 ML UDC PO SCH ×3 (13:11→20:30)
--- NOTE | 2018-04-27 14:20 | Nephrology Progress Note ---
<Emmett Griffin - Last Filed: 04/27/18 15:14> Date of Encounter: 04/27/18 Time of Encounter: 13:42 - Assessment and Plan (1) ESRD (end stage renal disease) on dialysis Current Visit: Yes Status: Chronic HD MWF. Renal vitamins. Renal dose medications. Renal diet. Additional dialysis and ultrafiltration as needed. We will hold off on dialysis today. She is on dialysis holiday secondary to removal of HD CVC due to endocarditis Labs are stable and we will re-evaluate tomorrow for potential need for dialysis. Secondary to endocarditis and persistent bacteremia her HD catheter was removed 04/24/2018. Will need to replace HD catheter prior to next HD session. (2) Endocarditis due to Staphylococcus Current Visit: Yes Status: Acute Per ID and primary team. Per CTS patient is a high risk surgical candidate for valve replacement. continue antibiotic therapy. HD catheter removed. (3) Altered mental status Current Visit: Yes Status: Acute Likely secondary to endocarditis and bacteremia Another possibility is hepatic encephalopathy. Ammonia noted to be elevated. Continue underlying conditions. Unlikely uremia at this time as she was not improving while on dialysis --Clinically does appear better today and she is able to have a short conversation. Qualifiers: Altered mental status type: somnolence Qualified Code(s): R40.0 - Somnolence (4) Cirrhosis Current Visit: Yes Status: Chronic Qualifiers: Hepatic cirrhosis type: other cirrhosis Qualified Code(s): K74.69 - Other cirrhosis of liver (5) Diabetes mellitus type 2 in obese Current Visit: Yes Status: Chronic Per primary team (6) Back pain Current Visit: Yes Status: Acute Qualifiers: Back pain location: low back pain Chronicity: unspecified Back pain laterality: unspecified Sciatica presence: without sciatica Qualified Code(s): M54.5 - Low back pain (7) Prosthetic valve endocarditis Current Visit: Yes Status: Acute As above for endocarditis Qualifiers: Encounter type: sequela Qualified Code(s): T82.6XXS - Infection and inflammatory reaction due to cardiac valve prosthesis, sequela (8) Hypertension Current Visit: No Status: Chronic Qualifiers: Hypertension type: essential hypertension Qualified Code(s): I10 - Essential (primary) hypertension Subjective Principal diagnosis: ESRD altered mental status Interval history: Patient was seen and examined at bedside this morning in dialysis. She remains lethargic and confused however is comfortable. She states she is not having any fevers, chills, pain at this time. She does still appear confused and falls asleep during interview. She remains not a reliable historian and no family is present at bedside. No acute events overnight. Objective - Vital Signs Vital signs: Vital Signs Temp Pulse Resp BP Pulse Ox 04/27/18 11:07 97.4 F L 66 18 113/66 96 04/27/18 06:52 97.6 F 66 18 114/70 97 04/27/18 03:01 98.6 F 71 17 143/66 97 04/26/18 23:11 97.5 F L 98 17 112/66 98 04/26/18 20:58 99 04/26/18 19:11 97.6 F 68 17 121/68 99 04/26/18 15:32 98.6 F 58 16 106/65 99 Intake and Output 04/26/18 04/27/18 04/27/18 23:59 07:59 15:59 Intake Total 510 / 510 0 / 0 660 / 660 Output Total 0 / 0 0 / 0 Balance 510 / 510 0 / 0 660 / 660 Intake: IV Fluids Ancef 1,000 MG In Water for inj . (sterile) 10 ML @ 200 mls/hr IVPB Q24H [facility] Rx#:[id number] Oral 500 / 500 0 / 0 660 / 660 Output: Urine 0 / 0 0 / 0 Other: Meal Lunch Percent of Meal Consumed 50% Stool Size Moderate Small Stool Consistency loose formed formed Stool Characteristics Normal for Patient Stool Color Brown Brown # Bowel Movement Diapers 1 Weight 88 kg Blood Glucose* 243 153 172 - General Appearance Exam: Gen.: Vitals noted. No acute distress. Alert but not oriented HEENT: PERRL/EOMI, oropharynx clear, Normocephalic, atraumatic, MMM Cardiac: RRR, no murmur, +S1/S2 Pulmonary: CTA bilaterally, no wheezes, rales or rhonchi, equal chest expansion Abdomen: soft, nontender, BS noted, no guarding, no rebound. Extremities: no BLE edema, nontender calf, no cyanosis or clubbing Neuro: moves all extremities, no focal deficits Psych: Able to assess - Lab 04/27/18 03:13 04/27/18 03:13 Most recent lab results ABG pH 7.43 pH Units (7.32-7.45) 04/20/18 12:08 ABG pCO2 47 mmHg (35-45) H 04/20/18 12:08 ABG pO2 91 mmHg (85-104) 04/20/18 12:08 ABG HCO3 31 mEq/L (21-27) H 04/20/18 12:08 ABG O2 Saturation 97 % (95-98) 04/20/18 12:08 Calcium 8.8 mg/dL (8.6-10.3) 04/27/18 03:13 Phosphorus 4.3 mg/dL (2.7-4.5) 04/27/18 03:13 Magnesium 1.8 mg/dL (1.6-2.6) 04/20/18 04:00 Consult Discharge Plan - Plan Referrals: Latoya Harkins TRANSCRIBING OPERATOR HEAD [Primary Care Provider] - (Patient will follow up with PCP at the [facility]) <Marie Clark - Last Filed: 04/27/18 20:09> Date of Encounter: 04/27/18 - Assessment and Plan (1) Hypertension Current Visit: No Status: Chronic Qualifiers: Hypertension type: essential hypertension Qualified Code(s): I10 - Essential (primary) hypertension (2) Diabetes mellitus type 2 in obese Current Visit: Yes Status: Chronic (3) ESRD (end stage renal disease) on dialysis Current Visit: Yes Status: Chronic (4) Endocarditis due to Staphylococcus Current Visit: Yes Status: Acute Objective - Vital Signs Vital signs: Vital Signs Temp Pulse Resp BP Pulse Ox 04/27/18 18:41 97.7 F 68 17 100/63 95 04/27/18 15:15 97.5 F L 68 18 124/76 97 04/27/18 11:07 97.4 F L 66 18 113/66 96 04/27/18 06:52 97.6 F 66 18 114/70 97 04/27/18 03:01 98.6 F 71 17 143/66 97 04/26/18 23:11 97.5 F L 98 17 112/66 98 04/26/18 20:58 99 Intake and Output 04/27/18 04/27/18 04/27/18 07:59 15:59 23:59 Intake Total 0 / 0 660 / 660 250 / 250 Output Total 0 / 0 Balance 0 / 0 660 / 660 250 / 250 Intake: IV Fluids Ancef 1,000 MG In Water for inj . (sterile) 10 ML @ 200 mls/hr IVPB Q24H [facility] Rx#:[id number] Oral 0 / 0 / 660 240 / 240 Output: Urine 0 / 0 Other: Meal Lunch Dinner Percent of Meal Consumed 50% 80% Stool Size Small Stool Consistency formed Stool Color Brown # Bowel Movement Diapers 1 Blood Glucose* 153 172 213 - Lab 04/27/18 03:13 04/27/18 03:13 Most recent lab results ABG pH 7.43 pH Units (7.32-7.45) 04/20/18 12:08 ABG pCO2 47 mmHg (35-45) H 04/20/18 12:08 ABG pO2 91 mmHg (85-104) 04/20/18 12:08 ABG HCO3 31 mEq/L (21-27) H 04/20/18 12:08 ABG O2 Saturation 97 % (95-98) 04/20/18 12:08 Calcium 8.8 mg/dL (8.6-10.3) 04/27/18 03:13 Phosphorus 4.3 mg/dL (2.7-4.5) 04/27/18 03:13 Magnesium 1.8 mg/dL (1.6-2.6) 04/20/18 04:00 - Attending Attestation I examined this patient and my medical decision-making was reviewed with the Resident Physician. I agree with the documented findings, disposition and treatment plan as described except to the extent set forth below. Interim events noted with permcath removal 04/24 due to endocarditis. Pt appears to wax and wane but no complaints. Exam shows elderly female chronically ill appearing with trace LE edema. Labs noted and reviewed. Will hold off on HD today given stable lytes and no signs of volume overload for a line holiday. Will discuss with ID appropriate time for line placement, likely temp line first. Continue abx per ID.
[2018-04-27] MEDS: ceFAZolin 1,000 MG in Water for inj. (sterile) 20 ML 10 ML IVPB SCH (17:27)
[2018-04-27] MEDS: *HR* HYDROcodone/Acet 5/325 mg TABLET PO PRN (17:39)
[2018-04-27] MEDS: Insulin DETEMIR 100 UNIT/ML X5UNITS SQ SCH (20:30)
[2018-04-27] MEDS: *HR* OxyCODONE Immed Rel 5 MG TABLET PO PRN (21:52)
[2018-04-27] MEDS: Melatonin 3 MG TABLET PO PRN (21:52)
[2018-04-28 04:02] LABS: Basophils % 0.3 %; Eosinophils # 0.2 K/mcL (0.0-0.6); Hematocrit 26.8 % (35.3-44.9); Hemoglobin 8.1 g/dL (11.5-15.4); Immature Platelets 1.9 % (1.1-6.1); Lymphocytes # 0.8 K/mcL (0.6-4.6); Lymphocytes % 10.4 %; Mean Corpuscular HGB Conc 30.2 g/dL (31.6-35.5); Mean Corpuscular Hemoglobin 29.5 pg (28.0-33.3); Mean Corpuscular Volume 97.5 fL (83.0-100.0); Mean Platelet Volume 9.4 fL (9.4-12.4); Monocytes # 1.1 K/mcL (0.0-1.3); Monocytes % 14.8 %; Neutrophils # 5.2 K/mcL (1.6-8.9); Red Blood Count 2.75 M/mcL (3.82-4.97); Red Cell Distribution Width 18.9 % (11.5-14.5); Segmented Neutrophils % 70.5 %
[2018-04-28 04:05] LABS: Platelet Count 89 K/mcL (140-400)
[2018-04-28 04:12] LABS: Calcium 8.3 mg/dL (8.6-10.3); Potassium 4.9 mEq/L (3.5-5.1)
[2018-04-28] MEDS: *HR* Heparin 5,000 UNIT/ML VIAL SQ SCH ×3 (05:40→21:23)
[2018-04-28] MEDS: rifAMPin 150 MG CAPSULE PO SCH (05:40)
[2018-04-28] MEDS: Levothyroxine 25 MCG TABLET PO SCH (05:40)
[2018-04-28] MEDS: Insulin LISPRO 300 UNITS/3 ML VIAL SQ SCH ×4 (08:08→21:19)
[2018-04-28] MEDS: Isosorbide MONOnitrate (24 HR) 30 MG TAB.ER.24H PO SCH (09:51)
[2018-04-28] MEDS: Cholecalciferol (D-3) 1,000 UNIT TABLET PO SCH (09:52)
[2018-04-28] MEDS: Bumetanide 1 MG TABLET PO SCH (09:52)
[2018-04-28] MEDS: Lactulose Oral Soln 20 GM/30 ML UDC PO SCH ×3 (09:53→16:05)
[2018-04-28] MEDS ORDERED: Aminoglycoside Consult 1 EACH MC ONE (10:49)
--- NOTE | 2018-04-28 12:02 | Internal Med Progress Note ---
Hospitalist Progress Note - Encounter Date of Encounter: 04/28/18 Time of Encounter: 12:02 - Subjective Interval History: Patient seen and examined this morning. No acute overnight events. Denies any chest pain, shortness of breath, fever, chills, nausea, vomiting or diarrhea. - Exam Vitals: Temp Pulse Resp BP Pulse Ox 97.4 F L 62 18 124/77 98 04/28/18 11:01 04/28/18 11:01 04/28/18 11:01 04/28/18 11:01 04/28/18 11:01 Exam: GEN: Alert and oriented x 2. Appears intermittently confused Chest: R chest port site appears unremarkable without discharges or erythema. CVS: RRR. S1, S2, systolic murmur, 2+ pedal edema RESP: Diminished with bibasilar crackles ABD: Soft, non-tender. Nondistended. EXT: No Osler's nodes or splinter hemorrhage. NEURO: Nonfocal Skin: Chronic dermatitis skin changes. - Assessment and Plan (1) Cirrhosis Current Visit: Yes Status: Chronic (2) Hypertension Current Visit: No Status: Chronic (3) MSSA bacteremia Current Visit: Yes Status: Acute (4) Diabetes mellitus Current Visit: No Status: Chronic (5) ESRF (end stage renal failure) Current Visit: No Status: Chronic (6) Elevated troponin Current Visit: No Status: Chronic (7) DVT prophylaxis Current Visit: No Status: Acute (8) Elevated TSH Current Visit: Yes Status: Acute (9) Prosthetic valve endocarditis Current Visit: Yes Status: Acute - Summary of Assessment and Plan Summary of Assessment and Plan: Prosthetic valve endocarditis - Hx of complicated MSSA bacteremia in the setting of left knee prosthesis and aortic valve replacement - was admitted for mild respiratory acidosis requring [id number] HD in 04/17. Blood cultures were negative ten - Cultures done on 04/19 and 04/20 +ve for S. aureus in both sets. Repeat c/s from HD catheter on 04/21 +ve for GPC in 1 set - ELVER concerning for vegetation (8x7 mm) on prosthetic aortic valve - High surgical risk per CTS. conservative mx for now - c/w ancef, rifampin and gentamicin per ID. for audiogram 04/30 at 230pm - HD catheter removed on 04/24 - Blood cultures from 04/25 are negative as of now ESRF - HD catheter removed after the dialysis session on 04/24 - Previously on HD ond MWF. - Will consult for palliative care for discussion regarding further HD and HD access Altered mental status - Likely secondary to bacteremia vs possibility is hepatic encephalopathy vs Hypothyroidism - Started on lactulose. - Clinically appears to have some improvement. Cirrhosis - h/o cirrhosis, sees Dr. Potts as an outpatient - MELD 26 on presentation - Started on Lactulose for elevated ammonia. Elevated TSH - TSH was around 12. T3 was low T4 was normal - Was started on synthroid which improved her mentation slightly. - c/w synthroid - repeat TSH in 6 weeks as outpatient Diabetes mellitus - continue levemir and low dose sliding scale & Accu-Cheks and ADA diet Hypertension - c/w anti-HTN medications and monitor Elevated troponin - chest pain-free. Likely due to ESRD DVT prophylaxis - c/w SQ Heparin - Time Spent with Patient Total time spent is greater than 50% in coordination of care (as documented) at patient's floor/unit and/or counseling patient: Internal Medicine: Result - Labs CBC & Chem 7: 04/28/18 03:25 04/28/18 03:25 Labs: Short CBC 04/28/18 Range/Units 03:25 WBC 7.3 (4.3-11.1) K/mcL Hgb 8.1 L (11.5-15.4) g/dL Hct 26.8 L (35.3-44.9) % Plt Count 89 L (140-400) K/mcL Neutrophils # 5.2 (1.6-8.9) K/mcL BMP 04/28/18 03:25 Sodium 131 L Potassium 4.9 Chloride 95 L Carbon Dioxide 25 BUN 46 H Creatinine 5.41 H Glucose 163 H Calcium 8.3 L - ABG Interpretation ABG results: ABG ABG pH 7.43 pH Units (7.32-7.45) 04/20/18 12:08 ABG pCO2 47 mmHg (35-45) H 04/20/18 12:08 ABG pO2 91 mmHg (85-104) 04/20/18 12:08 ABG O2 Saturation 97 % (95-98) 04/20/18 12:08 PT/INR, D-dimer PT 17.4 Seconds (9.4-12.1) H 04/21/18 11:13 Consult Discharge Plan - Plan Referrals: Latoya Harkins, ASSOCIATE TEACHER [Primary Care Provider] - (Patient will follow up with PCP at the [facility]) (1) Cirrhosis Qualifiers: Hepatic cirrhosis type: other cirrhosis Qualified Code(s): K74.69 - Other cirrhosis of liver (2) Hypertension Qualifiers: Hypertension type: essential hypertension Qualified Code(s): I10 - Essential (primary) hypertension (4) Diabetes mellitus Qualifiers: Diabetes mellitus type: type 2 Diabetes mellitus fpc insulin use: with terminal system operator use Diabetes mellitus complication status: with kidney complications Diabetes mellitus complication detail: with chronic kidney disease Chronic kidney disease stage: on chronic dialysis Qualified Code(s): E11.22 - Type 2 diabetes mellitus with diabetic chronic kidney disease; N18.6 - End stage renal disease; Z79.4 - custodial (current) use of insulin; Z99.2 - Dependence on renal dialysis (9) Prosthetic valve endocarditis Qualifiers: Encounter type: sequela Qualified Code(s): T82.6XXS - Infection and inflammatory reaction due to cardiac valve prosthesis, sequela
--- NOTE | 2018-04-28 13:14 | Nephrology Progress Note ---
Date of Encounter: 04/28/18 Time of Encounter: 10:22 - Assessment and Plan (1) ESRD (end stage renal disease) on dialysis Current Visit: Yes Status: Chronic HD MWF. Renal vitamins. Renal dose medications. Renal diet. Additional dialysis and ultrafiltration as needed. We will continue to hold off on dialysis today. She is on dialysis holiday secondary to removal of HD CVC due to endocarditis Labs are stable and we will re-evaluate tomorrow for potential need for dialysis. Potassium 4.9 Secondary to endocarditis and persistent bacteremia her HD catheter was removed 04/24/2018. Will need to replace HD catheter prior to next HD session. Will discuss with infectious disease regarding when dialysis catheter can be placed as well as if this will be a temporary or permanent dialysis catheter (2) Endocarditis due to Staphylococcus Current Visit: Yes Status: Acute Per ID and primary team. Per CTS patient is a high risk surgical candidate for valve replacement. continue antibiotic therapy. HD catheter removed. (3) Altered mental status Current Visit: Yes Status: Acute Likely secondary to endocarditis and bacteremia Another possibility is hepatic encephalopathy. Ammonia noted to be elevated. Primary team is aware Continue underlying conditions. Unlikely uremia at this time as she was not improving while on dialysis --Clinically perhaps mildly worsened from yesterday Qualifiers: Altered mental status type: somnolence Qualified Code(s): R40.0 - Somnolence (4) Cirrhosis Current Visit: Yes Status: Chronic Qualifiers: Hepatic cirrhosis type: other cirrhosis Qualified Code(s): K74.69 - Other cirrhosis of liver (5) Diabetes mellitus type 2 in obese Current Visit: Yes Status: Chronic Per primary team (6) Back pain Current Visit: Yes Status: Acute Qualifiers: Back pain location: low back pain Chronicity: unspecified Back pain laterality: unspecified Sciatica presence: without sciatica Qualified Co de(s): M54.5 - Low back pain (7) Prosthetic valve endocarditis Current Visit: Yes Status: Acute As above Qualifiers: Encounter type: sequela Qualified Code(s): T82.6XXS - Infection and inflammatory reaction due to cardiac valve prosthesis, sequela (8) Hypertension Current Visit: No Status: Chronic Well-controlled at this time at 124/77. Continue current management Qualifiers: Hypertension type: essential hypertension Qualified Code(s): I10 - Essential (primary) hypertension Subjective Principal diagnosis: ESRD altered mental status Interval history: Patient was seen and examined at bedside this morning. She is lethargic and does not respond to questions. She does open her eyes to tactile stimuli but then quickly falls back asleep. Objective - Vital Signs Vital signs: Vital Signs Temp Pulse Resp BP Pulse Ox 04/28/18 11:01 97.4 F L 62 18 124/77 98 04/28/18 06:35 97.6 F 65 18 129/78 98 04/28/18 04:03 98.0 F 62 18 132/52 95 04/27/18 23:43 97.9 F 66 19 106/59 96 04/27/18 20:41 95 04/27/18 18:41 97.7 F 68 17 100/63 95 04/27/18 15:15 97.5 F L 68 18 124/76 97 Intake and Output 04/27/18 04/28/18 04/28/18 23:59 07:59 15:59 Intake Total 450 / 450 0 / 0 240 / 240 Output Total 0 / 0 0 / 0 Balance 450 / 450 0 / 0 240 / 240 Intake: IV Fluids Ancef 1,000 MG In Water for inj . (sterile) 10 ML @ 200 mls/hr IVPB Q24H [facility] Rx#:[id number] Oral 440 / 440 0 / 0 240 / 240 Output: Urine 0 / 0 0 / 0 Other: Meal Dinner NPO Percent of Meal Consumed 80% 0% Stool Size Small Large Stool Consistency soft soft formed Stool Color Brown Brown Black # Voids 1 # Urine Diapers 1 # Bowel Movements 1 1 Weight 88.2 kg Blood Glucose* 213 157 133 Patient Weight 04/28/18 23:59 Weight 88.2 kg - General Appearance Exam: Gen.: Vitals noted. No acute distress. Somnolent. Unable to assess mental status further HEENT: oropharynx clear, Normocephalic, atraumatic Cardiac: RRR, no murmur, +S1/S2 Pulmonary: CTA bilaterally, no wheezes, rales or rhonchi, equal chest expansion Abdomen: soft, grimaces to palpation of epigastric region, BS noted, no guarding, no rebound. MSK: ROM assessed, no joint swelling noted Extremities: no BLE edema, nontender calf, no cyanosis or clubbing Neuro unable to assess secondary to mental status Psych: Unable to assess - Lab 04/28/18 03:25 04/28/18 03:25 Most recent lab results ABG pH 7.43 pH Units (7.32-7.45) 04/20/18 12:08 ABG pCO2 47 mmHg (35-45) H 04/20/18 12:08 ABG pO2 91 mmHg (85-104) 04/20/18 12:08 ABG HCO3 31 mEq/L (21-27) H 04/20/18 12:08 ABG O2 Saturation 97 % (95-98) 04/20/18 12:08 Calcium 8.3 mg/dL (8.6-10.3) L 04/28/18 03:25 Phosphorus 4.3 mg/dL (2.7-4.5) 04/27/18 03:13 Magnesium 1.8 mg/dL (1.6-2.6) 04/20/18 04:00 Consult Discharge Plan - Plan Referrals: Latoya Harkins, [employer] [Primary Care Provider] - (Patient will follow up with PCP at the [facility])
--- NOTE | 2018-04-28 14:13 | Palliative - Consult Note ---
Date of Encounter: 04/28/18 Time of Encounter: 13:30 - Assessment and Plan (1) Chronic diastolic heart failure Current Visit: No Status: Chronic Assessment and plan: EF 55-60%, per [facility]. (2) MSSA bacteremia Current Visit: Yes Status: Acute Assessment and plan: Infection being treated by ID, consult appreciated. (3) Chronic kidney disease (CKD), stage V Current Visit: Yes Status: Acute Assessment and plan: Patient has been receiving Dialysis MWF, outpatient and inpatient. Patient currently on Dialysis vacation post Dialysis line removal due to bacteremia. (4) Cirrhosis Current Visit: Yes Status: Chronic Assessment and plan: Patient receiving Lactulose. MELD 26. Qualifiers: Hepatic cirrhosis type: other cirrhosis Qualified Code(s): K74.69 - Other cirrhosis of liver (5) Back pain Current Visit: Yes Status: Acute Assessment and plan: Patient rated back/buttocks pain, 4/10. Patient has [place] and Roxicodone ordered for pain control; 1 dose of each has been administered in the last 24 hours. Qualifiers: Back pain location: low back pain Chronicity: unspecified Back pain laterality: unspecified Sciatica presence: without sciatica Qualified Code(s): M54.5 - Low back pain (6) Goals of care, counseling/discussion Current Visit: Yes Status: Acute Assessment and plan: Met with patient for initial goals of care discussion. No family at bedside. Patient reported she desires to stop Dialysis treatment, desires not to have new dialysis line placed. She reports she is ready to go to [facility]. Evaluated if she has talked to her family regarding this decision, reports she has expressed her wishes. Patient was able to express what she felt Hospice could provide for her, which was accurate including DME and nurse/aid care. Patient expressed desire to return home living with patient's and daughter. Patient expressed she knew she did not have much time as she would be stopping dialysis completely. Inquired regarding treatment of bacteremia continuance; patient expressed she would be stopping all treatment of infection, unless it could be taken oral, as she plans to go home as soon as possible to allow for as much time with her family as possible. Requested to leave "right away;" explained it is a process and we should involve family in this decision, agreed. Requested permission to call daughter, given. Upon exit from room, met with Liason for [facility], whom was prepping to walk in room. Explained patient may not have skilled need as patient is deciding to stop treatment. Liason verbalized understanding. Informed liason may go talk to patient and give feedback on patient's decision upon exit of meeting, patient remained congruent and is not wanting dialysis/SNF. Contacted patient's daughter Tiera Mcdermott. Ms. Mcdermott expressed she is on her way to [place] with patient's . Briefed patient's daughter on meeting with patient. Ms. Mcdermott verbalized understanding and expressed patient's wishes be followed. Also, requested full family meeting with goals of care and discharge planning upon Ms. Mcdermott's arrival to [place], agreed. Met with Patient's Domingo and daughter Tiera. Agree to follow patient's wishes. Plan to discharge home tomorrow with [facility]. Agree for no further treatment of infection or dialysis. Desire to go home tomorrow afternoon. [place] informed at [facility] of DME needs (Bed, Over the bed table, Wheelchair). CODE STATUS changed to DNRCC, state form completed. Palliative-CN HPI - Data of Consult Patient: new to practice Consult date: 04/28/18 Requesting Physician: Georgia Walters MD Primary Care Provider: Latoya Harkins CNP - Consult Narrative Palliative Care/Comfort Measures: Palliative care Reason for consult: Goals of care History of present illness: Ms. Taylor is a 78 year old female Arrived to [place] ER on 04/19/18, for altered mental status, history of complicated MSSA bacteremia in the setting of left knee prosthesis and aortic valve replacement, hypothyroid, and fatigue. PMH: arthritis, cancer, cirrhosis, CHF, diabetes, hyperlipidemia, hypertension, liver disease, renal disease with dialysis (MWF). Chest x-ray performed, showing: No significant change in pulmonary edema and bilateral effusions. EKG showing: S inus rhythm, atrial premature complex, borderline low voltage, extremity leads, and nonspecific St and T-wave changes. Patient came in as a transfer for SNF; had only been at facility 7 hours prior to return. Abdominal x-ray showing no evidence of bowel obstruction. Patient admitted and medically managed for: AMS, Cirrhosis, Chronic diastolic heart failure, Hypertension, Anemia, DM, ESRF, Elevated troponin (chronic), Elevated TSH, Abdominal pain. Nephrology consulted, managing ESRD, AMS, Cirrhosis. Infectious Disease Consulted for management of Bacteremia due to MSSA, Prosthetic valve endocarditis, and cirrhosis. NM/NM WBC ceretec, showing: Patchy bilateral pulmonary accumulation of activity, for which inflammatory or infectious pneumonitis are considerations given the asymmetry. HD continued while impatient under home scheduled of MWF. Transesophageal ECHO performed showing EF 55-60% and suspicious vegetation of bio prosthetic aortic valve. Concern for bacteremia with Dialysis line presented; dialysis catheter removed 04/24/18. Cardiothoracic surgery consulted; informed patient/family of option of redo AVR. ENT consulted for abnormal auditory perception; planned audiogram outpatient. 04/13/18, ammonia elevated; lactulose initiated. MELD score 26. HD dialysis held 04/27/18, as dialysis holiday secondary to removal of HD CVC due to endocarditis; renal dose medications/diet. Palliative care consulted for goals of care discussion. Patient resting in bed upon arrival for assessment. Patient requested a drink on repeat, tech brought in patient's lunch tray and fed her during discussion. Patient reports pain in buttocks, from sitting in bed; patient has [place] for pain control, 1 dose taken in the last 24 hours. Patient denies nausea/vomiting. Patient reports increased anxiety. Patient denies dyspnea. Patient is alert and oriented times 3, no family present at bedside. Completed long discussion with patient regarding goals, patient although yelled out some words that were not appropriate, overall remained consistent with her answering of questions regarding goals of care. CC: Georgia Waletrs MD - Time Spent with Patient Time: Total time spent is greater than 50% in coordination of care (as documented) at patient's floor/unit and/or counseling patient: Past Med Surg Social Fam HX - Past Medical History Medical history: arthritis, cancer, cirrhosis, CHF, diabetes, hyperlipidemia, hypertension, liver disease, renal disease, valvular heart disease (Prosthetic valve endocarditis, MSSA), other (MSSA bacteremia) Additional medical history: valvular heart disease Psychiatric history: no psych history - Past Surgical History Surgical History: appendectomy, cataract, heart valve replacement (AVR (21 mm Mosaic Ultra porcine tissue valve)), knee replacement (Left total knee replacement), [place]/BSO, other (Urinary bladder suspension, hammertoe repair, breast biopsy) Additional surgical history: HAMMER TOES. ACHILLES HEEL REPAIR. LEFT TKR. BLADDER REPAIR. AVR 08/2014. A&P. BREAST BIOPSY - Social History Smoking Status: Former smoker Smokeless Tobacco Status: No Alcohol use: none Drug use: none - Family History Mother Living Status: Hx Family Cardiac Disorders: No Hx Family Respiratory Disorders: No Hx Family Endocrine Disorder: Yes Hx Family Neurologic Disorders: Yes Medications and Allergies Bumetanide [Bumex] 1 mg PO DAILY 04/21/18 [History] Cholecalciferol (D-3) [Vitamin D] 1,000 unit PO DAILY 04/21/18 [History] Docusate [Colace] 100 mg PO BID PRN 04/21/18 [History] Ferrous Sulfate [Iron] 325 mg PO DAILY@0800 04/21/18 [History] Insulin Glargine [Lantus] 30 unit SQ HS 04/21/18 [History] Insulin LISPRO [Admelog] 0 unit SQ TIDAC 04/21/18 [History] Isosorbide MONOnitrate [Isosorbide Mononitrate ER] 30 mg PO DAILY 04/21/18 [History] Lactobacillus [Culturelle] 1 each PO BID 04/21/18 [History] Metoprolol [Lopressor] 12.5 mg PO BID 04/21/18 [History] Multivitamin/Iron/Folic Acid [Centrum Complete Multivit Tab] 1 each PO DAILY 04/21/18 [History] Vitamin E Acid Succinate [Vitamin E] 400 unit PO DAILY 04/21/18 [History] ceFAZolin [Ancef] 1,000 mg IVPB Q24H 04/21/18 [History] Allergy/AdvReac Type Severity Reaction Status Date / Time [id number]-Vjo Reductase AdvReac Muscle Pain Verified 04/19/18 02:15 Inhibitor [Statins] - Constitutional Constitutional ROS PAL: lethargy - EENT Ears: no decreased hearing - Cardiovascular Cardiovascular ROS: dyspnea on exertion, no chest pain - Respiratory Respiratory: dyspnea - Gastrointestinal Gastrointestinal: abdominal pain, no change in bowel habits, no change in stool character, no nausea, no vomiting - Musculoskeletal Musculoskeletal ROS IM: back pain - Integumentary ROS Integumentary: dry skin - Neurological Neurological ROS: confusion, weakness, no behavioral changes - Psychiatric Psychiatric general PM: anxiety Palliative Care-Exam - Constitutional Vitals: Temp Pulse Resp BP Pulse Ox 97.4 F L 62 18 124/77 98 04/28/18 11:01 04/28/18 11:01 04/28/18 11:01 04/28/18 11:01 04/28/18 11:01 General appearance: Present: cooperative, no acute distress. Absent: febrile - Head Head Exam: Present: atraumatic, normal inspection - Eye Eye exam: Present: EOMI, normal appearance, conjuntiva pink - ENT ENT exam: Present: mucous membranes dry, normal external ear exam - Expanded ENT Exam Mouth Exam: Present: dry mucosa. Absent: drooling - Neck Neck exam: Present: full ROM, normal inspection - Respiratory Respiratory exam: Present: CTAB. Absent: accessory muscle use, respiratory distress - Cardiovascular Cardiovascular exam: Present: +S1, +S2 - Expanded Cardiovascular Exam Peripheral pulses: 1+: Posterior Tibialis (L), Posterior Tibialis (R), Dorsalis Pedis (L) PM, Dorsalis Pedis (R) PM, 2+: Radial (L), Radial (R) - GI/Abdominal Exam GI/Abdominal exam: Present: normal bowel sounds, soft. Absent: tenderness - Rectal Rectal exam: Present: deferred - Extremities Exam Extremities exam: Absent: calf tenderness - Back Exam Back exam: Present: normal inspection - Neurological Exam Neurological exam: Present: alert, oriented X3 - Expanded Neurological Exam Neurological exam expanded: Present: inattentive (easy to refocus.) Patient oriented to: Present: person, place, time Speech: Absent: slurred, stutter Coma Scale Eye Opening: Spontaneous Coma Scale Motor Response: Obeys Commands Coma Scale Verbal Response: Oriented Coma Scale Total: 15 - Psychiatric Psychiatric exam: Present: normal affect, normal mood - Skin Skin exam: Present: dry, intact Internal Medicine - CN: Reslt - Labs CBC & Chem 7: 04/28/18 03:25 04/28/18 03:25 Labs: Short CBC 04/28/18 Range/Units 03:25 WBC 7.3 (4.3-11.1) K/mcL Hgb 8.1 L (11.5-15.4) g/dL Hct 26.8 L (35.3-44.9) % Plt Count 89 L (140-400) K/mcL Neutrophils # 5.2 (1.6-8.9) K/mcL BMP 04/28/18 03:25 Sodium 131 L Potassium 4.9 Chloride 95 L Carbon Dioxide 25 BUN 46 H Creatinine 5.41 H Glucose 163 H Calcium 8.3 L - ABG Interpretation ABG results: ABG ABG pH 7.43 pH Units (7.32-7.45) 04/20/18 12:08 ABG pCO2 47 mmHg (35-45) H 04/20/18 12:08 ABG pO2 91 mmHg (85-104) 04/20/18 12:08 ABG O2 Saturation 97 % (95-98) 04/20/18 12:08 PT/INR, D-dimer PT 17.4 Seconds (9.4-12.1) H 04/21/18 11:13 Consult Discharge Plan - Plan Referrals: Latoya Harkins CNP [Primary Care Provider] - (Patient will follow up with PCP at the [facility]) Palliative Quality Palliative Quality: Screen for Code Status: Yes, Screen for Goals of Care: Yes, Screen for Pain: Yes, If Pain Regimen Started, Initiate Bowel Regimen: NA, Screen for Nausea/Vomitting: Yes Code Status: 04/19/18 06:31 Resuscitation Status: Active [RES] Routine Comment: Resuscitation Status: DNR-Comfort Care-Arrest 04/21/18 13:19 Resuscitation Status: Active [RES] Routine Comment: Resuscitation Status: [id number] Palliative Scale - Palliative Performance Scale How ambulatory is this patient?: Mainly in bed What is patient's level of activity and evidence of disease?: Unable hobby/housework, Significant disease How much self-care assistance does patient require?: Considerable assistance required How much oral intake does the patient have?: Normal or reduced What is this patient's level of consciousness?: Full or confusion Palliative Performance Score: 50 %
--- NOTE | 2018-04-28 16:49 | Infectious Disease Progress No ---
Date of Encounter: 04/28/18 Time of Encounter: 16:48 - Assessment and Plan (1) Bacteremia due to methicillin susceptible Staphylococcus aureus (MSSA) Current Visit: No Status: Acute Complicated MSSA bacteremia due to setting of hardware status post total knee replacement and by prostatic valve. 11/07/2017 2 out of 2 sets positive for MSSA discharge on oral doxycycline for 7 days. 11/26/2017 2 out of 2 sets positive for MSSA repeat cultures on November 28 no growth treated with 4 weeks of IV cefazolin for complicated MSSA bacteremia At that time, ELVER and TTE were negative. 02/11/2018 2 out of 2 sets positive for MSSA bacteremia patient was transferred to [place]. The patient had a WBC scan and ELVER which were negative. The patient was treated with 8 weeks of IV cefazolin followed by prolonged oral suppressive therapy. Recently, the patient was admitted for CHF and the primary team was advised by the ID team to continue treatment until follow-up with ID. Currently ,patient is admitted and 2 out of 2 sets on 04/19/2018 are positive for MSSA. Repeat blood culture drawn peripherally 04/21/18 x 1 set and centrall x 1 set are pending. Extensive review of system and physical exam is not suggestive of endocarditis and physical exam negative for endocarditis stigmata. Source of infection is endocarditis. Physical exam not suggestive prosthetic joint infection. Rheumatoid factor elevated at 14. The patient has two major and two minor Modified Hayden's criteria. ELVER was positive for 8mm x 7mm vegetation on the bioprosthetic valve concerning for endocarditis. The patient does have a history of MGUS, so not sure if this is contributing to the persistent bacteremia. Will discuss with allergy/immunology. Some literature review suggests using cefazolin and ertapenem for synergy. Currently on cefazolin. Recommendations: Patient does not want to be dialyzed anymore. Was to go home tomorrow. We will stop all antibiotics and do hospice care We will sign off the case Discussed at length with the daughter Tiera (2) Prosthetic valve endocarditis Current Visit: Yes Status: Acute ELVER showed a possible vegetation on the bioprosthetic valve measuring 8mm x 7mm. The patient has two major and one minor Modified Hayden's Criteria. Antibiotics as above. Appreciate cardiothoracic's recommendations and input Patient started on gentamicin and rifampin. Patient has poor liver and am very concerned about using the rifampin but I do not think it is optional at this time. Asked pharmacy to help us with the gentamicin and patient will need a hearing test prior to discharge Qualifiers: Encounter type: sequela Qualified Code(s): T82.6XXS - Infection and inflammatory reaction due to cardiac valve prosthesis, sequela (3) Cirrhosis Current Visit: Yes Status: Chronic Etiology unclear. Chronic. MELD score 26. Qualifiers: Hepatic cirrhosis type: other cirrhosis Qualified Code(s): K74.69 - Other cirrhosis of liver (4) Diabetes mellitus type 2 in obese Current Visit: Yes Status: Chronic (5) History of aortic valve replacement with bioprosthetic valve Current Visit: No Status: Chronic (6) MGUS (monoclonal gammopathy of unknown significance) Current Visit: No Status: Acute (7) Chronic kidney disease (CKD), stage V Current Visit: Yes Status: Acute Nephrology consulted and following. (8) Asymptomatic bacteriuria Current Visit: Yes Status: Acute I patient is getting more confused. Consider repeating liver function tests and ammonia level especially that she is on rifampin. I am worried that the patient might be having a true UTI asymptomatic bacteriuria. As for the Citrobacter freundii, patient is already on gentamicin so no need to cover. If no improvement and ammonia level is not too high consider adding doxycycline for the VRE. Prognosis guarded - Subjective Interval history: Patient seen and examined.. Clinically looks worse. Daughter Tiera at bedside. I had a long discussion with the family. Patient is insisting she wants to go home on hospice. I answered all the questions and responded told her answers. Prognosis is very poor. Also discussed with Dr. Walters. Similar oriented 4. She does with the present illness she knew her daughter she answered all the questions. Infect Dis PN-Objective Data - Labs CBC & Chem 7: 04/28/18 03:25 04/28/18 03:25 Labs: Laboratory Results - last 24 hr 04/27/18 04/27/18 04/28/18 15:10 19:44 03:25 WBC 7.3 RBC 2.75 L Hgb 8.1 L Hct 26.8 L MCV 97.5 MCH 29.5 MCHC 30.2 L RDW 18.9 H Plt Count 89 L MPV 9.4 Immature Gran % 2.0 Seg Neutrophils % 70.5 Lymphocytes % 10.4 Monocytes % 14.8 Eosinophils % 2.0 Basophils % 0.3 Neutrophils # 5.2 Lymphocytes # 0.8 Monocytes # 1.1 Eosinophils # 0.2 Basophils # 0.0 Immature Plt Fraction 1.9 Sodium Potassium Chloride Carbon Dioxide BUN Creatinine Est GFR ( Amer) Est GFR (Non-Af Amer) BUN/Creatinine Ratio Glucose POC Glucose 175 H 231 H Calculated Osmolality Calcium 04/28/18 04/28/18 04/28/18 03:25 06:33 10:59 WBC RBC Hgb Hct MCV MCH MCHC RDW Plt Count MPV Immature Gran % Seg Neutrophils % Lymphocytes % Monocytes % Eosinophils % Basophils % Neutrophils # Lymphocytes # Monocytes # Eosinophils # Basophils # Immature Plt Fraction Sodium 131 L Potassium 4.9 Chloride 95 L Carbon Dioxide 25 BUN 46 H Creatinine 5.41 H Est GFR ( Amer) 9 L Est GFR (Non-Af Amer) 8 L BUN/Creatinine Ratio 9 Glucose 163 H POC Glucose 157 H 133 H Calculated Osmolality 287 Calcium 8.3 L Cultures: Cultures 04/21/18 11:00 Blood Culture - Final Central Venous Catheter No growth. Final report. 04/25/18 04:05 Blood Culture - Preliminary Peripheral Venipuncture Culture is incubating and being continuously monitored for growth. Final report to follow. 04/25/18 03:50 Blood Culture - Preliminary Peripheral Venipuncture Culture is incubating and being continuously monitored for growth. Final report to follow. 04/20/18 19:34 Blood Culture - Final Peripheral Venipuncture Staphylococcus aureus 04/21/18 11:13 Blood Culture - Final Central Venous Catheter Staphylococcus aureus 04/20/18 14:00 Urine Culture - Final Urine,Clean Catch Citrobacter freundii Vancomycin Resistant Enterococcus faecium 04/19/18 04:45 Blood Culture - Final Peripheral Venipuncture Staphylococcus aureus 04/19/18 04:40 Blood Culture - Final Peripheral Venipuncture Staphylococcus aureus Serology 04/21/18 04/20/18 04/19/18 Range/Units 11:13 19:34 04:40 Urine Color (Yellow) Urine Clarity (Clear) Urine pH (5.0-8.0) pH Units Ur Specific [place] (1.010-1.025) Urine Protein (Neg-Trace) mg/dL Urine Glucose (UA) (Normal) mg/dL Urine Ketones (Negative) mg/dL Urine Blood (Negative) Urine Nitrite (Negative) Urine Bilirubin (Negative) Urine Urobilinogen (Normal) mg/dL Ur Leukocyte Esterase (Negative) Urine Microscopic RBC (0-3) per hpf Urine Microscopic WBC (0-3) per hpf Ur Squamous Epith Cells (None-Few) per lpf Urine Bacteria (None-Few) per hpf Hyaline Casts (None-Few) per lpf Ur Culture Indicated? (NO) A. baumannii (PCR) Not Detected Not Detected Not Detected (Not Detect) Negin albicans (PCR) Not Detected Not Detected Not Detected (Not Detect) C. glabrata (PCR) Not Detected Not Detected Not Detected (Not Detect) C. krusei (PCR) Not Detected Not Detected Not Detected (Not Detect) C. parapsilosis (PCR) Not Detected Not Detected Not Detected (Not Detect) C. tropicalis (PCR) Not Detected Not Detected Not Detected (Not Detect) Enterobacteriac sp PCR Not Detected Not Detected Not Detected (Not Detect) E. cloacae complex PCR Not Detected Not Detected Not Detected (Not Detect) Enterococcus sp PCR Not Detected Not Detected Not Detected (Not Detect) E. coli (PCR) Not Detected Not Detected Not Detected (Not Detect) H. influenzae (PCR) Not Detected Not Detected Not Detected (Not Detect) Klebsiella oxytoca PCR Not Detected Not Detected Not Detected (Not Detect) Klebsiella pneumoniae Not Detected Not Detected Not Detected (Not Detect) List. monocytogenes PCR Not Detected Not Detected Not Detected (Not Detect) N. meningitidis (PCR) Not Detected Not Detected Not Detected (Not Detect) Proteus species (PCR) Not Detected Not Detected Not Detected (Not Detect) Serratia marcescens PCR Not Detected Not Detected Not Detected (Not Detect) Staphylococcus sp PCR DETECTED A DETECTED A DETECTED A (Not Detect) Staph aureus (PCR) DETECTED A DETECTED A DETECTED A (Not Detect) mecA-Methicil Res Gene Not Detected Not Detected Not Detected (Not Detect) Streptococcus sp PCR Not Detected Not Detected Not Detected (Not Detect) Group A Strep DNA Not Detected Not Detected Not Detected (Not Detect) Group B Strep (PCR) Not Detected Not Detected Not Detected (Not Detect) Strep pneumoniae (PCR) Not Detected Not Detected Not Detected (Not Detect) P. aeruginosa (PCR) Not Detected Not Detected Not Detected (Not Detect) Jake/B-Vanco Res Genes N/A Not Detected Not Detected (Not Detect) KPC (blaKPC) Detect PCR N/A Not Detected Not Detected (Not Detect) 04/19/18 Range/Units 03:31 Urine Color Dark Yellow (Yellow) Urine Clarity Cloudy A (Clear) Urine pH 6.0 (5.0-8.0) pH Units Ur Specific [place] 1.019 (1.010-1.025) Urine Protein >=300 H (Neg-Trace) mg/dL Urine Glucose (UA) 100 H (Normal) mg/dL Urine Ketones Trace H (Negative) mg/dL Urine Blood Small H (Negative) Urine Nitrite Negative (Negative) Urine Bilirubin Small H (Negative) Urine Urobilinogen Normal (Normal) mg/dL Ur Leukocyte Esterase Small H (Negative) Urine Microscopic RBC 0-3 (0-3) per hpf Urine Microscopic WBC TNTC H (0-3) per hpf Ur Squamous Epith Cells Many H (None-Few) per lpf Urine Bacteria None Seen (None-Few) per hpf Hyaline Casts Few (None-Few) per lpf Ur Culture Indicated? NO. A (NO) A. baumannii (PCR) (Not Detect) Negin albicans (PCR) (Not Detect) C. glabrata (PCR) (Not Detect) C. krusei (PCR) (Not Detect) C. parapsilosis (PCR) (Not Detect) C. tropicalis (PCR) (Not Detect) Enterobacteriac sp PCR (Not Detect) E. cloacae complex PCR (Not Detect) Enterococcus sp PCR (Not Detect) E. coli (PCR) (Not Detect) H. influenzae (PCR) (Not Detect) Klebsiella oxytoca PCR (Not Detect) Klebsiella pneumoniae (Not Detect) List. monocytogenes PCR (Not Detect) N. meningitidis (PCR) (Not Detect) Proteus species (PCR) (Not Detect) Serratia marcescens PCR (Not Detect) Staphylococcus sp PCR (Not Detect) Staph aureus (PCR) (Not Detect) mecA-Methicil Res Gene (Not Detect) Streptococcus sp PCR (Not Detect) Group A Strep DNA (Not Detect) Group B Strep (PCR) (Not Detect) Strep pneumoniae (PCR) (Not Detect) P. aeruginosa (PCR) (Not Detect) Jake/B-Vanco Res Genes (Not Detect) KPC (blaKPC) Detect PCR (Not Detect) Exam - Constitutional Vitals: Temp Pulse Resp BP Pulse Ox 97.8 F 69 18 109/56 97 04/28/18 15:27 11/27/18 15:27 04/28/18 15:27 04/28/18 15:27 04/28/18 15:27 General appearance: no acute distress, no febrile - Respiratory Respiratory exam: Present: CTAB. Absent: wheezes - Cardiovascular Cardiovascular exam: Present: RRR, +S2 - GI/Abdominal GI/Abdominal exam: Present: soft. Absent: tenderness - Extremities Exam Extremities exam: Present: full ROM. Absent: joint swelling Consult Discharge Plan - Plan Referrals: Latoya Harkins [employer] [Primary Care Provider] - (Patient will follow up with PCP at the [facility])
[2018-04-28] MEDS: *HR* OxyCODONE Immed Rel 5 MG TABLET PO PRN (17:02)
[2018-04-28] MEDS: Miconazole 2% ointment 114 GM TUBE TP SCH (21:08)
[2018-04-28] MEDS: *HR* HYDROcodone/Acet 5/325 mg TABLET PO PRN (21:13)
[2018-04-28] MEDS: Insulin DETEMIR 100 UNIT/ML X5UNITS SQ SCH (21:23)
[2018-04-28] MEDS: Melatonin 3 MG TABLET PO PRN (22:22)
[2018-04-29] MEDS: *HR* LORazepam Oral Conc 2 MG/ML SL PRN ×2 (01:38→05:40)
[2018-04-29] MEDS: *HR* OxyCODONE Immed Rel 5 MG TABLET PO PRN (05:40)
[2018-04-29] MEDS: Levothyroxine 25 MCG TABLET PO SCH (05:40)
[2018-04-29] MEDS: *HR* Heparin 5,000 UNIT/ML VIAL SQ SCH (05:41)
[2018-04-29 07:12] VITALS: BP 130/58
[2018-04-29] MEDS: Cholecalciferol (D-3) 1,000 UNIT TABLET PO SCH (08:18)
[2018-04-29] MEDS: Isosorbide MONOnitrate (24 HR) 30 MG TAB.ER.24H PO SCH (08:18)
[2018-04-29] MEDS: Bumetanide 1 MG TABLET PO SCH (08:18)
[2018-04-29] MEDS: Insulin LISPRO 300 UNITS/3 ML VIAL SQ SCH (08:19)
[2018-04-29] MEDS: Miconazole 2% ointment 114 GM TUBE TP SCH (08:20)
[2018-04-29] MEDS ORDERED: *HR* LORazepam Oral Conc 2 MG/ML SL PRN (09:38)
--- NOTE | 2018-04-29 09:59 | Discharge Summary ---
- NOTES TO OUTPATIENT PROVIDER Notes to Outpatient Provider: Patient discharged to hospice based on family and patient's decision. Orders not resulted at time of discharge: Pending orders 04/25/18 04:05 Culture,Blood [BC] AM 0400 Date of Encounter: 04/29/18 Time of Encounter: 09:57 - Discharge Diagnosis (1) Cirrhosis Priority: Secondary Status: Chronic Qualifiers: Hepatic cirrhosis type: other cirrhosis Qualified Code(s): K74.69 - Other cirrhosis of liver (2) Hypertension Priority: Secondary Status: Chronic Qualifiers: Hypertension type: essential hypertension Qualified Code(s): I10 - Essential (primary) hypertension (3) MSSA bacteremia Priority: Primary Status: Acute (4) Diabetes mellitus Priority: Secondary Status: Chronic Qualifiers: Diabetes mellitus type: type 2 Diabetes mellitus fci insulin use: with fci use Diabetes mellitus complication status: with kidney complications Diabetes mellitus complication detail: with chronic kidney disease Chronic kidney disease stage: on chronic dialysis Qualified Code(s): E11.22 - Type 2 diabetes mellitus with diabetic chronic kidney disease; N18.6 - End stage renal disease; 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 Taylor is a 78 year old female with past medical history of diastolic CHF, diabetes, hypertension, cirrhosis came in with altered mental status. Patient recently had MSSA bacteremia and finished antibiotic treatment for it. Patient was found to have elevated TSH initially. CT had was unremarkable. Patient was found to have MSSA bacteremia. Patient had aortic valve replacement and had multiple recent admission for it. CT surgeon was consulted who did not recommend surgical intervention. Patient was continued on IV antibiotics. Patient was also put on rifampin and gentamicin. Patient's permacath was removed. Patient had ELVER which showed vegetation on prostatic aortic valve. Given patient's prognosis and per patient and family request palliative care consult was obtained. After goals of care discussion patient and family decided to go home with hospice. However patient was significantly altered and it was decided to discharge patient to inpatient hospice . Discharge discussed with: patient, nurse, social work, disaster recovery consultant - Time Spent with Patient Total time spent providing and/or coordinating discharge services: Greater than 30 minutes (35) - Discharge Medications Home Medications: Bumetanide [Bumex] 1 mg PO DAILY 04/21/18 [History] Docusate [Colace] 100 mg PO BID PRN 04/21/18 [History] Insulin Glargine [Lantus] 30 unit SQ HS 04/21/18 [History] Insulin LISPRO [Admelog] 0 unit SQ TIDAC 04/21/18 [History] Isosorbide MONOnitrate [Isosorbide Mononitrate ER] 30 mg PO DAILY 04/21/18 [History] Lactobacillus [Culturelle] 1 each PO BID 04/21/18 [History] Metoprolol [Lopressor] 12.5 mg PO BID 04/21/18 [History] Allergies/Adverse Reactions: Allergy/AdvReac Type Severity Reaction Status Date / Time Ileujsa-Vla-Ymc Reductase AdvReac Muscle Pain Verified 04/19/18 02:15 Inhibitor [Statins] Date of admission: 04/20/18 09:07 Primary care physician: Latoya Harkins CNP Consults: 04/19/18 06:13 Consult to Nephrology [CONS] Stat Consulting Provider: [facility] [place]/ALCIDES/AFIA/NATHAN Reason for Consult: ESRD Call Completed: No 04/19/18 06:14 Consult to Occupational Therapy [CONS] Routine Comment: Evaluate, develop and implement POC Reason for Consult: therapy/placement needs Does patient have active BEDREST order?: No Is patient medically & hemodynamically stable?: Yes Consult to Physical Therapy [CONS] Routine Comment: Evaluate, develop and implement POC Reason for Consult: PT eval Does patient have active BEDREST order?: No Is patient medically & hemodynamically stable?: Yes 04/20/18 07:00 Consult to Dialysis [CONS] ONCE 04/20/18 07:25 Consult to Wound Care [CONS] Routine Reason for Consult: Decubitus ulcer on coccyx Time Notified: 07:26 Call Completed: Yes 04/20/18 08:27 Consult to Catheter Finisher And Inspector [CONS] Routine Reason for SW Consult: PATIENT FROM [facility] 04/20/18 11:29 Consult to Infectious Diseases [CONS] Routine Consulting Provider: Infectious Disease [place] Reason for Consult: Presented with toxic encephalopathy. Blood cultures positive GPC 1 of 2 sets. Recently treated by infectious disease for MSSA bacteremia. Time Notified: 11:37 Call Completed: Yes 04/22/18 07:45 Consult to Dialysis [CONS] ONCE 04/22/18 12:03 Consult to Cardiothoracic Surgery [CONS] Routine Consulting Provider: Cardiothoracic Surgery [place] Reason for Consult: persistent MSSA bacteremia, hx of AVR. ELVER +ve for 8 x 7mm vegetation Call Completed: Yes 04/22/18 20:22 Consult to Interventional Radiology [CONS] Routine Consulting Provider: Radiology Interventional [place] Reason for Consult: removal tunneled catheter. After dialysis. Call Completed: No 04/24/18 08:00 Consult to Dialysis [CONS] ONCE 04/24/18 12:10 Consult to ENT [CONS] Routine Consulting Provider: ENT [place] Reason for Consult: prosthetic aortic valve endocarditis with MSSA, on gentamicin. For baseline hearing eval per ID Call Completed: Yes 04/28/18 12:03 Consult to Palliative Care [CONS] Routine Comment: Consulting Provider: Palliative Care [place] Reason for Consult: Goals of care discussion Call Completed: Yes Discharging clinician: Georgia Walters - Constitutional Vitals: Temp Pulse Resp BP Pulse Ox 97.3 F L 66 17 130/58 90 04/29/18 07:10 04/29/18 07:10 04/29/18 07:10 04/29/18 07:10 04/29/18 07:10 Exam: Gen: Difficult to arouse. CVS: RRR. S1, S2, systolic murmur, 2+ pedal edema RESP: Diminished air entry at base. CTAB. ABD: Soft, non-tender. Nondistended. EXT: 2+ edema. pulse present b/l Skin: Chronic dermatitis skin changes. - Patient Status Disposition: Hospice - Medical Facility Condition: Serious - Discharge Instructions Follow Up With: Latoya Harkins, PROJ MGR [Primary Care Provider] - (Patient will follow up with PCP at the [facility])
--- NOTE | 2018-04-29 10:15 | Nephrology Progress Note ---
Date of Encounter: 04/29/18 Time of Encounter: 10:13 - Assessment and Plan (1) ESRD (end stage renal disease) on dialysis Current Visit: Yes Status: Chronic -- Patient did have discussion with palliative care team yesterday with family present. She and family both desire to move to hospice care and will be discharged afternoon. She clearly stated per palliative note that she does not desire any further dialysis. Nephrology will sign off at this time. Thank you for allowing us to dissipate in her care. (2) Endocarditis due to Staphylococcus Current Visit: Yes Status: Acute Per ID and primary team. HD catheter removed As above. to hospice care (3) Altered mental status Current Visit: Yes Status: Acute Patient was reportedly alert and oriented enough to have conversation with palliative care yesterday. She does continue to be altered on my exam this morning however she did recently receive benzodiazepines for agitation. Qualifiers: Altered mental status type: somnolence Qualified Code(s): R40.0 - Somnolence (4) Cirrhosis Current Visit: Yes Status: Chronic Qualifiers: Hepatic cirrhosis type: other cirrhosis Qualified Code(s): K74.69 - Other cirrhosis of liver (5) Diabetes mellitus type 2 in obese Current Visit: Yes Status: Chronic (6) Back pain Current Visit: Yes Status: Acute Qualifiers: Back pain location: low back pain Chronicity: unspecified Back pain laterality: unspecified Sciatica presence: without sciatica Qualified Code(s): M54.5 - Low back pain (7) Prosthetic valve endocarditis Current Visit: Yes Status: Acute Qualifiers: Encounter type: sequela Qualified Code(s): T82.6XXS - Infection and inflammatory reaction due to cardiac valve prosthesis, sequela (8) Hypertension Current Visit: No Status: Chronic Qualifiers: Hypertension type: essential hypertension Qualified Code(s): I10 - Essential (primary) hypertension Subjective Principal diagnosis: ESRD altered mental status Interval history: Patient was seen and examined at bedside this morning. She is difficult to arouse this morning and does not respond to questions. Per nursing, she did require multiple doses of Ativan last night secondary to agitation. Most recent dose was approximately 0500 which would explain her difficulty with arousal. Objective - Vital Signs Vital signs: Vital Signs Temp Pulse Resp BP Pulse Ox 04/29/18 07:10 97.3 F L 66 17 130/58 90 04/28/18 18:58 98.1 F 69 17 132/70 97 04/28/18 15:27 97.8 F 69 18 109/56 97 04/28/18 11:01 97.4 F L 62 18 124/77 98 Intake and Output 04/28/18 04/29/18 04/29/18 23:59 07:59 15:59 Other: Stool Size Small Stool Consistency liquid Stool Color Brown Weight 89 kg 92 kg Blood Glucose* 160 Patient Weight 04/29/18 23:59 Weight 92 kg - General Appearance Exam: Gen.: Vitals noted. No acute distress. Somnolent. Unable to assess mental status further HEENT: oropharynx clear, Normocephalic, atraumatic Cardiac: RRR, no murmur appreciated, +S1/S2 Pulmonary: CTA bilaterally, no wheezes, rales or rhonchi, equal chest expansion Abdomen: soft, no abdominal tenderness, BS noted, no guarding, no rebound. MSK: ROM assessed, no joint swelling noted Extremities: no BLE edema, nontender calf, no cyanosis or clubbing Neuro unable to assess secondary to mental status Psych: Unable to assess - Lab 04/28/18 03:25 04/28/18 03:25 Most recent lab results ABG pH 7.43 pH Units (7.32-7.45) 04/20/18 12:08 ABG pCO2 47 mmHg (35-45) H 04/20/18 12:08 ABG pO2 91 mmHg (85-104) 04/20/18 12:08 ABG HCO3 31 mEq/L (21-27) H 04/20/18 12:08 ABG O2 Saturation 97 % (95-98) 04/20/18 12:08 Calcium 8.3 mg/dL (8.6-10.3) L 04/28/18 03:25 Phosphorus 4.3 mg/dL (2.7-4.5) 04/27/18 03:13 Magnesium 1.8 mg/dL (1.6-2.6) 04/20/18 04:00 Consult Discharge Plan - Plan Referrals: Latoya Harkins, [employer] [Primary Care Provider] - (Patient will follow up with PCP at the [facility])
--- NOTE | 2018-04-29 10:17 | Event Note ---
Date of Encounter: 04/29/18 Time of Encounter: 09:45 Patient was preparing to be discharged home today with hospice; however, had episodes overnight with increased agitation. Patient now nonresponsive to verbal, pain, and tactile stimulation. Family made aware of current clinical status. Patient's daughter expressed desire for patient to be transitioned to GIP until agitation/nonresponsive more controlled/balanced, then work to discharge home.Dr. Walters notified.
== END 2018-04-29 10:50 | disposition hospice, inpatient (51) | DRG 252 ==
LOC: 3BNU 01:51 → EMEROOARM 01:51 → 3BNU 06:57 → SUATTDRO 04-20 09:07 → 2ANU 04-20 10:31
PROVIDERS: ADMIT Pediatrics; ATTEND Internal Medicine

== ENCOUNTER 2018-04-29 09:47 | Inpatient (IN) ==
[2018-04-29] MEDS ORDERED: Ondansetron 4 MG/2 ML VIAL IVP PRN (09:53)
[2018-04-29] MEDS ORDERED: Ipratropium/Albuterol Neb 3 ML IH PRN (09:53)
[2018-04-29] MEDS ORDERED: Bisacodyl 10 MG RECTAL SUPPOSITORY RC PRN (09:53)
--- NOTE | 2018-04-29 10:23 | Pallative History & Physical ---
Date of Encounter: 04/29/18 Time of Encounter: 10:00 Assessment and Plan (1) Agitation Status: Acute Patient became agitated overnight. Ativan 1 mg ordered prn. Patient now nonresponsive. Decreased Ativan to 0.5 mg. (2) Altered mental status Status: Acute Qualifiers: Altered mental status type: somnolence Qualified Code(s): R40.0 - Somnolence (3) Chronic kidney disease (CKD), stage V Status: Acute Patient stopped Dialysis Friday. (4) Goals of care, counseling/discussion Status: Acute Spoke with Tiera, patient's daughter. Plan to GIP patient. Will work to find balance between agitation/nonresponsive. Family will be here at 1 pm to sign admission paperwork for hospice. Patient to be moved to room 2A55. Ciara notified. (5) Bacteremia due to methicillin susceptible Staphylococcus aureus (MSSA) Status: Acute Patient opted to discontinue treatment with Antibiotics. Internal Medicine - H&P: HPI Chief complaint: ESRD refusing dialysis. Agitation. Admitted From: Intrahospital Transfer History of present illness: Ms. Taylor is a 78 year old female Arrived to [facility] on 04/19/18, for altered mental status, history of complicated MSSA bacteremia in the setting of left knee prosthesis and aortic valve replacement, hypothyroid, and fatigue. PMH: arthritis, cancer, cirrhosis, CHF, diabetes, hyperlipidemia, hypertension, liver disease, renal disease with dialysis (MWF). Chest x-ray performed, showing: No significant change in pulmonary edema and bilateral effusions. EKG showing: Sinus rhythm, atrial premature complex, borderline low voltage, extremity leads, and nonspecific St and T-wave changes. Patient came in as a transfer for SNF; had only been at facility 7 hours prior to return. Abdominal x-ray showing no evidence of bowel obstruction. Patient admitted and medically managed for: AMS, Cirrhosis, Chronic diastolic heart failure, Hypertension, Anemia, DM, ESRF, Elevated troponin (chronic), Elevated TSH, Abdominal pain. Nephrology consulted, managing ESRD, AMS, Cirrhosis. Infectious Disease Consulted for management of Bacteremia due to MSSA, Prosthetic valve endocarditis, and cirrhosis. NM/NM WBC ceretec, showing: Patchy bilateral pulmonary accumulation of activity, for which inflammatory or infectious pneumonitis are considerations given the asymmetry. HD continued while impatient under home scheduled of MW. Transesophageal ECHO performed showing EF 55-60% and suspicious vegetation of bio prosthetic aortic valve. Concern for bacteremia with Dialysis line presented; dialysis catheter removed 04/24/18. Cardiothoracic surgery consulted; informed patient/family of option of redo AVR. ENT consulted for abnormal auditory perception; planned audiogram outpatient. 04/13/18, ammonia elevated; lactulose initiated. MELD sco re 26. HD dialysis held 04/27/18, as dialysis holiday secondary to removal of HD CVC due to endocarditis; renal dose medications/diet. Palliative care consulted for goals of care discussion on 04/28/18, decision was made to transition to DNRCC (Comfort care) and enroll in hospice on 04/29/18 at home. Patient became very agitated and anxious, medication added and patient now resting calmly. Upon assessment on 04/29/18, patient found nonresponsive to stimulation. Spoke with patient's daughter, Tiera, whom expressed desire for patient to stay at hospital, while finding a common ground between non- responsive and agitation/screaming prior to discharge. Tiera is accepting that patient may pass while GIP. Patient lying in bed with eyes closed upon arrival for assessment. Makes no reaction to stimulation. No family present at bedside. Past Med Surg Social Fam HX - Past Medical History Medical history: arthritis, cancer, cirrhosis, CHF, diabetes, hyperlipidemia, hypertension, liver disease, renal disease, valvular heart disease (Prosthetic valve endocarditis, MSSA), other (MSSA bacteremia) Additional medical history: valvular heart disease Psychiatric history: no psych history - Past Surgical History Surgical History: appendectomy, cataract, heart valve replacement (AVR (21 mm Mosaic Ultra porcine tissue valve)), knee replacement (Left total knee replacement), [place]/BSO, other (Urinary bladder suspension, hammertoe repair, breast biopsy) Additional surgical history: HAMMER TOES. ACHILLES HEEL REPAIR. LEFT TKR. BLADDER REPAIR. AVR 08/2014. A&P. BREAST BIOPSY - Social History Smoking Status: Former smoker Smokeless Tobacco Status: No Alcohol use: none Drug use: none - Family History Mother Living Status: Hx Family Cardiac Disorders: No Hx Family Respiratory Disorders: No Hx Family Endocrine Disorder: Yes Hx Family Neurologic Disorders: Yes Internal Medicine - H&P: Meds Bumetanide [Bumex] 1 mg PO DAILY 04/21/18 [History] Docusate [Colace] 100 mg PO BID PRN 04/21/18 [History] Insulin Glargine [Lantus] 30 unit SQ HS 04/21/18 [History] Insulin LISPRO [Admelog] 0 unit SQ TIDAC 04/21/18 [History] Isosorbide MONOnitrate [Isosorbide Mononitrate ER] 30 mg PO DAILY 04/21/18 [History] Lactobacillus [Culturelle] 1 each PO BID 04/21/18 [History] Metoprolol [Lopressor] 12.5 mg PO BID 04/21/18 [History] Allergy/AdvReac Type Severity Reaction Status Date / Time [id number]-[id number]-Lzx Reductase AdvReac Muscle Pain Verified 04/19/18 02:15 Inhibitor [Statins] ROS unobtainable: due to mental status (nonresponsive.) Palliative Care-Exam - Constitutional General appearance: Present: morbidly obese, no acute distress. Absent: cooperative - Head Head Exam: Present: normal inspection - Eye Eye exam: Present: normal appearance. Absent: EOMI, periorbital swelling, periorbital tenderness, PERRL Pupils: Present: fixed. Absent: normal accommodation, PERRL, unequal - ENT ENT exam: Present: mucous membranes dry - Neck Neck exam: Present: normal inspection - Respiratory Respiratory exam: Present: CTAB. Absent: accessory muscle use, respiratory distress - Cardiovascular Cardiovascular exam: Present: +S1, +S2 - Expanded Cardiovascular Exam Peripheral pulses: 1+: Posterior Tibialis (L), Posterior Tibialis (R), Dorsalis Pedis (L) PM, Dorsalis Pedis (R) PM, 2+: Carotid (L) PM, Carotid (R) PM, Radial (L), Radial (R) - GI/Abdominal Exam GI/Abdominal exam: Present: normal bowel sounds, soft. Absent: tenderness - Rectal Rectal exam: Present: deferred - Extremities Exam Extremities exam: Present: pedal edema. Absent: calf tenderness - Back Exam Back exam: Present: normal inspection - Expanded Neurological Exam Patient oriented to: Absent: person, place, time Speech: Present: total aphasia Coma Scale Eye Opening: None Coma Scale Motor Response: Abnormal Flexion Coma Scale Verbal Response: None Coma Scale Total: 5 - Psychiatric Psychiatric exam: Present: flat affect - Skin Skin exam: Present: dry Palliative Quality Palliative Quality: Screen for Code Status: Yes, Screen for Goals of Care: Yes, Screen for Pain: Yes, If Pain Regimen Started, Initiate Bowel Regimen: Yes, Screen for Nausea/Vomitting: Yes Code Status: 04/29/18 09:53 Resuscitation Status: Active [RES] Routine Comment: Resuscitation Status: DNR-Comfort Care
[2018-04-29] MEDS ORDERED: Dextrose Gel 15 GM/37.5 ML TUBE PO PRN ×2 (10:42)
[2018-04-29] MEDS ORDERED: *HR* Dextrose 50 % in Water (Syg) 50 ML SYRINGE IVP PRN (10:42)
[2018-04-29] MEDS ORDERED: D5% in Water 1,000 ML IVC PRN (10:42)
[2018-04-29] MEDS: Insulin LISPRO 300 UNITS/3 ML VIAL SQ SCH ×2 (12:24→16:31)
[2018-04-29] MEDS: *HR* LORazepam Oral Conc 2 MG/ML PO PRN (13:45)
[2018-04-29] MEDS: OXYCODONE Oral CONC 10 MG/0.5 ML ORAL.SYG SL PRN ×2 (14:42→22:17)
[2018-04-29] MEDS ORDERED: Atropine 1% Opth Drops 100 DROP/5 ML BOTTLE SL PRN (14:51)
[2018-04-29] MEDS ORDERED: Scopolamine Patch 1.5 MG PATCH.TD72 TD SCH (15:00)
[2018-04-29] MEDS: Atropine Sulfate 1% 40 DROP/2 ML BOTTLE SL PRN ×2 (16:32→21:52)
[2018-04-29] MEDS ORDERED: Insulin DETEMIR 100 UNIT/ML X5UNITS SQ SCH (21:00)
[2018-04-29] MEDS ORDERED: Insulin LISPRO 300 UNITS/3 ML VIAL SQ SCH (21:00)
[2018-04-29] MEDS: Clotrimazole 1% CRM 15 GM TUBE TP SCH (21:48)
[2018-04-30] MEDS: OXYCODONE Oral CONC 10 MG/0.5 ML ORAL.SYG SL PRN ×4 (03:47→17:55)
[2018-04-30] MEDS ORDERED: Levothyroxine 25 MCG TABLET PO SCH (06:30)
[2018-04-30 07:10] VITALS: BP 110/65
[2018-04-30] MEDS: Insulin LISPRO 300 UNITS/3 ML VIAL SQ SCH ×3 (08:48→16:43)
[2018-04-30] MEDS: Clotrimazole 1% CRM 15 GM TUBE TP SCH (08:49)
[2018-04-30] MEDS ORDERED: Bumetanide 1 MG TABLET PO SCH (09:00)
[2018-04-30] MEDS ORDERED: Isosorbide MONOnitrate (24 HR) 30 MG TAB.ER.24H PO SCH (09:00)
[2018-04-30] MEDS: *HR* LORazepam Oral Conc 2 MG/ML PO PRN ×3 (09:58→18:38)
--- NOTE | 2018-04-30 11:17 | Palliative Progress Note ---
Date of Encounter: 04/30/18 Time of Encounter: 10:45 - Assessment and plan (1) Agitation Current Visit: No Status: Acute Assessment and plan: Patient has received 2 doses of Ativan in past 24 hrs. totaling 1mg. for agitation. Patient is resting comfortably at present. Vital signs stable. Resp easy. Continue to monitor. (2) Back pain Current Visit: No Status: Acute Assessment and plan: Patient with chronic back pain. Oxycodone given x 4 doses in past 24 hrs. = 40mg total. Patient resting. Eyes closed. Will continue to monitor. Qualifiers: Back pain location: low back pain Chronicity: unspecified Back pain laterality: unspecified Sciatica presence: without sciatica Qualified Code(s): M54.5 - Low back pain (3) Goals of care, counseling/discussion Current Visit: Yes Status: Acute Assessment and plan: Patients granddaughter and son-in-law at bedside. Provided POC update. Patients daughter Tiera is expected to come in later today. Patient would desire to pass at home if possible. Patient vital signs are stable and she is resting at present. Will touch base with Tiera when she arrives. Provided family support and provided hospitality cart for comfort. Explained life expectancy after stopping dialysis. (4) ESRF (end stage renal failure) Current Visit: No Status: Chronic - Time Spent With Patient Total time spent is greater than 50% in coordination of care (as documented) at patient's floor/unit and/or counseling patient: 25 - 35 minutes - Subjective Interval history: Patient sleeping sound. Mouth open breathing. Vitals signs stable. Sats 95% on baseline 3L used at home. Chart reviewed. Patient now comfort care and dialysis has been stopped. Patient admitted to hospital 04/19/18 and transitioned to inpatient hospice care yesterday. Granddaughter at bedside during visit. Provided education on comfort care and hospice care approach. - Constitutional Vitals: Abnormal lab results POC Glucose 131 mg/dL (70-99) H 04/29/18 19:22 - Head Head exam: Present: atraumatic, normal inspection, normocephalic - Eye Eye exam: Present: PERRL - ENT ENT exam: Present: mucous membranes moist - Respiratory Respiratory exam: Present: decreased breath sounds - Expanded Respiratory Exam Location: decreased breath sounds: Left, Right, Lower - Cardiovascular Cardiovascular exam: Present: RRR, +S1, +S2, systolic murmur - Expanded Cardiovascular Exam Type of murmur: Present: systolic Location: Present: RUSB Peripheral pulses: 1+: Femoral (L) PM, Femoral (R) PM, Posterior Tibialis (L), Posterior Tibialis (R), Dorsalis Pedis (L) PM, Dorsalis Pedis (R) PM, 2+: Carotid (L) PM, Carotid (R) PM, Radial (L), Radial (R) - GI/Abdominal GI/Abdominal exam: Present: normal bowel sounds, soft - Extremities Exam Additional comments: Dry - Neurological Exam Neurological exam: Present: altered - Psychiatric Psychiatric exam: Present: flat affect - Skin Skin exam: Present: pallor (Dry), warm Palliative Quality Palliative Quality: Screen for Code Status: Yes, Screen for Goals of Care: Yes, Screen for Pain: Yes, If Pain Regimen Started, Initiate Bowel Regimen: Yes, Screen for Nausea/Vomitting: Yes Code Status: 04/29/18 09:53 Resuscitation Status: Active [RES] Routine Comment: Resuscitation Status: DNR-Comfort Care - Labs Labs: Laboratory Results - last 24 hr 04/29/18 04/29/18 12:12 19:22 POC Glucose 156 H 131 H Consult Discharge Plan - Plan Referrals: NONE,PCP [Primary Care Provider] -
[2018-04-30] MEDS: Atropine Sulfate 1% 40 DROP/2 ML BOTTLE SL PRN ×2 (12:45→17:56)
--- NOTE | 2018-04-30 13:19 | Event Note ---
Date of Encounter: 04/30/18 Time of Encounter: 12:30 Conducted bedside meeting with patients corinna Mott. Updated on the POC. Patient remains unresponsive and requiring ativan and oxycodone for agitation and comfort. Positioned patient and moderate amount of oral secretions removed. Sats 97% on 3L NC. Family has set-up plans at [facility] in [place], [place]. Hospice aware of home arrangements. Family has spiritual support from personal hinduism that they attend. Offered bedside prayer but awaiting their personal franchise broker. Family agrees to current plan of patient remaining in hospital hospice care at this time.
--- NOTE | 2018-05-06 16:40 | Death Note ---
Discharge Sum: Summary - Date and Time Date of admission: 04/29/18 10:33 Date of : 04/30/18 Time of : 18:51 - Summary Details: 04/19/18, for altered mental status, history of complicated MSSA bacteremia in the setting of left knee prosthesis and aortic valve replacement, hypothyroid, and fatigue. PMH: arthritis, cancer, cirrhosis, CHF, diabetes, hyperlipidemia, hypertension, liver disease, renal disease with dialysis (MWF). Palliative care consulted for goals of care on 04/28/18. Met with family and made plan to go home with Hospice care. On night of 04/28/18, patient having waxing and waning between unresponsiveness and severe agitation. Patient also suffering from frequent loose stools. Made plan with family to enroll patient GIP for symptom management regarding severe agitation. Patient had improved pain control and agitation control. Patient passed on 04/30/18@1851, per notification of nursing staff. - Additional Data Confirmation of as documented by pronouncing clinician: no pulse, no respirations, no heart sounds, pupils fixed and dilated Family: contacted Attending/PCP notified?: Yes Attending physician: Chloé Elaine MD Was code activated?: No Autopsy requested?: No deportation examiner notified?: No Organ bank notified?: No Advance directives: Yes Hospice patient?: Yes Discharge Sum: Diag - PCOD Probable Cause of : Cardiac arrest Discharge Sum: Prov - Provider Primary care physician: PCP NONE Admitting clinician: Chloé Elaine Attending physician on admission: Chloé Elaine Consults: 04/29/18 09:53 Consult to Palliative Care [CONS] Routine Comment: Consulting Provider: Palliative Care [place] Reason for Consult: GIP Call Completed: No
== END 2018-04-30 18:51 | disposition expired | DRG 559 ==
LOC: 2ANU 10:33
PROVIDERS: ADMIT Internal Medicine Hospice and Palliative Medicine; ATTEND Internal Medicine Hospice and Palliative Medicine